=== PATIENT | female | born 1950 | race Caucasian/White ===

== ENCOUNTER 2019-09-05 05:08 | Inpatient (IN) ==
[2019-09-05] MEDS ORDERED: 0.9 % SODIUM CHLORIDE 1,000 ML IV ONE ×3 (05:36→16:15)
[2019-09-05] MEDS ORDERED: ONDANSETRON 4 MG/2 ML VIAL IV ONE (05:45)
[2019-09-05 06:19] LABS: Hemoglobin 12.1 g/dL (12.0-15.0); Mean Cell Volume 83.8 fL (80.0-100.0); Mean Corpuscular HGB Conc 32.7 g/dL (31.0-36.0); Mean Platelet Volume 7.7 fL (7.4-10.4); Platelet Count 176 K/mcL (140-440); RBC 4.41 M/mcL (4.00-5.20)
[2019-09-05 06:23] LABS: Appearance,Urine CLEAR; Bacteria,Urine 0 /hpf (0); Bilirubin,Urine NEG (NEG); Color,Urine YELLOW; Culture Indicated,Urine NO; Glucose,Urine (UA) NEGATIVE (NEG); Ketones,Urine NEG (NEG); Leukocyte Esterase,Urine NEG /uL (NEG); Mucus,Urine FEW /hpf (0); Nitrate,Urine NEG (NEG); Protein,Urine NEG (NEG); Specific Gravity,Urine 1.012 (1.000-1.035); Urine Blood 0.03 mg/dL (<0.03); Urine Hyaline Cast 28 /lpf (0-2); Urine RBC 1 /hpf (0-1); Urine Squamous Epithelial Cell 1 /hpf (0-4); Urine WBC 1 /hpf (0-4)
[2019-09-05 06:33] LABS: ALT/SGPT 10 U/l (0-40); AST/SGOT 18 U/l (0-37); Albumin 2.7 gm/dL (3.2-5.2); Albumin/Globulin Ratio 0.5 (1.0-2.3); Alkaline Phosphatase 71 U/L (39-117); Bilirubin,Total 1.3 mg/dL (0.0-1.0); Blood Urea Nitrogen 34 mg/dl (8-23); Calcium 9.3 mg/dl (8.6-10.4); Carbon Dioxide 19 mmol/L (22-30); Glomerular Filtration Rate 30; Glucose 262 mg/dL (70-105)
[2019-09-05 06:34] LABS: Chloride 92 mmol/L (96-108)
--- NOTE | 2019-09-05 06:39 | XRay Report ---
CLINICAL INFORMATION:Hypoxia. Cough. TECHNIQUE: AP portable semiupright chest x-ray COMPARISON: Previous chest x-rays dated 05/23/2017, 11/17/2015, 01/13/2015 FINDINGS:Bilateral, by basilar pulmonary parenchymal infiltrates. Appearance is consistent with pneumonia. Heart size and vascularity are within normal limits. No evidence for congestive heart failure. Follow-up radiographs are recommended. IMPRESSION: Bilateral pulmonary parenchymal infiltrates consistent with pneumonia. Interpreted and Authenticated by: Grey Ochoa 09/05/19
[2019-09-05 06:40] LABS: Band Neutrophils % 7 % (0-10); Lymphocytes % 3 % (15-49); Monocytes % (Manual) 2 % (1-12); Platelet Estimate NORMAL (NORMAL); RBC Morphology NORMAL (NORMAL); Segmented Neutrophils % 88 % (38-78)
[2019-09-05] MEDS ORDERED: CIPROFLOXACIN 400 MG/200 ML BAG IV ONE (06:45)
--- NOTE | 2019-09-05 07:05 | XRay Report ---
CLINICAL INFORMATION: Abdominal pain and distention. History of hepatitis. Possible peritonitis. TECHNIQUE: Supine and upright abdomen COMPARISON: None. FINDINGS: Examination is suboptimal as this patient was unable to cooperate. No pneumoperitoneum. Abdomen is relatively gasless. No focal abnormality. IMPRESSION: 1. Suboptimal evaluation 2. No pneumoperitoneum Interpreted and Authenticated by: Grey Ochoa 09/05/19
[2019-09-05] MEDS ORDERED: ALBUMIN HUMAN 25 GM/100 ML BAG IV ONE ×4 (07:14→07:20)
--- NOTE | 2019-09-05 07:16 | Emergency Department Note ---
Altered Mental Status HPI - General Chief Complaint: Altered Mental Status Stated Complaint: altered level consciousness Time Seen by Provider: 09/05/19 06:41 Source: patient Mode of arrival: ambulatory Limitations: no limitations - History of Present Illness HPI Narrative: 69-year-old female has a history of liver cirrhosis due to chronic hepatitis C and some chronic renal dysfunction and became somewhat confused and not making sense yesterday morning. When daughter arrived home after work around 1:30 AM today she was again not making much sense and was in and out of consciousness, could not walk, was falling asleep, and weak. This was quite unusual for her and that she usually is alert, interactive, appropriate, independent, drives, etc. For this reason she is brought to the emergency room this morning. She is also had vomiting including 5-10 times at home. Some or most morning she has some mild gagging and dry heaves but today was significantly different and worse. She is currently scheduled on Saturday, in 2 days, for paracentesis due to rather large and severe ascites built up from most likely her portal hypertension/cirrhosis. She has had paracentesis a total of 4 previous times the last being about a year and a half ago. Patient has had chills in the last 1-1/2-week. No sweats or fevers reported at home. She does not use oxygen at home. REVIEW OF SYSTEMS: No sore throat reported. Has some chronic runny nose. No chest pain Has had some chronic cough but has been more short of breath in the last couple of days. Has some chronic wheezing. Has an increase in amount of phlegm. Has complained of abdominal pain. She is chronically on hydromorphone 4 mg tablets and she takes them 2 or 3 times a day. Patient is stating that she takes 2 of them 3 times a day but daughter gives them to her and states that it is less than that. No diarrhea or constipation or hematochezia reported are known. No dysuria No joint pain No headaches but has been lightheaded/dizzy. - Related Data Home Medications Medication Instructions Recorded Confirmed albuterol sulfate 90 mcg/actuation 1 puff INHALATION Q4H PRN g 10/28/18 03/17/19 aerosol inhaler ascorbic acid (vitamin C) 1 each PO QDAY 10/28/18 03/17/19 baclofen 10 mg tablet 10 mg PO TID 10/28/18 03/17/19 blood sugar diagnostic See Dose Instructions .ROUTE 10/28/18 03/17/19 .MEDSUPPLY #10 each blood-glucose meter See Dose Instructions .ROUTE 10/28/18 03/17/19 .MEDSUPPLY #1 each fentanyl 75 mcg/hr transdermal 1 patch TRANSDERMA Q72H 10/28/18 03/17/19 patch fluticasone propionate 220 2 puff INHALATION BID g 10/28/18 03/17/19 mcg/actuation HFA aerosol inhaler furosemide 40 mg tablet 80 mg PO QDAY 10/28/18 03/17/19 glipizide 10 mg tablet, extended 10 mg PO QDAY 10/28/18 03/17/19 release 24 hr hydromorphone 4 mg tablet See Rx Instructions PO Q6H PRN 10/28/18 03/17/19 ipratropium-albuterol 0.5 mg-3 3 ml INHALATION .COMPLEX PRN 10/28/18 03/17/19 mg(2.5 mg base)/3 mL nebulization soln lancets See Dose Instructions .ROUTE 10/28/18 03/17/19 .MEDSUPPLY #50 each multivitamin 1 tab PO QAM 10/28/18 03/17/19 mupirocin 2 % topical ointment 1 applic TOPICAL TID 10/28/18 03/17/19 ondansetron 4 mg disintegrating 4 mg PO Q4H PRN tab 10/28/18 03/17/19 tablet salmeterol 50 mcg/dose blister 1 inh INHALATION BID 10/28/18 03/17/19 powder for inhalation spironolactone 100 mg tablet 100 mg PO BID tab 10/28/18 03/17/19 lactulose 10 gram/15 mL oral 30 g PO BID 11/26/18 03/17/19 solution levothyroxine 100 mcg tablet 100 mcg PO QDAY 11/26/18 03/17/19 cholecalciferol (vitamin D3) 400 each PO QDAY 12/17/18 03/17/19 ribavirin 600 mg (28)-400 mg (28) See Rx Instructions .ROUTE 12/17/18 03/17/19 tablets in a dose pack .COMPLEX tab gabapentin 300 mg capsule 300 mg PO BID cap 03/17/19 03/17/19 Previous Rx's Medication Instructions Recorded Triamcinolone Cream 0.1% 15G 1 dose TOPICAL BID #1 tube 01/28/19 [Kenalog Crm 0.1%] hydrOXYzine PAMOATE [Vistaril] 25 mg PO 3-4XD #60 cap 01/28/19 Allergies Allergy/AdvReac Type Severity Reaction Status Date / Time lorazepam [From Ativan] Allergy Unknown comma Verified 03/17/19 14:25 penicillin G Allergy Unknown Anaphylaxis Verified 03/17/19 14:25 Penicillins Allergy Unknown anaphylaxis/ Verified 03/17/19 14:25 swelling of throat/ rash tape Allergy Unknown Unknown Uncoded 03/17/19 14:25 Past Medical History - Past Medical History [facility] Narrative: Medical History (Last Updated 09/05/19 @ 07:22 by Wale Kamara DO) Cirrhosis of liver (Chronic) DMII (diabetes mellitus, type 2) (Chronic) 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) Diabetic peripheral neuropathy (Chronic) Chronic kidney disease, stage III (moderate) (Chronic) COLD (chronic obstructive lung disease) (Chronic) History of pneumonia (Resolved) Visual impairment (Chronic) History of tobacco use (Chronic) End stage liver disease (Chronic) Urinary incontinence (Chronic) Chronic constipation (Chronic) Hypothyroidism (Chronic) Hepatitis C (Resolved) Asthma (Chronic) Arthritis (Chronic) Myoclonic disorder (Chronic) Hernia of anterior abdominal wall (Chronic) Acute exacerbation of chronic bronchitis (Resolved) Cellulitis of lower limb (Resolved) [place] (Resolved) Eczema (Resolved) Localized edema due to fluid overload (Resolved) Overweight (Resolved) UTI (urinary tract infection) (Resolved) Chronic folliculitis (Inactive) Impingement syndrome of right shoulder region (Inactive) Past Surgical History (Last Updated 10/28/18 @ 15:04 by Aimee Elena) H/O hernia repair (Chronic) History of biopsy (Chronic) History of cholecystectomy (Chronic) Family History (Last Updated 10/28/18 @ 13:44 by Aimee Elena) Mother Intracranial aneurysm Father Myocardial infarction acute Brother Diabetes Medical history: Reports: arthritis, DM, osteoporosis, other Surgical history ED: Reports: herniorrhaphy, orthopedic, other (Bilateral knees), other (Intestinal) - Social History smoking status: Current every day smoker (Was a 1 pack/day smoker but has decreased down to 1 to 2 cigarettes/day.) Alcohol use: Reports: None Drug use: Reports: none Physical Exam Limitations: no limitations General appearance: lethargic, malaise, sleepy, other (Mild sallow-mcqueen color) Head: atraumatic, normocephalic Eye: Present: EOMI Neck: Present: trachea midline. Absent: lymphadenopathy, thyromegaly Chest: Present: symmetric chest wall rise Respiratory: Present: rales/crackles (Present in the left base, mild). Absent: respiratory distress, wheezes, stridor, accessory muscle use, prolonged expiratory phase Cardiovascular: Present: regular rate, tachycardia. Absent: systolic murmur, diastolic murmur Abdominal: Present: tenderness, other (Rather tense). Absent: distention, guarding, rebound, rigidity, organomegaly, mass Abdominal tenderness: Present: diffuse, moderate Extremities: Present: pretibial edema (1/4 bilateral), other (Atrophic muscles of lower extremities.). Absent: calf tenderness Neurological: Present: other (Sleepy. Intermittently says things that do make sense and adds to history but other times is inaccurate. Moves all extremities. Facial muscles symmetric. Eyes are symmetric.) Psychiatric: Present: other (Unable to assess due to underlying other medical problems and decreased mental status.) Skin: Present: cool, dry Course Vital Signs Temperature 99.4 F H 09/05/19 05:19 Pulse Rate 126 H 09/05/19 05:19 Respiratory Rate 17 09/05/19 05:19 Blood Pressure 119/93 09/05/19 05:19 Pulse Oximetry (%) 92 09/05/19 05:19 Temperature 100.3 F H 09/05/19 07:01 Pulse Rate 122 H 09/05/19 07:01 Respiratory Rate 19 09/05/19 07:01 Blood Pressure 120/86 09/05/19 07:01 Pulse Oximetry (%) 93 09/05/19 07:01 Altered Mental Status - [facility] Narrative Medical decision making narrative: 5:45 AM -interviewed and examined. Patient ill with hypoxia, tachycardia, fever. Sepsis work-up in progress. With abdominal pain and ascites, spontaneous bacterial peritonitis work-up in progress. Blood cultures obtained early on. EKG shows sinus tachycardia with small configurations throughout most of the leads. Lateral T wave nonspecific flattening or inversion. No ST-T wave segment depression or elevations. 249 Accu-Chek. Influenza test also ordered. 6:12 AM - I discussed with radiologist, Dr. Ochoa, who will facilitate getti ng ultrasound-guided paracentesis EMELINA. 6:50 AM approximately - Albumin ordered after reviewing UpToDate's recommendations. Patient on a background history of portal hypertension/cirrhosis and renal failure needs the albumin to try to preserve renal function. Patient has had a liter of fluid and a second liter is up on sepsis protocol. 6:55 AM approximately - ciprofloxacin ordered. Instructions for this to be given immediately following initial fluid for peritoneal analysis. 7:12 AM - chest x-ray demonstrates bilateral basilar pulmonary infiltrates consistent with pneumonia. 8:15 AM - spoke with hospitalist, Dr. Blum, who kindly accepts this patient for hospital service. We discussed her pneumonia on a background of must rule out spontaneous bacterial peritonitis, etc. He recommends going ahead with a cephalosporin considering that it only has a 3-4% cross-reactivity for allergic reactions with the penicillin class. - Lab Data Lab results reviewed: Yes I reviewed the patient's lab results. Result diagrams: 09/05/19 05:41 09/05/19 05:41 Lab Results 09/05/19 09/05/19 09/05/19 Range/Units 05:31 05:41 05:41 WBC 5.0 (4.5-11.0) K/mcL RBC 4.41 (4.00-5.20) M/mcL Hgb 12.1 (12.0-15.0) g/dL Hct 37.0 (36.0-48.0) % MCV 83.8 (80.0-100.0) fL MCH 27.4 (26.0-34.0) pg MCHC 32.7 (31.0-36.0) g/dL RDW 17.0 H (11.5-14.5) % Plt Count 176 (140-440) K/mcL MPV 7.7 (7.4-10.4) fL Total Counted 100 Seg Neutrophils % 88 H (38-78) % Band Neutrophils % 7 (0-10) % Lymphocytes % 3 L (15-49) % Monocytes % (Manual) 2 (1-12) % Platelet Estimate Normal (NORMAL) RBC Morphology Normal (NORMAL) VBG Lactic Acid (0.5-2.0) mmol/L Sodium 128 L (133-145) mmol/L Potassium 3.8 (3.3-5.1) mmol/L Chloride 92 L (96-108) mmol/L Carbon Dioxide 19 L (22-30) mmol/L Anion Gap 17.0 H (8-16) BUN 34 H (8-23) mg/dl Creatinine 1.7 H (0.6-1.1) mg/dl GFR Calculation 30 Glucose 262 H (70-105) mg/dL Calcium 9.3 (8.6-10.4) mg/dl Total Bilirubin 1.3 H (0.0-1.0) mg/dL AST 18 (0-37) U/l ALT 10 (0-40) U/l Alkaline Phosphatase 71 (39-117) U/L C-Reactive Protein (0.0-0.8) mg/dl Total Protein 8.7 H (5.9-8.4) gm/dL Albumin 2.7 L (3.2-5.2) gm/dL Globulin 6.0 H (2.2-3.7) gm/dL Albumin/Globulin Ratio 0.5 L (1.0-2.3) Procalcitonin (<0.10) ng/mL Urine Color Yellow Urine Appearance Clear Urine pH 6.0 (5.0-9.0) Ur Specific [place] 1.012 (1.000-1.035) Urine Protein Neg (NEG) mg/dL Urine Glucose (UA) Negative (NEG) mg/dL Urine Ketones Neg (NEG) mg/dL Urine Occult Blood 0.03 A (<0.03) mg/dL Urine Nitrate Neg (NEG) Urine Bilirubin Neg (NEG) mg/dL Urine Urobilinogen 2.0 A (NEG) mg/dL Ur Leukocyte Esterase Neg (NEG) /uL Urine RBC 1 (0-1) /hpf Urine WBC 1 (0-4) /hpf Ur Squamous Epith Cells 1 (0-4) /hpf Urine Bacteria 0 (0) /hpf Hyaline Casts 28 H (0-2) /lpf Urine Mucus Few (0) /hpf Ur Culture Indicated? No Periton Neutrophils Periton Lymphocytes Peritoneal Monocytes Peritoneal Eosinophils Peritoneal Basophils Periton Mesothelial Periton Macrophages Peritoneal Plasma Cell Peritoneal Other Cells Peritoneal Diff Commnt 09/05/19 09/05/19 09/05/19 Range/Units 05:41 05:41 05:41 WBC (4.5-11.0) K/mcL RBC (4.00-5.20) M/mcL Hgb (12.0-15.0) g/dL Hct (36.0-48.0) % MCV (80.0-100.0) fL MCH (26.0-34.0) pg MCHC (31.0-36.0) g/dL RDW (11.5-14.5) % Plt Count (140-440) K/mcL MPV (7.4-10.4) fL Total Counted Seg Neutrophils % (38-78) % Band Neutrophils % (0-10) % Lymphocytes % (15-49) % Monocytes % (Manual) (1-12) % Platelet Estimate (NORMAL) RBC Morphology (NORMAL) VBG Lactic Acid 3.3 H (0.5-2.0) mmol/L Sodium (133-145) mmol/L Potassium (3.3-5.1) mmol/L Chloride (96-108) mmol/L Carbon Dioxide (22-30) mmol/L Anion Gap (8-16) BUN (8-23) mg/dl Creatinine (0.6-1.1) mg/dl GFR Calculation Glucose (70-105) mg/dL Calcium (8.6-10.4) mg/dl Total Bilirubin (0.0-1.0) mg/dL AST (0-37) U/l ALT (0-40) U/l Alkaline Phosphatase (39-117) U/L C-Reactive Protein 14.9 H (0.0-0.8) mg/dl Total Protein (5.9-8.4) gm/dL Albumin (3.2-5.2) gm/dL Globulin (2.2-3.7) gm/dL Albumin/Globulin Ratio (1.0-2.3) Procalcitonin 4.44 (<0.10) ng/mL Urine Color Urine Appearance Urine pH (5.0-9.0) Ur Specific [place] (1.000-1.035) Urine Protein (NEG) mg/dL Urine Glucose (UA) (NEG) mg/dL Urine Ketones (NEG) mg/dL Urine Occult Blood (<0.03) mg/dL Urine Nitrate (NEG) Urine Bilirubin (NEG) mg/dL Urine Urobilinogen (NEG) mg/dL Ur Leukocyte Esterase (NEG) /uL Urine RBC (0-1) /hpf Urine WBC (0-4) /hpf Ur Squamous Epith Cells (0-4) /hpf Urine Bacteria (0) /hpf Hyaline Casts (0-2) /lpf Urine Mucus (0) /hpf Ur Culture Indicated? Periton Neutrophils Periton Lymphocytes Peritoneal Monocytes Peritoneal Eosinophils Peritoneal Basophils Periton Mesothelial Periton Macrophages Peritoneal Plasma Cell Peritoneal Other Cells Peritoneal Diff Commnt 09/05/19 Range/Units 07:52 WBC (4.5-11.0) K/mcL RBC (4.00-5.20) M/mcL Hgb (12.0-15.0) g/dL Hct (36.0-48.0) % MCV (80.0-100.0) fL MCH (26.0-34.0) pg MCHC (31.0-36.0) g/dL RDW (11.5-14.5) % Plt Count (140-440) K/mcL MPV (7.4-10.4) fL Total Counted Seg Neutrophils % (38-78) % Band Neutrophils % (0-10) % Lymphocytes % (15-49) % Monocytes % (Manual) (1-12) % Platelet Estimate (NORMAL) RBC Morphology (NORMAL) VBG Lactic Acid (0.5-2.0) mmol/L Sodium (133-145) mmol/L Potassium (3.3-5.1) mmol/L Chloride (96-108) mmol/L Carbon Dioxide (22-30) mmol/L Anion Gap (8-16) BUN (8-23) mg/dl Creatinine (0.6-1.1) mg/dl GFR Calculation Glucose (70-105) mg/dL Calcium (8.6-10.4) mg/dl Total Bilirubin (0.0-1.0) mg/dL AST (0-37) U/l ALT (0-40) U/l Alkaline Phosphatase (39-117) U/L C-Reactive Protein (0.0-0.8) mg/dl Total Protein (5.9-8.4) gm/dL Albumin (3.2-5.2) gm/dL Globulin (2.2-3.7) gm/dL Albumin/Globulin Ratio (1.0-2.3) Procalcitonin (<0.10) ng/mL Urine Color Urine Appearance Urine pH (5.0-9.0) Ur Specific [place] (1.000-1.035) Urine Protein (NEG) mg/dL Urine Glucose (UA) (NEG) mg/dL Urine Ketones (NEG) mg/dL Urine Occult Blood (<0.03) mg/dL Urine Nitrate (NEG) Urine Bilirubin (NEG) mg/dL Urine Urobilinogen (NEG) mg/dL Ur Leukocyte Esterase (NEG) /uL Urine RBC (0-1) /hpf Urine WBC (0-4) /hpf Ur Squamous Epith Cells (0-4) /hpf Urine Bacteria (0) /hpf Hyaline Casts (0-2) /lpf Urine Mucus (0) /hpf Ur Culture Indicated? Periton Neutrophils Not Reportable Periton Lymphocytes Not Reportable Peritoneal Monocytes Not Reportable Peritoneal Eosinophils Not Reportable Peritoneal Basophils Not Reportable Periton Mesothelial Not Reportable Periton Macrophages Not Reportable Peritoneal Plasma Cell Not Reportable Peritoneal Other Cells Not Reportable Peritoneal Diff Commnt Not Reportable - Radiology Data Radiology results reviewed: Yes I reviewed the patient's radiology results. - EKG Data EKG attestation: Yes There are no EKG findings of acute coronary syndrome, Yes This EKG will be read by bale piler EKG results narrative: See above. Disposition Pt seen by STREETS AND BUILDINGS DECORATOR/PA only: No Clinical Impression: Hypoxia Altered mental status Qualifiers: Altered mental status type: unspecified Qualified Code(s): R41.82 - Altered mental status, unspecified Pneumonia Qualifiers: Pneumonia type: due to unspecified organism Laterality: bilateral Lung location: lower lobe of lung Qualified Code(s): J18.9 - Pneumonia, unspecified organism Ascites Qualifiers: Ascites type: other type Qualified Code(s): R18.8 - Other ascites Abdominal pain Qualifiers: Abdominal location: generalized Qualified Code(s): R10.84 - Generalized abdominal pain Disposition: Xfer As Inpt ([facility]) Condition: Serious Referrals: Kaushik Anderson MD [Primary Care Provider] -
[2019-09-05] MEDS ORDERED: METOCLOPRAMIDE 10 MG/2 ML VIAL IV PRN (08:18)
[2019-09-05] MEDS ORDERED: INSULIN REGULAR, HUMAN 1 UNIT/0.01 ML UNIT SQ ONE (08:35)
[2019-09-05 08:48] LABS: Glucose,Peritoneal Fluid 186 mg/dL; Total Protein,Peritoneal Fluid 4.4 gm/dL
[2019-09-05] MEDS: cefTRIAXone 2 GM VIAL IM ONE ×2 (08:50→09:21)
[2019-09-05] MEDS ORDERED: LEVOFLOXACIN 750 MG/150 ML BAG IV SCH (09:00)
[2019-09-05] MEDS ORDERED: cefTRIAXone 2 GM in DEXTROSE 5% IN WATER 50 ML IV ONE (09:17)
[2019-09-05] MEDS ORDERED: POTASSIUM CHLORIDE 20 MEQ PACKET PO PRN (09:51)
[2019-09-05] MEDS ORDERED: MAGNESIUM SULFATE 2 GM/50 ML BAG IV PRN (09:51)
[2019-09-05] MEDS ORDERED: ACETAMINOPHEN 325 MG TABLET PO PRN (09:51)
[2019-09-05] MEDS ORDERED: POLYETHYLENE GLYCOL 3350 17 GM PACKET PO PRN (09:51)
[2019-09-05] MEDS ORDERED: BISACODYL 10 MG SUPP.RECT PR PRN (09:51)
[2019-09-05] MEDS ORDERED: ONDANSETRON 4 MG/2 ML VIAL IV PRN (09:51)
--- NOTE | 2019-09-05 09:52 | Internal Med History&Physical ---
Medical - H&P: HPI Patient information: Note initiated : 09/05/19 at 9:48 am Service Date, if different from initiated Date: [] Patient: Clare Sheehan a 69 y/o F admitted on 09/05/19 for altered level consciousness. Chief Complaint: [] Chief complaint: Acute change in mental status/abdominal pain History of present illness: Ms. 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 Symptoms have been progressing over the last couple of days and patient unable to think clearly. She c/o 7/10 abdominal pain and was noted to have a fever. Over the last couple of days she has not been able to function and essentially laying on the bed. Initial work-up in the ER was consistent with severe sepsis along with findings suggestive of SBP and basilar pneumonia on imaging. Blood cultures pending, elevated lactate at 3.3. Creatinine 1.7 up from baseline 1.3. Patient underwent 6 L paracentesis results of which are awaited. Subsequently hospitalist service consulted after patient received antibiotics At the time evaluation patient is very lethargic and fatigued. Unable to provide a detailed history. Endorses to symptoms as above including fever abdominal pain and weakness. No family members present. Most of the history was obtained from review of medical records and from ER physician. Review of systems A 10 point review system was performed and is negative except for ones discussed above Medical - H&P: PMH Medical history: Visual impairment (Chronic) History of tobacco use (Chronic) End stage liver disease (Chronic) Urinary incontinence (Chronic) Impingement syndrome of right shoulder region (Chronic) Chronic folliculitis (Chronic) [place] (Chronic) Left 1st interspace Cellulitis of lower limb (Chronic) Right Chronic constipation (Chronic) Hernia of anterior abdominal wall (Chronic) COLD (chronic obstructive lung disease) (Chronic) Acute exacerbation of chronic bronchitis (Chronic) Myoclonic disorder (Chronic) Overweight (Chronic) Diabetic renal disease (Chronic) Diabetic peripheral neuropathy (Chronic) Type II diabetes mellitus, uncontrolled (Chronic) 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) Elevated serum creatinine (Chronic) Hypothyroidism (Chronic) Hepatitis C (Chronic) DMII (diabetes mellitus, type 2) (Chronic) Cirrhosis of liver (Chronic) Asthma (Chronic) Arthritis (Chronic) Surgical History H/O hernia repair (Chronic) History of biopsy (Chronic) 05/02/18 Stomach-antrum: Gastric ulcer; gastritis; esophageal varices History of cholecystectomy (Chronic) Family History Mother , at age 37 from aneurysm Intracranial aneurysm Father , at age 68 Myocardial infarction acute Brother Diabetes Social History household members: alone education level: high school occupational status: retired sexually active: No physical activity: none smoking status: Current some day smoker alcohol intake frequency: does not drink substance use type: marijuana seatbelt use: always working smoke detector in home: Yes firearms in home: No Medical - H&P: Meds Home Medications Medication Instructions Recorded Confirmed Type albuterol sulfate 90 mcg/actuation 1 puff INHALATION Q4H PRN g 10/28/18 03/17/19 History aerosol inhaler ascorbic acid (vitamin C) 1 each PO QDAY 10/28/18 03/17/19 History baclofen 10 mg tablet 10 mg PO TID 10/28/18 09/05/19 History fluticasone propionate 220 2 puff INHALATION BID g 10/28/18 09/05/19 History mcg/actuation HFA aerosol inhaler furosemide 40 mg tablet 80 mg PO QDAY 10/28/18 09/05/19 History glipizide 10 mg tablet, extended 10 mg PO QDAY 10/28/18 09/05/19 History release 24 hr hydromorphone 4 mg tablet 4 - 8 mg PO Q6H PRN 10/28/18 09/05/19 History ipratropium-albuterol 0.5 mg-3 3 ml INHALATION .COMPLEX PRN 10/28/18 03/17/19 History mg(2.5 mg base)/3 mL nebulization soln multivitamin 1 tab PO QAM 10/28/18 03/17/19 History mupirocin 2 % topical ointment 1 applic TOPICAL TID 10/28/18 09/05/19 History ondansetron 4 mg disintegrating 4 mg PO Q4H PRN tab 10/28/18 09/05/19 History tablet salmeterol 50 mcg/dose blister 1 inh INHALATION BID 10/28/18 09/05/19 History powder for inhalation spironolactone 100 mg tablet 100 mg PO BID tab 10/28/18 09/05/19 History lactulose 10 gram/15 mL oral 30 g PO BID 11/26/18 09/05/19 History solution levothyroxine 100 mcg tablet 125 mcg PO QDAY 11/26/18 09/05/19 History cholecalciferol (vitamin D3) 400 each PO QDAY 12/17/18 03/17/19 History ribavirin 600 mg (28)-400 mg (28) See Rx Instructions .ROUTE 12/17/18 03/17/19 History tablets in a dose pack .COMPLEX tab Triamcinolone Cream 0.1% 15G 1 dose TOPICAL BID #1 tube 01/28/19 09/05/19 Rx [Kenalog Crm 0.1%] gabapentin 300 mg capsule 300 mg PO TID cap 03/17/19 09/05/19 History Omeprazole [Prilosec] 20 mg PO DAILY 09/05/19 09/05/19 History fentaNYL [Fentanyl] 50 mcg TRANSDERMAL Q3D 09/05/19 09/05/19 History hydrOXYzine PAMOATE [Vistaril] 100 mg PO BID PRN 09/05/19 09/05/19 History Allergies Allergy/AdvReac Type Severity Reaction Status Date / Time penicillin G Allergy Severe Anaphylaxis Verified 09/05/19 10:41 Penicillins Allergy Severe anaphylaxis/ Verified 09/05/19 10:41 swelling of throat/ rash lorazepam [From Ativan] AdvReac Severe Other Verified 09/05/19 10:41 tape Allergy Unknown Unknown Uncoded 03/17/19 14:25 Medical - H&P: Exam - Constitutional Vitals: Temp Pulse Resp BP Pulse Ox 99.7 F H 118 H 20 96/77 85 L 09/05/19 08:30 09/05/19 08:29 09/05/19 08:42 09/05/19 08:30 09/05/19 08:29 General appearance: moderate distress (Abdominal discomfort lethargic) Exam: Patient lethargic fatigued Head normocephalic Oral cavity dry mucous membranes Eye movement symmetrical: No icterus No ear nose discharge Neck no lymphadenopathy S1-S2 occasionally irregular but sinus on conveyor monitor, no murmur Diminished breath sounds bilateral bases Abdomen diffusely tender Lower extremity no sinus clubbing no joint swelling, pallor noted Skin no suspicious lesion except pallor Psych anxious fatigue lethargic but cooperative Neuro nonfocal, moving all 4 extremities Medical - H&P: Reslt - Labs CBC & Chem 7: 09/06/19 03:50 09/06/19 03:50 Labs: Short CBC 09/05/19 Range/Units 05:41 WBC 5.0 (4.5-11.0) K/mcL Hgb 12.1 (12.0-15.0) g/dL Hct 37.0 (36.0-48.0) % Plt Count 176 (140-440) K/mcL BMP 09/05/19 05:41 Sodium 128 L Potassium 3.8 Chloride 92 L Carbon Dioxide 19 L BUN 34 H Creatinine 1.7 H Glucose 262 H Calcium 9.3 Liver Function 09/05/19 Range/Units 05:41 Total Bilirubin 1.3 H (0.0-1.0) mg/dL AST 18 (0-37) U/l ALT 10 (0-40) U/l Alkaline Phosphatase 71 (39-117) U/L Albumin 2.7 L (3.2-5.2) gm/dL Urine 09/05/19 Range/Units 05:31 Urine Color Yellow Urine Appearance Clear Urine pH 6.0 (5.0-9.0) Ur Specific [place] 1.012 (1.000-1.035) Urine Protein Neg (NEG) mg/dL Urine Glucose (UA) Negative (NEG) mg/dL Medical - H&P: A/P (1) Acute alteration in mental status Current visit: Yes Status: Acute * Septic shock with multiple endorgan dysfunction including AMS/DAREN * Acute change mental status possibly secondary to sepsis. * Bilateral lower lobe pneumonia continue antibiotic coverage * Diffuse abdominal tenderness in the setting of ascites-await paracentesis results. Likely SBP. Start patient on Rocephin/quinolone. * Acute on chronic kidney disease -very high risk hepatorenal syndrome in the setting of SBP/septic shock. Continue close monitoring/albumin infusion and maintain map around 70. Avoid NSAIDs and nephrotoxic's. Nephrology consult if indicated * History of DM type II continue basal/prandial insulin * Hypothyroidism continue thyroxine * Liver cirrhosis continue spironolactone once systolics improved * Neuropathy continue gabapentin * Chronic pain on home medications including fentanyl patch * Full code * Prophylaxis heparin Plan * ICU admit, patient critically ill. [place] II score 21 * Broad antibiotic coverage * ID consult * Nephrology consult if indicated * Prior medical condition management home meds * Vasopressors to keep map at goal * Patient critically ill 70 minutes spent on history and physical and care coordination. An additional critical care time spent in excess of 35 minutes.
[2019-09-05] MEDS: 0.9 % SODIUM CHLORIDE 1,000 ML IV SCH (09:57)
[2019-09-05] MEDS ORDERED: ALBUMIN HUMAN 100 ML IV ONE (10:03)
--- NOTE | 2019-09-05 10:04 | Ultrasound Report ---
CLINICAL INFORMATION: Hepatitis. Ascites and possible peritonitis TECHNIQUE: Informed consent was obtained. Ascitic fluid was localized using ultrasound. Routine ChloraPrep skin cleansing. 1% lidocaine injected subcutaneously and deep. An 8 Yi safety centesis set was utilized. 9.2 L of max-colored fluid was removed. Albumin was administered per protocol IMPRESSION: 1. Ultrasound-guided paracentesis 2. 9.2 L fluid removed Interpreted and Authenticated by: Grey Ochoa 09/05/19
[2019-09-05 10:07] LABS: Nucleated Cel,Peritoneal Fluid 14214 /cumm; RBC,Peritoneal Fluid < 50000 /cumm
[2019-09-05 10:10] LABS: Macrophages,Peritoneal Fluid 5 %; Monocyte,Peritoneal Fluid 1 %; Neutrophils,Peritoneal Fluid 90 %
[2019-09-05] MEDS: BUDESONIDE 0.5 MG/2 ML AMPUL.NEB NEB SCH (10:28)
[2019-09-05] MEDS: HEPARIN 5,000 UNIT/ML VIAL SQ SCH ×2 (10:38→20:27)
[2019-09-05] MEDS: DOCUSATE SODIUM 100 MG CAPSULE PO SCH ×2 (10:40→20:24)
[2019-09-05] MEDS: FOLIC ACID 1 MG TABLET PO SCH (10:40)
[2019-09-05] MEDS: THIAMINE 100 MG TABLET PO SCH (10:40)
[2019-09-05] MEDS: MULTIVIT,THER IRON,CA,FA & MIN 1 TABLET PO SCH (10:40)
[2019-09-05] MEDS: CYANOCOBALAMIN (VITAMIN B-12) 500 MCG TABLET PO SCH ×2 (10:40→20:28)
[2019-09-05] MEDS: INSULIN LISPRO 1 UNIT/0.01 ML UNIT SQ SCH ×3 (10:57→21:14)
[2019-09-05] MEDS: ONDANSETRON 4 MG ODT TABLET SL PRN ×2 (12:15→23:10)
[2019-09-05] MEDS: HYDROmorphone 2 MG TABLET PO PRN ×2 (13:31→19:45)
[2019-09-05] MEDS: 0.9 % SODIUM CHLORIDE 10 ML SYRINGE IV SCH ×2 (13:32→21:15)
[2019-09-05] MEDS: INSULIN GLARGINE, HUMAN 1 UNIT/0.01 ML SQ SCH (13:32)
[2019-09-05] MEDS: 0.9 % SODIUM CHLORIDE 250 ML IV SCH (15:49)
[2019-09-05] MEDS: NOREPINEPHRINE BITARTRATE 16 MG in 0.9 % SODIUM CHLORIDE 234 ML IV SCH (16:01)
[2019-09-05] MEDS: SENNOSIDES/DOCUSATE SODIUM 1 TAB TABLET PO SCH (20:24)
[2019-09-05] MEDS: ACETAMINOPHEN 500 MG/50 ML BOTTLE IV PRN (20:27)
[2019-09-05] MEDS ORDERED: MELATONIN 3 MG TABLET PO PRN (21:00)
[2019-09-05] MEDS ORDERED: VANCOMYCIN 1,500 MG in 0.9 % SODIUM CHLORIDE 500 ML IV ONE (23:35)
[2019-09-05] MEDS ORDERED: CALCIUM CARBONATE 500 MG TAB.CHEW CHEWED PRN (23:59)
[2019-09-06] MEDS ORDERED: CALCIUM CARBONATE 500 MG TAB.CHEW ONE (00:07)
[2019-09-06] MEDS: BUDESONIDE 0.5 MG/2 ML AMPUL.NEB NEB SCH ×3 (02:23→20:16)
[2019-09-06] MEDS: 0.9 % SODIUM CHLORIDE 250 ML IV SCH ×2 (03:51→15:17)
[2019-09-06 04:59] LABS: Hematocrit 32.8 % (36.0-48.0); Hemoglobin 10.6 g/dL (12.0-15.0); Mean Cell Volume 85.2 fL (80.0-100.0); Mean Corpuscular HGB Conc 32.3 g/dL (31.0-36.0); Mean Platelet Volume 7.6 fL (7.4-10.4); Platelet Count 132 K/mcL (140-440); RBC 3.85 M/mcL (4.00-5.20); Red Cell Distribution Width 17.3 % (11.5-14.5); WBC 12.2 K/mcL (4.5-11.0)
[2019-09-06 05:28] LABS: Anisocytosis 1+ (NONE SEEN); Band Neutrophils % 5 % (0-10); Lymphocytes % 2 % (15-49); Monocytes % (Manual) 1 % (1-12); Platelet Estimate DECREASED (NORMAL); RBC Morphology ABNORMAL (NORMAL); Segmented Neutrophils % 92 % (38-78)
[2019-09-06 05:44] LABS: ALT/SGPT 7 U/l (0-40); AST/SGOT 20 U/l (0-37); Albumin 2.9 gm/dL (3.2-5.2); Albumin/Globulin Ratio 0.8 (1.0-2.3); Alkaline Phosphatase 70 U/L (39-117); Bilirubin,Direct 0.5 mg/dL (0.0-0.3); Bilirubin,Total 1.1 mg/dL (0.0-1.0); Blood Urea Nitrogen 30 mg/dl (8-23); Calcium 8.5 mg/dl (8.6-10.4); Carbon Dioxide 19 mmol/L (22-30); Chloride 102 mmol/L (96-108); Globulin 3.7 gm/dL (2.2-3.7); Glomerular Filtration Rate 42; Glucose 195 mg/dL (70-105); Lactate Dehydrogenase 169 U/L (94-250); Phosphorous 2.9 mg/dL (2.7-4.5); Triglycerides 67 mg/dl (<150); Uric Acid 6.1 mg/dL (2.5-8.0)
[2019-09-06] MEDS: HYDROmorphone 2 MG TABLET PO PRN (05:48)
[2019-09-06] MEDS: 0.9 % SODIUM CHLORIDE 10 ML SYRINGE IV SCH ×3 (05:49→21:33)
[2019-09-06] MEDS: 0.9 % SODIUM CHLORIDE 1,000 ML IV SCH (05:50)
[2019-09-06] MEDS: INSULIN LISPRO 1 UNIT/0.01 ML UNIT SQ SCH ×4 (07:51→21:52)
[2019-09-06] MEDS ORDERED: cefTRIAXone 2 GM in DEXTROSE 5% IN WATER 50 ML IV SCH (09:00)
[2019-09-06] MEDS: CYANOCOBALAMIN (VITAMIN B-12) 500 MCG TABLET PO SCH ×2 (09:38→21:31)
[2019-09-06] MEDS: MULTIVIT,THER IRON,CA,FA & MIN 1 TABLET PO SCH (09:38)
[2019-09-06] MEDS: HEPARIN 5,000 UNIT/ML VIAL SQ SCH ×2 (09:38→21:31)
[2019-09-06] MEDS: OMEPRAZOLE 20 MG CAPSULE PO SCH (09:38)
[2019-09-06] MEDS: FOLIC ACID 1 MG TABLET PO SCH (09:38)
[2019-09-06] MEDS: THIAMINE 100 MG TABLET PO SCH (09:38)
[2019-09-06] MEDS: INSULIN GLARGINE, HUMAN 1 UNIT/0.01 ML SQ SCH (09:39)
[2019-09-06] MEDS: DOCUSATE SODIUM 100 MG CAPSULE PO SCH ×2 (09:39→21:31)
[2019-09-06] MEDS: IPRATROPIUM/ALBUTEROL 3 ML AMPUL.NEB NEB PRN ×2 (09:44→20:16)
[2019-09-06] MEDS ORDERED: HYDROMORPHONE HCL PO PRN (09:56)
--- NOTE | 2019-09-06 09:57 | Internal Med Progress Note ---
Medical - PN: Subj Patient information: Note initiated : 09/06/19 at 9:54 am Service Date, if different from initiated Date: [] Patient: Clare Sheehan a 69 y/o F admitted on 09/05/19 for altered level consciousness. Chief Complaint: [] Interval history: Ms. 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 Symptoms have been progressing over the last couple of days and patient unable to think clearly. She c/o 7/10 abdominal pain and was noted to have a fever. Over the last couple of days she has not been able to function and essentially laying on the bed. Initial work-up in the ER was consistent with severe sepsis along with findings suggestive of SBP and basilar pneumonia on imaging. Blood cultures pending, elevated lactate at 3.3. Creatinine 1.7 up from baseline 1.3. Patient underwent 6 L paracentesis results of which are awaited. Subsequently hospitalist service consulted after patient received antibiotics At the time evaluation patient is very lethargic and fatigued. Unable to provide a detailed history. Endorses to symptoms as above including fever abdominal pain and weakness. No family members present. Most of the history was obtained from review of medical records and from ER physician. 09/06-GNR on blood cultures/GPC on 1 culture and ascitic fluid Gram stain. Discussed with ID. Antibiotics changed to vancomycin/cefepime. Clinically improving. Lactic acid downtrending from 3.9-1.9. White count 12.2, creatinine down from 1.7-1.3. On Levophed to keep map at goal. Confirmed SBP with over 14,000 white cells in the sciatic fluid with gram-positive cocci in culture. Remains critically ill. Sister at bedside. Discussed prognosis and treatment plan. Repeat surveillance cultures today. - Constitutional Vitals: Vital Signs Temp Pulse Resp BP Pulse Ox 99.0 F 85 21 114/81 96 09/06/19 08:00 09/06/19 08:00 09/06/19 08:00 09/06/19 08:00 09/06/19 08:00 Period Temp Pulse Resp BP Sys/Will Pulse Ox Last 24 Hr 97.5 F-100.0 F 76-105 15-30 73-139/49-89 94-99 Intake and Output 09/05/19 09/06/19 09/06/19 21:59 05:59 13:59 Intake Total 260 3041 Output Total 385 505 160 Balance -125 2536 -160 Weight 138 lb 8 oz Intake & Output: Intake & Output 09/05/19 09/06/19 09/06/19 21:59 05:59 13:59 Intake Total 260 3041 Output Total 385 505 160 Balance -125 2536 -160 Weight 138 lb 8 oz Intake: IV 200 3041 Sodium Chloride 0.9% 1,000 ml @ 1994 50 mls/hr IV .Q20H KAT Rx#: [id number] Sodium Chloride 0.9% 250 ml @ 241 20 mls/hr IV .[id number] KAT Rx#: [id number] Levophed 16 mg In Sodium 106 Chloride 0.9% 234 ml @ 10 MCG/ MIN 9.375 mls/hr IV Q24H KAT Rx #:[id number] Vancomycin 1,500 mg In Sodium 500 Chloride 0.9% 500 ml @ 333.3 mls/hr IV ONCE ONE Rx#: [id number] Oral 60 Output: Urine Catheter Amount 385 505 160 Other: Urine Appearance Clear Clear Urine Color Light Sheron Light Sheron General appearance: no acute distress Exam: More alert and oriented Currently on vasopressors Persistent abdominal tenderness No anxiety Medical - PN: Obj Da - Labs CBC & Chem 7: 09/06/19 03:50 09/06/19 03:50 Labs: Abnormal Lab Results 09/06/19 09/06/19 09/05/19 03:50 03:50 14:35 WBC 12.2 H RBC 3.85 L Hgb 10.6 L Hct 32.8 L RDW 17.3 H Plt Count 132 L Seg Neutrophils % 92 H Lymphocytes % 2 L Anisocytosis 1+ A VBG Lactic Acid 3.9 H Sodium Chloride Carbon Dioxide 19 L Anion Gap BUN 30 H Creatinine 1.3 H Glucose 195 H Calcium 8.5 L Magnesium 1.4 L Total Bilirubin 1.1 H Direct Bilirubin 0.5 H C-Reactive Protein Total Protein Albumin 2.9 L Globulin Albumin/Globulin Ratio 0.8 L Urine Occult Blood Urine Urobilinogen Hyaline Casts 09/05/19 09/05/19 09/05/19 05:41 05:41 05:41 WBC RBC Hgb Hct RDW Plt Count Seg Neutrophils % Lymphocytes % Anisocytosis VBG Lactic Acid 3.3 H Sodium 128 L Chloride 92 L Carbon Dioxide 19 L Anion Gap 17.0 H BUN 34 H Creatinine 1.7 H Glucose 262 H Calcium Magnesium Total Bilirubin 1.3 H Direct Bilirubin C-Reactive Protein 14.9 H Total Protein 8.7 H Albumin 2.7 L Globulin 6.0 H Albumin/Globulin Ratio 0.5 L Urine Occult Blood Urine Urobilinogen Hyaline Casts 09/05/19 09/05/19 05:41 05:31 WBC RBC Hgb Hct RDW 17.0 H Plt Count Seg Neutrophils % 88 H Lymphocytes % 3 L Anisocytosis VBG Lactic Acid Sodium Chloride Carbon Dioxide Anion Gap BUN Creatinine Glucose Calcium Magnesium Total Bilirubin Direct Bilirubin C-Reactive Protein Total Protein Albumin Globulin Albumin/Globulin Ratio Urine Occult Blood 0.03 A Urine Urobilinogen 2.0 A Hyaline Casts 28 H Meds: Medications Acetaminophen (Tylenol) 650 mg PO Q4-6HP PRN; Protocol PRN Reason: Per Pain Protocol/Fever > 101 Albuterol/Ipratropium (Duoneb) 3 ml NEB Q4HP PRN PRN Reason: Shortness Of Breath Last Admin: 09/06/19 09:44 Dose: 3 ml Documented by: Bisacodyl (Dulcolax) 10 mg ND Q2-3DAYS PRN PRN Reason: Constipation Budesonide (Pulmicort) 0.5 mg NEB Q12 [facility] Last Admin: 09/06/19 09:44 Dose: 0.5 mg Documented by: Calcium Carbonate/Glycine (Tums) 500 mg CHEWED Q4HP PRN PRN Reason: Dyspepsia Cefepime HCl (Maxipime) 2 gm IV Q12H [facility]; Protocol Cyanocobalamin (Vitamin B-12) 1,000 mcg PO BID [facility] Stop: 09/09/19 21:01 Last Admin: 09/06/19 09:38 Dose: 1,000 mcg Documented by: Diagnostic Test (Pha) (Accu-Chek) 1 each FS ACHS [facility] Last Admin: 09/06/19 07:46 Dose: 1 each Documented by: Docusate Sodium (Colace) 100 mg PO BID [facility] Last Admin: 09/06/19 09:39 Dose: 100 mg Documented by: Folic Acid (Folic Acid) 1 mg PO DAILY [facility] Last Admin: 12/08/19 09:38 Dose: 1 mg Documented by: Heparin Sodium (Porcine) (Heparin) 5,000 unit SQ Q12 [facility] Last Admin: 09/06/19 09:38 Dose: 5,000 unit Documented by: Hydromorphone HCl (Dilaudid) 4 - 8 mg PO Q6HP PRN; Protocol PRN Reason: Per Pain Protocol Last Admin: 09/06/19 05:48 Dose: 8 mg Documented by: Sodium Chloride (Sodium Chloride 0.9%) 1,000 mls @ 50 mls/hr IV .Q20H [facility] Stop: 09/07/19 21:50 Last Admin: 09/06/19 05:50 Dose: 50 mls/hr Documented by: Magnesium Sulfate (Magnesium Sulfate) 2 gm in 50 mls @ 50 mls/hr IV UD PRN PRN Reason: MG = or < 1.7 Norepinephrine Bitartrate 16 (mg/ Sodium Chloride) 250 mls @ 9.375 mls/hr IV Q24H [facility]; Protocol Last Titration: 09/06/19 03:35 Dose: 5 mcg/min, 4.688 mls/hr Documented by: Sodium Chloride (Sodium Chloride 0.9%) 250 mls @ 20 mls/hr IV .[id number] [facility] Last Admin: 09/06/19 03:51 Dose: 20 mls/hr Documented by: Acetaminophen (Ofirmev) 500 mg in 50 mls @ 100 mls/hr IV Q6HP PRN; Protocol PRN Reason: PAIN/FEVER > 101 Last Infusion: 09/05/19 21:00 Dose: Infused Documented by: Vancomycin HCl 1,000 mg/ (Sodium Chloride) 250 mls @ 250 mls/hr IV DAILY [facility] Insulin Glargine (Lantus) 10 unit SQ DAILY [facility] Last Admin: 09/06/19 09:39 Dose: 10 units Documented by: Insulin Human Lispro (Humalog) 0 unit SQ ACHS [facility]; Protocol Last Admin: 09/06/19 07:51 Dose: 6 units Documented by: Iron Carb/Multivit/[place]/Folic Acid (Multivitamin W/Minerals) 1 tab PO DAILY [facility] Last Admin: 09/06/19 09:38 Dose: 1 tab Documented by: Melatonin (Melatonin 3mg Tablet) 3 mg PO HSP PRN PRN Reason: Insomnia Metoclopramide HCl (Reglan) 5 mg IV Q3HP PRN PRN Reason: nausea/vomiting Omeprazole (Prilosec) 20 mg PO ACB [facility] Last Admin: 09/06/19 09:38 Dose: 20 mg Documented by: Ondansetron HCl (Zofran Odt) 4 mg SL Q4-6HP PRN; Protocol PRN Reason: Nausea And Vomiting Last Admin: 09/05/19 23:10 Dose: 4 mg Documented by: Ondansetron HCl (Zofran) 4 mg IV Q4-6HP PRN; Protocol PRN Reason: Nausea And Vomiting Polyethylene Glycol (Miralax) 17 gm PO DAILYP PRN PRN Reason: Constipation Potassium Chloride (Klor-Con) 40 meq PO DAILYP PRN PRN Reason: K+ < 3.5 Senna/Docusate Sodium (Senna Plus Tablet) 1 tab PO HS [facility] Last Admin: 09/05/19 20:24 Dose: Not Given Documented by: Sodium Chloride (Saline Flush) 10 ml IV Q8 [facility] Last Admin: 09/06/19 05:49 Dose: 10 ml Documented by: Thiamine HCl (Vitamin B1) 100 mg PO DAILY [facility] Last Admin: 09/06/19 09:38 Dose: 100 mg Documented by: Vancomycin HCl (Vancomycin Per Pharmacy) 0 order IV UD [facility]; Protocol Medical - PN: A/P - Time Spent With Patient Total time spent is greater than 50% in coordination of care (as documented) at patient's floor/unit and/or counseling patient: Greater than 35 minutes (Critical care time) (1) Acute alteration in mental status Status: Acute Assessment and plan: * Septic shock with multiple endorgan dysfunction including AMS/DAREN. Clinically improving with aggressive management including crystalloid/vasopressors/venous lactate trending. White count 12.2. Gram- negative and gram-positive organisms on blood culture. Surveillance cultures pending. Antibiotics escalated to cefepime/vancomycin * GNR/GPC bacteremia - Surveillance cultures pending. Likely source spontaneous bacterial peritonitis. Broad antibiotic coverage * Spontaneous bacterial rhinitis with over 14,000 WBCs peritoneal fluid. Initial Gram stain gram-positive cocci acetic fluid * Acute change mental status possibly secondary to sepsis. Clinically improving * Bilateral lower lobe pneumonia continue antibiotic coverage * Acute on chronic kidney disease -creatinine improved from 1.7-1.3 * History of DM type II continue basal/prandial insulin * Hypothyroidism on thyroxine * Liver cirrhosis continue spironolactone once systolics improved * Neuropathy continue gabapentin * Chronic pain on home medications including fentanyl patch * Full code * Prophylaxis heparin Plan * Patient remains critically ill * Continue surveillance cultures * Cefepime vancomycin * ID consult * Prior medical condition management home meds * Vasopressors to keep map at goal Current Visit: Yes
[2019-09-06] MEDS: CEFEPIME 2 GM VIAL IV SCH ×2 (12:09→21:31)
[2019-09-06] MEDS: fentaNYL 50 MCG PATCH TOPICAL SCH (13:28)
[2019-09-06] MEDS: VANCOMYCIN 1,000 MG in 0.9 % SODIUM CHLORIDE 250 ML IV SCH (15:17)
[2019-09-06] MEDS: BACLOFEN 10 MG TABLET PO SCH ×2 (15:17→21:31)
[2019-09-06] MEDS: NOREPINEPHRINE BITARTRATE 16 MG in 0.9 % SODIUM CHLORIDE 234 ML IV SCH (17:09)
[2019-09-06] MEDS: GABAPENTIN 300 MG CAPSULE PO SCH (21:31)
[2019-09-06] MEDS: LACTULOSE 20 GM/30 ML ORAL.SOL PO SCH (21:32)
[2019-09-06] MEDS: SENNOSIDES/DOCUSATE SODIUM 1 TAB TABLET PO SCH (21:32)
[2019-09-06] MEDS: FLUTICASONE HFA 220MCG INHALER INH SCH (22:04)
[2019-09-06] MEDS: SALMETEROL XINAFOATE 1 PUFF INHALER INH SCH (22:04)
[2019-09-06] MEDS ORDERED: VANCOMYCIN PER PHARMACY IV SCH (23:45)
[2019-09-07] MEDS: 0.9 % SODIUM CHLORIDE 1,000 ML IV SCH (03:05)
[2019-09-07] MEDS: 0.9 % SODIUM CHLORIDE 250 ML IV SCH ×2 (04:49→19:29)
[2019-09-07 04:59] LABS: Hematocrit 30.3 % (36.0-48.0); Mean Cell Volume 83.8 fL (80.0-100.0); Mean Corpuscular HGB Conc 33.1 g/dL (31.0-36.0); Mean Platelet Volume 7.5 fL (7.4-10.4); Platelet Count 113 K/mcL (140-440); RBC 3.61 M/mcL (4.00-5.20); WBC 8.1 K/mcL (4.5-11.0)
[2019-09-07] MEDS: 0.9 % SODIUM CHLORIDE 10 ML SYRINGE IV SCH ×3 (05:20→21:28)
[2019-09-07 05:24] LABS: ALT/SGPT 12 U/l (0-40); AST/SGOT 27 U/l (0-37); Albumin 2.3 gm/dL (3.2-5.2); Albumin/Globulin Ratio 0.6 (1.0-2.3); Alkaline Phosphatase 44 U/L (39-117); Bilirubin,Total 0.7 mg/dL (0.0-1.0); Calcium 8.9 mg/dl (8.6-10.4); Carbon Dioxide 19 mmol/L (22-30); Chloride 103 mmol/L (96-108); Glucose 191 mg/dL (70-105); Lactate Dehydrogenase 176 U/L (94-250); Triglycerides 57 mg/dl (<150)
[2019-09-07 05:26] LABS: Bilirubin,Direct 0.3 mg/dL (0.0-0.3); Blood Urea Nitrogen 23 mg/dl (8-23); Glomerular Filtration Rate 57; Phosphorous 2.2 mg/dL (2.7-4.5)
[2019-09-07 05:49] LABS: Anisocytosis 1+ (NONE SEEN); Band Neutrophils % 18 % (0-10); Monocytes % (Manual) 3 % (1-12); Platelet Estimate DECREASED (NORMAL); RBC Morphology ABNORM (NORMAL); Segmented Neutrophils % 79 % (38-78); Toxic Granulation 2+ (NONE SEEN)
[2019-09-07] MEDS: INSULIN LISPRO 1 UNIT/0.01 ML UNIT SQ SCH ×4 (07:58→21:28)
[2019-09-07] MEDS: OMEPRAZOLE 20 MG CAPSULE PO SCH (07:58)
[2019-09-07] MEDS: LEVOTHYROXINE 125 MCG TABLET PO SCH (07:58)
[2019-09-07] MEDS ORDERED: OMEPRAZOLE 20 MG CAPSULE PO SCH (09:00)
[2019-09-07] MEDS: IPRATROPIUM/ALBUTEROL 3 ML AMPUL.NEB NEB PRN ×2 (09:06→21:04)
[2019-09-07] MEDS: BUDESONIDE 0.5 MG/2 ML AMPUL.NEB NEB SCH ×2 (09:06→21:04)
[2019-09-07] MEDS ORDERED: FUROSEMIDE 40 MG/4 ML VIAL IV ONE (09:55)
[2019-09-07] MEDS ORDERED: ALBUTEROL SULFATE 1 PUFF INHALER INH PRN (09:55)
[2019-09-07] MEDS ORDERED: ONDANSETRON 4 MG ODT TABLET PO PRN (09:55)
[2019-09-07] MEDS ORDERED: IPRATROPIUM/ALBUTEROL 3 ML AMPUL.NEB NEB PRN (09:55)
[2019-09-07] MEDS ORDERED: hydrOXYzine 25 MG TABLET PO PRN (09:55)
[2019-09-07] MEDS: LACTULOSE 20 GM/30 ML ORAL.SOL PO SCH ×4 (10:06→20:40)
[2019-09-07] MEDS: cefTRIAXone 2 GM in DEXTROSE 5% IN WATER 50 ML IV SCH (10:10)
[2019-09-07] MEDS: INSULIN GLARGINE, HUMAN 1 UNIT/0.01 ML SQ SCH (10:14)
[2019-09-07] MEDS: HEPARIN 5,000 UNIT/ML VIAL SQ SCH ×2 (10:15→21:27)
[2019-09-07] MEDS: SPIRONOLACTONE 25 MG TABLET PO SCH ×2 (10:16→21:27)
--- NOTE | 2019-09-07 10:38 | Internal Med Progress Note ---
Medical - PN: Subj Patient information: Note initiated : 09/07/19 at 10:34 am Service Date, if different from initiated Date: [] Patient: Clare Sheehan a 69 y/o F admitted on 09/05/19 for altered level consciousness. Chief Complaint: [] Interval history: Ms. 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 Symptoms have been progressing over the last couple of days and patient unable to think clearly. She c/o 7/10 abdominal pain and was noted to have a fever. Over the last couple of days she has not been able to function and essentially laying on the bed. Initial work-up in the ER was consistent with severe sepsis along with findings suggestive of SBP and basilar pneumonia on imaging. Blood cultures pending, elevated lactate at 3.3. Creatinine 1.7 up from baseline 1.3. Patient underwent 6 L paracentesis results of which are awaited. Subsequently hospitalist service consulted after patient received antibiotics At the time evaluation patient is very lethargic and fatigued. Unable to provide a detailed history. Endorses to symptoms as above including fever abdominal pain and weakness. No family members present. Most of the history was obtained from review of medical records and from ER physician. 09/06-GNR on blood cultures/GPC on 1 culture and ascitic fluid Gram stain. Discussed with ID. Antibiotics changed to vancomycin/cefepime. Clinically improving. Lactic acid downtrending from 3.9-1.9. White count 12.2, creatinine down from 1.7-1.3. On Levophed to keep map at goal. Confirmed SBP with over 14,000 white cells in the sciatic fluid with gram-positive cocci in culture. Remains critically ill. Sister at bedside. Discussed prognosis and treatment plan. Repeat surveillance cultures today. 09/07-peritoneal fluid heavy growth alpha streptococci. On antibiotic coverage. ID consulted. Patient off pressors since yesterday. Remains critically ill. Feels lethargic fatigued. Tense, tender and distended abdomen with reaccumulation of ascites. No family at bedside. Remains a poor prognosis and high risk mortality in the setting of liver cirrhosis/sepsis bacteremia and spontaneous bacterial enteritis - Constitutional Vitals: Vital Signs Temp Pulse Resp BP Pulse Ox 99.1 F H 94 H 22 106/71 93 09/07/19 08:01 09/07/19 09:15 09/07/19 09:15 09/07/19 08:01 09/07/19 09:21 Period Temp Pulse Resp BP Sys/Will Pulse Ox Last 24 Hr 98.5 F-99.3 F 87-99 15-29 87-120/57-82 87-99 Intake and Output 09/06/19 09/07/19 09/07/19 21:59 05:59 13:59 Intake Total 683 1000 343 Output Total 435 540 140 Balance 248 460 203 Weight 143 lb 11.2 oz Intake & Output: Intake & Output 09/06/19 09/07/19 09/07/19 21:59 05:59 13:59 Intake Total 683 1000 343 Output Total 435 540 140 Balance 248 460 203 Weight 143 lb 11.2 oz Intake: IV 563 1000 343 Sodium Chloride 0.9% 1,000 ml @ 1000 343 50 mls/hr IV .Q20H [facility] Rx#: [id number] Sodium Chloride 0.9% 250 ml @ 306 20 mls/hr IV .[id number] [facility] Rx#: [id number] Levophed 16 mg In Sodium 7 Chloride 0.9% 234 ml @ 10 MCG/ MIN 9.375 mls/hr IV Q24H [facility]AT Rx #:[id number] Vancomycin 1,000 mg In Sodium 250 Chloride 0.9% 250 ml @ 250 mls/ hr IV DAILY KAT Rx#:[id number] Oral 120 Output: Urine Catheter Amount 435 540 140 Other: Meal Dinner Percent of Meal Consumed 100% Urine Appearance Clear Clear Uretheral (Bundy) Clear Urine Color Bright Yellow Bright Yellow Uretheral (Bundy) Dark Yellow General appearance: no acute distress Exam: Lethargic and fatigued Nonlabored breathing Anxious Distended abdomen/tender Minimal lymphedema Medical - PN: Obj Da - Labs CBC & Chem 7: 09/07/19 04:13 09/07/19 04:13 Labs: Abnormal Lab Results 09/07/19 09/07/19 09/06/19 04:13 04:13 03:50 WBC RBC 3.61 L Hgb 10.0 L Hct 30.3 L RDW 17.0 H Plt Count 113 L Seg Neutrophils % 79 H Band Neutrophils % 18 H Lymphocytes % WBC Morphology Abnorm A Toxic Granulation 2+ A RBC Morphology Abnorm A Anisocytosis 1+ A VBG Lactic Acid Sodium 132 L Chloride Carbon Dioxide 19 L 19 L Anion Gap BUN 30 H Creatinine 1.3 H Glucose 191 H 195 H Calcium 8.5 L Phosphorus 2.2 L Magnesium 1.4 L Total Bilirubin 1.1 H Direct Bilirubin 0.5 H C-Reactive Protein Total Protein Albumin 2.3 L 2.9 L Globulin 4.0 H Albumin/Globulin Ratio 0.6 L 0.8 L Urine Occult Blood Urine Urobilinogen Hyaline Casts 09/06/19 09/05/19 09/05/19 03:50 14:35 05:41 WBC 12.2 H RBC 3.85 L Hgb 10.6 L Hct 32.8 L RDW 17.3 H Plt Count 132 L Seg Neutrophils % 92 H Band Neutrophils % Lymphocytes % 2 L WBC Morphology Toxic Granulation RBC Morphology Anisocytosis 1+ A VBG Lactic Acid 3.9 H Sodium Chloride Carbon Dioxide Anion Gap BUN Creatinine Glucose Calcium Phosphorus Magnesium Total Bilirubin Direct Bilirubin C-Reactive Protein 14.9 H Total Protein Albumin Globulin Albumin/Globulin Ratio Urine Occult Blood Urine Urobilinogen Hyaline Casts 09/05/19 09/05/19 09/05/19 05:41 05:41 05:41 WBC RBC Hgb Hct RDW 17.0 H Plt Count Seg Neutrophils % 88 H Band Neutrophils % Lymphocytes % 3 L WBC Morphology Toxic Granulation RBC Morphology Anisocytosis VBG Lactic Acid 3.3 H Sodium 128 L Chloride 92 L Carbon Dioxide 19 L Anion Gap 17.0 H BUN 34 H Creatinine 1.7 H Glucose 262 H Calcium Phosphorus Magnesium Total Bilirubin 1.3 H Direct Bilirubin C-Reactive Protein Total Protein 8.7 H Albumin 2.7 L Globulin 6.0 H Albumin/Globulin Ratio 0.5 L Urine Occult Blood Urine Urobilinogen Hyaline Casts 09/05/19 05:31 WBC RBC Hgb Hct RDW Plt Count Seg Neutrophils % Band Neutrophils % Lymphocytes % WBC Morphology Toxic Granulation RBC Morphology Anisocytosis VBG Lactic Acid Sodium Chloride Carbon Dioxide Anion Gap BUN Creatinine Glucose Calcium Phosphorus Magnesium Total Bilirubin Direct Bilirubin C-Reactive Protein Total Protein Albumin Globulin Albumin/Globulin Ratio Urine Occult Blood 0.03 A Urine Urobilinogen 2.0 A Hyaline Casts 28 H Meds: Medications Acetaminophen (Tylenol) 650 mg PO Q4-6HP PRN; Protocol PRN Reason: Per Pain Protocol/Fever > 101 Albuterol Sulfate (Ventolin) 1 puff INH Q4HP PRN PRN Reason: Shortness Of Breath Albuterol/Ipratropium (Duoneb) 3 ml NEB Q4HP PRN PRN Reason: Shortness Of Breath Last Admin: 09/07/19 09:06 Dose: 3 ml Documented by: Ascorbic Acid (Vitamin C) 500 mg PO DAILY [facility] Baclofen (Lioresal) 10 mg PO TID [facility] Last Admin: 09/06/19 21:31 Dose: 10 mg Documented by: Bisacodyl (Dulcolax) 10 mg HI Q2-3DAYS PRN PRN Reason: Constipation Budesonide (Pulmicort) 0.5 mg NEB Q12 [facility] Last Admin: 09/07/19 09:06 Dose: 0.5 mg Documented by: Calcium Carbonate/Glycine (Tums) 500 mg CHEWED Q4HP PRN PRN Reason: Dyspepsia Cyanocobalamin (Vitamin B-12) 1,000 mcg PO BID [facility] Stop: 09/09/19 21:01 Last Admin: 09/06/19 21:31 Dose: 1,000 mcg Documented by: Diagnostic Test (Pha) (Accu-Chek) 1 each FS ACHS [facility] Last Admin: 09/07/19 07:56 Dose: 1 each Documented by: Docusate Sodium (Colace) 100 mg PO BID [facility] Last Admin: 09/06/19 21:31 Dose: 100 mg Documented by: Fentanyl (Duragesic) 50 mcg TOPICAL Q72H [facility] Last Admin: 09/06/19 13:28 Dose: 50 mcg Documented by: Fluticasone Propionate (Flovent Hfa 220mcg) 2 puff INH BID [facility] Last Admin: 09/06/19 22:04 Dose: Not Given Documented by: Folic Acid (Folic Acid) 1 mg PO DAILY [facility] Last Admin: 09/06/19 09:38 Dose: 1 mg Documented by: Furosemide (Lasix) 80 mg PO QDAY [facility] Gabapentin (Neurontin) 300 mg PO BID [facility] Last Admin: 09/06/19 21:31 Dose: 300 mg Documented by: Heparin Sodium (Porcine) (Heparin) 5,000 unit SQ Q12 [facility] Last Admin: 09/07/19 10:15 Dose: 5,000 unit Documented by: Hydromorphone HCl (Dilaudid) 4 - 8 mg PO Q6HP PRN; Protocol PRN Reason: Per Pain Protocol Last Admin: 09/06/19 05:48 Dose: 8 mg Documented by: Hydroxyzine HCl (Atarax) 100 mg PO BIDP PRN PRN Reason: Itching Magnesium Sulfate (Magnesium Sulfate) 2 gm in 50 mls @ 50 mls/hr IV UD PRN PRN Reason: MG = or < 1.7 Last Infusion: 09/06/19 11:25 Dose: Infused Documented by: Norepinephrine Bitartrate 16 (mg/ Sodium Chloride) 250 mls @ 9.375 mls/hr IV Q24H [facility]; Protocol Last Admin: 09/06/19 17:09 Dose: Not Given Documented by: Sodium Chloride (Sodium Chloride 0.9%) 250 mls @ 20 mls/hr IV .[id number] [facility] Last Admin: 09/07/19 04:49 Dose: Not Given Documented by: Acetaminophen (Ofirmev) 500 mg in 50 mls @ 100 mls/hr IV Q6HP PRN; Protocol PRN Reason: PAIN/FEVER > 101 Last Infusion: 09/05/19 21:00 Dose: Infused Documented by: Ceftriaxone Sodium 2 gm/ (Dextrose) 50 mls @ 100 mls/hr IV DAILY [facility]; Protocol Last Admin: 09/07/19 10:10 Dose: 100 mls/hr Documented by: Insulin Glargine (Lantus) 10 unit SQ DAILY [facility] Last Admin: 09/07/19 10:14 Dose: 10 units Documented by: Insulin Human Lispro (Humalog) 0 unit SQ ACHS [facility]; Protocol Last Admin: 09/07/19 07:58 Dose: 4 units Documented by: Iron Carb/Multivit/Clark/Folic Acid (Multivitamin W/Minerals) 1 tab PO DAILY [facility] Last Admin: 09/06/19 09:38 Dose: 1 tab Documented by: Lactulose (Cephulac) 30 gm PO QID [facility] Levothyroxine Sodium (Synthroid) 125 mcg PO ACB [facility] Last Admin: 09/07/19 07:58 Dose: 125 mcg Documented by: Melatonin (Melatonin 3mg Tablet) 3 mg PO HSP PRN PRN Reason: Insomnia Metoclopramide HCl (Reglan) 5 mg IV Q3HP PRN PRN Reason: nausea/vomiting Mupirocin (Bactroban Oint 2%) 1 dose TOPICAL TID [facility] Omeprazole (Prilosec) 20 mg PO ACB [facility] Last Admin: 09/07/19 07:58 Dose: 20 mg Documented by: Ondansetron HCl (Zofran Odt) 4 mg SL Q4-6HP PRN; Protocol PRN Reason: Nausea And Vomiting Last Admin: 09/05/19 23:10 Dose: 4 mg Documented by: Ondansetron HCl (Zofran) 4 mg IV Q4-6HP PRN; Protocol PRN Reason: Nausea And Vomiting Polyethylene Glycol (Miralax) 17 gm PO DAILYP PRN PRN Reason: Constipation Potassium Chloride (Klor-Con) 40 meq PO DAILYP PRN PRN Reason: K+ < 3.5 Salmeterol Xinafoate (Serevent) 1 puff INH BID [facility] Last Admin: 09/06/19 22:04 Dose: Not Given Documented by: Senna/Docusate Sodium (Senna Plus Tablet) 1 tab PO HS [facility] Last Admin: 09/06/19 21:32 Dose: 1 tab Documented by: Sodium Chloride (Saline Flush) 10 ml IV Q8 [facility] Last Admin: 09/07/19 05:20 Dose: 10 ml Documented by: Spironolactone (Aldactone) 100 mg PO BID [facility] Last Admin: 09/07/19 10:16 Dose: 100 mg Documented by: Thiamine HCl (Vitamin B1) 100 mg PO DAILY [facility] Last Admin: 09/06/19 09:38 Dose: 100 mg Documented by: Vitamin D (Vitamin D3) 400 unit PO DAILY [facility] Medical - PN: A/P - Time Spent With Patient Total time spent is greater than 50% in coordination of care (as documented) at patient's floor/unit and/or counseling patient: Greater than 35 minutes (Critical care time) (1) Acute alteration in mental status Status: Acute Assessment and plan: * Septic shock with multiple endorgan dysfunction including AMS/DAREN. Off pressors however clinically worse. Continuing cefepime/vancomycin * GNR/GPC bacteremia - Surveillance cultures pending. Likely source spontaneous bacterial peritonitis. Broad antibiotic coverage * Spontaneous bacterial alpha streptococci peritonitis- with over 14,000 WBCs peritoneal fluid. On antibiotic coverage. ID consulted * Acute change mental status possibly secondary to sepsis. Clinically worse. Increase lactulose dose * Worsening ascites start diuresis * Bilateral lower lobe pneumonia continue antibiotic coverage * Acute on chronic kidney disease -creatinine improved from 1.7-1.3->1 * History of DM type II continue basal/prandial insulin * Hypothyroidism on thyroxine * Liver cirrhosis -restart Lasix per lactone * Neuropathy continue gabapentin * Chronic pain on home medications including fentanyl patch * Full code * Prophylaxis heparin Plan * Patient remains critically ill * ID consult * Cefepime vancomycin * Increase lactulose dosing/DC pressors and crystalloids * Prior medical condition management home meds Current Visit: Yes
[2019-09-07] MEDS: VANCOMYCIN 1,000 MG in 0.9 % SODIUM CHLORIDE 250 ML IV SCH (10:48)
[2019-09-07] MEDS: CEFEPIME 2 GM VIAL IV SCH (10:48)
[2019-09-07] MEDS: FLUTICASONE HFA 220MCG INHALER INH SCH ×2 (11:36→20:40)
[2019-09-07] MEDS: DOCUSATE SODIUM 100 MG CAPSULE PO SCH ×2 (11:36→21:27)
[2019-09-07] MEDS: FOLIC ACID 1 MG TABLET PO SCH (11:36)
[2019-09-07] MEDS: MULTIVIT,THER IRON,CA,FA & MIN 1 TABLET PO SCH (11:37)
[2019-09-07] MEDS: CYANOCOBALAMIN (VITAMIN B-12) 500 MCG TABLET PO SCH ×2 (11:37→21:27)
[2019-09-07] MEDS: BACLOFEN 10 MG TABLET PO SCH ×3 (11:37→21:32)
[2019-09-07] MEDS: GABAPENTIN 300 MG CAPSULE PO SCH ×2 (11:37→21:27)
[2019-09-07] MEDS: SALMETEROL XINAFOATE 1 PUFF INHALER INH SCH ×2 (11:37→20:41)
[2019-09-07] MEDS: THIAMINE 100 MG TABLET PO SCH (12:35)
[2019-09-07] MEDS ORDERED: MUPIROCIN OINT 2% 22GM TOPICAL SCH (15:00)
[2019-09-07] MEDS ORDERED: NOREPINEPHRINE BITARTRATE 16 MG in 0.9 % SODIUM CHLORIDE 234 ML IV PRN (15:15)
[2019-09-07] MEDS: HYDROmorphone 2 MG TABLET PO PRN ×2 (18:11→23:24)
--- NOTE | 2019-09-07 20:51 | Infectious Disease Consult ---
History of Present Illness Patient information: Note initiated : 09/07/19 at 8:49 pm Service Date, if different from initiated Date: [] Patient: Clare Sheehan 69 y/o F admitted on 09/05/19 for altered level consciousness. Chief Complaint: [] Consult date: 09/07/19 Requesting Physician: Leobardo Conway Reason for Consult: Bacteremia Chief complaint: I was confused, have belly pain History of present illness: 69 year old patient with PMHx of HepC (cured last year), decompensated cirrhosis with portal HTN is admitted after her daughter noticed that she has been confused at home for 3-4 days. Pt was not taking Lactulose as prescribed, and was due for paracentesis as well. In addition, she had been c/o belly pain with difficulty in moving from one side to other. At admission, she was hypotensive, tachycardic and needed vasopressors. Blood Cx sent, peritoneal fluid was aspirated, sent for cell count and Cx. She was on empiric Vanc and Cefepime. Blood Cx and peritoneal fluid Cx grew Strept pneumoniae. Pt was switched to IV Ceftriaxone. Review of Systems ROS unobtainable: due to mental status All systems PM: reviewed and no additional remarkable complaints except as stated Past History Past family history: no sick contacts Past social history: lives with daughter doesnot consume alc, and didnot do so in past Medications and Allergies Home Medications Medication Instructions Recorded Confirmed Type albuterol sulfate 90 mcg/actuation 1 puff INHALATION Q4H PRN g 10/28/18 09/06/19 History aerosol inhaler ascorbic acid (vitamin C) 1 each PO QDAY 10/28/18 09/06/19 History baclofen 10 mg tablet 10 mg PO TID 10/28/18 09/05/19 History fluticasone propionate 220 2 puff INHALATION BID g 10/28/18 09/05/19 History mcg/actuation HFA aerosol inhaler furosemide 40 mg tablet 80 mg PO QDAY 10/28/18 09/05/19 History glipizide 10 mg tablet, extended 10 mg PO QDAY 10/28/18 09/05/19 History release 24 hr hydromorphone 4 mg tablet 4 - 8 mg PO Q6H PRN 10/28/18 09/05/19 History ipratropium-albuterol 0.5 mg-3 3 ml INHALATION .COMPLEX PRN 10/28/18 09/06/19 History mg(2.5 mg base)/3 mL nebulization soln multivitamin 1 tab PO QAM 10/28/18 09/06/19 History mupirocin 2 % topical ointment 1 applic TOPICAL TID 10/28/18 09/05/19 History ondansetron 4 mg disintegrating 4 mg PO Q4H PRN tab 10/28/18 09/05/19 History tablet salmeterol 50 mcg/dose blister 1 inh INHALATION BID 10/28/18 09/05/19 History powder for inhalation spironolactone 100 mg tablet 100 mg PO BID tab 10/28/18 09/05/19 History lactulose 10 gram/15 mL oral 30 g PO BID 11/26/18 09/05/19 History solution levothyroxine 100 mcg tablet 125 mcg PO QDAY 11/26/18 09/05/19 History cholecalciferol (vitamin D3) 400 each PO QDAY 12/17/18 09/06/19 History Triamcinolone Cream 0.1% 15G 1 dose TOPICAL BID #1 tube 01/28/19 09/05/19 Rx [Kenalog Crm 0.1%] gabapentin 300 mg capsule 300 mg PO TID cap 03/17/19 09/05/19 History Omeprazole [Prilosec] 20 mg PO DAILY 09/05/19 09/05/19 History fentaNYL [Fentanyl] 50 mcg TRANSDERMAL Q3D 09/05/19 09/05/19 History hydrOXYzine PAMOATE [Vistaril] 100 mg PO BID PRN 09/05/19 09/05/19 History Allergies Allergy/AdvReac Type Severity Reaction Status Date / Time Penicillins Allergy Severe anaphylaxis/ Verified 09/05/19 10:41 swelling of throat/ rash lorazepam [From Ativan] AdvReac Severe Other Verified 09/05/19 10:41 tape Allergy Unknown Unknown Uncoded 03/17/19 14:25 Physical Examination Vital signs: Temp Pulse Resp BP Pulse Ox 37.5 C H 106 H 21 111/79 91 09/07/19 20:01 09/07/19 20:01 09/07/19 20:01 09/07/19 20:01 09/07/19 20:01 General appearance: appears uncomfortable Eyes pulmonary: nonicteric ENT: oropharynx dry, other (no thrush) Auscultation: bilateral: other (noisy VBS b/l, absent BS at bases) Cardiovascular: other (s1 s2 normal) Gastrointestinal: hypoactive bowel sounds, tender, rebound tenderness, guarding, other (fluid thrill +, distended abd) Extremities: no edema unable to assess due to mental status anxious Results - Laboratory Findings CBC and BMP: 09/08/19 03:50 09/08/19 03:50 Abnormal lab findings: Abnormal Labs 09/05/19 09/05/19 09/05/19 05:31 05:41 05:41 WBC RBC Hgb Hct RDW 17.0 H Plt Count Seg Neutrophils % 88 H Band Neutrophils % Lymphocytes % 3 L WBC Morphology Toxic Granulation RBC Morphology Anisocytosis VBG Lactic Acid Sodium 128 L Chloride 92 L Carbon Dioxide 19 L Anion Gap 17.0 H BUN 34 H Creatinine 1.7 H Glucose 262 H Calcium Phosphorus Magnesium Total Bilirubin 1.3 H Direct Bilirubin C-Reactive Protein Total Protein 8.7 H Albumin 2.7 L Globulin 6.0 H Albumin/Globulin Ratio 0.5 L Urine Occult Blood 0.03 A Urine Urobilinogen 2.0 A Hyaline Casts 28 H 09/05/19 09/05/19 09/05/19 05:41 05:41 14:35 WBC RBC Hgb Hct RDW Plt Count Seg Neutrophils % Band Neutrophils % Lymphocytes % WBC Morphology Toxic Granulation RBC Morphology Anisocytosis VBG Lactic Acid 3.3 H 3.9 H Sodium Chloride Carbon Dioxide Anion Gap BUN Creatinine Glucose Calcium Phosphorus Magnesium Total Bilirubin Direct Bilirubin C-Reactive Protein 14.9 H Total Protein Albumin Globulin Albumin/Globulin Ratio Urine Occult Blood Urine Urobilinogen Hyaline Casts 09/06/19 09/06/19 09/07/19 03:50 03:50 04:13 WBC 12.2 H RBC 3.85 L 3.61 L Hgb 10.6 L 10.0 L Hct 32.8 L 30.3 L RDW 17.3 H 17.0 H Plt Count 132 L 113 L Seg Neutrophils % 92 H 79 H Band Neutrophils % 18 H Lymphocytes % 2 L WBC Morphology Abnorm A Toxic Granulation 2+ A RBC Morphology Abnorm A Anisocytosis 1+ A 1+ A VBG Lactic Acid Sodium Chloride Carbon Dioxide 19 L Anion Gap BUN 30 H Creatinine 1.3 H Glucose 195 H Calcium 8.5 L Phosphorus Magnesium 1.4 L Total Bilirubin 1.1 H Direct Bilirubin 0.5 H C-Reactive Protein Total Protein Albumin 2.9 L Globulin Albumin/Globulin Ratio 0.8 L Urine Occult Blood Urine Urobilinogen Hyaline Casts 09/07/19 04:13 WBC RBC Hgb Hct RDW Plt Count Seg Neutrophils % Band Neutrophils % Lymphocytes % WBC Morphology Toxic Granulation RBC Morphology Anisocytosis VBG Lactic Acid Sodium 132 L Chloride Carbon Dioxide 19 L Anion Gap BUN Creatinine Glucose 191 H Calcium Phosphorus 2.2 L Magnesium Total Bilirubin Direct Bilirubin C-Reactive Protein Total Protein Albumin 2.3 L Globulin 4.0 H Albumin/Globulin Ratio 0.6 L Urine Occult Blood Urine Urobilinogen Hyaline Casts Microbiology: Microbiology 09/05/19 07:52 Peritoneal Fluid Gram Stain - Final 09/05/19 07:52 Peritoneal Fluid Body Fluid Culture - Final Streptococcus pneumoniae 09/06/19 09:58 Blood Blood Culture - Preliminary 09/06/19 10:03 Blood Blood Culture - Preliminary 09/06/19 18:35 Sputum - Expectorated Gram Stain - Final 09/06/19 18:35 Sputum - Expectorated Sputum Culture - Final 09/05/19 06:12 Blood Blood Culture - Preliminary Gram negative bacillus Gram positive cocci 09/05/19 05:37 Blood Blood Culture - Preliminary Gram negative bacillus 09/05/19 09:20 Nose - First MRSA (PCR) - Final Assessment and Plan - Narrative A/P Narrative: A: 1. Streptococcus pneumoniae bacteremia: sens to Ceftriaxone - sec to seeding from spontaneous bacterial peritonitis - rule out any infection inv lungs 2. SBP: based on increased PMNs (> 250), clinical s/s, peritoneal fluid Cx growing Strept pneumoniae - sec to (3) - pt was not on antibiotic prophylaxis at admission. She meets criteria for being on chronic antibiotic prophylaxis for prevention of SBP 3. Cirrhosis sec to Hep C: Hep C cured last year - r/o malignancy 4. Thrombocytopenia: sec to (3) 5. Failure to thrive: sec to severe ascites, cirrhosis Recommendations: - Stop all antibiotics. - Start IV Ceftriaxone 2 gm q24 hrs - repeat blood Cx until negative - repeat paracentesis with cell count in next 1-2 days. will aim for cell count is < 250. will switch to low dose Ciprofloxacin 500 mg as antibiotic prophylaxis for SBP prevention after completion of IV therapy for bacteremia - send PT/INR. will determine MELD and Child-Palma score based on that. will help with prognostication and discussion on goals of care - consider CT chest-abd to assess for any loculated pleural effusions, chest focus of infection, r/o any liver mass. will follow Poncho Serrano MD Infectious diseases
[2019-09-07] MEDS ORDERED: SPIRONOLACTONE 25 MG TABLET PO SCH (21:00)
[2019-09-07] MEDS: MUPIROCIN OINT 2% 22GM TOPICAL SCH (21:26)
[2019-09-07] MEDS: SENNOSIDES/DOCUSATE SODIUM 1 TAB TABLET PO SCH (21:27)
[2019-09-08] MEDS: IPRATROPIUM/ALBUTEROL 3 ML AMPUL.NEB NEB PRN ×2 (03:44→08:55)
[2019-09-08 05:37] LABS: Hematocrit 32.3 % (36.0-48.0); Hemoglobin 10.5 g/dL (12.0-15.0); Mean Cell Volume 84.4 fL (80.0-100.0); Mean Corpuscular HGB Conc 32.4 g/dL (31.0-36.0); Mean Platelet Volume 7.6 fL (7.4-10.4); Platelet Count 134 K/mcL (140-440); RBC 3.83 M/mcL (4.00-5.20); Red Cell Distribution Width 17.2 % (11.5-14.5)
[2019-09-08 05:43] LABS: ALT/SGPT 17 U/l (0-40); AST/SGOT 38 U/l (0-37); Albumin 2.5 gm/dL (3.2-5.2); Albumin/Globulin Ratio 0.6 (1.0-2.3); Alkaline Phosphatase 62 U/L (39-117); Bilirubin,Direct 0.3 mg/dL (0.0-0.3); Bilirubin,Total 0.7 mg/dL (0.0-1.0); Calcium 9.2 mg/dl (8.6-10.4); Carbon Dioxide 19 mmol/L (22-30); Chloride 102 mmol/L (96-108); Globulin 4.4 gm/dL (2.2-3.7); Glomerular Filtration Rate 46; Glucose 231 mg/dL (70-105); Lactate Dehydrogenase 135 U/L (94-250); Triglycerides 83 mg/dl (<150); Uric Acid 6.3 mg/dL (2.5-8.0)
[2019-09-08 05:48] LABS: Blood Urea Nitrogen 30 mg/dl (8-23); Phosphorous 3.5 mg/dL (2.7-4.5)
[2019-09-08] MEDS: 0.9 % SODIUM CHLORIDE 10 ML SYRINGE IV SCH ×3 (07:09→22:00)
[2019-09-08 08:06] LABS: Anisocytosis 1+ (NONE SEEN); Band Neutrophils % 6 % (0-10); Monocytes % (Manual) 3 % (1-12); Myelocytes % 4 % (0-0); Platelet Estimate DECREASED (NORMAL); RBC Morphology ABNORM (NORMAL); Segmented Neutrophils % 87 % (38-78); Toxic Granulation FEW (NONE SEEN)
[2019-09-08] MEDS: INSULIN LISPRO 1 UNIT/0.01 ML UNIT SQ SCH ×4 (08:35→22:07)
[2019-09-08] MEDS: HEPARIN 5,000 UNIT/ML VIAL SQ SCH ×2 (08:35→21:49)
[2019-09-08] MEDS: LEVOTHYROXINE 125 MCG TABLET PO SCH (08:35)
[2019-09-08] MEDS: OMEPRAZOLE 20 MG CAPSULE PO SCH (08:35)
[2019-09-08] MEDS: LACTULOSE 20 GM/30 ML ORAL.SOL PO SCH ×4 (08:35→22:00)
[2019-09-08] MEDS: SPIRONOLACTONE 25 MG TABLET PO SCH ×2 (08:35→21:41)
[2019-09-08] MEDS: INSULIN GLARGINE, HUMAN 1 UNIT/0.01 ML SQ SCH (08:36)
[2019-09-08] MEDS ORDERED: FUROSEMIDE 40 MG/4 ML VIAL IV ONE (08:52)
[2019-09-08] MEDS: BUDESONIDE 0.5 MG/2 ML AMPUL.NEB NEB SCH ×2 (08:55→21:06)
[2019-09-08] MEDS ORDERED: MULTIVITAMIN PO SCH (09:00)
[2019-09-08] MEDS ORDERED: FUROSEMIDE 40 MG TABLET PO SCH (09:00)
[2019-09-08] MEDS ORDERED: FUROSEMIDE 40 MG/4 ML VIAL IV SCH (09:00)
[2019-09-08] MEDS ORDERED: LACTULOSE 20 GM/30 ML ORAL.SOL PR ONE (09:12)
[2019-09-08] MEDS: FLUTICASONE HFA 220MCG INHALER INH SCH ×2 (09:19→22:01)
[2019-09-08] MEDS: FOLIC ACID 1 MG TABLET PO SCH (09:19)
[2019-09-08] MEDS: DOCUSATE SODIUM 100 MG CAPSULE PO SCH ×2 (09:19→21:40)
[2019-09-08] MEDS: CYANOCOBALAMIN (VITAMIN B-12) 500 MCG TABLET PO SCH ×2 (09:20→21:40)
[2019-09-08] MEDS: BACLOFEN 10 MG TABLET PO SCH ×3 (09:20→21:39)
[2019-09-08] MEDS: THIAMINE 100 MG TABLET PO SCH (09:20)
[2019-09-08] MEDS: ASCORBIC ACID 500 MG TABLET PO SCH (09:20)
[2019-09-08] MEDS: GABAPENTIN 300 MG CAPSULE PO SCH ×2 (09:20→21:39)
[2019-09-08] MEDS: VITAMIN D3 400 UNIT TABLET PO SCH (09:20)
[2019-09-08] MEDS: MULTIVIT,THER IRON,CA,FA & MIN 1 TABLET PO SCH (09:20)
[2019-09-08] MEDS: SALMETEROL XINAFOATE 1 PUFF INHALER INH SCH ×2 (09:20→22:01)
[2019-09-08] MEDS: MUPIROCIN OINT 2% 22GM TOPICAL SCH ×3 (10:00→22:03)
[2019-09-08] MEDS: cefTRIAXone 2 GM in DEXTROSE 5% IN WATER 50 ML IV SCH (10:00)
--- NOTE | 2019-09-08 10:31 | Internal Med Progress Note ---
Medical - PN: Subj Patient information: Note initiated : 09/08/19 at 10:28 am Service Date, if different from initiated Date: [] Patient: Clare Sheehna a 69 y/o F admitted on 09/05/19 for altered level consciousness. Chief Complaint: [] Interval history: Ms. 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 Symptoms have been progressing over the last couple of days and patient unable to think clearly. She c/o 7/10 abdominal pain and was noted to have a fever. Over the last couple of days she has not been able to function and essentially laying on the bed. Initial work-up in the ER was consistent with severe sepsis along with findings suggestive of SBP and basilar pneumonia on imaging. Blood cultures pending, elevated lactate at 3.3. Creatinine 1.7 up from baseline 1.3. Patient underwent 6 L paracentesis results of which are awaited. Subsequently hospitalist service consulted after patient received antibiotics At the time evaluation patient is very lethargic and fatigued. Unable to provide a detailed history. Endorses to symptoms as above including fever abdominal pain and weakness. No family members present. Most of the history was obtained from review of medical records and from ER physician. 09/06-GNR on blood cultures/GPC on 1 culture and ascitic fluid Gram stain. Discussed with ID. Antibiotics changed to vancomycin/cefepime. Clinically improving. Lactic acid downtrending from 3.9-1.9. White count 12.2, creatinine down from 1.7-1.3. On Levophed to keep map at goal. Confirmed SBP with over 14,000 white cells in the sciatic fluid with gram-positive cocci in culture. Remains critically ill. Sister at bedside. Discussed prognosis and treatment plan. Repeat surveillance cultures today. 09/07-peritoneal fluid heavy growth alpha streptococci. On antibiotic coverage. ID consulted. Patient off pressors since yesterday. Remains critically ill. Feels lethargic fatigued. Tense, tender and distended abdomen with reaccumulation of ascites. No family at bedside. Remains a poor prognosis and high risk mortality in the setting of liver cirrhosis/sepsis bacteremia and spontaneous bacterial enteritis 09/08-Streptococcus pneumonia on final cultures. Once Rocephin per ID. CT abdomen chest pelvis as per ID recommendations to rule out secondary focus for Streptococcus pneumonia bacteremia including pneumonia and also HCC. Very lethargic this morning. White count at 11,000. Creatinine 1.2. Start lactulose retention enemas. Consider rifaximin. Will repeat paracentesis in 24-48 hours - Constitutional Vitals: Vital Signs Temp Pulse Resp BP Pulse Ox 99.2 F H 94 H 16 110/77 92 09/08/19 09:01 09/08/19 09:01 09/08/19 09:01 09/08/19 09:01 09/08/19 09:01 Period Temp Pulse Resp BP Sys/Will Pulse Ox Last 24 Hr 98.9 F-99.7 F 92-106 16-29 81-119/62-85 91-95 Intake and Output 09/07/19 09/08/19 09/08/19 21:59 05:59 13:59 Intake Total 240 Output Total 280 242 80 Balance -280 -242 160 Weight 140 lb 6.4 oz Intake & Output: Intake & Output 09/07/19 09/08/19 09/08/19 21:59 05:59 13:59 Intake Total 240 Output Total 280 242 80 Balance -280 -242 160 Weight 140 lb 6.4 oz Intake: Oral 240 Output: Urine Catheter Amount 280 242 45 Void Amount 35 Other: Urine Appearance Clear Urine Color Light Sheron General appearance: moderate distress Exam: Lethargic and fatigued No telemetry events except for brief A. fib distended and tender abdomen confused SOB Medical - PN: Obj Da - Labs CBC & Chem 7: 09/08/19 03:50 09/08/19 03:50 Labs: Abnormal Lab Results 09/08/19 09/08/19 09/07/19 03:50 03:50 04:13 WBC RBC 3.83 L Hgb 10.5 L Hct 32.3 L RDW 17.2 H Plt Count 134 L Seg Neutrophils % 87 H Band Neutrophils % Lymphocytes % Myelocytes % 4 H WBC Morphology Abnorm A Toxic Granulation Few A RBC Morphology Abnorm A Anisocytosis 1+ A VBG Lactic Acid Sodium 131 L 132 L Carbon Dioxide 19 L 19 L BUN 30 H Creatinine 1.2 H Glucose 231 H 191 H Calcium Phosphorus 2.2 L Magnesium Total Bilirubin Direct Bilirubin AST 38 H Albumin 2.5 L 2.3 L Globulin 4.4 H 4.0 H Albumin/Globulin Ratio 0.6 L 0.6 L 09/07/19 09/06/19 09/06/19 04:13 03:50 03:50 WBC 12.2 H RBC 3.61 L 3.85 L Hgb 10.0 L 10.6 L Hct 30.3 L 32.8 L RDW 17.0 H 17.3 H Plt Count 113 L 132 L Seg Neutrophils % 79 H 92 H Band Neutrophils % 18 H Lymphocytes % 2 L Myelocytes % WBC Morphology Abnorm A Toxic Granulation 2+ A RBC Morphology Abnorm A Anisocytosis 1+ A 1+ A VBG Lactic Acid Sodium Carbon Dioxide 19 L BUN 30 H Creatinine 1.3 H Glucose 195 H Calcium 8.5 L Phosphorus Magnesium 1.4 L Total Bilirubin 1.1 H Direct Bilirubin 0.5 H AST Albumin 2.9 L Globulin Albumin/Globulin Ratio 0.8 L 09/05/19 14:35 WBC RBC Hgb Hct RDW Plt Count Seg Neutrophils % Band Neutrophils % Lymphocytes % Myelocytes % WBC Morphology Toxic Granulation RBC Morphology Anisocytosis VBG Lactic Acid 3.9 H Sodium Carbon Dioxide BUN Creatinine Glucose Calcium Phosphorus Magnesium Total Bilirubin Direct Bilirubin AST Albumin Globulin Albumin/Globulin Ratio Meds: Medications Acetaminophen (Tylenol) 650 mg PO Q4-6HP PRN; Protocol PRN Reason: Per Pain Protocol/Fever > 101 Albuterol Sulfate (Ventolin) 1 puff INH Q4HP PRN PRN Reason: Shortness Of Breath Albuterol/Ipratropium (Duoneb) 3 ml NEB Q4HP PRN PRN Reason: Shortness Of Breath Last Admin: 09/08/19 08:55 Dose: 3 ml Documented by: Ascorbic Acid (Vitamin C) 500 mg PO DAILY [facility] Last Admin: 09/08/19 09:20 Dose: Not Given Documented by: Baclofen (Lioresal) 10 mg PO TID [facility] Last Admin: 09/08/19 09:20 Dose: Not Given Documented by: Bisacodyl (Dulcolax) 10 mg OK Q2-3DAYS PRN PRN Reason: Constipation Budesonide (Pulmicort) 0.5 mg NEB Q12 [facility] Last Admin: 09/08/19 08:55 Dose: 0.5 mg Documented by: Calcium Carbonate/Glycine (Tums) 500 mg CHEWED Q4HP PRN PRN Reason: Dyspepsia Cyanocobalamin (Vitamin B-12) 1,000 mcg PO BID [facility] Stop: 09/09/19 21:01 Last Admin: 09/08/19 09:20 Dose: Not Given Documented by: Diagnostic Test (Pha) (Accu-Chek) 1 each FS ACHS [facility] Last Admin: 09/08/19 07:03 Dose: 1 each Documented by: Docusate Sodium (Colace) 100 mg PO BID [facility] Last Admin: 09/08/19 09:19 Dose: Not Given Documented by: Fentanyl (Duragesic) 50 mcg TOPICAL Q72H [facility] Last Admin: 09/06/19 13:28 Dose: 50 mcg Documented by: Fluticasone Propionate (Flovent Hfa 220mcg) 2 puff INH BID [facility] Last Admin: 09/08/19 09:19 Dose: Not Given Documented by: Folic Acid (Folic Acid) 1 mg PO DAILY [facility] Last Admin: 09/08/19 09:19 Dose: Not Given Documented by: Gabapentin (Neurontin) 300 mg PO BID [facility] Last Admin: 09/08/19 09:20 Dose: Not Given Documented by: Heparin Sodium (Porcine) (Heparin) 5,000 unit SQ Q12 [facility] Last Admin: 09/08/19 08:35 Dose: 5,000 unit Documented by: Hydromorphone HCl (Dilaudid) 4 - 8 mg PO Q6HP PRN; Protocol PRN Reason: Per Pain Protocol Last Admin: 09/07/19 23:24 Dose: 8 mg Documented by: Hydroxyzine HCl (Atarax) 100 mg PO BIDP PRN PRN Reason: Itching Magnesium Sulfate (Magnesium Sulfate) 2 gm in 50 mls @ 50 mls/hr IV UD PRN PRN Reason: MG = or < 1.7 Last Infusion: 09/06/19 11:25 Dose: Infused Documented by: Acetaminophen (Ofirmev) 500 mg in 50 mls @ 100 mls/hr IV Q6HP PRN; Protocol PRN Reason: PAIN/FEVER > 101 Last Infusion: 09/05/19 21:00 Dose: Infused Documented by: Ceftriaxone Sodium 2 gm/ (Dextrose) 50 mls @ 100 mls/hr IV DAILY [facility]; Protocol Last Admin: 09/08/19 10:00 Dose: 100 mls/hr Documented by: Norepinephrine Bitartrate 16 (mg/ Sodium Chloride) 250 mls @ 9.375 mls/hr IV Q24HP PRN; Protocol PRN Reason: TITRATE TO KEEP MAP > 65 Insulin Glargine (Lantus) 10 unit SQ DAILY [facility] Last Admin: 09/08/19 08:36 Dose: 10 units Documented by: Insulin Human Lispro (Humalog) 0 unit SQ ACHS [facility]; Protocol Last Admin: 09/08/19 08:35 Dose: 8 units Documented by: Iron Carb/Multivit/Antonito/Folic Acid (Multivitamin W/Minerals) 1 tab PO DAILY [facility] Last Admin: 09/08/19 09:20 Dose: Not Given Documented by: Lactulose (Cephulac) 30 gm PO QID [facility] Last Admin: 09/08/19 08:35 Dose: 30 gm Documented by: Levothyroxine Sodium (Synthroid) 125 mcg PO ACB [facility] Last Admin: 09/08/19 08:35 Dose: 125 mcg Documented by: Melatonin (Melatonin 3mg Tablet) 3 mg PO HSP PRN PRN Reason: Insomnia Last Admin: 09/07/19 21:32 Dose: 3 mg Documented by: Metoclopramide HCl (Reglan) 5 mg IV Q3HP PRN PRN Reason: nausea/vomiting Mupirocin (Bactroban Oint 2%) 1 dose TOPICAL TID [facility] Last Admin: 09/08/19 10:00 Dose: 1 dose Documented by: Omeprazole (Prilosec) 20 mg PO ACB [facility] Last Admin: 09/08/19 08:35 Dose: 20 mg Documented by: Ondansetron HCl (Zofran Odt) 4 mg SL Q4-6HP PRN; Protocol PRN Reason: Nausea And Vomiting Last Admin: 09/05/19 23:10 Dose: 4 mg Documented by: Ondansetron HCl (Zofran) 4 mg IV Q4-6HP PRN; Protocol PRN Reason: Nausea And Vomiting Last Admin: 09/07/19 17:03 Dose: 4 mg Documented by: Polyethylene Glycol (Miralax) 17 gm PO DAILYP PRN PRN Reason: Constipation Potassium Chloride (Klor-Con) 40 meq PO DAILYP PRN PRN Reason: K+ < 3.5 Salmeterol Xinafoate (Serevent) 1 puff INH BID [facility] Last Admin: 09/08/19 09:20 Dose: Not Given Documented by: Senna/Docusate Sodium (Senna Plus Tablet) 1 tab PO HS [facility] Last Admin: 09/07/19 21:27 Dose: 1 tab Documented by: Sodium Chloride (Saline Flush) 10 ml IV Q8 [facility] Last Admin: 09/08/19 07:09 Dose: 10 ml Documented by: Spironolactone (Aldactone) 100 mg PO BID [facility] Last Admin: 09/08/19 08:35 Dose: 100 mg Documented by: Thiamine HCl (Vitamin B1) 100 mg PO DAILY [facility] Last Admin: 09/08/19 09:20 Dose: Not Given Documented by: Vitamin D (Vitamin D3) 400 unit PO DAILY [facility] Last Admin: 09/08/19 09:20 Dose: Not Given Documented by: Medical - PN: A/P - Time Spent With Patient Total time spent is greater than 50% in coordination of care (as documented) at patient's floor/unit and/or counseling patient: 25 - 35 minutes (1) Acute alteration in mental status Status: Acute Assessment and plan: * Hepatic encephalopathy-ABGs unremarkable, unable to take p.o. lactulose, start lactulose retention enema * Septic shock with multiple endorgan dysfunction including AMS/DAREN. Off pressors but clinically deteriorating. On Rocephin per ID. Continuing cefepime/vancomycin * Streptococcus pneumonia bacteremia -on Rocephin per ID. CT abdomen pelvis chest as per ID recommendation for further source evaluation. * Spontaneous bacterial peritonitis- with over 14,000 WBCs peritoneal fluid. Will repeat paracentesis in 24 to 48 hours * Worsening ascites -continue diuresis * Bilateral lower lobe pneumonia continue antibiotic coverage * Acute on chronic kidney disease -creatinine 1.7-1.3->1.2. Monitor renal function * History of DM type II continue basal/prandial insulin * Hypothyroidism on thyroxine * Liver cirrhosis secondary to hepatitis C-CT abdomen rule out HCC * Neuropathy continue gabapentin * Chronic pain on home medications including fentanyl patch * Full code * Prophylaxis heparin Plan * Lactulose retention enema * Antibiotics per ID * CT abdomen pelvis chest * Prior medical condition management home meds * PT OT/nutrition support Current Visit: Yes
[2019-09-08] MEDS: RIFAXIMIN 550 MG TABLET PO SCH ×2 (11:13→21:39)
[2019-09-08 12:19] LABS: INR 1.5 (0.9-1.1); Prothrombin Time 18.1 sec (11.9-14.5)
--- NOTE | 2019-09-08 13:12 | Cat Scan Report ---
CLINICAL INFORMATION: Altered mental status. Hepatic failure. Ascites. COMPARISON: Chest x-ray and abdomen dated 09/05/2019 TECHNIQUE: Axial images were obtained through the chest,abdomen and pelvis. Sagittally and coronally reformatted images. FINDINGS: Chest CT: Lungs:There is centrilobular emphysema consistent with smoking. There are patchy groundglass infiltrates in both upper lobes. This is probably due to pneumonia. There is right lower lobe volume loss. There is a small right pleural effusion. No left pleural effusion. Mediastinum:No mediastinal adenopathy or mass. Thoracic aorta and main pulmonary artery are not opacified but are not significantly enlarged. Patient has a history of hepatic failure. No definite paraesophageal varices identified on this noncontrast enhanced examination. Heart:No pericardial effusion. Left atrium is enlarged Pleura:Small right pleural effusion Axilla, supraclavicular regions, chest wall:No axillary or supraclavicular adenopathy. Musculoskeletal:No thoracic compression fractures. Sternum and ribs are negative Abdomen/Pelvis: Liver:Liver is small with an irregular nodular contour. There is caudate lobe hypertrophy. Appearance is consistent with cirrhosis. No detectable hepatic mass. Contrast material was not administered in this examination is not sensitive to exclude hepatocellular carcinoma. There is no evidence for hepatic abscess. Gallbladder, bilary:There are surgical clips in the gallbladder fossa. No dilated bile ducts Spleen:Spleen is enlarged. Spleen measures 17.8 cm in AP dimension and 14.7 cm in craniocaudal dimension. Patency of the portal vein is not assessed on this noncontrast enhanced examination. Pancreas:Negative pancreas. No pancreatic mass. No peripancreatic abnormality Adrenal glands:Negative Kidneys, ureters, bladder:No hydronephrosis. No hydroureter. There are no renal or ureteral calculi. There is a Bundy catheter within the urinary bladder Gastrointestinal:No detectable colonic mass. No mechanical small bowel obstruction. Stomach is mildly distended and contains fluid and gas Vascular:No abdominal aortic aneurysm. There is moderate calcified atherosclerotic plaque within the abdominal aorta. Intravenous contrast material was not administered. No detectable recanalized umbilical vein. No definite varices. Lymphatic:No retroperitoneal adenopathy. No significant mesenteric adenopathy Mesentery, peritoneum:Large amount of ascitic fluid. No detectable peritoneal based mass. Reproductive:Uterus is present. No adnexal mass Musculoskeletal:Moderate degenerative disc disease at L5-S1. No lumbar compression fractures. Sacrum and pelvis are negative IMPRESSION: 1. Patchy groundglass infiltrates consistent with pneumonia. Right lower lobe volume loss 2. Small right pleural effusion 3. Large amount of ascitic fluid. No intra-abdominal abscess. No pneumoperitoneum 4. Abnormal liver contour consistent with cirrhosis. Enlarged spleen consistent with portal hypertension 5. No intra-abdominal abscess The exam was performed using radiation dose optimization techniques including, but not limited to, automated exposure control, adjustment of the mA and/or kV according to patient size and use of iterative reconstruction technique. Interpreted and Authenticated by: Grey Ochoa 09/08/19
--- NOTE | 2019-09-08 13:54 | Non-GYN Cytology Report ---
NON PANEL SEWER SPECIMEN NG DX CATEGORY Negative MICROSCOPIC DIAGNOSIS PERITONEAL FLUID, PARACENTESIS: -- NO ATYPICAL OR MALIGNANT CELLS IDENTIFIED. -- ACUTE AND CHRONIC INFLAMMATORY CELLS PRESENT. (RLF:contreras) MICROSCOPIC DESCRIPTION Thinprep, cytospin and cell block slides are examined and demonstrate macrophages, neutrophils and lymphocytes. No atypical or malignant cells are identified. (RLF:contreras) CLINICAL HISTORY Ascites. EXTERNAL COMMENT ~950 mL fresh cloudy red fluid: 1 thinprep, 1 outside slide, 1 pap, 1 Diff Quik, 1 cell block Electronically Signed by: Aida Duran M.D.
[2019-09-08] MEDS: HYDROmorphone 2 MG TABLET PO PRN (21:37)
[2019-09-08] MEDS: SENNOSIDES/DOCUSATE SODIUM 1 TAB TABLET PO SCH (21:40)
--- NOTE | 2019-09-08 21:51 | Infectious Disease Prog Note ---
Subjective Patient information: Note initiated : 09/08/19 at 9:15 pm Service Date, if different from initiated Date: [] Patient: Clare Sheehan 69 y/o F admitted on 09/05/19 for altered level consciousness. Chief Complaint: [] Interval history: Pt was intermittently confused, while being able to tell her name, date of . Belly pain is better. NO fever. Refusing lactulose. Spoke with daughter at bedside, explained about pt's condition and antibiotic treatment. Discussed high risk for mortality in next few months to year. 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 - Vital Signs Vital signs: Vital Signs Temp Pulse Resp BP Pulse Ox 09/08/19 20:01 37.6 C H 99 H 30 H 112/79 94 09/08/19 19:00 37.4 C H 102 H 21 109/78 92 09/08/19 18:01 37.3 C H 100 H 23 H 96/69 92 09/08/19 18:00 37.3 C H 101 H 20 92 09/08/19 17:01 37.3 C H 99 H 19 110/81 87 L 09/08/19 17:00 37.3 C H 99 H 21 90 09/08/19 16:01 37.2 C 86 21 92 09/08/19 16:00 37.2 C 88 23 H 100/77 91 09/08/19 15:01 37.1 C 89 17 104/73 94 09/08/19 15:00 37.1 C 88 16 95 09/08/19 14:02 37.0 C 91 H 23 H 95 09/08/19 14:01 37.0 C 92 H 20 104/71 94 09/08/19 13:16 37.0 C 93 H 26 H 100/78 95 09/08/19 13:04 37.0 C 98/72 09/08/19 12:01 37.0 C 91 H 19 103/74 93 09/08/19 11:01 36.7 C 102 H 20 93/74 90 09/08/19 10:01 37.2 C 99 H 18 101/75 91 09/08/19 09:01 37.3 C H 94 H 16 110/77 92 09/08/19 08:56 95 09/08/19 08:02 37.2 C 97 H 17 100/69 93 09/08/19 07:01 37.2 C 99 H 20 109/85 92 09/08/19 06:01 37.3 C H 97 H 16 108/76 93 09/08/19 06:00 37.3 C H 96 H 20 93 09/08/19 05:01 37.2 C 102 H 20 104/70 92 09/08/19 05:00 37.2 C 99 H 17 91 09/08/19 04:14 37.2 C 09/08/19 04:02 37.2 C 99 H 18 94 09/08/19 04:01 37.2 C 98 H 21 98/72 95 09/08/19 04:00 37.2 C 95 H 22 93 09/08/19 03:01 37.2 C 94 H 22 98/77 93 09/08/19 03:00 37.2 C 92 H 23 H 91 09/08/19 02:02 37.2 C 102 H 29 H 95 09/08/19 02:01 37.2 C 101 H 23 H 81/63 94 09/08/19 02:00 37.2 C 24 H 93 09/08/19 01:01 37.2 C 100 H 19 104/73 94 09/08/19 01:00 37.2 C 99 H 22 94 09/08/19 00:02 37.3 C H 102 H 22 94 09/08/19 00:01 37.3 C H 102 H 22 97/76 94 09/08/19 00:00 37.3 C H 102 H 24 H 93 09/07/19 23:01 37.4 C H 103 H 26 H 95/66 93 09/07/19 23:00 37.4 C H 103 H 26 H 93 09/07/19 22:00 37.5 C H 103 H 25 H 99/75 93 Intake and Output 09/08/19 09/08/19 09/08/19 05:59 13:59 21:59 Intake Total 240 300 Output Total 242 266 186 Balance -242 -26 114 Intake: Oral 240 300 Output: Urine Catheter Amount 242 231 186 Void Amount 35 Other: Meal Dinner Percent of Meal Consumed 50% Feeding Ability Total Assistance Urine Appearance Clear Clear Urine Color Light Sheron Dark Yellow Weight 63.412 kg Patient Weight 09/09/19 05:59 Weight 63.412 kg Intake & Output: Intake & Output 09/08/19 09/08/19 09/08/19 05:59 13:59 21:59 Intake Total 240 300 Output Total 242 266 186 Balance -242 -26 114 Weight 63.412 kg Intake: Oral 240 300 Output: Urine Catheter Amount 242 231 186 Void Amount 35 Other: Meal Dinner Percent of Meal Consumed 50% Feeding Ability Total Assistance Urine Appearance Clear Clear Urine Color Light Sheron Dark Yellow - Lab 09/08/19 03:50 09/08/19 03:50 Most recent lab results Calcium 9.2 mg/dl (8.6-10.4) 09/08/19 03:50 Phosphorus 3.5 mg/dL (2.7-4.5) 09/08/19 03:50 Magnesium 2.0 mg/dL (1.6-2.5) 09/08/19 03:50 Microbiology 09/06/19 09:58 Blood Blood Culture - Preliminary 09/06/19 10:03 Blood Blood Culture - Preliminary 09/05/19 07:52 Peritoneal Fluid Gram Stain - Final 09/05/19 07:52 Peritoneal Fluid Body Fluid Culture - Final Streptococcus pneumoniae 09/06/19 18:35 Sputum - Expectorated Gram Stain - Final 09/06/19 18:35 Sputum - Expectorated Sputum Culture - Final 09/05/19 06:12 Blood Blood Culture - Preliminary Gram negative bacillus Gram positive cocci 09/05/19 05:37 Blood Blood Culture - Preliminary Gram negative bacillus 09/05/19 09:20 Nose - First MRSA (PCR) - Final Medications Active Medications: Acetaminophen (Tylenol) 650 mg PO Q4-6HP PRN; Protocol PRN Reason: Per Pain Protocol/Fever > 101 Albuterol Sulfate (Ventolin) 1 puff INH Q4HP PRN PRN Reason: Shortness Of Breath Albuterol/Ipratropium (Duoneb) 3 ml NEB Q4HP PRN PRN Reason: Shortness Of Breath Last Admin: 09/08/19 08:55 Dose: 3 ml Documented by: [email or web address] Admin: 09/08/19 03:44 Dose: 3 ml Documented by: Admin: 09/07/19 21:04 Dose: 3 ml Documented by: Admin: 09/07/19 09:06 Dose: 3 ml Documented by: Admin: 09/06/19 20:16 Dose: 3 ml Documented by: Admin: 09/06/19 09:44 Dose: 3 ml Documented by: [email or web address] Ascorbic Acid (Vitamin C) 500 mg PO DAILY [facility] Last Admin: 09/08/19 09:20 Dose: Not Given Documented by: PAMELA Non-Admin Reason: Clinical Judgement Baclofen (Lioresal) 10 mg PO TID [facility] Last Admin: 09/08/19 15:08 Dose: Not Given Documented by: PAMELA Non-Admin Reason: Clinical Judgement Admin: 09/08/19 09:20 Dose: Not Given Documented by: PAMELA Non-Admin Reason: Clinical Judgement Admin: 09/07/19 21:32 Dose: 10 mg Documented by: Admin: 09/07/19 16:03 Dose: Not Given Documented by: PAMELA Non-Admin Reason: Clinical Judgement Admin: 09/07/19 11:37 Dose: Not Given Documented by: [id number] Non-Admin Reason: Too drowsy Admin: 09/06/19 21:31 Dose: 10 mg Documented by: Admin: 09/06/19 15:17 Dose: 10 mg Documented by: PAMELA Bisacodyl (Dulcolax) 10 mg AR Q2-3DAYS PRN PRN Reason: Constipation Budesonide (Pulmicort) 0.5 mg NEB Q12 [facility] Admin: 09/08/19 21:06 Dose: Not Given Documented by: MARLEE Non-Admin Reason: Pain Admin: 09/08/19 08:55 Dose: 0.5 mg Documented by: Admin: 09/07/19 21:04 Dose: 0.5 mg Documented by: Admin: 09/07/19 09:06 Dose: 0.5 mg Documented by: Admin: 09/06/19 20:16 Dose: 0.5 mg Documented by: Admin: 09/06/19 09:44 Dose: 0.5 mg Documented by: Admin: 09/06/19 02:23 Dose: Not Given Documented by: GREG Non-Chon Reason: unsure Admin: 09/05/19 10:28 Dose: 0.5 mg Documented by: THELMA Calcium Carbonate/Glycine (Tums) 500 mg CHEWED Q4HP PRN PRN Reason: Dyspepsia Cyanocobalamin (Vitamin B-12) 1,000 mcg PO BID [facility] Stop: 09/09/19 21:01 Last Admin: 09/08/19 09:20 Dose: Not Given Documented by: PAMELA Non-Admin Reason: Unable to complete procedure/test Admin: 09/07/19 21:27 Dose: 1,000 mcg Documented by: Admin: 09/07/19 11:37 Dose: Not Given Documented by: PAMELA Non-Admin Reason: Too drowsy Admin: 09/06/19 21:31 Dose: 1,000 mcg Documented by: Admin: 09/06/19 09:38 Dose: 1,000 mcg Documented by: Admin: 09/05/19 20:28 Dose: 1,000 mcg Documented by: Admin: 09/05/19 10:40 Dose: 1,000 mcg Documented by: THELMA Diagnostic Test (Pha) (Accu-Chek) 1 each FS ACHS [facility] Last Admin: 09/08/19 17:06 Dose: 1 each Documented by: Admin: 09/08/19 11:36 Dose: 1 each Documented by: Admin: 09/08/19 07:03 Dose: 1 each Documented by: Admin: 09/07/19 21:27 Dose: 1 each Documented by: Admin: 09/07/19 17:03 Dose: 1 each Documented by: Admin: 09/07/19 12:35 Dose: 1 each Documented by: Admin: 09/07/19 07:56 Dose: 1 each Documented by: Admin: 09/06/19 21:32 Dose: 1 each Documented by: Admin: 09/06/19 17:00 Dose: 1 each Documented by: Admin: 09/06/19 12:05 Dose: 1 each Documented by: Admin: 09/06/19 07:46 Dose: 1 each Documented by: Admin: 09/05/19 21:05 Dose: 1 each Documented by: Admin: 09/05/19 18:30 Dose: Not Given Documented by: THELMA Non-Admin Reason: NPO Admin: 09/05/19 12:05 Dose: 1 each Documented by: Admin: 09/05/19 10:49 Dose: 1 each Documented by: THELMA Docusate Sodium (Colace) 100 mg PO BID [facility] Last Admin: 09/08/19 09:19 Dose: Not Given Documented by: PAMELA Non-Admin Reason: LOC Admin: 09/07/19 21:27 Dose: 100 mg Documented by: Admin: 09/07/19 11:36 Dose: Not Given Documented by: PAMELA Non-Admin Reason: Pt too drowsy Admin: 09/06/19 21:31 Dose: 100 mg Documented by: Admin: 09/06/19 09:39 Dose: 100 mg Documented by: Admin: 09/05/19 20:24 Dose: Not Given Documented by: GREG Non-Chon Reason: Patient Refused Admin: 09/05/19 10:40 Dose: 100 mg Documented by: THELMA Fentanyl (Duragesic) 50 mcg TOPICAL Q72H [facility] Last Admin: 09/06/19 13:28 Dose: 50 mcg Documented by: PAMELA Fluticasone Propionate (Flovent Hfa 220mcg) 2 puff INH BID [facility] Last Admin: 09/08/19 09:19 Dose: Not Given Documented by: PAMELA Non-Admin Reason: Clinical Judgement Admin: 09/07/19 20:40 Dose: Not Given Documented by: STANISLAV Non-Chon Reason: Unavailable Admin: 09/07/19 11:36 Dose: Not Given Documented by: PAMELA Non-Admin Reason: Unavailable Admin: 09/06/19 22:04 Dose: Not Given Documented by: GREG Non-Chon Reason: Unavailable Folic Acid (Folic Acid) 1 mg PO DAILY [facility] Last Admin: 09/08/19 09:19 Dose: Not Given Documented by: PAMELA Non-Admin Reason: Clinical Judgement Admin: 09/07/19 11:36 Dose: Not Given Documented by: PAMELA Non-Admin Reason: Too drowsy Admin: 09/06/19 09:38 Dose: 1 mg Documented by: Admin: 09/05/19 10:40 Dose: 1 mg Documented by: THELMA Gabapentin (Neurontin) 300 mg PO BID [facility] Last Admin: 09/08/19 09:20 Dose: Not Given Documented by: PAMELA Non-Admin Reason: Clinical Judgement Admin: 09/07/19 21:27 Dose: 300 mg Documented by: Admin: 09/07/19 11:37 Dose: Not Given Documented by: PAMELA Non-Admin Reason: Too drowsy Admin: 09/06/19 21:31 Dose: 300 mg Documented by: GREG Heparin Sodium (Porcine) (Heparin) 5,000 unit SQ Q12 [facility] Last Admin: 09/08/19 08:35 Dose: 5,000 unit Documented by: Admin: 09/07/19 21:27 Dose: 5,000 unit Documented by: Admin: 09/07/19 10:15 Dose: 5,000 unit Documented by: Admin: 09/06/19 21:31 Dose: 5,000 unit Documented by: Admin: 09/06/19 09:38 Dose: 5,000 unit Documented by: Admin: 09/05/19 20:27 Dose: 5,000 unit Documented by: Admin: 09/05/19 10:38 Dose: 5,000 unit Documented by: THELMA Hydromorphone HCl (Dilaudid) 4 - 8 mg PO Q6HP PRN; Protocol PRN Reason: Per Pain Protocol Last Admin: 09/07/19 23:24 Dose: 8 mg Documented by: Admin: 09/07/19 18:11 Dose: 4 mg Documented by: Admin: 09/06/19 05:48 Dose: 8 mg Documented by: Admin: 09/05/19 19:45 Dose: 8 mg Documented by: Admin: 09/05/19 13:31 Dose: 8 mg Documented by: THELMA Hydroxyzine HCl (Atarax) 100 mg PO BIDP PRN PRN Reason: Itching Magnesium Sulfate (Magnesium Sulfate) 2 gm in 50 mls @ 50 mls/hr IV UD PRN PRN Reason: MG = or < 1.7 Last Infusion: 09/06/19 11:25 Dose: 0 mls/hr Documented by: Admin: 09/06/19 10:25 Dose: 50 mls/hr Documented by: PAMELA Acetaminophen (Ofirmev) 500 mg in 50 mls @ 100 mls/hr IV Q6HP PRN; Protocol PRN Reason: PAIN/FEVER > 101 Last Infusion: 09/05/19 21:00 Dose: 0 mls/hr Documented by: Admin: 09/05/19 20:27 Dose: 100 mls/hr Documented by: GREG Ceftriaxone Sodium 2 gm/ (Dextrose) 50 mls @ 100 mls/hr IV DAILY [facility]; Protocol Last Admin: 09/08/19 10:00 Dose: 100 mls/hr Documented by: Infusion: 09/07/19 10:40 Dose: 0 mls/hr Documented by: Admin: 09/07/19 10:10 Dose: 100 mls/hr Documented by: MICHAEL Norepinephrine Bitartrate 16 (mg/ Sodium Chloride) 250 mls @ 9.375 mls/hr IV Q24HP PRN; Protocol PRN Reason: TITRATE TO KEEP MAP > 65 Insulin Glargine (Lantus) 10 unit SQ DAILY [facility] Last Admin: 09/08/19 08:36 Dose: 10 units Documented by: Admin: 09/07/19 10:14 Dose: 10 units Documented by: Admin: 09/06/19 09:39 Dose: 10 units Documented by: Admin: 09/05/19 13:32 Dose: 10 units Documented by: THELMA Insulin Human Lispro (Humalog) 0 unit SQ ACHS KAT; Protocol Last Admin: 09/08/19 17:11 Dose: 6 units Documented by: Admin: 09/08/19 12:19 Dose: 8 units Documented by: Admin: 09/08/19 08:35 Dose: 8 units Documented by: Admin: 09/07/19 21:28 Dose: Not Given Documented by: [email or web address] Non-Admin Reason: PT not eating Admin: 09/07/19 18:11 Dose: 6 units Documented by: Admin: 09/07/19 12:35 Dose: 6 units Documented by: Admin: 09/07/19 07:58 Dose: 4 units Documented by: Admin: 09/06/19 21:52 Dose: 6 units Documented by: Admin: 09/06/19 17:08 Dose: 10 units Documented by: Admin: 09/06/19 12:07 Dose: 2 units Documented by: Admin: 09/06/19 07:51 Dose: 6 units Documented by: Admin: 09/05/19 21:14 Dose: 8 units Documented by: Admin: 09/05/19 18:30 Dose: Not Given Documented by: THELMA Non-Admin Reason: NPO Admin: 09/05/19 10:57 Dose: 12 units Documented by: THELMA Iron Carb/Multivit/[place]/Folic Acid (Multivitamin W/Minerals) 1 tab PO DAILY [facility] Last Admin: 09/08/19 09:20 Dose: Not Given Documented by: PAMELA Non-Admin Reason: Clinical Judgement Admin: 09/07/19 11:37 Dose: Not Given Documented by: PAMELA Non-Admin Reason: Too drowsy Admin: 09/06/19 09:38 Dose: 1 tab Documented by: Admin: 09/05/19 10:40 Dose: 1 tab Documented by: THELMA Lactulose (Cephulac) 30 gm PO QID [facility] Last Admin: 09/08/19 15:13 Dose: 30 gm Documented by: Admin: 09/08/19 15:13 Dose: Not Given Documented by: PAMELA Non-Admin Reason: Clinical Judgement Admin: 09/08/19 08:35 Dose: 30 gm Documented by: Admin: 09/07/19 20:40 Dose: Not Given Documented by: [email or web address] Non-Admin Reason: Patient Refused Admin: 09/07/19 17:30 Dose: Not Given Documented by: PAMELA Non-Admin Reason: Nausea Admin: 09/07/19 13:13 Dose: 30 gm Documented by: PAMELA Levothyroxine Sodium (Synthroid) 125 mcg PO ACB [facility] Last Admin: 09/08/19 08:35 Dose: 125 mcg Documented by: Admin: 09/07/19 07:58 Dose: 125 mcg Documented by: PAMELA Melatonin (Melatonin 3mg Tablet) 3 mg PO HSP PRN PRN Reason: Insomnia Last Admin: 09/07/19 21:32 Dose: 3 mg Documented by: STANISLAV Metoclopramide HCl (Reglan) 5 mg IV Q3HP PRN PRN Reason: nausea/vomiting Mupirocin (Bactroban Oint 2%) 1 dose TOPICAL TID [facility] Last Admin: 09/08/19 15:48 Dose: 1 dose Documented by: Admin: 09/08/19 10:00 Dose: 1 dose Documented by: Admin: 09/07/19 21:26 Dose: 1 dose Documented by: STANISLAV Omeprazole (Prilosec) 20 mg PO ACB [facility] Last Admin: 09/08/19 08:35 Dose: 20 mg Documented by: Admin: 09/07/19 07:58 Dose: 20 mg Documented by: Admin: 09/06/19 09:38 Dose: 20 mg Documented by: PAMELA Ondansetron HCl (Zofran Odt) 4 mg SL Q4-6HP PRN; Protocol PRN Reason: Nausea And Vomiting Last Admin: 09/05/19 23:10 Dose: 4 mg Documented by: Admin: 09/05/19 12:15 Dose: 4 mg Documented by: THELMA Ondansetron HCl (Zofran) 4 mg IV Q4-6HP PRN; Protocol PRN Reason: Nausea And Vomiting Last Admin: 09/07/19 17:03 Dose: 4 mg Documented by: PAMELA Polyethylene Glycol (Miralax) 17 gm PO DAILYP PRN PRN Reason: Constipation Potassium Chloride (Klor-Con) 40 meq PO DAILYP PRN PRN Reason: K+ < 3.5 Salmeterol Xinafoate (Serevent) 1 puff INH BID [facility] Last Admin: 09/08/19 09:20 Dose: Not Given Documented by: PAMELA Non-Admin Reason: Unavailable Admin: 09/07/19 20:41 Dose: Not Given Documented by: STANISLAV Non-Admin Reason: Unavailable Admin: 09/07/19 11:37 Dose: Not Given Documented by: PAMELA Non-Admin Reason: Unavailable Admin: 09/06/19 22:04 Dose: Not Given Documented by: GREG Non-Admin Reason: Unavailable Senna/Docusate Sodium (Senna Plus Tablet) 1 tab PO HS [facility] Last Admin: 09/07/19 21:27 Dose: 1 tab Documented by: Admin: 09/06/19 21:32 Dose: 1 tab Documented by: Admin: 09/05/19 20:24 Dose: Not Given Documented by: GREG Non-Admin Reason: Patient Refused Sodium Chloride (Saline Flush) 10 ml IV Q8 [facility] Last Admin: 09/08/19 15:13 Dose: 10 ml Documented by: Admin: 09/08/19 07:09 Dose: 10 ml Documented by: Admin: 09/07/19 21:28 Dose: 10 ml Documented by: Admin: 09/07/19 13:14 Dose: 10 ml Documented by: Admin: 09/07/19 05:20 Dose: 10 ml Documented by: Admin: 09/06/19 21:33 Dose: 10 ml Documented by: Admin: 09/06/19 13:29 Dose: Not Given Documented by: PAMELA Non-Admin Reason: Continuous IV Admin: 09/06/19 05:49 Dose: 10 ml Documented by: Admin: 09/05/19 21:15 Dose: 10 ml Documented by: Admin: 09/05/19 13:32 Dose: 10 ml Documented by: [email or web address] Spironolactone (Aldactone) 100 mg PO BID [facility] Last Admin: 09/08/19 08:35 Dose: 100 mg Documented by: Admin: 09/07/19 21:27 Dose: 100 mg Documented by: Admin: 09/07/19 10:16 Dose: 100 mg Documented by: [email or web address] Thiamine HCl (Vitamin B1) 100 mg PO DAILY [facility] Last Admin: 09/08/19 09:20 Dose: Not Given Documented by: PAMELA Non-Admin Reason: Clinical Judgement Admin: 09/07/19 12:35 Dose: Not Given Documented by: [email or web address] Non-Admin Reason: Unavailable Admin: 09/06/19 09:38 Dose: 100 mg Documented by: Admin: 09/05/19 10:40 Dose: 100 mg Documented by: [email or web address] Vitamin D (Vitamin D3) 400 unit PO DAILY [facility] Last Admin: 09/08/19 09:20 Dose: Not Given Documented by: [email or web address] Non-Admin Reason: Clinical Judgement Assessment and Plan - Narrative A/P Narrative: A: 1. Streptococcus pneumoniae bacteremia: sens to Ceftriaxone - sec to seeding from spontaneous bacterial peritonitis 2. SBP: based on increased PMNs (> 250), clinical s/s, peritoneal fluid Cx growing Strept pneumoniae - sec to (3) - pt was not on antibiotic prophylaxis at admission. She meets criteria for being on chronic antibiotic prophylaxis for prevention of SBP - CT s/o large amount of ascitic fluid 3. 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 Thrombocytopenia: sec to (3) 5. Failure to thrive: sec to severe ascites, cirrhosis 6. Rt Pleural effusion: reactive to ascites Recommendations: - Continue IV Ceftriaxone 2 gm q24 hrs, day 2/10 - repeat paracentesis with cell count tomorrow. will aim for peritoneal fluid neutrophil count is < 250. - will switch to low dose Ciprofloxacin 500 mg as antibiotic prophylaxis for SBP prevention after completion of IV therapy for bacteremia - goals of care discussion per primary team will follow Poncho Serrano MD Infectious diseases
[2019-09-09] MEDS: 0.9 % SODIUM CHLORIDE 10 ML SYRINGE IV SCH ×3 (04:17→20:52)
[2019-09-09 05:40] LABS: Hematocrit 32.4 % (36.0-48.0); Hemoglobin 10.7 g/dL (12.0-15.0); Mean Cell Volume 83.5 fL (80.0-100.0); Mean Corpuscular HGB Conc 33.1 g/dL (31.0-36.0); Mean Platelet Volume 7.7 fL (7.4-10.4); Platelet Count 143 K/mcL (140-440); RBC 3.88 M/mcL (4.00-5.20); Red Cell Distribution Width 17.5 % (11.5-14.5); WBC 11.8 K/mcL (4.5-11.0)
[2019-09-09] MEDS: HYDROmorphone 2 MG TABLET PO PRN ×2 (05:46→14:31)
[2019-09-09 06:03] LABS: ALT/SGPT 18 U/l (0-40); AST/SGOT 34 U/l (0-37); Albumin 2.3 gm/dL (3.2-5.2); Albumin/Globulin Ratio 0.5 (1.0-2.3); Alkaline Phosphatase 57 U/L (39-117); Bilirubin,Direct 0.3 mg/dL (0.0-0.3); Bilirubin,Total 0.7 mg/dL (0.0-1.0); Blood Urea Nitrogen 36 mg/dl (8-23); Calcium 9.2 mg/dl (8.6-10.4); Carbon Dioxide 17 mmol/L (22-30); Chloride 100 mmol/L (96-108); Globulin 4.7 gm/dL (2.2-3.7); Glomerular Filtration Rate 42; Glucose 176 mg/dL (70-105); Lactate Dehydrogenase 172 U/L (94-250); Phosphorous 3.3 mg/dL (2.7-4.5); Triglycerides 80 mg/dl (<150)
[2019-09-09] MEDS: BUDESONIDE 0.5 MG/2 ML AMPUL.NEB NEB SCH ×2 (07:14→19:22)
[2019-09-09] MEDS: LEVOTHYROXINE 125 MCG TABLET PO SCH (07:49)
[2019-09-09] MEDS: OMEPRAZOLE 20 MG CAPSULE PO SCH (07:49)
[2019-09-09 08:30] LABS: Anisocytosis 1+ (NONE SEEN); Band Neutrophils % 4 % (0-10); Eosinophils % (Manual) 2 % (0-7); Lymphocytes % 2 % (15-49); Monocytes % (Manual) 1 % (1-12); Myelocytes % 2 % (0-0); Platelet Estimate NORMAL (NORMAL); RBC Morphology ABNORM (NORMAL); Segmented Neutrophils % 89 % (38-78)
[2019-09-09] MEDS: SALMETEROL XINAFOATE 1 PUFF INHALER INH SCH ×2 (09:41→20:28)
[2019-09-09] MEDS: FLUTICASONE HFA 220MCG INHALER INH SCH ×2 (09:41→20:28)
[2019-09-09] MEDS: fentaNYL 50 MCG PATCH TOPICAL SCH (09:48)
[2019-09-09] MEDS: INSULIN LISPRO 1 UNIT/0.01 ML UNIT SQ SCH ×5 (09:49→20:50)
[2019-09-09] MEDS: INSULIN GLARGINE, HUMAN 1 UNIT/0.01 ML SQ SCH ×2 (09:49→10:29)
[2019-09-09] MEDS: HEPARIN 5,000 UNIT/ML VIAL SQ SCH ×3 (09:50→20:52)
[2019-09-09] MEDS: cefTRIAXone 2 GM in DEXTROSE 5% IN WATER 50 ML IV SCH ×2 (09:50→11:00)
[2019-09-09] MEDS: DOCUSATE SODIUM 100 MG CAPSULE PO SCH ×2 (09:50→20:52)
[2019-09-09] MEDS: LACTULOSE 20 GM/30 ML ORAL.SOL PO SCH ×5 (09:50→20:52)
[2019-09-09] MEDS: BACLOFEN 10 MG TABLET PO SCH ×5 (09:51→20:53)
[2019-09-09] MEDS: SPIRONOLACTONE 25 MG TABLET PO SCH ×3 (09:51→20:52)
[2019-09-09] MEDS: GABAPENTIN 300 MG CAPSULE PO SCH ×4 (09:51→20:53)
[2019-09-09] MEDS: RIFAXIMIN 550 MG TABLET PO SCH ×3 (09:51→20:52)
[2019-09-09] MEDS: FOLIC ACID 1 MG TABLET PO SCH (10:29)
[2019-09-09] MEDS: MUPIROCIN OINT 2% 22GM TOPICAL SCH ×3 (10:29→20:52)
[2019-09-09] MEDS: MULTIVIT,THER IRON,CA,FA & MIN 1 TABLET PO SCH (10:30)
[2019-09-09] MEDS: THIAMINE 100 MG TABLET PO SCH (11:07)
[2019-09-09] MEDS: CYANOCOBALAMIN (VITAMIN B-12) 500 MCG TABLET PO SCH ×2 (11:07→20:52)
[2019-09-09] MEDS: ASCORBIC ACID 500 MG TABLET PO SCH (11:08)
[2019-09-09] MEDS: VITAMIN D3 400 UNIT TABLET PO SCH (11:08)
--- NOTE | 2019-09-09 13:41 | Internal Med Progress Note ---
Medical - PN: Subj Patient information: Note initiated : 09/09/19 at 1:34 pm Service Date, if different from initiated Date: [] Patient: Clare Sheehan a 69 y/o F admitted on 09/05/19 for altered level consciousness. Chief Complaint: [] Interval history: Ms. 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 Symptoms have been progressing over the last couple of days and patient unable to think clearly. She c/o 7/10 abdominal pain and was noted to have a fever. Over the last couple of days she has not been able to function and essentially laying on the bed. Initial work-up in the ER was consistent with severe sepsis along with findings suggestive of SBP and basilar pneumonia on imaging. Blood cultures pending, elevated lactate at 3.3. Creatinine 1.7 up from baseline 1.3. Patient underwent 6 L paracentesis results of which are awaited. Subsequently hospitalist service consulted after patient received antibiotics At the time evaluation patient is very lethargic and fatigued. Unable to provide a detailed history. Endorses to symptoms as above including fever abdominal pain and weakness. No family members present. Most of the history was obtained from review of medical records and from ER physician. 09/06-GNR on blood cultures/GPC on 1 culture and ascitic fluid Gram stain. Discussed with ID. Antibiotics changed to vancomycin/cefepime. Clinically improving. Lactic acid downtrending from 3.9-1.9. White count 12.2, creatinine down from 1.7-1.3. On Levophed to keep map at goal. Confirmed SBP with over 14,000 white cells in the sciatic fluid with gram-positive cocci in culture. Remains critically ill. Sister at bedside. Discussed prognosis and treatment plan. Repeat surveillance cultures today. 09/07-peritoneal fluid heavy growth alpha streptococci. On antibiotic coverage. ID consulted. Patient off pressors since yesterday. Remains critically ill. Feels lethargic fatigued. Tense, tender and distended abdomen with reaccumulation of ascites. No family at bedside. Remains a poor prognosis and high risk mortality in the setting of liver cirrhosis/sepsis bacteremia and spontaneous bacterial enteritis 09/08-Streptococcus pneumonia on final cultures. Once Rocephin per ID. CT abdomen chest pelvis as per ID recommendations to rule out secondary focus for Streptococcus pneumonia bacteremia including pneumonia and also HCC. Very lethargic this morning. White count at 11,000. Creatinine 1.2. Start lactulose retention enemas. Consider rifaximin. Will repeat paracentesis in 24-48 hours 09/09-patient antibiotic coverage as per ID. Clinically deteriorating. Worsening ascites. Paracentesis today. Discussed with patient poor prognosis based on meld score/progressive deterioration despite aggressive intervention. Patient desired her wish to be a DNR. Daughter present during patient's decision and endorsed to her mother's wishes. Await repeat paracentesis results. ID on board. - Constitutional Vitals: Vital Signs Temp Pulse Resp BP Pulse Ox 98.6 F 94 H 23 H 126/81 93 09/09/19 12:02 09/09/19 12:02 09/09/19 12:02 09/09/19 12:02 09/09/19 13:00 Period Temp Pulse Resp BP Sys/Will Pulse Ox Last 24 Hr 97.0 F-99.7 F 86-102 16-30 96-130/69-88 87-99 Intake and Output 09/08/19 09/09/19 09/09/19 21:59 05:59 13:59 Intake Total 300 200 Output Total 200 240 285 Balance 100 -240 -85 Weight 139 lb 12.8 oz Intake & Output: Intake & Output 09/08/19 09/09/19 09/09/19 21:59 05:59 13:59 Intake Total 300 200 Output Total 200 240 285 Balance 100 -240 -85 Weight 139 lb 12.8 oz Intake: Oral 300 200 Output: Urine Catheter Amount 200 240 285 Other: Meal Dinner Percent of Meal Consumed 50% Feeding Ability Total Assistance Nourishment/Supplement name mash potatoes; pudding Urine Appearance Clear Clear Clear Uretheral (Bundy) Clear Urine Color Bright Yellow Bright Yellow Light Sheron Uretheral (Bundy) Light Sheron Stool Size Smear Stool Color Brown Yellow Stool Consistency Loose # of times incontinent of 1 Bowels General appearance: morbidly obese Exam: Fatigue lethargic Distended abdomen Generalized pain No lymphedema No telemetry event Medical - PN: Obj Da - Labs CBC & Chem 7: 09/09/19 03:40 09/09/19 03:40 Labs: Abnormal Lab Results 09/09/19 09/09/19 09/08/19 03:40 03:40 11:31 WBC 11.8 H RBC 3.88 L Hgb 10.7 L Hct 32.4 L RDW 17.5 H Plt Count Seg Neutrophils % 89 H Band Neutrophils % Lymphocytes % 2 L Myelocytes % 2 H WBC Morphology Toxic Granulation RBC Morphology Abnorm A Anisocytosis 1+ A PT 18.1 H INR 1.5 H Sodium 130 L Carbon Dioxide 17 L BUN 36 H Creatinine 1.3 H Glucose 176 H Phosphorus AST Albumin 2.3 L Globulin 4.7 H Albumin/Globulin Ratio 0.5 L 09/08/19 09/08/19 09/07/19 03:50 03:50 04:13 WBC RBC 3.83 L Hgb 10.5 L Hct 32.3 L RDW 17.2 H Plt Count 134 L Seg Neutrophils % 87 H Band Neutrophils % Lymphocytes % Myelocytes % 4 H WBC Morphology Abnorm A Toxic Granulation Few A RBC Morphology Abnorm A Anisocytosis 1+ A PT INR Sodium 131 L 132 L Carbon Dioxide 19 L 19 L BUN 30 H Creatinine 1.2 H Glucose 231 H 191 H Phosphorus 2.2 L AST 38 H Albumin 2.5 L 2.3 L Globulin 4.4 H 4.0 H Albumin/Globulin Ratio 0.6 L 0.6 L 09/07/19 04:13 WBC RBC 3.61 L Hgb 10.0 L Hct 30.3 L RDW 17.0 H Plt Count 113 L Seg Neutrophils % 79 H Band Neutrophils % 18 H Lymphocytes % Myelocytes % WBC Morphology Abnorm A Toxic Granulation 2+ A RBC Morphology Abnorm A Anisocytosis 1+ A PT INR Sodium Carbon Dioxide BUN Creatinine Glucose Phosphorus AST Albumin Globulin Albumin/Globulin Ratio Meds: Medications Acetaminophen (Tylenol) 650 mg PO Q4-6HP PRN; Protocol PRN Reason: Per Pain Protocol/Fever > 101 Albuterol Sulfate (Ventolin) 1 puff INH Q4HP PRN PRN Reason: Shortness Of Breath Albuterol/Ipratropium (Duoneb) 3 ml NEB Q4HP PRN PRN Reason: Shortness Of Breath Last Admin: 09/08/19 08:55 Dose: 3 ml Documented by: Ascorbic Acid (Vitamin C) 500 mg PO DAILY [facility] Last Admin: 09/09/19 11:08 Dose: Not Given Documented by: Baclofen (Lioresal) 10 mg PO TID [facility] Last Admin: 09/09/19 10:29 Dose: Not Given Documented by: Bisacodyl (Dulcolax) [address] Q2-3DAYS PRN PRN Reason: Constipation Budesonide (Pulmicort) 0.5 mg NEB Q12 [facility] Last Admin: 09/09/19 07:14 Dose: Not Given Documented by: Calcium Carbonate/Glycine (Tums) 500 mg CHEWED Q4HP PRN PRN Reason: Dyspepsia Cyanocobalamin (Vitamin B-12) 1,000 mcg PO BID [facility] Stop: 09/09/19 21:01 Last Admin: 09/09/19 11:07 Dose: Not Given Documented by: Diagnostic Test (Pha) (Accu-Chek) 1 each FS ACHS [facility] Last Admin: 09/09/19 12:38 Dose: 1 each Documented by: Docusate Sodium (Colace) 100 mg PO BID [facility] Last Admin: 09/09/19 09:50 Dose: Not Given Documented by: Fentanyl (Duragesic) 50 mcg TOPICAL Q72H [facility] Last Admin: 09/09/19 09:48 Dose: 50 mcg Documented by: Fluticasone Propionate (Flovent Hfa 220mcg) 2 puff INH BID [facility] Last Admin: 09/09/19 09:41 Dose: Not Given Documented by: Folic Acid (Folic Acid) 1 mg PO DAILY [facility] Last Admin: 09/09/19 10:29 Dose: Not Given Documented by: Gabapentin (Neurontin) 300 mg PO BID [facility] Last Admin: 09/09/19 10:30 Dose: Not Given Documented by: Heparin Sodium (Porcine) (Heparin) 5,000 unit SQ Q12 [facility] Last Admin: 09/09/19 10:29 Dose: Not Given Documented by: Hydromorphone HCl (Dilaudid) 4 - 8 mg PO Q6HP PRN; Protocol PRN Reason: Per Pain Protocol Last Admin: 09/09/19 05:46 Dose: 4 mg Documented by: Hydroxyzine HCl (Atarax) 100 mg PO BIDP PRN PRN Reason: Itching Magnesium Sulfate (Magnesium Sulfate) 2 gm in 50 mls @ 50 mls/hr IV UD PRN PRN Reason: MG = or < 1.7 Last Infusion: 09/06/19 11:25 Dose: Infused Documented by: Acetaminophen (Ofirmev) 500 mg in 50 mls @ 100 mls/hr IV Q6HP PRN; Protocol PRN Reason: PAIN/FEVER > 101 Last Infusion: 09/05/19 21:00 Dose: Infused Documented by: Ceftriaxone Sodium 2 gm/ (Dextrose) 50 mls @ 100 mls/hr IV DAILY [facility]; Protocol Last Admin: 09/09/19 11:00 Dose: 100 mls/hr Documented by: Norepinephrine Bitartrate 16 (mg/ Sodium Chloride) 250 mls @ 9.375 mls/hr IV Q24HP PRN; Protocol PRN Reason: TITRATE TO KEEP MAP > 65 Insulin Glargine (Lantus) 10 unit SQ DAILY [facility] Last Admin: 09/09/19 10:29 Dose: Not Given Documented by: Insulin Human Lispro (Humalog) 0 unit SQ ACHS [facility]; Protocol Last Admin: 09/09/19 12:41 Dose: 6 units Documented by: Iron Carb/Multivit/Progress/Folic Acid (Multivitamin W/Minerals) 1 tab PO DAILY [facility] Last Admin: 09/09/19 10:30 Dose: Not Given Documented by: Lactulose (Cephulac) 30 gm PO QID [facility] Last Admin: 09/09/19 10:29 Dose: Not Given Documented by: Levothyroxine Sodium (Synthroid) 125 mcg PO ACB [facility] Last Admin: 09/09/19 07:49 Dose: 125 mcg Documented by: Melatonin (Melatonin 3mg Tablet) 3 mg PO HSP PRN PRN Reason: Insomnia Last Admin: 09/07/19 21:32 Dose: 3 mg Documented by: Metoclopramide HCl (Reglan) 5 mg IV Q3HP PRN PRN Reason: nausea/vomiting Mupirocin (Bactroban Oint 2%) 1 dose TOPICAL TID [facility] Last Admin: 09/09/19 10:29 Dose: Not Given Documented by: Omeprazole (Prilosec) 20 mg PO ACB [facility] Last Admin: 09/09/19 07:49 Dose: 20 mg Documented by: Ondansetron HCl (Zofran Odt) 4 mg SL Q4-6HP PRN; Protocol PRN Reason: Nausea And Vomiting Last Admin: 09/05/19 23:10 Dose: 4 mg Documented by: Ondansetron HCl (Zofran) 4 mg IV Q4-6HP PRN; Protocol PRN Reason: Nausea And Vomiting Last Admin: 09/07/19 17:03 Dose: 4 mg Documented by: Polyethylene Glycol (Miralax) 17 gm PO DAILYP PRN PRN Reason: Constipation Potassium Chloride (Klor-Con) 40 meq PO DAILYP PRN PRN Reason: K+ < 3.5 Salmeterol Xinafoate (Serevent) 1 puff INH BID [facility] Last Admin: 09/09/19 09:41 Dose: Not Given Documented by: Senna/Docusate Sodium (Senna Plus Tablet) 1 tab PO HS [facility] Last Admin: 09/08/19 21:40 Dose: 1 tab Documented by: Sodium Chloride (Saline Flush) 10 ml IV Q8 [facility] Last Admin: 09/09/19 04:17 Dose: 10 ml Documented by: Spironolactone (Aldactone) 100 mg PO BID [facility] Last Admin: 09/09/19 10:29 Dose: Not Given Documented by: Thiamine HCl (Vitamin B1) 100 mg PO DAILY [facility] Last Admin: 09/09/19 11:07 Dose: Not Given Documented by: Vitamin D (Vitamin D3) 400 unit PO DAILY [facility] Last Admin: 09/09/19 11:08 Dose: Not Given Documented by: Medical - PN: A/P - Time Spent With Patient Total time spent is greater than 50% in coordination of care (as documented) at patient's floor/unit and/or counseling patient: 25 - 35 minutes (1) Acute alteration in mental status Status: Acute Assessment and plan: * Hepatic encephalopathy-on rifaximin/lactulose. No significant improvement in 24 hours * Septic shock with multiple endorgan dysfunction including AMS/DAREN. Off pressors. Continuing antibiotic coverage * Streptococcus pneumonia bacteremia -on Rocephin per ID. CT abdomen pelvis chest as per ID recommendation for further source evaluation. * Spontaneous bacterial peritonitis- with over 14,000 WBCs peritoneal fluid along with Streptococcus pneumonia on culture. Paracentesis today * Bilateral lower lobe pneumonia continue antibiotic coverage * Acute on chronic kidney disease -creatinine 1.7-1.3->1.2-> 1.3. Monitor renal function * History of DM type II continue basal/prandial insulin * Hypothyroidism on thyroxine * Liver cirrhosis secondary to hepatitis C-no CT evidence of hepatocellular carcinoma * Neuropathy continue gabapentin * Chronic pain on home medications including fentanyl patch * Patient DNR * Prophylaxis heparin Plan * Repeat paracentesis * Continue lactulose/rifaximin * Antibiotics per ID * Daily goals of care conference patient now DNR * PT OT/nutrition support Current Visit: Yes
[2019-09-09] MEDS ORDERED: LIDOCAINE 1% 20 ML VIAL SQ ONE (16:12)
--- NOTE | 2019-09-09 16:23 | Ultrasound Report ---
CLINICAL INFORMATION: Ascites TECHNIQUE: Informed consent was obtained. Ascitic fluid in the right lower quadrant was localized with ultrasound. Routine ChloraPrep skin cleansing. 1% lidocaine injected subcutaneously and deep. An 8 [place] safety centesis set was utilized. 9.5 L of blood-tinged ascitic fluid was removed. Albumin was given per protocol. IMPRESSION: 1. Ultrasound-guided thoracentesis 2. 9.5 L of blood-tinged fluid removed Interpreted and Authenticated by: Grey Ochoa 09/09/19
[2019-09-09] MEDS ORDERED: ALBUMIN HUMAN 37.5 GM/150 ML BAG IV ONE (16:30)
[2019-09-09 18:03] LABS: Nucleated Cel,Peritoneal Fluid 935 /cumm; RBC,Peritoneal Fluid < 50000 /cumm
[2019-09-09 18:10] LABS: Macrophages,Peritoneal Fluid 5 %; Neutrophils,Peritoneal Fluid 79 %
[2019-09-09] MEDS ORDERED: ALBUMIN HUMAN 25 GM/100 ML BAG IV ONE ×2 (18:30→19:32)
[2019-09-09] MEDS: SENNOSIDES/DOCUSATE SODIUM 1 TAB TABLET PO SCH (20:52)
--- NOTE | 2019-09-09 21:35 | Infectious Disease Prog Note ---
Subjective Patient information: Note initiated : 09/09/19 at 9:28 pm Service Date, if different from initiated Date: [] Patient: Clare Sheehan 69 y/o F admitted on 09/05/19 for altered level consciousness. Chief Complaint: [] Interval history: Pt was sleeping at time of visit. Per nursing, she had been agitated, refusing all PO meds inc Lactulose and Rifaximin. No fever noted in vital signs. Objective Objective Narrative: sleeping chest has VBS in b/l upper lung vaca, with absent BS at bases b/l bowel distended, hypoactive bowel sounds - Vital Signs Vital signs: Vital Signs Temp Pulse Resp BP Pulse Ox 09/09/19 20:01 37.2 C 83 17 92/68 94 09/09/19 19:23 83 16 09/09/19 18:00 37.1 C 94 H 17 99/71 100 09/09/19 16:01 37.3 C H 96 H 26 H 99/67 100 09/09/19 15:00 37.3 C H 18 09/09/19 14:37 37.2 C 99 H 19 108/79 97 09/09/19 13:00 93 09/09/19 12:02 37.0 C 94 H 23 H 126/81 96 09/09/19 10:00 37.0 C 99 H 20 128/84 94 09/09/19 09:01 37.0 C 99 H 24 H 116/83 99 09/09/19 08:01 36.9 C 95 H 23 H 130/83 97 09/09/19 08:00 96 09/09/19 07:01 36.9 C 95 H 20 123/82 98 09/09/19 06:01 36.1 C 100 H 24 H 95 09/09/19 06:00 36.2 C 100 H 24 H 128/81 96 09/09/19 05:02 37.3 C H 96 H 21 119/85 94 09/09/19 04:01 37.3 C H 98 H 22 106/78 92 09/09/19 03:15 93 09/09/19 03:01 37.3 C H 20 112/81 96 09/09/19 02:01 37.3 C H 93 H 25 H 113/77 96 09/09/19 01:01 37.3 C H 93 H 25 H 121/81 95 09/09/19 00:01 37.3 C H 92 H 26 H 110/84 95 09/08/19 23:01 37.3 C H 98 H 24 H 119/88 93 09/08/19 22:01 37.3 C H 94 H 25 H 116/78 95 Intake and Output 09/09/19 09/09/19 09/09/19 05:59 13:59 21:59 Intake Total 250 150 Output Total 240 285 18625 Balance -[facility] -27 -9940 Intake: IV 50 150 Rocephin 2 gm In Dextrose 5% in 50 Water 50 ml @ 100 mls/hr IV DAILY [facility] Rx#:[id number] Oral 200 Output: Urine Catheter Amount 240 285 590 Para\Thoracentesis 9500 Other: Urine Appearance Clear Clear Uretheral (Bundy) Clear Urine Color Bright Yellow Light Sheron Uretheral (Bundy) Light Sheron Stool Size Smear Stool Color Brown Yellow Stool Consistency Loose # of times incontinent of 1 Bowels Weight 53.977 kg Patient Weight 09/10/19 05:59 Weight 53.977 kg Intake & Output: Intake & Output 09/09/19 09/09/19 09/09/19 05:59 13:59 21:59 Intake Total 250 150 Output Total 240 285 78238 Balance -911 -35 -9940 Weight 53.977 kg Intake: IV 50 150 Rocephin 2 gm In Dextrose 5% in 50 Water 50 ml @ 100 mls/hr IV DAILY [facility] Rx#:[id number] Oral 200 Output: Urine Catheter Amount 240 285 590 Para\Thoracentesis 9500 Other: Urine Appearance Clear Clear Uretheral (Bundy) Clear Urine Color Bright Yellow Light Sheron Uretheral (Bundy) Light Sheron Stool Size Smear Stool Color Brown Yellow Stool Consistency Loose # of times incontinent of 1 Bowels - Lab 09/09/19 03:40 09/09/19 03:40 Most recent lab results Calcium 9.2 mg/dl (8.6-10.4) 09/09/19 03:40 Phosphorus 3.3 mg/dL (2.7-4.5) 09/09/19 03:40 Magnesium 2.2 mg/dL (1.6-2.5) 09/09/19 03:40 Microbiology 09/09/19 15:30 Peritoneal Fluid Gram Stain - Final 09/09/19 15:18 Pleural Fluid Gram Stain - Final 09/09/19 15:18 Pleural Fluid Body Fluid Culture - Final 09/06/19 09:58 Blood Blood Culture - Preliminary 09/06/19 10:03 Blood Blood Culture - Preliminary 09/05/19 07:52 Peritoneal Fluid Gram Stain - Final 09/05/19 07:52 Peritoneal Fluid Body Fluid Culture - Final Streptococcus pneumoniae 09/06/19 18:35 Sputum - Expectorated Gram Stain - Final 09/06/19 18:35 Sputum - Expectorated Sputum Culture - Final 09/05/19 06:12 Blood Blood Culture - Preliminary Gram negative bacillus Gram positive cocci 09/05/19 05:37 Blood Blood Culture - Preliminary Gram negative bacillus 09/05/19 09:20 Nose - First MRSA (PCR) - Final Medications Active Medications: Acetaminophen (Tylenol) 650 mg PO Q4-6HP PRN; Protocol PRN Reason: Per Pain Protocol/Fever > 101 Albuterol Sulfate (Ventolin) 1 puff INH Q4HP PRN PRN Reason: Shortness Of Breath Albuterol/Ipratropium (Duoneb) 3 ml NEB Q4HP PRN PRN Reason: Shortness Of Breath Last Admin: 09/08/19 08:55 Dose: 3 ml Documented by: [email or web address] Admin: 09/08/19 03:44 Dose: 3 ml Documented by: Admin: 09/07/19 21:04 Dose: 3 ml Documented by: Admin: 09/07/19 09:06 Dose: 3 ml Documented by: [email or web address] Admin: 09/06/19 20:16 Dose: 3 ml Documented by: Admin: 09/06/19 09:44 Dose: 3 ml Documented by: [email or web address] Ascorbic Acid (Vitamin C) 500 mg PO DAILY [facility] Last Admin: 09/09/19 11:08 Dose: Not Given Documented by: AREN Non-Admin Reason: Patient Refused Admin: 09/08/19 09:20 Dose: Not Given Documented by: [id number] Non-Admin Reason: Clinical Judgement Baclofen (Lioresal) 10 mg PO TID [facility] Last Admin: 09/09/19 20:53 Dose: Not Given Documented by: GREG Non-Admin Reason: Patient Refused Admin: 09/09/19 16:06 Dose: Not Given Documented by: AREN Non-Admin Reason: Patient Asleep Admin: 09/09/19 10:29 Dose: Not Given Documented by: AREN Non-Admin Reason: Patient Refused Admin: 09/08/19 21:39 Dose: 10 mg Documented by: Admin: 09/08/19 15:08 Dose: Not Given Documented by: [id number] Non-Admin Reason: Clinical Judgement Admin: 09/08/19 09:20 Dose: Not Given Documented by: [id number] Non-Admin Reason: Clinical Judgement Admin: 09/07/19 21:32 Dose: 10 mg Documented by: Admin: 09/07/19 16:03 Dose: Not Given Documented by: [email or web address] Non-Admin Reason: Clinical Judgement Admin: 09/07/19 11:37 Dose: Not Given Documented by: [id number] Non-Admin Reason: Too drowsy Admin: 09/06/19 21:31 Dose: 10 mg Documented by: Admin: 09/06/19 15:17 Dose: 10 mg Documented by: [id number] Bisacodyl (Dulcolax) 10 mg OR Q2-3DAYS PRN PRN Reason: Constipation Budesonide (Pulmicort) 0.5 mg NEB Q12 [facility] Last Admin: 09/09/19 19:22 Dose: 0.5 mg Documented by: Admin: 09/09/19 07:14 Dose: Not Given Documented by: [email or web address] Non-Admin Reason: Patient Asleep Admin: 09/08/19 21:06 Dose: Not Given Documented by: MARLEE Non-Admin Reason: Pain Admin: 09/08/19 08:55 Dose: 0.5 mg Documented by: [email or web address] Admin: 09/07/19 21:04 Dose: 0.5 mg Documented by: Admin: 09/07/19 09:06 Dose: 0.5 mg Documented by: [email or web address] Admin: 09/06/19 20:16 Dose: 0.5 mg Documented by: Admin: 09/06/19 09:44 Dose: 0.5 mg Documented by: [email or web address] Admin: 09/06/19 02:23 Dose: Not Given Documented by: GREG Non-Chon Reason: unsure Admin: 09/05/19 10:28 Dose: 0.5 mg Documented by: THELMA Calcium Carbonate/Glycine (Tums) 500 mg CHEWED Q4HP PRN PRN Reason: Dyspepsia Diagnostic Test (Pha) (Accu-Chek) 1 each FS ACHS [facility] Last Admin: 09/09/19 20:50 Dose: 1 each Documented by: Admin: 09/09/19 17:26 Dose: 1 each Documented by: Admin: 09/09/19 12:38 Dose: 1 each Documented by: Admin: 09/09/19 07:49 Dose: 1 each Documented by: Admin: 09/08/19 22:00 Dose: 1 each Documented by: Admin: 09/08/19 17:06 Dose: 1 each Documented by: Admin: 09/08/19 11:36 Dose: 1 each Documented by: Admin: 09/08/19 07:03 Dose: 1 each Documented by: Admin: 09/07/19 21:27 Dose: 1 each Documented by: Admin: 09/07/19 17:03 Dose: 1 each Documented by: Admin: 09/07/19 12:35 Dose: 1 each Documented by: Admin: 09/07/19 07:56 Dose: 1 each Documented by: Admin: 09/06/19 21:32 Dose: 1 each Documented by: Admin: 09/06/19 17:00 Dose: 1 each Documented by: Admin: 09/06/19 12:05 Dose: 1 each Documented by: Admin: 09/06/19 07:46 Dose: 1 each Documented by: Admin: 09/05/19 21:05 Dose: 1 each Documented by: Admin: 09/05/19 18:30 Dose: Not Given Documented by: THELMA Non-Admin Reason: NPO Admin: 09/05/19 12:05 Dose: 1 each Documented by: Admin: 09/05/19 10:49 Dose: 1 each Documented by: THELMA Docusate Sodium (Colace) 100 mg PO BID [facility] Last Admin: 09/09/19 20:52 Dose: Not Given Documented by: GREG Non-Chon Reason: Patient Refused Admin: 09/09/19 09:50 Dose: Not Given Documented by: AREN Non-Admin Reason: Loose Stool Admin: 09/08/19 21:40 Dose: 100 mg Documented by: Admin: 09/08/19 09:19 Dose: Not Given Documented by: PAMELA Non-Admin Reason: LOC Admin: 09/07/19 21:27 Dose: 100 mg Documented by: Admin: 09/07/19 11:36 Dose: Not Given Documented by: PAMELA Non-Admin Reason: Pt too drowsy Admin: 09/06/19 21:31 Dose: 100 mg Documented by: Admin: 09/06/19 09:39 Dose: 100 mg Documented by: Admin: 09/05/19 20:24 Dose: Not Given Documented by: GREG Non-Chon Reason: Patient Refused Admin: 09/05/19 10:40 Dose: 100 mg Documented by: THELMA Fentanyl (Duragesic) 50 mcg TOPICAL Q72H [facility] Last Admin: 09/09/19 09:48 Dose: 50 mcg Documented by: Admin: 09/06/19 13:28 Dose: 50 mcg Documented by: PAMELA Fluticasone Propionate (Flovent Hfa 220mcg) 2 puff INH BID [facility] Last Admin: 09/09/19 20:28 Dose: Not Given Documented by: GREG Non-Chon Reason: Unavailable Admin: 09/09/19 09:41 Dose: Not Given Documented by: AREN Non-Admin Reason: Unavailable Admin: 09/08/19 22:01 Dose: Not Given Documented by: SHALINI Non-Admin Reason: Unavailable Admin: 09/08/19 09:19 Dose: Not Given Documented by: PAMELA Non-Admin Reason: Clinical Judgement Admin: 09/07/19 20:40 Dose: Not Given Documented by: [email or web address] Non-Admin Reason: Unavailable Admin: 09/07/19 11:36 Dose: Not Given Documented by: PAMELA Non-Admin Reason: Unavailable Admin: 09/06/19 22:04 Dose: Not Given Documented by: GREG Rice-Chon Reason: Unavailable Folic Acid (Folic Acid) 1 mg PO DAILY [facility] Last Admin: 09/09/19 10:29 Dose: Not Given Documented by: AREN Non-Admin Reason: Patient Refused Admin: 09/08/19 09:19 Dose: Not Given Documented by: PAMEAL Non-Admin Reason: Clinical Judgement Admin: 09/07/19 11:36 Dose: Not Given Documented by: PAMELA Non-Admin Reason: Too drowsy Admin: 09/06/19 09:38 Dose: 1 mg Documented by: Admin: 09/05/19 10:40 Dose: 1 mg Documented by: THELMA Gabapentin (Neurontin) 300 mg PO BID [facility] Last Admin: 09/09/19 20:53 Dose: Not Given Documented by: GREG Non-Admin Reason: Patient Refused Admin: 09/09/19 10:30 Dose: Not Given Documented by: AREN Non-Admin Reason: Patient Refused Admin: 09/08/19 21:39 Dose: 300 mg Documented by: Admin: 09/08/19 09:20 Dose: Not Given Documented by: PAMELA Non-Admin Reason: Clinical Judgement Admin: 09/07/19 21:27 Dose: 300 mg Documented by: Admin: 09/07/19 11:37 Dose: Not Given Documented by: PAMELA Non-Admin Reason: Too drowsy Admin: 09/06/19 21:31 Dose: 300 mg Documented by: GREG Heparin Sodium (Porcine) (Heparin) 5,000 unit SQ Q12 [facility] Last Admin: 09/09/19 20:52 Dose: Not Given Documented by: GREG Non-Admin Reason: Patient Refused Admin: 09/09/19 10:29 Dose: Not Given Documented by: AREN Non-Admin Reason: Patient Refused Admin: 09/08/19 21:49 Dose: 5,000 unit Documented by: Admin: 09/08/19 08:35 Dose: 5,000 unit Documented by: Admin: 09/07/19 21:27 Dose: 5,000 unit Documented by: Admin: 09/07/19 10:15 Dose: 5,000 unit Documented by: [email or web address] Admin: 09/06/19 21:31 Dose: 5,000 unit Documented by: Admin: 09/06/19 09:38 Dose: 5,000 unit Documented by: Admin: 09/05/19 20:27 Dose: 5,000 unit Documented by: Admin: 09/05/19 10:38 Dose: 5,000 unit Documented by: THELMA Hydromorphone HCl (Dilaudid) 4 - 8 mg PO Q6HP PRN; Protocol PRN Reason: Per Pain Protocol Last Admin: 09/09/19 14:31 Dose: 4 mg Documented by: Admin: 09/09/19 05:46 Dose: 4 mg Documented by: Admin: 09/08/19 21:37 Dose: 4 mg Documented by: Admin: 09/07/19 23:24 Dose: 8 mg Documented by: Admin: 09/07/19 18:11 Dose: 4 mg Documented by: Admin: 09/06/19 05:48 Dose: 8 mg Documented by: Admin: 09/05/19 19:45 Dose: 8 mg Documented by: Admin: 09/05/19 13:31 Dose: 8 mg Documented by: THELMA Hydroxyzine HCl (Atarax) 100 mg PO BIDP PRN PRN Reason: Itching Magnesium Sulfate (Magnesium Sulfate) 2 gm in 50 mls @ 50 mls/hr IV UD PRN PRN Reason: MG = or < 1.7 Last Infusion: 09/06/19 11:25 Dose: 0 mls/hr Documented by: Admin: 09/06/19 10:25 Dose: 50 mls/hr Documented by: PAMELA Acetaminophen (Ofirmev) 500 mg in 50 mls @ 100 mls/hr IV Q6HP PRN; Protocol PRN Reason: PAIN/FEVER > 101 Last Infusion: 09/05/19 21:00 Dose: 0 mls/hr Documented by: Admin: 09/05/19 20:27 Dose: 100 mls/hr Documented by: GREG Ceftriaxone Sodium 2 gm/ (Dextrose) 50 mls @ 100 mls/hr IV DAILY [facility]; Protocol Last Infusion: 09/09/19 11:30 Dose: 0 mls/hr Documented by: Admin: 09/09/19 11:00 Dose: 100 mls/hr Documented by: Infusion: 09/08/19 10:30 Dose: 0 mls/hr Documented by: Admin: 09/08/19 10:00 Dose: 100 mls/hr Documented by: Infusion: 09/07/19 10:40 Dose: 0 mls/hr Documented by: [email or web address] Admin: 09/07/19 10:10 Dose: 100 mls/hr Documented by: [email or web address] Norepinephrine Bitartrate 16 (mg/ Sodium Chloride) 250 mls @ 9.375 mls/hr IV Q24HP PRN; Protocol PRN Reason: TITRATE TO KEEP MAP > 65 Insulin Glargine (Lantus) 10 unit SQ DAILY [facility] Last Admin: 09/09/19 10:29 Dose: Not Given Documented by: AREN Non-Admin Reason: Patient Refused Admin: 09/08/19 08:36 Dose: 10 units Documented by: Admin: 09/07/19 10:14 Dose: 10 units Documented by: [email or web address] Admin: 09/06/19 09:39 Dose: 10 units Documented by: Admin: 09/05/19 13:32 Dose: 10 units Documented by: [email or web address] Insulin Human Lispro (Humalog) 0 unit SQ ACHS [facility]; Protocol Last Admin: 09/09/19 20:50 Dose: 6 units Documented by: Admin: 09/09/19 17:28 Dose: 6 units Documented by: Admin: 09/09/19 12:41 Dose: 6 units Documented by: Admin: 09/09/19 10:19 Dose: Not Given Documented by: AREN Non-Admin Reason: Patient Refused Admin: 09/08/19 22:07 Dose: 6 units Documented by: Admin: 09/08/19 17:11 Dose: 6 units Documented by: [email or web address] Admin: 09/08/19 12:19 Dose: 8 units Documented by: Admin: 09/08/19 08:35 Dose: 8 units Documented by: Admin: 09/07/19 21:28 Dose: Not Given Documented by: [email or web address] Non-Admin Reason: PT not eating Admin: 09/07/19 18:11 Dose: 6 units Documented by: Admin: 09/07/19 12:35 Dose: 6 units Documented by: Admin: 09/07/19 07:58 Dose: 4 units Documented by: Admin: 09/06/19 21:52 Dose: 6 units Documented by: Admin: 09/06/19 17:08 Dose: 10 units Documented by: Admin: 09/06/19 12:07 Dose: 2 units Documented by: Admin: 09/06/19 07:51 Dose: 6 units Documented by: Admin: 09/05/19 21:14 Dose: 8 units Documented by: Admin: 09/05/19 18:30 Dose: Not Given Documented by: THELMA Non-Admin Reason: NPO Admin: 09/05/19 10:57 Dose: 12 units Documented by: THELMA Iron Carb/Multivit/[place]/Folic Acid (Multivitamin W/Minerals) 1 tab PO DAILY [facility] Last Admin: 09/09/19 10:30 Dose: Not Given Documented by: AREN Non-Admin Reason: Patient Refused Admin: 09/08/19 09:20 Dose: Not Given Documented by: PAMELA Non-Admin Reason: Clinical Judgement Admin: 09/07/19 11:37 Dose: Not Given Documented by: PAMELA Non-Admin Reason: Too drowsy Admin: 09/06/19 09:38 Dose: 1 tab Documented by: Admin: 09/05/19 10:40 Dose: 1 tab Documented by: THELMA Lactulose (Cephulac) 30 gm PO QID [facility] Last Admin: 09/09/19 20:52 Dose: Not Given Documented by: GREG Non-Chon Reason: Patient Refused Admin: 09/09/19 19:18 Dose: Not Given Documented by: GREG Non-Chon Reason: Patient Refused Admin: 09/09/19 14:09 Dose: Not Given Documented by: AREN Non-Admin Reason: Patient Refused Admin: 09/09/19 10:29 Dose: Not Given Documented by: AREN Non-Admin Reason: Patient Refused Admin: 09/08/19 22:00 Dose: Not Given Documented by: SHALINI Non-Admin Reason: Patient Refused Admin: 09/08/19 15:13 Dose: 30 gm Documented by: Admin: 09/08/19 15:13 Dose: Not Given Documented by: PAMELA Non-Admin Reason: Clinical Judgement Admin: 09/08/19 08:35 Dose: 30 gm Documented by: Admin: 09/07/19 20:40 Dose: Not Given Documented by: STANISLAV Non-Admin Reason: Patient Refused Admin: 09/07/19 17:30 Dose: Not Given Documented by: PAMELA Non-Admin Reason: Nausea Admin: 09/07/19 13:13 Dose: 30 gm Documented by: PAMELA Levothyroxine Sodium (Synthroid) 125 mcg PO ACB [facility] Last Admin: 09/09/19 07:49 Dose: 125 mcg Documented by: Admin: 09/08/19 08:35 Dose: 125 mcg Documented by: Admin: 09/07/19 07:58 Dose: 125 mcg Documented by: PAMELA Melatonin (Melatonin 3mg Tablet) 3 mg PO HSP PRN PRN Reason: Insomnia Last Admin: 09/07/19 21:32 Dose: 3 mg Documented by: STANISLAV Metoclopramide HCl (Reglan) 5 mg IV Q3HP PRN PRN Reason: nausea/vomiting Mupirocin (Bactroban Oint 2%) 1 dose TOPICAL TID [facility] Last Admin: 09/09/19 20:52 Dose: Not Given Documented by: GREG Non-Admin Reason: Patient Refused Admin: 09/09/19 16:06 Dose: 1 dose Documented by: AREN Comments: unable to scan, barcode damaged Admin: 09/09/19 10:29 Dose: Not Given Documented by: AREN Non-Admin Reason: Patient Refused Admin: 09/08/19 22:03 Dose: 1 dose Documented by: Admin: 09/08/19 15:48 Dose: 1 dose Documented by: Admin: 09/08/19 10:00 Dose: 1 dose Documented by: Admin: 09/07/19 21:26 Dose: 1 dose Documented by: STANISLAV Omeprazole (Prilosec) 20 mg PO ACB [facility] Last Admin: 09/09/19 07:49 Dose: 20 mg Documented by: Admin: 09/08/19 08:35 Dose: 20 mg Documented by: Admin: 09/07/19 07:58 Dose: 20 mg Documented by: Admin: 09/06/19 09:38 Dose: 20 mg Documented by: PAMELA Ondansetron HCl (Zofran Odt) 4 mg SL Q4-6HP PRN; Protocol PRN Reason: Nausea And Vomiting Last Admin: 09/05/19 23:10 Dose: 4 mg Documented by: Admin: 09/05/19 12:15 Dose: 4 mg Documented by: [email or web address] Ondansetron HCl (Zofran) 4 mg IV Q4-6HP PRN; Protocol PRN Reason: Nausea And Vomiting Last Admin: 09/07/19 17:03 Dose: 4 mg Documented by: [id number] Polyethylene Glycol (Miralax) 17 gm PO DAILYP PRN PRN Reason: Constipation Potassium Chloride (Klor-Con) 40 meq PO DAILYP PRN PRN Reason: K+ < 3.5 Salmeterol Xinafoate (Serevent) 1 puff INH BID [facility] Last Admin: 09/09/19 20:28 Dose: Not Given Documented by: GREG Non-Admin Reason: Unavailable Admin: 09/09/19 09:41 Dose: Not Given Documented by: AREN Non-Admin Reason: Unavailable Admin: 09/08/19 22:01 Dose: Not Given Documented by: SHALINI Non-Admin Reason: Unavailable Admin: 09/08/19 09:20 Dose: Not Given Documented by: PAMELA Non-Admin Reason: Unavailable Admin: 09/07/19 20:41 Dose: Not Given Documented by: STANISLAV Non-Admin Reason: Unavailable Admin: 09/07/19 11:37 Dose: Not Given Documented by: PAMELA Non-Admin Reason: Unavailable Admin: 09/06/19 22:04 Dose: Not Given Documented by: GREG Non-Admin Reason: Unavailable Senna/Docusate Sodium (Senna Plus Tablet) 1 tab PO HS [facility] Last Admin: 09/09/19 20:52 Dose: Not Given Documented by: GREG Non-Admin Reason: Patient Refused Admin: 09/08/19 21:40 Dose: 1 tab Documented by: Admin: 09/07/19 21:27 Dose: 1 tab Documented by: Admin: 09/06/19 21:32 Dose: 1 tab Documented by: Admin: 09/05/19 20:24 Dose: Not Given Documented by: GREG Non-Admin Reason: Patient Refused Sodium Chloride (Saline Flush) 10 ml IV Q8 [facility] Last Admin: 09/09/19 20:52 Dose: 10 ml Documented by: Admin: 09/09/19 14:32 Dose: 10 ml Documented by: Admin: 09/09/19 04:17 Dose: 10 ml Documented by: Admin: 09/08/19 22:00 Dose: 10 ml Documented by: Admin: 09/08/19 15:13 Dose: 10 ml Documented by: Admin: 09/08/19 07:09 Dose: 10 ml Documented by: Admin: 09/07/19 21:28 Dose: 10 ml Documented by: Admin: 09/07/19 13:14 Dose: 10 ml Documented by: Admin: 09/07/19 05:20 Dose: 10 ml Documented by: Admin: 09/06/19 21:33 Dose: 10 ml Documented by: Admin: 09/06/19 13:29 Dose: Not Given Documented by: PAMELA Non-Admin Reason: Continuous IV Admin: 09/06/19 05:49 Dose: 10 ml Documented by: Admin: 09/05/19 21:15 Dose: 10 ml Documented by: Admin: 09/05/19 13:32 Dose: 10 ml Documented by: THELMA Spironolactone (Aldactone) 100 mg PO BID [facility] Last Admin: 09/09/19 20:52 Dose: Not Given Documented by: GREG Non-Admin Reason: Patient Refused Admin: 09/09/19 10:29 Dose: Not Given Documented by: AREN Non-Admin Reason: Patient Refused Admin: 09/08/19 21:41 Dose: 100 mg Documented by: Admin: 09/08/19 08:35 Dose: 100 mg Documented by: Admin: 09/07/19 21:27 Dose: 100 mg Documented by: Admin: 09/07/19 10:16 Dose: 100 mg Documented by: [email or web address] Thiamine HCl (Vitamin B1) 100 mg PO DAILY [facility] Last Admin: 09/09/19 11:07 Dose: Not Given Documented by: AREN Non-Admin Reason: Patient Refused Admin: 09/08/19 09:20 Dose: Not Given Documented by: PAMELA Non-Admin Reason: Clinical Judgement Admin: 09/07/19 12:35 Dose: Not Given Documented by: PAMELA Non-Admin Reason: Unavailable Admin: 09/06/19 09:38 Dose: 100 mg Documented by: Admin: 09/05/19 10:40 Dose: 100 mg Documented by: [email or web address] Vitamin D (Vitamin D3) 400 unit PO DAILY [facility] Last Admin: 09/09/19 11:08 Dose: Not Given Documented by: AREN Non-Admin Reason: Patient Refused Admin: 09/08/19 09:20 Dose: Not Given Documented by: [id number] Non-Admin Reason: Clinical Judgement Assessment and Plan - Narrative A/P Narrative: A: 1. Streptococcus pneumoniae bacteremia: sens to Ceftriaxone - sec to seeding from spontaneous bacterial peritonitis 2. SBP: based on increased PMNs (> 250), clinical s/s, peritoneal fluid Cx growing Strept pneumoniae - sec to (3) - pt was not on antibiotic prophylaxis at admission. She meets criteria for being on chronic antibiotic prophylaxis for prevention of SBP - CT s/o large amount of ascitic fluid - repeat paracentesis today showed marked improvement in peritoneal fluid cell count with about ~ 900 WBC and 79% PMNs (= 711 PMNs). 3. 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 Thrombocytopenia: sec to (3) 5. Failure to thrive: sec to severe ascites, cirrhosis 6. Rt Pleural effusion and basilar infiltrate: reactive to ascites, possible aspiration Recommendations: - Continue IV Ceftriaxone 2 gm q24 hrs, day 3/10 - If WBC continue to rise, or if pt spikes a fever or if she becomes hemodynamically unstable; will recommend switching to IV Zosyn 3.375 gm q8 hrs. Also repeat blood Cx in that situation - repeat paracentesis with cell count after 2-3 days. will aim for peritoneal fluid neutrophil count is < 250. - will switch to low dose Ciprofloxacin 500 mg as antibiotic prophylaxis for SBP prevention after completion of IV therapy for bacteremia - continue PO Rifaximin 550 mg bid for hepatic encephalopathy - HOB elevated at all times, given high aspiration risk will follow Poncho Serrano MD Infectious diseases
[2019-09-10] MEDS ORDERED: HYDROmorphone 2 MG/ML VIAL ONE (05:13)
[2019-09-10] MEDS: HYDROmorphone 2 MG/ML VIAL IV PRN (05:16)
[2019-09-10 06:37] LABS: Hematocrit 33.1 % (36.0-48.0); Hemoglobin 10.8 g/dL (12.0-15.0); Mean Cell Volume 83.3 fL (80.0-100.0); Mean Corpuscular HGB Conc 32.6 g/dL (31.0-36.0); Mean Platelet Volume 7.5 fL (7.4-10.4); Platelet Count 166 K/mcL (140-440); RBC 3.97 M/mcL (4.00-5.20); Red Cell Distribution Width 16.7 % (11.5-14.5); WBC 12.1 K/mcL (4.5-11.0)
[2019-09-10 07:04] LABS: ALT/SGPT 12 U/l (0-40); AST/SGOT 23 U/l (0-37); Albumin 3.2 gm/dL (3.2-5.2); Albumin/Globulin Ratio 0.8 (1.0-2.3); Alkaline Phosphatase 53 U/L (39-117); Bilirubin,Total 1.1 mg/dL (0.0-1.0); Blood Urea Nitrogen 42 mg/dl (8-23); Calcium 9.3 mg/dl (8.6-10.4); Carbon Dioxide 19 mmol/L (22-30); Chloride 98 mmol/L (96-108); Glomerular Filtration Rate 46; Glucose 133 mg/dL (70-105); Lactate Dehydrogenase 192 U/L (94-250); Triglycerides 79 mg/dl (<150); Uric Acid 8.7 mg/dL (2.5-8.0)
[2019-09-10 07:08] LABS: Bilirubin,Direct 0.5 mg/dL (0.0-0.3)
[2019-09-10] MEDS: 0.9 % SODIUM CHLORIDE 10 ML SYRINGE IV SCH ×4 (07:19→21:39)
[2019-09-10] MEDS: INSULIN LISPRO 1 UNIT/0.01 ML UNIT SQ SCH ×4 (07:20→21:28)
[2019-09-10] MEDS: MUPIROCIN OINT 2% 22GM TOPICAL SCH ×3 (08:17→21:03)
[2019-09-10] MEDS: FLUTICASONE HFA 220MCG INHALER INH SCH ×2 (08:30→21:11)
[2019-09-10] MEDS: BUDESONIDE 0.5 MG/2 ML AMPUL.NEB NEB SCH (08:30)
[2019-09-10] MEDS: SALMETEROL XINAFOATE 1 PUFF INHALER INH SCH ×2 (08:30→21:11)
[2019-09-10] MEDS: RIFAXIMIN 550 MG TABLET PO SCH ×3 (08:44→21:14)
[2019-09-10] MEDS: HYDROmorphone 2 MG TABLET PO PRN (08:44)
[2019-09-10] MEDS: BACLOFEN 10 MG TABLET PO SCH ×4 (08:44→21:16)
[2019-09-10 09:38] LABS: Anisocytosis 1+ (NONE SEEN); Band Neutrophils % 3 % (0-10); Eosinophils % (Manual) 2 % (0-7); Microcytosis FEW (NONE SEEN); Monocytes % (Manual) 3 % (1-12); Myelocytes % 1 % (0-0); Platelet Estimate NORMAL (NORMAL); RBC Morphology ABNORM (NORMAL); Segmented Neutrophils % 91 % (38-78)
[2019-09-10] MEDS: OMEPRAZOLE 20 MG CAPSULE PO SCH (10:10)
[2019-09-10] MEDS: GABAPENTIN 300 MG CAPSULE PO SCH ×3 (10:10→21:13)
[2019-09-10] MEDS: LEVOTHYROXINE 125 MCG TABLET PO SCH (10:10)
[2019-09-10] MEDS: cefTRIAXone 2 GM in DEXTROSE 5% IN WATER 50 ML IV SCH (10:11)
[2019-09-10] MEDS: INSULIN GLARGINE, HUMAN 1 UNIT/0.01 ML SQ SCH (10:11)
[2019-09-10] MEDS: SPIRONOLACTONE 25 MG TABLET PO SCH ×3 (10:11→21:18)
[2019-09-10] MEDS: LACTULOSE 20 GM/30 ML ORAL.SOL PO SCH ×5 (10:11→21:11)
[2019-09-10] MEDS: ONDANSETRON 4 MG ODT TABLET SL PRN (10:24)
[2019-09-10] MEDS: HEPARIN 5,000 UNIT/ML VIAL SQ SCH ×2 (10:24→21:10)
[2019-09-10] MEDS: THIAMINE 100 MG TABLET PO SCH (13:11)
[2019-09-10] MEDS: ASCORBIC ACID 500 MG TABLET PO SCH (13:12)
[2019-09-10] MEDS: MULTIVIT,THER IRON,CA,FA & MIN 1 TABLET PO SCH (13:12)
[2019-09-10] MEDS: FOLIC ACID 1 MG TABLET PO SCH (13:12)
[2019-09-10] MEDS: VITAMIN D3 400 UNIT TABLET PO SCH (13:12)
[2019-09-10] MEDS: DOCUSATE SODIUM 100 MG CAPSULE PO SCH ×3 (13:13→21:09)
--- NOTE | 2019-09-10 13:33 | Internal Med Progress Note ---
Medical - PN: Subj Patient information: Note initiated : 09/10/19 at 1:30 pm Service Date, if different from initiated Date: [] Patient: Clare Sheehan a 69 y/o F admitted on 09/05/19 for altered level consciousness. Chief Complaint: [] Interval history: Ms. 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 Symptoms have been progressing over the last couple of days and patient unable to think clearly. She c/o 7/10 abdominal pain and was noted to have a fever. Over the last couple of days she has not been able to function and essentially laying on the bed. Initial work-up in the ER was consistent with severe sepsis along with findings suggestive of SBP and basilar pneumonia on imaging. Blood cultures pending, elevated lactate at 3.3. Creatinine 1.7 up from baseline 1.3. Patient underwent 6 L paracentesis results of which are awaited. Subsequently hospitalist service consulted after patient received antibiotics At the time evaluation patient is very lethargic and fatigued. Unable to provide a detailed history. Endorses to symptoms as above including fever abdominal pain and weakness. No family members present. Most of the history was obtained from review of medical records and from ER physician. 09/06-GNR on blood cultures/GPC on 1 culture and ascitic fluid Gram stain. Discussed with ID. Antibiotics changed to vancomycin/cefepime. Clinically improving. Lactic acid downtrending from 3.9-1.9. White count 12.2, creatinine down from 1.7-1.3. On Levophed to keep map at goal. Confirmed SBP with over 14,000 white cells in the sciatic fluid with gram-positive cocci in culture. Remains critically ill. Sister at bedside. Discussed prognosis and treatment plan. Repeat surveillance cultures today. 09/07-peritoneal fluid heavy growth alpha streptococci. On antibiotic coverage. ID consulted. Patient off pressors since yesterday. Remains critically ill. Feels lethargic fatigued. Tense, tender and distended abdomen with reaccumulation of ascites. No family at bedside. Remains a poor prognosis and high risk mortality in the setting of liver cirrhosis/sepsis bacteremia and spontaneous bacterial enteritis 09/08-Streptococcus pneumonia on final cultures. Once Rocephin per ID. CT abdomen chest pelvis as per ID recommendations to rule out secondary focus for Streptococcus pneumonia bacteremia including pneumonia and also HCC. Very lethargic this morning. White count at 11,000. Creatinine 1.2. Start lactulose retention enemas. Consider rifaximin. Will repeat paracentesis in 24-48 hours 09/09-patient antibiotic coverage as per ID. Clinically deteriorating. Worsening ascites. Paracentesis today. Discussed with patient poor prognosis based on meld score/progressive deterioration despite aggressive intervention. Patient desired her wish to be a DNR. Daughter present during patient's decision and endorsed to her mother's wishes. Await repeat paracentesis results. ID on board. 09/10-worsening white count. 9 L paracentesis. WBC down to 900 from 14,000. On antibiotic coverage per ID. Patient's mentation has been fluctuating. Intermittently able to take oral lactulose/rifaximin however poor nutritional status. Overall deterioration noted in the last 48 hours. Family aware of poor prognosis. Patient now a DNR. High probability during this hospitalization unless patient shows substantial recovery over the next few days. - Constitutional Vitals: Vital Signs Temp Pulse Resp BP Pulse Ox 99.2 F H 85 18 104/70 92 09/10/19 13:05 09/10/19 12:01 09/10/19 13:05 09/10/19 13:05 09/10/19 13:05 Period Temp Pulse Resp BP Sys/Will Pulse Ox Last 24 Hr 98.6 F-99.4 F 80-99 14-26 87-116/61-79 84-100 Intake and Output 09/09/19 09/10/19 09/10/19 21:59 05:59 13:59 Intake Total 063 326 9286 Output Total 09643 510 415 Balance -9840 -10 715 Weight 119 lb Intake & Output: Intake & Output 09/09/19 09/10/19 09/10/19 21:59 05:59 13:59 Intake Total 425 323 6145 Output Total 73819 510 415 Balance -9840 -10 715 Weight 119 lb Intake: IV 250 50 Rocephin 2 gm In Dextrose 5% in 50 Water 50 ml @ 100 mls/hr IV DAILY [facility] Rx#:[id number] Oral 500 1080 Output: Urine Catheter Amount 590 510 415 Para\Thoracentesis 9500 Other: Meal Lunch Percent of Meal Consumed 25% Feeding Ability Total Assistance Urine Appearance Clear Urine Color Bright Yellow Uretheral (Bundy) Light Sheron General appearance: no acute distress Exam: Encephalopathic Nonlabored breathing Fatigue lethargic Improved ascites post paracentesis No lymphedema No telemetry events Medical - PN: Obj Da - Labs CBC & Chem 7: 09/10/19 03:50 09/10/19 03:50 Labs: Abnormal Lab Results 09/10/19 09/10/19 09/09/19 03:50 03:50 03:40 WBC 12.1 H RBC 3.97 L Hgb 10.8 L Hct 33.1 L RDW 16.7 H Plt Count Seg Neutrophils % 91 H Lymphocytes % Myelocytes % 1 H WBC Morphology Toxic Granulation RBC Morphology Abnorm A Anisocytosis 1+ A Microcytosis Few A PT INR Sodium 130 L 130 L Carbon Dioxide 19 L 17 L BUN 42 H 36 H Creatinine 1.2 H 1.3 H Glucose 133 H 176 H Uric Acid 8.7 H Total Bilirubin 1.1 H Direct Bilirubin 0.5 H AST Albumin 2.3 L Globulin 4.0 H 4.7 H Albumin/Globulin Ratio 0.8 L 0.5 L 09/09/19 09/08/19 09/08/19 03:40 11:31 03:50 WBC 11.8 H RBC 3.88 L Hgb 10.7 L Hct 32.4 L RDW 17.5 H Plt Count Seg Neutrophils % 89 H Lymphocytes % 2 L Myelocytes % 2 H WBC Morphology Toxic Granulation RBC Morphology Abnorm A Anisocytosis 1+ A Microcytosis PT 18.1 H INR 1.5 H Sodium 131 L Carbon Dioxide 19 L BUN 30 H Creatinine 1.2 H Glucose 231 H Uric Acid Total Bilirubin Direct Bilirubin AST 38 H Albumin 2.5 L Globulin 4.4 H Albumin/Globulin Ratio 0.6 L 09/08/19 03:50 WBC RBC 3.83 L Hgb 10.5 L Hct 32.3 L RDW 17.2 H Plt Count 134 L Seg Neutrophils % 87 H Lymphocytes % Myelocytes % 4 H WBC Morphology Abnorm A Toxic Granulation Few A RBC Morphology Abnorm A Anisocytosis 1+ A Microcytosis PT INR Sodium Carbon Dioxide BUN Creatinine Glucose Uric Acid Total Bilirubin Direct Bilirubin AST Albumin Globulin Albumin/Globulin Ratio Meds: Medications Acetaminophen (Tylenol) 650 mg PO Q4-6HP PRN; Protocol PRN Reason: Per Pain Protocol/Fever > 101 Albuterol Sulfate (Ventolin) 1 puff INH Q4HP PRN PRN Reason: Shortness Of Breath Albuterol/Ipratropium (Duoneb) 3 ml NEB Q4HP PRN PRN Reason: Shortness Of Breath Last Admin: 09/08/19 08:55 Dose: 3 ml Documented by: Ascorbic Acid (Vitamin C) 500 mg PO DAILY [facility] Last Admin: 09/10/19 13:12 Dose: 500 mg Documented by: Baclofen (Lioresal) 10 mg PO TID [facility] Last Admin: 09/10/19 08:44 Dose: 10 mg Documented by: Bisacodyl (Dulcolax) 10 mg VA Q2-3DAYS PRN PRN Reason: Constipation Calcium Carbonate/Glycine (Tums) 500 mg CHEWED Q4HP PRN PRN Reason: Dyspepsia Diagnostic Test (Pha) (Accu-Chek) 1 each FS ACHS [facility] Last Admin: 09/10/19 12:46 Dose: 1 each Documented by: Docusate Sodium (Colace) 100 mg PO BID [facility] Last Admin: 09/10/19 13:13 Dose: 100 mg Documented by: Fentanyl (Duragesic) 50 mcg TOPICAL Q72H [facility] Last Admin: 09/09/19 09:48 Dose: 50 mcg Documented by: Fluticasone Propionate (Flovent Hfa 220mcg) 2 puff INH BID [facility] Last Admin: 09/10/19 08:30 Dose: Not Given Documented by: Folic Acid (Folic Acid) 1 mg PO DAILY [facility] Last Admin: 09/10/19 13:12 Dose: 1 mg Documented by: Gabapentin (Neurontin) 300 mg PO BID [facility] Last Admin: 09/10/19 10:10 Dose: 300 mg Documented by: Heparin Sodium (Porcine) (Heparin) 5,000 unit SQ Q12 [facility] Last Admin: 09/10/19 10:24 Dose: Not Given Documented by: Hydromorphone HCl (Dilaudid) 4 - 8 mg PO Q6HP PRN; Protocol PRN Reason: Per Pain Protocol Last Admin: 09/10/19 08:44 Dose: 4 mg Documented by: Hydromorphone HCl (Dilaudid) 0.5 mg IV Q4HP PRN; Protocol PRN Reason: Per Pain Protocol Last Admin: 12/12/19 05:16 Dose: 0.5 mg Documented by: Hydroxyzine HCl (Atarax) 100 mg PO BIDP PRN PRN Reason: Itching Magnesium Sulfate (Magnesium Sulfate) 2 gm in 50 mls @ 50 mls/hr IV UD PRN PRN Reason: MG = or < 1.7 Last Infusion: 09/06/19 11:25 Dose: Infused Documented by: Acetaminophen (Ofirmev) 500 mg in 50 mls @ 100 mls/hr IV Q6HP PRN; Protocol PRN Reason: PAIN/FEVER > 101 Last Infusion: 09/05/19 21:00 Dose: Infused Documented by: Ceftriaxone Sodium 2 gm/ (Dextrose) 50 mls @ 100 mls/hr IV DAILY [facility]; Protocol Last Infusion: 09/10/19 10:41 Dose: Infused Documented by: Norepinephrine Bitartrate 16 (mg/ Sodium Chloride) 250 mls @ 9.375 mls/hr IV Q24HP PRN; Protocol PRN Reason: TITRATE TO KEEP MAP > 65 Insulin Glargine (Lantus) 10 unit SQ DAILY [facility] Last Admin: 09/10/19 10:11 Dose: 10 units Documented by: Insulin Human Lispro (Humalog) 0 unit SQ ACHS [facility]; Protocol Last Admin: 09/10/19 12:46 Dose: Not Given Documented by: Iron Carb/Multivit/Seam Rubbing Machine Operator/Folic Acid (Multivitamin W/Minerals) 1 tab PO DAILY [facility] Last Admin: 09/10/19 13:12 Dose: 1 tab Documented by: Lactulose (Cephulac) 30 gm PO QID [facility] Last Admin: 09/10/19 10:11 Dose: 30 gm Documented by: Levothyroxine Sodium (Synthroid) 125 mcg PO ACB [facility] Last Admin: 09/10/19 10:10 Dose: 125 mcg Documented by: Melatonin (Melatonin 3mg Tablet) 3 mg PO HSP PRN PRN Reason: Insomnia Last Admin: 09/07/19 21:32 Dose: 3 mg Documented by: Metoclopramide HCl (Reglan) 5 mg IV Q3HP PRN PRN Reason: nausea/vomiting Mupirocin (Bactroban Oint 2%) 1 dose TOPICAL TID [facility] Last Admin: 09/10/19 08:17 Dose: 1 dose Documented by: Omeprazole (Prilosec) 20 mg PO ACB [facility] Last Admin: 09/10/19 10:10 Dose: 20 mg Documented by: Ondansetron HCl (Zofran Odt) 4 mg SL Q4-6HP PRN; Protocol PRN Reason: Nausea And Vomiting Last Admin: 09/10/19 10:24 Dose: 4 mg Documented by: Ondansetron HCl (Zofran) 4 mg IV Q4-6HP PRN; Protocol PRN Reason: Nausea And Vomiting Last Admin: 09/07/19 17:03 Dose: 4 mg Documented by: Polyethylene Glycol (Miralax) 17 gm PO DAILYP PRN PRN Reason: Constipation Potassium Chloride (Klor-Con) 40 meq PO DAILYP PRN PRN Reason: K+ < 3.5 Salmeterol Xinafoate (Serevent) 1 puff INH BID [facility] Last Admin: 09/10/19 08:30 Dose: Not Given Documented by: Senna/Docusate Sodium (Senna Plus Tablet) 1 tab PO HS [facility] Last Admin: 09/09/19 20:52 Dose: Not Given Documented by: Sodium Chloride (Saline Flush) 10 ml IV Q8 [facility] Last Admin: 09/10/19 10:11 Dose: 10 ml Documented by: Spironolactone (Aldactone) 100 mg PO BID [facility] Last Admin: 09/10/19 10:11 Dose: 100 mg Documented by: Thiamine HCl (Vitamin B1) 100 mg PO DAILY [facility] Last Admin: 09/10/19 13:11 Dose: 100 mg Documented by: Vitamin D (Vitamin D3) 400 unit PO DAILY [facility] Last Admin: 09/10/19 13:12 Dose: 400 unit Documented by: Medical - PN: A/P - Time Spent With Patient Total time spent is greater than 50% in coordination of care (as documented) at patient's floor/unit and/or counseling patient: 25 - 35 minutes (1) Acute alteration in mental status Status: Acute Assessment and plan: * Hepatic encephalopathy-on rifaximin/lactulose. No significant improvement despite aggressive treatment. Remains high risk modality during this hospitalization * Streptococcus pneumonia bacteremia -on Rocephin per ID. CT abdomen pelvis chest as per ID recommendation for further source evaluation. * Spontaneous bacterial peritonitis- with over 14,000 WBCs peritoneal fluid now down to 900 on repeat paracentesis. Strep pneumonia on culture. Continue Rocephin per ID. * Bilateral lower lobe pneumonia continue antibiotic coverage * Septic shock with multiple endorgan dysfunction including AMS/DAREN. Off pressors. Continuing antibiotic coverage * Acute on chronic kidney disease -creatinine 1.7-1.3->1.2-> 1.3. Monitor renal function * History of DM type II continue basal/prandial insulin * Hypothyroidism on thyroxine * Liver cirrhosis secondary to hepatitis C-no CT evidence of hepatocellular carcinoma. Meld score 20. * Neuropathy continue gabapentin * Chronic pain on home medications including fentanyl patch * Patient DNR * Prophylaxis heparin Plan * Rx per ID * Continue lactulose/rifaximin * PT OT/nutrition support * Daily goals of care conference patient now DNR * High risk mortality during this hospitalization based on meld score Current Visit: Yes
[2019-09-10] MEDS: SENNOSIDES/DOCUSATE SODIUM 1 TAB TABLET PO SCH ×2 (21:02→21:14)
--- NOTE | 2019-09-10 21:44 | Infectious Disease Prog Note ---
Subjective Patient information: Note initiated : 09/10/19 at 9:36 pm Service Date, if different from initiated Date: [] Patient: Clare Sheehan 69 y/o F admitted on 09/05/19 for altered level consciousness. Chief Complaint: [] Interval history: Pt can not only nod. Daughter at bedside, tearful about mother's illness. mentions that she will do whatever to get her mother to take oral medicines. Per nursing notes, pt had been more alert, and able to take few of her oral meds and had improved oral intake. Objective Objective Narrative: drowsy but arousable appears uncomfortable and tired chest has VBS, with decreased BS at bases s1 [id number] bs hypoactive, tender to touch in periumbilical area, rebound +, has paraumbilical hernia no edema +ve asterexis - Vital Signs Vital signs: Vital Signs Temp Pulse Resp BP Pulse Ox 09/10/19 18:01 37.2 C 17 90/60 09/10/19 16:01 37.3 C H 85 19 91/64 95 09/10/19 14:01 37.3 C H 83 19 102/72 93 09/10/19 13:05 37.3 C H 18 104/70 92 09/10/19 12:01 37.3 C H 85 19 87/61 95 09/10/19 10:01 37.1 C 88 21 110/68 94 09/10/19 09:40 37.0 C 88 19 93 09/10/19 09:35 37.0 C 85 20 96 09/10/19 08:54 37.1 C 90 21 116/78 95 09/10/19 08:40 37.2 C 91 H 21 91 09/10/19 08:35 37.2 C 92 H 16 90 09/10/19 08:30 37.2 C 92 H 17 90 09/10/19 07:50 37.2 C 86 18 97 09/10/19 07:30 37.2 C 88 18 100 09/10/19 07:00 37.2 C 89 20 97 09/10/19 06:45 37.2 C 89 19 95 09/10/19 06:43 37.2 C 91 H 21 102/71 96 09/10/19 05:59 37.2 C 87 22 97/68 97 09/10/19 04:01 37.2 C 84 19 97/68 98 09/10/19 02:00 37.4 C H 89 21 96/64 97 09/10/19 00:01 37.3 C H 80 14 88/62 95 09/09/19 22:00 37.1 C 87 19 90/68 95 Intake and Output 09/10/19 09/10/19 09/10/19 05:59 13:59 21:59 Intake Total 500 1130 Output Total 510 415 180 Balance -10 715 -180 Intake: IV 50 Rocephin 2 gm In Dextrose 5% in 50 Water 50 ml @ 100 mls/hr IV DAILY KAT Rx#:[id number] Oral 500 1080 Output: Urine Catheter Amount 510 415 180 Other: Meal Lunch Percent of Meal Consumed 25% Feeding Ability Total Assistance Urine Appearance Clear Urine Color Bright Yellow Uretheral (Bundy) Light Sheron Weight 53.977 kg Patient Weight 09/11/19 05:59 Weight 53.977 kg Intake & Output: Intake & Output 09/10/19 09/10/19 09/10/19 05:59 13:59 21:59 Intake Total 500 1130 Output Total 510 415 180 Balance -10 715 -180 Weight 53.977 kg Intake: IV 50 Rocephin 2 gm In Dextrose 5% in 50 Water 50 ml @ 100 mls/hr IV DAILY KAT Rx#:[id number] Oral 500 1080 Output: Urine Catheter Amount 510 415 180 Other: Meal Lunch Percent of Meal Consumed 25% Feeding Ability Total Assistance Urine Appearance Clear Urine Color Bright Yellow Uretheral (Bundy) Light Sheron - Lab 09/10/19 03:50 09/10/19 03:50 Most recent lab results Calcium 9.3 mg/dl (8.6-10.4) 09/10/19 03:50 Phosphorus 3.0 mg/dL (2.7-4.5) 09/10/19 03:50 Magnesium 2.2 mg/dL (1.6-2.5) 09/10/19 03:50 Microbiology 09/09/19 15:30 Peritoneal Fluid Gram Stain - Final 09/09/19 15:30 Peritoneal Fluid Body Fluid Culture - Preliminary 09/06/19 09:58 Blood Blood Culture - Preliminary 09/06/19 10:03 Blood Blood Culture - Preliminary 09/05/19 06:12 Blood Blood Culture - Final Streptococcus pneumoniae 09/05/19 05:37 Blood Blood Culture - Final Streptococcus pneumoniae 09/09/19 15:18 Pleural Fluid Gram Stain - Final 09/09/19 15:18 Pleural Fluid Body Fluid Culture - Final 09/05/19 07:52 Peritoneal Fluid Gram Stain - Final 09/05/19 07:52 Peritoneal Fluid Body Fluid Culture - Final Streptococcus pneumoniae 09/06/19 18:35 Sputum - Expectorated Gram Stain - Final 09/06/19 18:35 Sputum - Expectorated Sputum Culture - Final 09/05/19 09:20 Nose - First MRSA (PCR) - Final Medications Active Medications: Acetaminophen (Tylenol) 650 mg PO Q4-6HP PRN; Protocol PRN Reason: Per Pain Protocol/Fever > 101 Albuterol Sulfate (Ventolin) 1 puff INH Q4HP PRN PRN Reason: Shortness Of Breath Albuterol/Ipratropium (Duoneb) 3 ml NEB Q4HP PRN PRN Reason: Shortness Of Breath Last Admin: 09/08/19 08:55 Dose: 3 ml Documented by: [email or web address] Admin: 09/08/19 03:44 Dose: 3 ml Documented by: Admin: 09/07/19 21:04 Dose: 3 ml Documented by: Admin: 09/07/19 09:06 Dose: 3 ml Documented by: [email or web address] Admin: 09/06/19 20:16 Dose: 3 ml Documented by: Admin: 09/06/19 09:44 Dose: 3 ml Documented by: [email or web address] Ascorbic Acid (Vitamin C) 500 mg PO DAILY [facility] Last Admin: 09/10/19 13:12 Dose: 500 mg Documented by: AREN Comments: Late as pt refused this AM stating "Im too tired, maybe later" Admin: 09/09/19 11:08 Dose: Not Given Documented by: AREN Non-Admin Reason: Patient Refused Admin: 09/08/19 09:20 Dose: Not Given Documented by: [email or web address] Non-Admin Reason: Clinical Judgement Baclofen (Lioresal) 10 mg PO TID [facility] Last Admin: 09/10/19 21:16 Dose: Not Given Documented by: [email or web address] Non-Admin Reason: Patient Refused Admin: 09/10/19 16:09 Dose: Not Given Documented by: AREN Non-Admin Reason: Patient Asleep Admin: 09/10/19 08:44 Dose: 10 mg Documented by: Admin: 09/09/19 20:53 Dose: Not Given Documented by: GREG Non-Chon Reason: Patient Refused Admin: 09/09/19 16:06 Dose: Not Given Documented by: AREN Non-Admin Reason: Patient Asleep Admin: 09/09/19 10:29 Dose: Not Given Documented by: AREN Non-Admin Reason: Patient Refused Admin: 09/08/19 21:39 Dose: 10 mg Documented by: Admin: 09/08/19 15:08 Dose: Not Given Documented by: [email or web address] Non-Admin Reason: Clinical Judgement Admin: 09/08/19 09:20 Dose: Not Given Documented by: [id number] Non-Admin Reason: Clinical Judgement Admin: 09/07/19 21:32 Dose: 10 mg Documented by: Admin: 09/07/19 16:03 Dose: Not Given Documented by: [id number] Non-Admin Reason: Clinical Judgement Admin: 09/07/19 11:37 Dose: Not Given Documented by: [email or web address] Non-Admin Reason: Too drowsy Admin: 09/06/19 21:31 Dose: 10 mg Documented by: Admin: 09/06/19 15:17 Dose: 10 mg Documented by: PAMELA Bisacodyl (Dulcolax) 10 mg W[place] Q2-3DAYS PRN PRN Reason: Constipation Calcium Carbonate/Glycine (Tums) 500 mg CHEWED Q4HP PRN PRN Reason: Dyspepsia Diagnostic Test (Pha) (Accu-Chek) 1 each FS ACHS KAT Last Admin: 09/10/19 21:28 Dose: 1 each Documented by: [email or web address] Admin: 09/10/19 17:12 Dose: 1 each Documented by: AREN Comments: FSBG 306, pt has been taking intermittent bites of food and sips of soda, supplements throughout the day, not fasting Admin: 09/10/19 12:46 Dose: 1 each Documented by: Admin: 09/10/19 07:20 Dose: 1 each Documented by: Admin: 09/09/19 20:50 Dose: 1 each Documented by: Admin: 09/09/19 17:26 Dose: 1 each Documented by: Admin: 09/09/19 12:38 Dose: 1 each Documented by: Admin: 09/09/19 07:49 Dose: 1 each Documented by: Admin: 09/08/19 22:00 Dose: 1 each Documented by: Admin: 09/08/19 17:06 Dose: 1 each Documented by: Admin: 09/08/19 11:36 Dose: 1 each Documented by: Admin: 09/08/19 07:03 Dose: 1 each Documented by: Admin: 09/07/19 21:27 Dose: 1 each Documented by: Admin: 09/07/19 17:03 Dose: 1 each Documented by: Admin: 09/07/19 12:35 Dose: 1 each Documented by: Admin: 09/07/19 07:56 Dose: 1 each Documented by: Admin: 09/06/19 21:32 Dose: 1 each Documented by: Admin: 09/06/19 17:00 Dose: 1 each Documented by: Admin: 09/06/19 12:05 Dose: 1 each Documented by: Admin: 09/06/19 07:46 Dose: 1 each Documented by: Admin: 09/05/19 21:05 Dose: 1 each Documented by: Admin: 09/05/19 18:30 Dose: Not Given Documented by: THELMA Non-Admin Reason: NPO Admin: 09/05/19 12:05 Dose: 1 each Documented by: Admin: 09/05/19 10:49 Dose: 1 each Documented by: THELMA Docusate Sodium (Colace) 100 mg PO BID KAT Last Admin: 09/10/19 21:09 Dose: Not Given Documented by: JOSE R Non-Admin Reason: Patient Refused Admin: 09/10/19 13:13 Dose: 100 mg Documented by: AREN Comments: Late as pt refused this AM stating "Im too tired, maybe later". Unable to scan due to damaged barcode Admin: 09/09/19 20:52 Dose: Not Given Documented by: GREG Non-Admin Reason: Patient Refused Admin: 09/09/19 09:50 Dose: Not Given Documented by: AREN Non-Admin Reason: Loose Stool Admin: 09/08/19 21:40 Dose: 100 mg Documented by: Admin: 09/08/19 09:19 Dose: Not Given Documented by: PAMELA Non-Admin Reason: LOC Admin: 09/07/19 21:27 Dose: 100 mg Documented by: Admin: 09/07/19 11:36 Dose: Not Given Documented by: PAMELA Non-Admin Reason: Pt too drowsy Admin: 09/06/19 21:31 Dose: 100 mg Documented by: Admin: 09/06/19 09:39 Dose: 100 mg Documented by: Admin: 09/05/19 20:24 Dose: Not Given Documented by: GREG Non-Chon Reason: Patient Refused Admin: 09/05/19 10:40 Dose: 100 mg Documented by: THELMA Fentanyl (Duragesic) 50 mcg TOPICAL Q72H [facility] Last Admin: 09/09/19 09:48 Dose: 50 mcg Documented by: Admin: 09/06/19 13:28 Dose: 50 mcg Documented by: PAMELA Fluticasone Propionate (Flovent Hfa 220mcg) 2 puff INH BID [facility] Last Admin: 09/10/19 21:11 Dose: Not Given Documented by: JOSE R Non-Chon Reason: Unavailable Admin: 09/10/19 08:30 Dose: Not Given Documented by: AREN Non-Admin Reason: Unavailable Admin: 09/09/19 20:28 Dose: Not Given Documented by: GREG Non-Chon Reason: Unavailable Admin: 09/09/19 09:41 Dose: Not Given Documented by: AREN Non-Admin Reason: Unavailable Admin: 09/08/19 22:01 Dose: Not Given Documented by: SHALINI Non-Admin Reason: Unavailable Admin: 09/08/19 09:19 Dose: Not Given Documented by: PAMELA Non-Chon Reason: Clinical Judgement Admin: 09/07/19 20:40 Dose: Not Given Documented by: STANISLAV Non-Admin Reason: Unavailable Admin: 09/07/19 11:36 Dose: Not Given Documented by: PAMELA Non-Admin Reason: Unavailable Admin: 09/06/19 22:04 Dose: Not Given Documented by: SCARLEY Non-Admin Reason: Unavailable Folic Acid (Folic Acid) 1 mg PO DAILY [facility] Last Admin: 09/10/19 13:12 Dose: 1 mg Documented by: AREN Comments: Late as pt refused this AM stating "Im too tired, maybe later" Admin: 09/09/19 10:29 Dose: Not Given Documented by: AREN Non-Admin Reason: Patient Refused Admin: 09/08/19 09:19 Dose: Not Given Documented by: PAMELA Non-Admin Reason: Clinical Judgement Admin: 09/07/19 11:36 Dose: Not Given Documented by: PAMELA Non-Admin Reason: Too drowsy Admin: 09/06/19 09:38 Dose: 1 mg Documented by: Admin: 09/05/19 10:40 Dose: 1 mg Documented by: THELMA Gabapentin (Neurontin) 300 mg PO BID [facility] Last Admin: 09/10/19 21:13 Dose: Not Given Documented by: JOSE R Non-Admin Reason: Patient Refused Admin: 09/10/19 10:10 Dose: 300 mg Documented by: Admin: 09/09/19 20:53 Dose: Not Given Documented by: GREG Non-Admin Reason: Patient Refused Admin: 09/09/19 10:30 Dose: Not Given Documented by: AREN Non-Admin Reason: Patient Refused Admin: 09/08/19 21:39 Dose: 300 mg Documented by: Admin: 09/08/19 09:20 Dose: Not Given Documented by: PMAELA Non-Admin Reason: Clinical Judgement Admin: 09/07/19 21:27 Dose: 300 mg Documented by: Admin: 09/07/19 11:37 Dose: Not Given Documented by: PAMELA Non-Admin Reason: Too drowsy Admin: 09/06/19 21:31 Dose: 300 mg Documented by: GREG Heparin Sodium (Porcine) (Heparin) 5,000 unit SQ Q12 [facility] Last Admin: 09/10/19 21:10 Dose: Not Given Documented by: JOSE R Non-Admin Reason: Patient Refused Admin: 09/10/19 10:24 Dose: Not Given Documented by: AREN Non-Admin Reason: Patient Refused Admin: 09/09/19 20:52 Dose: Not Given Documented by: GREG Non-Admin Reason: Patient Refused Admin: 09/09/19 10:29 Dose: Not Given Documented by: AREN Non-Admin Reason: Patient Refused Admin: 09/08/19 21:49 Dose: 5,000 unit Documented by: Admin: 09/08/19 08:35 Dose: 5,000 unit Documented by: Admin: 09/07/19 21:27 Dose: 5,000 unit Documented by: Admin: 09/07/19 10:15 Dose: 5,000 unit Documented by: Admin: 09/06/19 21:31 Dose: 5,000 unit Documented by: Admin: 09/06/19 09:38 Dose: 5,000 unit Documented by: Admin: 09/05/19 20:27 Dose: 5,000 unit Documented by: Admin: 09/05/19 10:38 Dose: 5,000 unit Documented by: THELMA Hydromorphone HCl (Dilaudid) 4 - 8 mg PO Q6HP PRN; Protocol PRN Reason: Per Pain Protocol Last Admin: 09/10/19 08:44 Dose: 4 mg Documented by: Admin: 09/09/19 14:31 Dose: 4 mg Documented by: Admin: 09/09/19 05:46 Dose: 4 mg Documented by: Admin: 09/08/19 21:37 Dose: 4 mg Documented by: Admin: 09/07/19 23:24 Dose: 8 mg Documented by: Admin: 09/07/19 18:11 Dose: 4 mg Documented by: Admin: 09/06/19 05:48 Dose: 8 mg Documented by: Admin: 09/05/19 19:45 Dose: 8 mg Documented by: Admin: 09/05/19 13:31 Dose: 8 mg Documented by: THELMA Hydromorphone HCl (Dilaudid) 0.5 mg IV Q4HP PRN; Protocol PRN Reason: Per Pain Protocol Last Admin: 09/10/19 05:16 Dose: 0.5 mg Documented by: GREG Hydroxyzine HCl (Atarax) 100 mg PO BIDP PRN PRN Reason: Itching Magnesium Sulfate (Magnesium Sulfate) 2 gm in 50 mls @ 50 mls/hr IV UD PRN PRN Reason: MG = or < 1.7 Last Infusion: 09/06/19 11:25 Dose: 0 mls/hr Documented by: Admin: 09/06/19 10:25 Dose: 50 mls/hr Documented by: PAMELA Acetaminophen (Ofirmev) 500 mg in 50 mls @ 100 mls/hr IV Q6HP PRN; Protocol PRN Reason: PAIN/FEVER > 101 Last Infusion: 09/05/19 21:00 Dose: 0 mls/hr Documented by: Admin: 09/05/19 20:27 Dose: 100 mls/hr Documented by: GREG Ceftriaxone Sodium 2 gm/ (Dextrose) 50 mls @ 100 mls/hr IV DAILY KAT; Protocol Last Infusion: 09/10/19 10:41 Dose: 0 mls/hr Documented by: Admin: 09/10/19 10:11 Dose: 100 mls/hr Documented by: Infusion: 09/09/19 11:30 Dose: 0 mls/hr Documented by: Admin: 09/09/19 11:00 Dose: 100 mls/hr Documented by: Infusion: 09/08/19 10:30 Dose: 0 mls/hr Documented by: Admin: 09/08/19 10:00 Dose: 100 mls/hr Documented by: Infusion: 09/07/19 10:40 Dose: 0 mls/hr Documented by: Admin: 09/07/19 10:10 Dose: 100 mls/hr Documented by: MICHAEL Norepinephrine Bitartrate 16 (mg/ Sodium Chloride) 250 mls @ 9.375 mls/hr IV Q24HP PRN; Protocol PRN Reason: TITRATE TO KEEP MAP > 65 Insulin Glargine (Lantus) 10 unit SQ DAILY KAT Last Admin: 09/10/19 10:11 Dose: 10 units Documented by: Admin: 09/09/19 10:29 Dose: Not Given Documented by: AREN Non-Admin Reason: Patient Refused Admin: 09/08/19 08:36 Dose: 10 units Documented by: Admin: 09/07/19 10:14 Dose: 10 units Documented by: Admin: 09/06/19 09:39 Dose: 10 units Documented by: [id number] Admin: 09/05/19 13:32 Dose: 10 units Documented by: [email or web address] Insulin Human Lispro (Humalog) 0 unit SQ ACHS KAT; Protocol Last Admin: 09/10/19 21:28 Dose: 6 units Documented by: [email or web address] Admin: 09/10/19 17:14 Dose: 10 units Documented by: Admin: 09/10/19 12:46 Dose: Not Given Documented by: AREN Non-Admin Reason: No Coverage Needed Admin: 09/10/19 07:20 Dose: Not Given Documented by: AREN Non-Admin Reason: No Coverage Needed Admin: 09/09/19 20:50 Dose: 6 units Documented by: Admin: 09/09/19 17:28 Dose: 6 units Documented by: Admin: 09/09/19 12:41 Dose: 6 units Documented by: Admin: 09/09/19 10:19 Dose: Not Given Documented by: AREN Non-Admin Reason: Patient Refused Admin: 09/08/19 22:07 Dose: 6 units Documented by: Admin: 09/08/19 17:11 Dose: 6 units Documented by: Admin: 09/08/19 12:19 Dose: 8 units Documented by: Admin: 09/08/19 08:35 Dose: 8 units Documented by: Admin: 09/07/19 21:28 Dose: Not Given Documented by: STANISLAV Non-Admin Reason: PT not eating Admin: 09/07/19 18:11 Dose: 6 units Documented by: Admin: 09/07/19 12:35 Dose: 6 units Documented by: Admin: 09/07/19 07:58 Dose: 4 units Documented by: Admin: 09/06/19 21:52 Dose: 6 units Documented by: Admin: 09/06/19 17:08 Dose: 10 units Documented by: Admin: 09/06/19 12:07 Dose: 2 units Documented by: Admin: 09/06/19 07:51 Dose: 6 units Documented by: Admin: 09/05/19 21:14 Dose: 8 units Documented by: Admin: 09/05/19 18:30 Dose: Not Given Documented by: THELMA Non-Admin Reason: NPO Admin: 09/05/19 10:57 Dose: 12 units Documented by: THELMA Iron Carb/Multivit/Arrey/Folic Acid (Multivitamin W/Minerals) 1 tab PO DAILY [facility] Last Admin: 09/10/19 13:12 Dose: 1 tab Documented by: AREN Comments: Late as pt refused this AM stating "Im too tired, maybe later" Admin: 09/09/19 10:30 Dose: Not Given Documented by: AREN Non-Admin Reason: Patient Refused Admin: 09/08/19 09:20 Dose: Not Given Documented by: PAMELA Non-Admin Reason: Clinical Judgement Admin: 09/07/19 11:37 Dose: Not Given Documented by: PAMELA Non-Admin Reason: Too drowsy Admin: 09/06/19 09:38 Dose: 1 tab Documented by: Admin: 09/05/19 10:40 Dose: 1 tab Documented by: THELMA Lactulose (Cephulac) 30 gm PO QID [facility] Last Admin: 09/10/19 21:11 Dose: Not Given Documented by: JOSE R Non-Admin Reason: Patient Refused Admin: 09/10/19 17:14 Dose: Not Given Documented by: AREN Non-Admin Reason: Pt still working on drinking afternoon dose Admin: 09/10/19 14:32 Dose: 30 gm Documented by: Admin: 09/10/19 10:11 Dose: 30 gm Documented by: Admin: 09/09/19 20:52 Dose: Not Given Documented by: GREG Non-Chon Reason: Patient Refused Admin: 09/09/19 19:18 Dose: Not Given Documented by: GREG Non-Chon Reason: Patient Refused Admin: 09/09/19 14:09 Dose: Not Given Documented by: AREN Non-Admin Reason: Patient Refused Admin: 09/09/19 10:29 Dose: Not Given Documented by: AREN Non-Admin Reason: Patient Refused Admin: 09/08/19 22:00 Dose: Not Given Documented by: SHALINI Non-Admin Reason: Patient Refused Admin: 09/08/19 15:13 Dose: 30 gm Documented by: Admin: 09/08/19 15:13 Dose: Not Given Documented by: PAMELA Non-Admin Reason: Clinical Judgement Admin: 09/08/19 08:35 Dose: 30 gm Documented by: Admin: 09/07/19 20:40 Dose: Not Given Documented by: STANISLAV Non-Admin Reason: Patient Refused Admin: 09/07/19 17:30 Dose: Not Given Documented by: PAMELA Non-Admin Reason: Nausea Admin: 09/07/19 13:13 Dose: 30 gm Documented by: PAMELA Levothyroxine Sodium (Synthroid) 125 mcg PO ACB [facility] Last Admin: 09/10/19 10:10 Dose: 125 mcg Documented by: Admin: 09/09/19 07:49 Dose: 125 mcg Documented by: Admin: 09/08/19 08:35 Dose: 125 mcg Documented by: Admin: 09/07/19 07:58 Dose: 125 mcg Documented by: PAMELA Melatonin (Melatonin 3mg Tablet) 3 mg PO HSP PRN PRN Reason: Insomnia Last Admin: 09/07/19 21:32 Dose: 3 mg Documented by: STANISLAV Metoclopramide HCl (Reglan) 5 mg IV Q3HP PRN PRN Reason: nausea/vomiting Mupirocin (Bactroban Oint 2%) 1 dose TOPICAL TID [facility] Last Admin: 09/10/19 21:03 Dose: 1 dose Documented by: [email or web address] Admin: 09/10/19 15:17 Dose: 1 dose Documented by: Admin: 09/10/19 08:17 Dose: 1 dose Documented by: Admin: 09/09/19 20:52 Dose: Not Given Documented by: GREG Non-Chon Reason: Patient Refused Admin: 09/09/19 16:06 Dose: 1 dose Documented by: AREN Comments: unable to scan, barcode damaged Admin: 09/09/19 10:29 Dose: Not Given Documented by: AREN Non-Admin Reason: Patient Refused Admin: 09/08/19 22:03 Dose: 1 dose Documented by: Admin: 09/08/19 15:48 Dose: 1 dose Documented by: Admin: 09/08/19 10:00 Dose: 1 dose Documented by: Admin: 09/07/19 21:26 Dose: 1 dose Documented by: STANISLAV Omeprazole (Prilosec) 20 mg PO ACB [facility] Last Admin: 09/10/19 10:10 Dose: 20 mg Documented by: Admin: 09/09/19 07:49 Dose: 20 mg Documented by: Admin: 09/08/19 08:35 Dose: 20 mg Documented by: Admin: 09/07/19 07:58 Dose: 20 mg Documented by: Admin: 09/06/19 09:38 Dose: 20 mg Documented by: PAMELA Ondansetron HCl (Zofran Odt) 4 mg SL Q4-6HP PRN; Protocol PRN Reason: Nausea And Vomiting Last Admin: 09/10/19 10:24 Dose: 4 mg Documented by: Admin: 09/05/19 23:10 Dose: 4 mg Documented by: Admin: 09/05/19 12:15 Dose: 4 mg Documented by: THELMA Ondansetron HCl (Zofran) 4 mg IV Q4-6HP PRN; Protocol PRN Reason: Nausea And Vomiting Last Admin: 09/07/19 17:03 Dose: 4 mg Documented by: PAMELA Polyethylene Glycol (Miralax) 17 gm PO DAILYP PRN PRN Reason: Constipation Potassium Chloride (Klor-Con) 40 meq PO DAILYP PRN PRN Reason: K+ < 3.5 Salmeterol Xinafoate (Serevent) 1 puff INH BID [facility] Last Admin: 09/10/19 21:11 Dose: Not Given Documented by: JOSE R Non-Admin Reason: Unavailable Admin: 09/10/19 08:30 Dose: Not Given Documented by: AREN Non-Admin Reason: Unavailable Admin: 09/09/19 20:28 Dose: Not Given Documented by: GREG Non-Chon Reason: Unavailable Admin: 09/09/19 09:41 Dose: Not Given Documented by: AREN Non-Admin Reason: Unavailable Admin: 09/08/19 22:01 Dose: Not Given Documented by: SHALINI Non-Admin Reason: Unavailable Admin: 09/08/19 09:20 Dose: Not Given Documented by: PAMELA Non-Admin Reason: Unavailable Admin: 09/07/19 20:41 Dose: Not Given Documented by: STANISLAV Non-Admin Reason: Unavailable Admin: 09/07/19 11:37 Dose: Not Given Documented by: PAMELA Non-Admin Reason: Unavailable Admin: 09/06/19 22:04 Dose: Not Given Documented by: GREG Non-Admin Reason: Unavailable Senna/Docusate Sodium (Senna Plus Tablet) 1 tab PO HS [facility] Last Admin: 09/10/19 21:14 Dose: Not Given Documented by: JOSE R Non-Admin Reason: Patient Refused Admin: 09/09/19 20:52 Dose: Not Given Documented by: GREG Non-Admin Reason: Patient Refused Admin: 09/08/19 21:40 Dose: 1 tab Documented by: Admin: 09/07/19 21:27 Dose: 1 tab Documented by: Admin: 09/06/19 21:32 Dose: 1 tab Documented by: Admin: 09/05/19 20:24 Dose: Not Given Documented by: GREG Non-Admin Reason: Patient Refused Sodium Chloride (Saline Flush) 10 ml IV Q8 [facility] Admin: 09/10/19 14:32 Dose: 10 ml Documented by: Admin: 09/10/19 10:11 Dose: 10 ml Documented by: Admin: 09/10/19 07:19 Dose: 10 ml Documented by: Admin: 09/09/19 20:52 Dose: 10 ml Documented by: Admin: 09/09/19 14:32 Dose: 10 ml Documented by: Admin: 09/09/19 04:17 Dose: 10 ml Documented by: Admin: 09/08/19 22:00 Dose: 10 ml Documented by: Admin: 09/08/19 15:13 Dose: 10 ml Documented by: Admin: 09/08/19 07:09 Dose: 10 ml Documented by: Admin: 09/07/19 21:28 Dose: 10 ml Documented by: Admin: 09/07/19 13:14 Dose: 10 ml Documented by: Admin: 09/07/19 05:20 Dose: 10 ml Documented by: Admin: 09/06/19 21:33 Dose: 10 ml Documented by: Admin: 09/06/19 13:29 Dose: Not Given Documented by: PAMELA Non-Admin Reason: Continuous IV Admin: 09/06/19 05:49 Dose: 10 ml Documented by: Admin: 09/05/19 21:15 Dose: 10 ml Documented by: Admin: 09/05/19 13:32 Dose: 10 ml Documented by: THELMA Spironolactone (Aldactone) 100 mg PO BID [facility] Last Admin: 09/10/19 21:18 Dose: Not Given Documented by: JOSE R Non-Admin Reason: pt spit out 2 tablets, returned 2 tablets Admin: 09/10/19 10:11 Dose: 100 mg Documented by: Admin: 09/09/19 20:52 Dose: Not Given Documented by: GREG Non-Admin Reason: Patient Refused Admin: 09/09/19 10:29 Dose: Not Given Documented by: AREN Non-Admin Reason: Patient Refused Admin: 09/08/19 21:41 Dose: 100 mg Documented by: Admin: 09/08/19 08:35 Dose: 100 mg Documented by: Admin: 09/07/19 21:27 Dose: 100 mg Documented by: Admin: 09/07/19 10:16 Dose: 100 mg Documented by: [email or web address] Thiamine HCl (Vitamin B1) 100 mg PO DAILY [facility] Last Admin: 09/10/19 13:11 Dose: 100 mg Documented by: AREN Comments: Late as pt refused this AM stating "Im too tired, maybe later" Admin: 09/09/19 11:07 Dose: Not Given Documented by: AREN Non-Admin Reason: Patient Refused Admin: 09/08/19 09:20 Dose: Not Given Documented by: PAMELA Non-Admin Reason: Clinical Judgement Admin: 09/07/19 12:35 Dose: Not Given Documented by: PAMELA Non-Admin Reason: Unavailable Admin: 09/06/19 09:38 Dose: 100 mg Documented by: Admin: 09/05/19 10:40 Dose: 100 mg Documented by: [email or web address] Vitamin D (Vitamin D3) 400 unit PO DAILY [facility] Last Admin: 09/10/19 13:12 Dose: 400 unit Documented by: AREN Comments: Late as pt refused this AM stating "Im too tired, maybe later" Admin: 09/09/19 11:08 Dose: Not Given Documented by: AREN Non-Admin Reason: Patient Refused Admin: 09/08/19 09:20 Dose: Not Given Documented by: [email or web address] Non-Admin Reason: Clinical Judgement Assessment and Plan - Narrative A/P Narrative: A: 1. Streptococcus pneumoniae bacteremia: sens to Ceftriaxone - sec to seeding from spontaneous bacterial peritonitis - repeat blood Cx neg since 09/06 2. SBP: based on increased PMNs (> 250), clinical s/s, peritoneal fluid Cx growing Strept pneumoniae - sec to (3) - pt was not on antibiotic prophylaxis at admission. She meets criteria for being on chronic antibiotic prophylaxis for prevention of SBP - CT s/o large amount of ascitic fluid - repeat paracentesis 09/09 showed marked improvement in peritoneal fluid cell count with about ~ 900 WBC and 79% PMNs (= 711 PMNs). Cx NGTD 3. 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 Thrombocytopenia: sec to (3) 5. Failure to thrive: sec to severe ascites, cirrhosis 6. Rt Pleural effusion and basilar infiltrate: reactive to ascites, possible aspiration Recommendations: - Continue IV Ceftriaxone 2 gm q24 hrs, day 01/07 - If pt spikes a fever or if she becomes hemodynamically unstable; will recommend switching to IV Zosyn 3.375 gm q8 hrs. Also repeat blood Cx in that situation - repeat diagnostic paracentesis with cell count after 2 days. will aim for peritoneal fluid neutrophil count is < 250. - will switch to low dose Ciprofloxacin 500 mg as antibiotic prophylaxis for SBP prevention after completion of IV therapy for bacteremia - continue PO Rifaximin 550 mg bid for hepatic encephalopathy - HOB elevated at all times, given high aspiration risk - overall poor prognosis will follow Poncho Serrano MD Infectious diseases
[2019-09-11] MEDS: HYDROmorphone 2 MG TABLET PO PRN ×2 (01:17→07:37)
[2019-09-11 05:30] LABS: Basophils # (Auto) 0 K/mcL (0.0-0.3); Basophils % (Auto) 0 % (0.0-2.0); Eosinophils # (Auto) 0.1 K/mcL (0.0-0.7); Eosinophils % (Auto) 0.5 % (0.0-7.0); Granulocytes % (Auto) 94.6 % (38.0-78.0); Lymphocytes # (Auto) 0.2 K/mcL (1.5-4.8); Mean Cell Volume 83.2 fL (80.0-100.0); Mean Corpuscular HGB Conc 32.5 g/dL (31.0-36.0); Mean Platelet Volume 7.3 fL (7.4-10.4); Monocytes # (Auto) 0.7 K/mcL (0.1-0.9); Monocytes % (Auto) 3.9 % (1.0-12.0); Platelet Count 225 K/mcL (140-440); RBC 4.45 M/mcL (4.00-5.20); Red Cell Distribution Width 16.9 % (11.5-14.5); WBC 18.4 K/mcL (4.5-11.0)
[2019-09-11] MEDS: 0.9 % SODIUM CHLORIDE 10 ML SYRINGE IV SCH ×3 (05:46→20:58)
[2019-09-11 06:08] LABS: ALT/SGPT 14 U/l (0-40); AST/SGOT 25 U/l (0-37); Albumin/Globulin Ratio 0.7 (1.0-2.3); Alkaline Phosphatase 69 U/L (39-117); Bilirubin,Direct 0.4 mg/dL (0.0-0.3); Blood Urea Nitrogen 47 mg/dl (8-23); Calcium 9.1 mg/dl (8.6-10.4); Carbon Dioxide 16 mmol/L (22-30); Chloride 95 mmol/L (96-108); Globulin 4.4 gm/dL (2.2-3.7); Glomerular Filtration Rate 46; Glucose 220 mg/dL (70-105); Lactate Dehydrogenase 212 U/L (94-250); Phosphorous 3.6 mg/dL (2.7-4.5); Triglycerides 81 mg/dl (<150); Uric Acid 9.8 mg/dL (2.5-8.0)
[2019-09-11] MEDS: OMEPRAZOLE 20 MG CAPSULE PO SCH (07:24)
[2019-09-11] MEDS: LEVOTHYROXINE 125 MCG TABLET PO SCH (07:24)
[2019-09-11] MEDS: INSULIN GLARGINE, HUMAN 1 UNIT/0.01 ML SQ SCH (07:36)
[2019-09-11] MEDS: LACTULOSE 20 GM/30 ML ORAL.SOL PO SCH ×4 (07:36→20:56)
[2019-09-11] MEDS: ASCORBIC ACID 500 MG TABLET PO SCH (07:37)
[2019-09-11] MEDS: MULTIVIT,THER IRON,CA,FA & MIN 1 TABLET PO SCH (07:37)
[2019-09-11] MEDS: THIAMINE 100 MG TABLET PO SCH (07:37)
[2019-09-11] MEDS: FOLIC ACID 1 MG TABLET PO SCH (07:37)
[2019-09-11] MEDS: SPIRONOLACTONE 25 MG TABLET PO SCH ×2 (07:37→20:54)
[2019-09-11] MEDS: DOCUSATE SODIUM 100 MG CAPSULE PO SCH ×2 (07:37→20:56)
[2019-09-11] MEDS: HEPARIN 5,000 UNIT/ML VIAL SQ SCH ×2 (07:37→20:56)
[2019-09-11] MEDS: INSULIN LISPRO 1 UNIT/0.01 ML UNIT SQ SCH ×4 (07:37→20:56)
[2019-09-11] MEDS: GABAPENTIN 300 MG CAPSULE PO SCH ×2 (07:37→20:54)
[2019-09-11] MEDS: SALMETEROL XINAFOATE 1 PUFF INHALER INH SCH ×2 (07:39→20:57)
[2019-09-11] MEDS: FLUTICASONE HFA 220MCG INHALER INH SCH ×2 (07:39→20:56)
[2019-09-11] MEDS: MUPIROCIN OINT 2% 22GM TOPICAL SCH ×3 (07:40→22:33)
[2019-09-11] MEDS: BACLOFEN 10 MG TABLET PO SCH ×3 (07:48→20:54)
[2019-09-11] MEDS: RIFAXIMIN 550 MG TABLET PO SCH ×2 (07:48→20:54)
[2019-09-11] MEDS: VITAMIN D3 400 UNIT TABLET PO SCH (07:48)
[2019-09-11] MEDS: ONDANSETRON 4 MG ODT TABLET SL PRN (07:49)
[2019-09-11] MEDS: cefTRIAXone 2 GM in DEXTROSE 5% IN WATER 50 ML IV SCH (08:43)
--- NOTE | 2019-09-11 10:15 | Internal Med Progress Note ---
Medical - PN: Subj Patient information: Note initiated : 09/11/19 at 10:13 am Service Date, if different from initiated Date: [] Patient: Clare Sheehan a 69 y/o F admitted on 09/05/19 for altered level consciousness. Chief Complaint: [] Interval history: Ms. 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 Symptoms have been progressing over the last couple of days and patient unable to think clearly. She c/o 7/10 abdominal pain and was noted to have a fever. Over the last couple of days she has not been able to function and essentially laying on the bed. Initial work-up in the ER was consistent with severe sepsis along with findings suggestive of SBP and basilar pneumonia on imaging. Blood cultures pending, elevated lactate at 3.3. Creatinine 1.7 up from baseline 1.3. Patient underwent 6 L paracentesis results of which are awaited. Subsequently hospitalist service consulted after patient received antibiotics At the time evaluation patient is very lethargic and fatigued. Unable to provide a detailed history. Endorses to symptoms as above including fever abdominal pain and weakness. No family members present. Most of the history was obtained from review of medical records and from ER physician. 09/06-GNR on blood cultures/GPC on 1 culture and ascitic fluid Gram stain. Discussed with ID. Antibiotics changed to vancomycin/cefepime. Clinically improving. Lactic acid downtrending from 3.9-1.9. White count 12.2, creatinine down from 1.7-1.3. On Levophed to keep map at goal. Confirmed SBP with over 14,000 white cells in the sciatic fluid with gram-positive cocci in culture. Remains critically ill. Sister at bedside. Discussed prognosis and treatment plan. Repeat surveillance cultures today. 09/07-peritoneal fluid heavy growth alpha streptococci. On antibiotic coverage. ID consulted. Patient off pressors since yesterday. Remains critically ill. Feels lethargic fatigued. Tense, tender and distended abdomen with reaccumulation of ascites. No family at bedside. Remains a poor prognosis and high risk mortality in the setting of liver cirrhosis/sepsis bacteremia and spontaneous bacterial enteritis 09/08-Streptococcus pneumonia on final cultures. Once Rocephin per ID. CT abdomen chest pelvis as per ID recommendations to rule out secondary focus for Streptococcus pneumonia bacteremia including pneumonia and also HCC. Very lethargic this morning. White count at 11,000. Creatinine 1.2. Start lactulose retention enemas. Consider rifaximin. Will repeat paracentesis in 24-48 hours 09/09-patient antibiotic coverage as per ID. Clinically deteriorating. Worsening ascites. Paracentesis today. Discussed with patient poor prognosis based on meld score/progressive deterioration despite aggressive intervention. Patient desired her wish to be a DNR. Daughter present during patient's decision and endorsed to her mother's wishes. Await repeat paracentesis results. ID on board. 09/10-worsening white count. 9 L paracentesis. WBC down to 900 from 14,000. On antibiotic coverage per ID. Patient's mentation has been fluctuating. Intermittently able to take oral lactulose/rifaximin however poor nutritional status. Overall deterioration noted in the last 48 hours. Family aware of poor prognosis. Patient now a DNR. High probability during this hospitalization unless patient shows substantial recovery over the next few days. 09/11-white count 18.4 with neutrophil predominance. Sodium 125, creatinine 1.2. No overnight fever chills, daughter at bedside. Discussed clinical status and high risk mortality based on deteriorating status with patient and daughter in the presence of nursing staff and ID doctor. Patient intermittently refusing treatment along with medications. Otherwise no other concerns per staff. Patient responds to command but intermittently confused. Remains a DNR. It appears that patient realizes her grim situation and has been i ntermittently refusing treatments. We will continue further family discussions to explore patient's and family's wishes including palliation and comfort care. - Constitutional Vitals: Vital Signs Temp Pulse Resp BP Pulse Ox 98.8 F 90 14 98/71 89 L 09/11/19 08:01 09/11/19 09:46 09/11/19 09:46 09/11/19 08:01 09/11/19 09:46 Period Temp Pulse Resp BP Sys/Will Pulse Ox Last 24 Hr 98.2 F-99.3 F 79-96 14-24 83-109/56-75 89-95 Intake and Output 09/10/19 09/11/19 09/11/19 21:59 05:59 13:59 Intake Total 240 80 Output Total 285 250 280 Balance -285 -10 -200 Weight 121 lb Intake & Output: Intake & Output 09/10/19 09/11/19 09/11/19 21:59 05:59 13:59 Intake Total 240 80 Output Total 285 250 280 Balance -285 -10 -200 Weight 121 lb Intake: IV 50 Rocephin 2 gm In Dextrose 5% in 50 Water 50 ml @ 100 mls/hr IV DAILY [facility] Rx#:[id number] Oral 240 30 Output: Urine Catheter Amount 285 250 280 Other: Meal Dinner orange sherbet Percent of Meal Consumed 50% 50% Feeding Ability Total Assistance Independent Urine Appearance Clear Clear Clear Urine Color Dark Yellow Dark Yellow Bright Yellow Uretheral (Bundy) Dark Yellow Dark Yellow Urine Odor Normal Normal Normal General appearance: thin Exam: Nondistressed Nonlabored breathing No anxiety Lethargic and weak Bundy is draining clear urine Nontender nondistended abdomen Medical - PN: Obj Da - Labs CBC & Chem 7: 09/11/19 04:00 09/11/19 04:00 Labs: Abnormal Lab Results 09/11/19 09/11/19 09/10/19 04:00 04:00 03:50 WBC 18.4 H RBC Hgb Hct RDW 16.9 H MPV 7.3 L Gran % 94.6 H Lymph % (Auto) 1.0 L Gran # 17.4 H Lymph # (Auto) 0.2 L Seg Neutrophils % Lymphocytes % Myelocytes % RBC Morphology Anisocytosis Microcytosis PT INR Sodium 125 L 130 L Chloride 95 L Carbon Dioxide 16 L 19 L BUN 47 H 42 H Creatinine 1.2 H 1.2 H Glucose 220 H 133 H Uric Acid 9.8 H 8.7 H Total Bilirubin 1.1 H Direct Bilirubin 0.4 H 0.5 H Albumin 3.0 L Globulin 4.4 H 4.0 H Albumin/Globulin Ratio 0.7 L 0.8 L 09/10/19 09/09/19 09/09/19 03:50 03:40 03:40 WBC 12.1 H 11.8 H RBC 3.97 L 3.88 L Hgb 10.8 L 10.7 L Hct 33.1 L 32.4 L RDW 16.7 H 17.5 H MPV Gran % Lymph % (Auto) Gran # Lymph # (Auto) Seg Neutrophils % 91 H 89 H Lymphocytes % 2 L Myelocytes % 1 H 2 H RBC Morphology Abnorm A Abnorm A Anisocytosis 1+ A 1+ A Microcytosis Few A PT INR Sodium 130 L Chloride Carbon Dioxide 17 L BUN 36 H Creatinine 1.3 H Glucose 176 H Uric Acid Total Bilirubin Direct Bilirubin Albumin 2.3 L Globulin 4.7 H Albumin/Globulin Ratio 0.5 L 09/08/19 11:31 WBC RBC Hgb Hct RDW MPV Gran % Lymph % (Auto) Gran # Lymph # (Auto) Seg Neutrophils % Lymphocytes % Myelocytes % RBC Morphology Anisocytosis Microcytosis PT 18.1 H INR 1.5 H Sodium Chloride Carbon Dioxide BUN Creatinine Glucose Uric Acid Total Bilirubin Direct Bilirubin Albumin Globulin Albumin/Globulin Ratio Meds: Medications Acetaminophen (Tylenol) 650 mg PO Q4-6HP PRN; Protocol PRN Reason: Per Pain Protocol/Fever > 101 Albuterol Sulfate (Ventolin) 1 puff INH Q4HP PRN PRN Reason: Shortness Of Breath Albuterol/Ipratropium (Duoneb) 3 ml NEB Q4HP PRN PRN Reason: Shortness Of Breath Last Admin: 09/08/19 08:55 Dose: 3 ml Documented by: Ascorbic Acid (Vitamin C) 500 mg PO DAILY [facility] Last Admin: 09/11/19 07:37 Dose: 500 mg Documented by: Baclofen (Lioresal) 10 mg PO TID [facility] Last Admin: 09/11/19 07:48 Dose: 10 mg Documented by: Bisacodyl (Dulcolax) 10 mg WI Q2-3DAYS PRN PRN Reason: Constipation Calcium Carbonate/Glycine (Tums) 500 mg CHEWED Q4HP PRN PRN Reason: Dyspepsia Diagnostic Test (Pha) (Accu-Chek) 1 each FS ACHS [facility] Last Admin: 09/11/19 07:24 Dose: 1 each Documented by: Docusate Sodium (Colace) 100 mg PO BID [facility] Last Admin: 09/11/19 07:37 Dose: 100 mg Documented by: Fentanyl (Duragesic) 50 mcg TOPICAL Q72H [facility] Last Admin: 09/09/19 09:48 Dose: 50 mcg Documented by: Fluticasone Propionate (Flovent Hfa 220mcg) 2 puff INH BID [facility] Last Admin: 09/11/19 07:39 Dose: Not Given Documented by: Folic Acid (Folic Acid) 1 mg PO DAILY [facility] Last Admin: 09/11/19 07:37 Dose: 1 mg Documented by: Gabapentin (Neurontin) 300 mg PO BID [facility] Last Admin: 09/11/19 07:37 Dose: 300 mg Documented by: Heparin Sodium (Porcine) (Heparin) 5,000 unit SQ Q12 [facility] Last Admin: 09/11/19 07:37 Dose: 5,000 unit Documented by: Hydromorphone HCl (Dilaudid) 4 - 8 mg PO Q6HP PRN; Protocol PRN Reason: Per Pain Protocol Last Admin: 09/11/19 07:37 Dose: 4 mg Documented by: Hydromorphone HCl (Dilaudid) 0.5 mg IV Q4HP PRN; Protocol PRN Reason: Per Pain Protocol Last Admin: 09/10/19 05:16 Dose: 0.5 mg Documented by: Hydroxyzine HCl (Atarax) 100 mg PO BIDP PRN PRN Reason: Itching Magnesium Sulfate (Magnesium Sulfate) 2 gm in 50 mls @ 50 mls/hr IV UD PRN PRN Reason: MG = or < 1.7 Last Infusion: 09/06/19 11:25 Dose: Infused Documented by: Acetaminophen (Ofirmev) 500 mg in 50 mls @ 100 mls/hr IV Q6HP PRN; Protocol PRN Reason: PAIN/FEVER > 101 Last Infusion: 09/05/19 21:00 Dose: Infused Documented by: Ceftriaxone Sodium 2 gm/ (Dextrose) 50 mls @ 100 mls/hr IV DAILY [facility]; Protocol Last Infusion: 09/11/19 09:15 Dose: Infused Documented by: Norepinephrine Bitartrate 16 (mg/ Sodium Chloride) 250 mls @ 9.375 mls/hr IV Q24HP PRN; Protocol PRN Reason: TITRATE TO KEEP MAP > 65 Insulin Glargine (Lantus) 10 unit SQ DAILY [facility] Last Admin: 09/11/19 07:36 Dose: 10 units Documented by: Insulin Human Lispro (Humalog) 0 unit SQ ACHS [facility]; Protocol Last Admin: 09/11/19 07:37 Dose: 6 units Documented by: Iron Carb/Multivit/[place]/Folic Acid (Multivitamin W/Minerals) 1 tab PO DAILY [facility] Last Admin: 09/11/19 07:37 Dose: 1 tab Documented by: Lactulose (Cephulac) 30 gm PO QID [facility] Last Admin: 09/11/19 07:36 Dose: 30 gm Documented by: Levothyroxine Sodium (Synthroid) 125 mcg PO ACB [facility] Last Admin: 09/11/19 07:24 Dose: 125 mcg Documented by: Melatonin (Melatonin 3mg Tablet) 3 mg PO HSP PRN PRN Reason: Insomnia Last Admin: 09/07/19 21:32 Dose: 3 mg Documented by: Metoclopramide HCl (Reglan) 5 mg IV Q3HP PRN PRN Reason: nausea/vomiting Mupirocin (Bactroban Oint 2%) 1 dose TOPICAL TID [facility] Last Admin: 09/11/19 07:40 Dose: 1 dose Documented by: Omeprazole (Prilosec) 20 mg PO ACB [facility] Last Admin: 09/11/19 07:24 Dose: 20 mg Documented by: Ondansetron HCl (Zofran Odt) 4 mg SL Q4-6HP PRN; Protocol PRN Reason: Nausea And Vomiting Last Admin: 09/11/19 07:49 Dose: 4 mg Documented by: Ondansetron HCl (Zofran) 4 mg IV Q4-6HP PRN; Protocol PRN Reason: Nausea And Vomiting Last Admin: 09/07/19 17:03 Dose: 4 mg Documented by: Polyethylene Glycol (Miralax) 17 gm PO DAILYP PRN PRN Reason: Constipation Potassium Chloride (Klor-Con) 40 meq PO DAILYP PRN PRN Reason: K+ < 3.5 Salmeterol Xinafoate (Serevent) 1 puff INH BID [facility] Last Admin: 09/11/19 07:39 Dose: Not Given Documented by: Senna/Docusate Sodium (Senna Plus Tablet) 1 tab PO HS [facility] Last Admin: 09/10/19 21:14 Dose: Not Given Documented by: Sodium Chloride (Saline Flush) 10 ml IV Q8 [facility] Last Admin: 09/11/19 05:46 Dose: 10 ml Documented by: Spironolactone (Aldactone) 100 mg PO BID [facility] Last Admin: 09/11/19 07:37 Dose: 100 mg Documented by: Thiamine HCl (Vitamin B1) 100 mg PO DAILY [facility] Last Admin: 09/11/19 07:37 Dose: 100 mg Documented by: Vitamin D (Vitamin D3) 400 unit PO DAILY [facility] Last Admin: 09/11/19 07:48 Dose: 400 unit Documented by: Medical - PN: A/P - Time Spent With Patient Total time spent is greater than 50% in coordination of care (as documented) at patient's floor/unit and/or counseling patient: 25 - 35 minutes (1) Acute alteration in mental status Status: Acute Assessment and plan: * Hepatic encephalopathy-continue rifaximin/lactulose. Patient however intermittently refusing treatments no significant improvement despite aggressive treatment. Remains high risk mortality , both patient and daughter aware. * Streptococcus pneumonia bacteremia -on Rocephin per ID. CT abdomen pelvis negative except for pneumonia * Spontaneous bacterial peritonitis-strep pneumo culture. W[place] from 97835-> 900. 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 Meld score 20. * Septic shock with multiple endorgan dysfunction including AMS/DAREN. Off pressors. Continuing antibiotic coverage * Acute on chronic kidney disease -creatinine 1.7-1.3->1.2-> 1.3. Monitor renal function * History of DM type II continue basal/prandial insulin * Hypothyroidism on thyroxine * Neuropathy continue gabapentin * Chronic pain on home medications including fentanyl patch * Patient DNR * Prophylaxis heparin Plan * Antibiotics per ID * Continue lactulose/rifaximin * PT OT/nutrition support * Further care conference for goals of care * High risk mortality during this hospitalization based on Meld score Current Visit: Yes
--- NOTE | 2019-09-11 17:32 | Infectious Disease Prog Note ---
Subjective Patient information: Note initiated : 09/11/19 at 5:31 pm Service Date, if different from initiated Date: [] Patient: Clare Sheehan 69 y/o F admitted on 09/05/19 for altered level consciousness. Chief Complaint: [] Interval history: Pt drowsy but arousable. Didnot have any BM. Daughter at bedside. She had been counseling her mom to take PO meds, eat her meals. No fever. Belly pain is better. Objective Objective Narrative: drowsy but arousable vbs b/l with decreased BS at bases bs hypoactive, mildy tender, no rebound asterexis ++ - Vital Signs Vital signs: Vital Signs Temp Pulse Resp BP Pulse Ox 09/11/19 17:01 37.1 C 21 104/63 98 09/11/19 16:01 37.2 C 19 90/72 09/11/19 16:00 37.2 C 20 09/11/19 15:01 37.3 C H 21 98/71 09/11/19 14:01 37.2 C 19 101/78 98 09/11/19 14:00 37.2 C 23 H 95 09/11/19 13:02 20 92 09/11/19 13:01 37.2 C 19 99/74 92 09/11/19 12:08 19 108/74 86 L 09/11/19 12:00 36.9 C 21 108/74 90 09/11/19 10:00 20 09/11/19 09:46 90 14 89 L 09/11/19 08:02 37.1 C 16 90 09/11/19 08:01 37.1 C 16 98/71 90 09/11/19 07:35 37.0 C 18 100/73 89 L 09/11/19 06:01 37.2 C 94 H 16 87/75 93 09/11/19 06:00 37.1 C 92 H 18 93 09/11/19 04:01 37.0 C 96 H 19 100/74 92 09/11/19 04:00 37.1 C 95 H 19 92 09/11/19 02:01 37.0 C 86 20 91 09/11/19 02:00 36.8 C 87 21 109/74 92 09/11/19 01:33 90 09/11/19 00:02 37.3 C H 93 H 20 93 09/11/19 00:01 37.3 C H 93 H 21 99/72 93 09/11/19 00:00 37.3 C H 93 H 22 93 09/10/19 23:15 89 L 09/10/19 22:01 37.4 C H 80 24 H 90 09/10/19 22:00 37.4 C H 79 22 105/73 92 09/10/19 20:50 94 09/10/19 20:16 37.3 C H 20 98/60 09/10/19 20:02 37.3 C H 17 84/59 09/10/19 20:01 37.3 C H 18 83/56 09/10/19 20:00 37.3 C H 17 09/10/19 18:02 37.3 C H 20 09/10/19 18:01 37.2 C 17 90/60 Intake and Output 09/11/19 09/11/19 09/11/19 05:59 13:59 21:59 Intake Total 240 80 Output Total 250 454 19 Intake: IV 50 Rocephin 2 gm In Dextrose 5% in 50 Water 50 ml @ 100 mls/hr IV DAILY KAT Rx#:[id number] Oral 240 30 Output: Urine Catheter Amount 250 454 19 Other: Meal orange sherbet Percent of Meal Consumed 50% Feeding Ability Independent Urine Appearance Clear Clear Urine Color Dark Yellow Bright Yellow Bright Yellow Uretheral (Bundy) Dark Yellow Urine Odor Normal Normal Normal Intake & Output: Intake & Output 09/11/19 09/11/19 09/11/19 05:59 13:59 21:59 Intake Total 240 80 Output Total 250 454 19 Intake: IV 50 Rocephin 2 gm In Dextrose 5% in 50 Water 50 ml @ 100 mls/hr IV DAILY KAT Rx#:[id number] Oral 240 30 Output: Urine Catheter Amount 250 454 19 Other: Meal orange sherbet Percent of Meal Consumed 50% Feeding Ability Independent Urine Appearance Clear Clear Urine Color Dark Yellow Bright Yellow Bright Yellow Uretheral (Bundy) Dark Yellow Urine Odor Normal Normal Normal - Lab 09/12/19 04:15 09/12/19 04:15 Most recent lab results Calcium 9.1 mg/dl (8.6-10.4) 09/11/19 04:00 Phosphorus 3.6 mg/dL (2.7-4.5) 09/11/19 04:00 Magnesium 2.3 mg/dL (1.6-2.5) 09/11/19 04:00 Microbiology 09/09/19 15:30 Peritoneal Fluid Gram Stain - Final 09/09/19 15:30 Peritoneal Fluid Body Fluid Culture - Final 09/06/19 09:58 Blood Blood Culture - Final 09/06/19 10:03 Blood Blood Culture - Final 09/05/19 06:12 Blood Blood Culture - Final Streptococcus pneumoniae 09/05/19 05:37 Blood Blood Culture - Final Streptococcus pneumoniae 09/09/19 15:18 Pleural Fluid Gram Stain - Final 09/09/19 15:18 Pleural Fluid Body Fluid Culture - Final 09/05/19 07:52 Peritoneal Fluid Gram Stain - Final 09/05/19 07:52 Peritoneal Fluid Body Fluid Culture - Final Streptococcus pneumoniae 09/06/19 18:35 Sputum - Expectorated Gram Stain - Final 09/06/19 18:35 Sputum - Expectorated Sputum Culture - Final 09/05/19 09:20 Nose - First MRSA (PCR) - Final Medications Active Medications: Acetaminophen (Tylenol) 650 mg PO Q4-6HP PRN; Protocol PRN Reason: Per Pain Protocol/Fever > 101 Last Admin: 09/11/19 11:53 Dose: 650 mg Documented by: [id number] Albuterol Sulfate (Ventolin) 1 puff INH Q4HP PRN PRN Reason: Shortness Of Breath Albuterol/Ipratropium (Duoneb) 3 ml NEB Q4HP PRN PRN Reason: Shortness Of Breath Last Admin: 09/08/19 08:55 Dose: 3 ml Documented by: [email or web address] Admin: 09/08/19 03:44 Dose: 3 ml Documented by: Admin: 09/07/19 21:04 Dose: 3 ml Documented by: Admin: 09/07/19 09:06 Dose: 3 ml Documented by: [email or web address] Admin: 09/06/19 20:16 Dose: 3 ml Documented by: Admin: 09/06/19 09:44 Dose: 3 ml Documented by: [id number] Ascorbic Acid (Vitamin C) 500 mg PO DAILY KAT Last Admin: 09/11/19 07:37 Dose: 500 mg Documented by: [id number] Admin: 09/10/19 13:12 Dose: 500 mg Documented by: AREN Comments: Late as pt refused this AM stating "Im too tired, maybe later" Admin: 09/09/19 11:08 Dose: Not Given Documented by: [email or web address] Non-Admin Reason: Patient Refused Admin: 09/08/19 09:20 Dose: Not Given Documented by: [id number] Non-Admin Reason: Clinical Judgement Baclofen (Lioresal) 10 mg PO TID KAT [facility] Admin: 09/11/19 14:24 Dose: 10 mg Documented by: [id number] Admin: 09/11/19 07:48 Dose: 10 mg Documented by: [id number] Admin: 09/10/19 21:16 Dose: Not Given Documented by: JOSE R Non-Admin Reason: Patient Refused Admin: 09/10/19 16:09 Dose: Not Given Documented by: AREN Non-Admin Reason: Patient Asleep Admin: 09/10/19 08:44 Dose: 10 mg Documented by: Admin: 09/09/19 20:53 Dose: Not Given Documented by: GREG Non-Admin Reason: Patient Refused Admin: 09/09/19 16:06 Dose: Not Given Documented by: AREN Non-Admin Reason: Patient Asleep Admin: 09/09/19 10:29 Dose: Not Given Documented by: [email or web address] Non-Admin Reason: Patient Refused Admin: 09/08/19 21:39 Dose: 10 mg Documented by: Admin: 09/08/19 15:08 Dose: Not Given Documented by: [id number] Non-Admin Reason: Clinical Judgement Admin: 09/08/19 09:20 Dose: Not Given Documented by: [id number] Non-Admin Reason: Clinical Judgement Admin: 09/07/19 21:32 Dose: 10 mg Documented by: Admin: 09/07/19 16:03 Dose: Not Given Documented by: [id number] Non-Admin Reason: Clinical Judgement Admin: 09/07/19 11:37 Dose: Not Given Documented by: [id number] Non-Admin Reason: Too drowsy Admin: 09/06/19 21:31 Dose: 10 mg Documented by: Admin: 09/06/19 15:17 Dose: 10 mg Documented by: [id number] Bisacodyl (Dulcolax) 10 mg NV Q2-3DAYS PRN PRN Reason: Constipation Calcium Carbonate/Glycine (Tums) 500 mg CHEWED Q4HP PRN PRN Reason: Dyspepsia Diagnostic Test (Pha) (Accu-Chek) 1 each FS ACHS KAT Last Admin: 09/11/19 17:02 Dose: 1 each Documented by: [id number] Admin: 09/11/19 11:54 Dose: 1 each Documented by: Admin: 09/11/19 07:24 Dose: 1 each Documented by: [id number] Admin: 09/10/19 21:28 Dose: 1 each Documented by: [id number] Admin: 09/10/19 17:12 Dose: 1 each Documented by: AREN Comments: FSBG 306, pt has been taking intermittent bites of food and sips of soda, supplements throughout the day, not fasting Admin: 09/10/19 12:46 Dose: 1 each Documented by: Admin: 09/10/19 07:20 Dose: 1 each Documented by: Admin: 09/09/19 20:50 Dose: 1 each Documented by: Admin: 09/09/19 17:26 Dose: 1 each Documented by: Admin: 09/09/19 12:38 Dose: 1 each Documented by: Admin: 09/09/19 07:49 Dose: 1 each Documented by: Admin: 09/08/19 22:00 Dose: 1 each Documented by: Admin: 09/08/19 17:06 Dose: 1 each Documented by: Admin: 09/08/19 11:36 Dose: 1 each Documented by: Admin: 09/08/19 07:03 Dose: 1 each Documented by: Admin: 09/07/19 21:27 Dose: 1 each Documented by: Admin: 09/07/19 17:03 Dose: 1 each Documented by: Admin: 09/07/19 12:35 Dose: 1 each Documented by: Admin: 09/07/19 07:56 Dose: 1 each Documented by: Admin: 09/06/19 21:32 Dose: 1 each Documented by: Admin: 09/06/19 17:00 Dose: 1 each Documented by: Admin: 09/06/19 12:05 Dose: 1 each Documented by: Admin: 09/06/19 07:46 Dose: 1 each Documented by: Admin: 09/05/19 21:05 Dose: 1 each Documented by: Admin: 09/05/19 18:30 Dose: Not Given Documented by: THELMA Non-Admin Reason: NPO Admin: 09/05/19 12:05 Dose: 1 each Documented by: Admin: 09/05/19 10:49 Dose: 1 each Documented by: THELMA Docusate Sodium (Colace) 100 mg PO BID [facility] Last Admin: 09/11/19 07:37 Dose: 100 mg Documented by: [id number] Admin: 09/10/19 21:09 Dose: Not Given Documented by: JOSE R Non-Admin Reason: Patient Refused Admin: 09/10/19 13:13 Dose: 100 mg Documented by: AREN Comments: Late as pt refused this AM stating "Im too tired, maybe later". Unable to scan due to damaged barcode Admin: 09/09/19 20:52 Dose: Not Given Documented by: GREG Non-Admin Reason: Patient Refused Admin: 09/09/19 09:50 Dose: Not Given Documented by: AREN Non-Admin Reason: Loose Stool Admin: 09/08/19 21:40 Dose: 100 mg Documented by: Admin: 09/08/19 09:19 Dose: Not Given Documented by: PAMELA Non-Admin Reason: LOC Admin: 09/07/19 21:27 Dose: 100 mg Documented by: Admin: 09/07/19 11:36 Dose: Not Given Documented by: PAMELA Non-Admin Reason: Pt too drowsy Admin: 09/06/19 21:31 Dose: 100 mg Documented by: Admin: 09/06/19 09:39 Dose: 100 mg Documented by: Admin: 09/05/19 20:24 Dose: Not Given Documented by: GREG Non-Admin Reason: Patient Refused Admin: 09/05/19 10:40 Dose: 100 mg Documented by: THELMA Fentanyl (Duragesic) 50 mcg TOPICAL Q72H [facility] Last Admin: 09/09/19 09:48 Dose: 50 mcg Documented by: Admin: 09/06/19 13:28 Dose: 50 mcg Documented by: [id number] Fluticasone Propionate (Flovent Hfa 220mcg) 2 puff INH BID [facility] Last Admin: 09/11/19 07:39 Dose: Not Given Documented by: SAMIA Non-Admin Reason: Unavailable Admin: 09/10/19 21:11 Dose: Not Given Documented by: JOSE R Non-Admin Reason: Unavailable Admin: 09/10/19 08:30 Dose: Not Given Documented by: AREN Non-Admin Reason: Unavailable Admin: 09/09/19 20:28 Dose: Not Given Documented by: GREG Non-Chon Reason: Unavailable Admin: 09/09/19 09:41 Dose: Not Given Documented by: AREN Non-Admin Reason: Unavailable Admin: 09/08/19 22:01 Dose: Not Given Documented by: SHALINI Non-Admin Reason: Unavailable Admin: 09/08/19 09:19 Dose: Not Given Documented by: PAMELA Non-Admin Reason: Clinical Judgement Admin: 09/07/19 20:40 Dose: Not Given Documented by: [email or web address] Non-Admin Reason: Unavailable Admin: 09/07/19 11:36 Dose: Not Given Documented by: PAMELA Non-Admin Reason: Unavailable Admin: 09/06/19 22:04 Dose: Not Given Documented by: GREG Non-Chon Reason: Unavailable Folic Acid (Folic Acid) 1 mg PO DAILY [facility] Last Admin: 09/11/19 07:37 Dose: 1 mg Documented by: [id number] Admin: 09/10/19 13:12 Dose: 1 mg Documented by: AREN Comments: Late as pt refused this AM stating "Im too tired, maybe later" Admin: 09/09/19 10:29 Dose: Not Given Documented by: AREN Non-Admin Reason: Patient Refused Admin: 09/08/19 09:19 Dose: Not Given Documented by: PAMELA Non-Admin Reason: Clinical Judgement Admin: 09/07/19 11:36 Dose: Not Given Documented by: [id number] Non-Admin Reason: Too drowsy Admin: 09/06/19 09:38 Dose: 1 mg Documented by: [id number] Admin: 09/05/19 10:40 Dose: 1 mg Documented by: [email or web address] Gabapentin (Neurontin) 300 mg PO BID [facility] Last Admin: 09/11/19 07:37 Dose: 300 mg Documented by: [id number] Admin: 09/10/19 21:13 Dose: Not Given Documented by: JOSE R Non-Admin Reason: Patient Refused Admin: 09/10/19 10:10 Dose: 300 mg Documented by: Admin: 09/09/19 20:53 Dose: Not Given Documented by: GREG Non-Admin Reason: Patient Refused Admin: 09/09/19 10:30 Dose: Not Given Documented by: AREN Non-Admin Reason: Patient Refused Admin: 09/08/19 21:39 Dose: 300 mg Documented by: Admin: 09/08/19 09:20 Dose: Not Given Documented by: PAMELA Non-Admin Reason: Clinical Judgement Admin: 09/07/19 21:27 Dose: 300 mg Documented by: Admin: 09/07/19 11:37 Dose: Not Given Documented by: PAMELA Non-Admin Reason: Too drowsy Admin: 09/06/19 21:31 Dose: 300 mg Documented by: GREG Heparin Sodium (Porcine) (Heparin) 5,000 unit SQ Q12 [facility] Last Admin: 09/11/19 07:37 Dose: 5,000 unit Documented by: [id number] Admin: 09/10/19 21:10 Dose: Not Given Documented by: JOSE R Non-Admin Reason: Patient Refused Admin: 09/10/19 10:24 Dose: Not Given Documented by: AREN Non-Admin Reason: Patient Refused Admin: 09/09/19 20:52 Dose: Not Given Documented by: GREG Non-Chon Reason: Patient Refused Admin: 09/09/19 10:29 Dose: Not Given Documented by: AREN Non-Admin Reason: Patient Refused Admin: 09/08/19 21:49 Dose: 5,000 unit Documented by: Admin: 09/08/19 08:35 Dose: 5,000 unit Documented by: [id number] Admin: 09/07/19 21:27 Dose: 5,000 unit Documented by: Admin: 09/07/19 10:15 Dose: 5,000 unit Documented by: [id number] Admin: 09/06/19 21:31 Dose: 5,000 unit Documented by: Admin: 09/06/19 09:38 Dose: 5,000 unit Documented by: Admin: 09/05/19 20:27 Dose: 5,000 unit Documented by: Admin: 09/05/19 10:38 Dose: 5,000 unit Documented by: THELMA Hydromorphone HCl (Dilaudid) 4 - 8 mg PO Q6HP PRN; Protocol PRN Reason: Per Pain Protocol Last Admin: 09/11/19 07:37 Dose: 4 mg Documented by: Admin: 09/11/19 01:17 Dose: 4 mg Documented by: JOSE R Admin: 09/10/19 08:44 Dose: 4 mg Documented by: Admin: 09/09/19 14:31 Dose: 4 mg Documented by: Admin: 09/09/19 05:46 Dose: 4 mg Documented by: Admin: 09/08/19 21:37 Dose: 4 mg Documented by: Admin: 09/07/19 23:24 Dose: 8 mg Documented by: Admin: 09/07/19 18:11 Dose: 4 mg Documented by: Admin: 09/06/19 05:48 Dose: 8 mg Documented by: Admin: 09/05/19 19:45 Dose: 8 mg Documented by: Admin: 09/05/19 13:31 Dose: 8 mg Documented by: THELMA Hydromorphone HCl (Dilaudid) 0.5 mg IV Q4HP PRN; Protocol PRN Reason: Per Pain Protocol Last Admin: 09/10/19 05:16 Dose: 0.5 mg Documented by: GREG Hydroxyzine HCl (Atarax) 100 mg PO BIDP PRN PRN Reason: Itching Magnesium Sulfate (Magnesium Sulfate) 2 gm in 50 mls @ 50 mls/hr IV UD PRN PRN Reason: MG = or < 1.7 Last Infusion: 09/06/19 11:25 Dose: 0 mls/hr Documented by: [id number] Admin: 09/06/19 10:25 Dose: 50 mls/hr Documented by: [id number] Acetaminophen (Ofirmev) 500 mg in 50 mls @ 100 mls/hr IV Q6HP PRN; Protocol PRN Reason: PAIN/FEVER > 101 Last Infusion: 09/05/19 21:00 Dose: 0 mls/hr Documented by: Admin: 09/05/19 20:27 Dose: 100 mls/hr Documented by: GREG Ceftriaxone Sodium 2 gm/ (Dextrose) 50 mls @ 100 mls/hr IV DAILY KAT; Protocol Last Infusion: 09/11/19 09:15 Dose: 0 mls/hr Documented by: [id number] Admin: 09/11/19 08:43 Dose: 100 mls/hr Documented by: [id number] Infusion: 09/10/19 10:41 Dose: 0 mls/hr Documented by: Admin: 09/10/19 10:11 Dose: 100 mls/hr Documented by: Infusion: 09/09/19 11:30 Dose: 0 mls/hr Documented by: Admin: 09/09/19 11:00 Dose: 100 mls/hr Documented by: Infusion: 09/08/19 10:30 Dose: 0 mls/hr Documented by: Admin: 09/08/19 10:00 Dose: 100 mls/hr Documented by: Infusion: 09/07/19 10:40 Dose: 0 mls/hr Documented by: Admin: 09/07/19 10:10 Dose: 100 mls/hr Documented by: MICHAEL Norepinephrine Bitartrate 16 (mg/ Sodium Chloride) 250 mls @ 9.375 mls/hr IV Q24HP PRN; Protocol PRN Reason: TITRATE TO KEEP MAP > 65 Insulin Glargine (Lantus) 10 unit SQ DAILY KAT Last Admin: 09/11/19 07:36 Dose: 10 units Documented by: [id number] Admin: 09/10/19 10:11 Dose: 10 units Documented by: Admin: 09/09/19 10:29 Dose: Not Given Documented by: AREN Non-Admin Reason: Patient Refused Admin: 09/08/19 08:36 Dose: 10 units Documented by: [id number] Admin: 09/07/19 10:14 Dose: 10 units Documented by: [email or web address] Admin: 09/06/19 09:39 Dose: 10 units Documented by: [email or web address] Admin: 09/05/19 13:32 Dose: 10 units Documented by: [email or web address] Insulin Human Lispro (Humalog) 0 unit SQ ACHS KAT; Protocol Last Admin: 09/11/19 17:06 Dose: 10 units Documented by: [id number] Admin: 09/11/19 12:01 Dose: 8 units Documented by: [id number] Admin: 09/11/19 07:37 Dose: 6 units Documented by: [id number] Admin: 09/10/19 21:28 Dose: 6 units Documented by: [email or web address] Admin: 09/10/19 17:14 Dose: 10 units Documented by: Admin: 09/10/19 12:46 Dose: Not Given Documented by: AREN Non-Admin Reason: No Coverage Needed Admin: 09/10/19 07:20 Dose: Not Given Documented by: AREN Non-Admin Reason: No Coverage Needed Admin: 09/09/19 20:50 Dose: 6 units Documented by: Admin: 09/09/19 17:28 Dose: 6 units Documented by: Admin: 09/09/19 12:41 Dose: 6 units Documented by: Admin: 09/09/19 10:19 Dose: Not Given Documented by: AREN Non-Admin Reason: Patient Refused Admin: 09/08/19 22:07 Dose: 6 units Documented by: Admin: 09/08/19 17:11 Dose: 6 units Documented by: [id number] Admin: 09/08/19 12:19 Dose: 8 units Documented by: [id number] Admin: 09/08/19 08:35 Dose: 8 units Documented by: [id number] Admin: 09/07/19 21:28 Dose: Not Given Documented by: [email or web address] Non-Admin Reason: PT not eating Admin: 09/07/19 18:11 Dose: 6 units Documented by: [id number] Admin: 09/07/19 12:35 Dose: 6 units Documented by: Admin: 09/07/19 07:58 Dose: 4 units Documented by: Admin: 09/06/19 21:52 Dose: 6 units Documented by: Admin: 09/06/19 17:08 Dose: 10 units Documented by: [id number] Admin: 09/06/19 12:07 Dose: 2 units Documented by: Admin: 09/06/19 07:51 Dose: 6 units Documented by: [id number] Admin: 09/05/19 21:14 Dose: 8 units Documented by: Admin: 09/05/19 18:30 Dose: Not Given Documented by: THELMA Non-Admin Reason: NPO Admin: 09/05/19 10:57 Dose: 12 units Documented by: [email or web address] Iron Carb/Multivit/Attorney Lawyer/Folic Acid (Multivitamin W/Minerals) 1 tab PO DAILY [facility] Last Admin: 09/11/19 07:37 Dose: 1 tab Documented by: Admin: 09/10/19 13:12 Dose: 1 tab Documented by: AREN Comments: Late as pt refused this AM stating "Im too tired, maybe later" Admin: 09/09/19 10:30 Dose: Not Given Documented by: AREN Non-Admin Reason: Patient Refused Admin: 09/08/19 09:20 Dose: Not Given Documented by: PAMELA Non-Admin Reason: Clinical Judgement Admin: 09/07/19 11:37 Dose: Not Given Documented by: PAMELA Non-Admin Reason: Too drowsy Admin: 09/06/19 09:38 Dose: 1 tab Documented by: [id number] Admin: 09/05/19 10:40 Dose: 1 tab Documented by: [email or web address] Lactulose (Cephulac) 30 gm PO QID [facility] Last Admin: 09/11/19 16:55 Dose: 30 gm Documented by: [id number] Admin: 09/11/19 11:53 Dose: 30 gm Documented by: [id number] Admin: 09/11/19 07:36 Dose: 30 gm Documented by: [id number] Admin: 09/10/19 21:11 Dose: Not Given Documented by: JOSE R Non-Admin Reason: Patient Refused Admin: 09/10/19 17:14 Dose: Not Given Documented by: AREN Non-Admin Reason: Pt still working on drinking afternoon dose Admin: 09/10/19 14:32 Dose: 30 gm Documented by: Admin: 09/10/19 10:11 Dose: 30 gm Documented by: Admin: 09/09/19 20:52 Dose: Not Given Documented by: GREG Non-Chon Reason: Patient Refused Admin: 09/09/19 19:18 Dose: Not Given Documented by: GREG Non-Admin Reason: Patient Refused Admin: 09/09/19 14:09 Dose: Not Given Documented by: AREN Non-Admin Reason: Patient Refused Admin: 09/09/19 10:29 Dose: Not Given Documented by: AREN Non-Admin Reason: Patient Refused Admin: 09/08/19 22:00 Dose: Not Given Documented by: SHALINI Non-Admin Reason: Patient Refused Admin: 09/08/19 15:13 Dose: 30 gm Documented by: [id number] Admin: 09/08/19 15:13 Dose: Not Given Documented by: PAMELA Non-Admin Reason: Clinical Judgement Admin: 09/08/19 08:35 Dose: 30 gm Documented by: Admin: 09/07/19 20:40 Dose: Not Given Documented by: STANISLAV Non-Admin Reason: Patient Refused Admin: 09/07/19 17:30 Dose: Not Given Documented by: PAMELA Non-Admin Reason: Nausea Admin: 09/07/19 13:13 Dose: 30 gm Documented by: PAMELA Levothyroxine Sodium (Synthroid) 125 mcg PO ACB [facility] Last Admin: 09/11/19 07:24 Dose: 125 mcg Documented by: [id number] Admin: 09/10/19 10:10 Dose: 125 mcg Documented by: Admin: 09/09/19 07:49 Dose: 125 mcg Documented by: Admin: 09/08/19 08:35 Dose: 125 mcg Documented by: Admin: 09/07/19 07:58 Dose: 125 mcg Documented by: PAMELA Melatonin (Melatonin 3mg Tablet) 3 mg PO HSP PRN PRN Reason: Insomnia Last Admin: 09/07/19 21:32 Dose: 3 mg Documented by: STANISLAV Metoclopramide HCl (Reglan) 5 mg IV Q3HP PRN PRN Reason: nausea/vomiting Mupirocin (Bactroban Oint 2%) 1 dose TOPICAL TID [facility] Last Admin: 09/11/19 13:43 Dose: 1 dose Documented by: [id number] Admin: 09/11/19 07:40 Dose: 1 dose Documented by: [id number] Admin: 09/10/19 21:03 Dose: 1 dose Documented by: [id number] Admin: 09/10/19 15:17 Dose: 1 dose Documented by: Admin: 09/10/19 08:17 Dose: 1 dose Documented by: Admin: 09/09/19 20:52 Dose: Not Given Documented by: GREG Non-Admin Reason: Patient Refused Admin: 09/09/19 16:06 Dose: 1 dose Documented by: AREN Comments: unable to scan, barcode damaged Admin: 09/09/19 10:29 Dose: Not Given Documented by: AREN Non-Admin Reason: Patient Refused Admin: 09/08/19 22:03 Dose: 1 dose Documented by: Admin: 09/08/19 15:48 Dose: 1 dose Documented by: Admin: 09/08/19 10:00 Dose: 1 dose Documented by: Admin: 09/07/19 21:26 Dose: 1 dose Documented by: STANISLAV Omeprazole (Prilosec) 20 mg PO ACB KAT Last Admin: 09/11/19 07:24 Dose: 20 mg Documented by: [email or web address] Admin: 09/10/19 10:10 Dose: 20 mg Documented by: Admin: 09/09/19 07:49 Dose: 20 mg Documented by: Admin: 09/08/19 08:35 Dose: 20 mg Documented by: Admin: 09/07/19 07:58 Dose: 20 mg Documented by: Admin: 09/06/19 09:38 Dose: 20 mg Documented by: [id number] Ondansetron HCl (Zofran Odt) 4 mg SL Q4-6HP PRN; Protocol PRN Reason: Nausea And Vomiting Last Admin: 09/11/19 07:49 Dose: 4 mg Documented by: Admin: 09/10/19 10:24 Dose: 4 mg Documented by: Admin: 09/05/19 23:10 Dose: 4 mg Documented by: Admin: 09/05/19 12:15 Dose: 4 mg Documented by: [email or web address] Ondansetron HCl (Zofran) 4 mg IV Q4-6HP PRN; Protocol PRN Reason: Nausea And Vomiting Last Admin: 09/07/19 17:03 Dose: 4 mg Documented by: [id number] Polyethylene Glycol (Miralax) 17 gm PO DAILYP PRN PRN Reason: Constipation Potassium Chloride (Klor-Con) 40 meq PO DAILYP PRN PRN Reason: K+ < 3.5 Salmeterol Xinafoate (Serevent) 1 puff INH BID [facility] Last Admin: 09/11/19 07:39 Dose: Not Given Documented by: SAMIA Non-Admin Reason: Unavailable Admin: 09/10/19 21:11 Dose: Not Given Documented by: JOSE R Non-Admin Reason: Unavailable Admin: 09/10/19 08:30 Dose: Not Given Documented by: AREN Non-Admin Reason: Unavailable Admin: 09/09/19 20:28 Dose: Not Given Documented by: GREG Non-Admin Reason: Unavailable Admin: 09/09/19 09:41 Dose: Not Given Documented by: AREN Non-Admin Reason: Unavailable Admin: 09/08/19 22:01 Dose: Not Given Documented by: SHALINI Non-Admin Reason: Unavailable Admin: 09/08/19 09:20 Dose: Not Given Documented by: PAMELA Non-Admin Reason: Unavailable Admin: 09/07/19 20:41 Dose: Not Given Documented by: STANISLAV Non-Admin Reason: Unavailable Admin: 09/07/19 11:37 Dose: Not Given Documented by: PAMELA Non-Admin Reason: Unavailable Admin: 09/06/19 22:04 Dose: Not Given Documented by: GREG Non-Admin Reason: Unavailable Senna/Docusate Sodium (Senna Plus Tablet) 1 tab PO HS [facility] Last Admin: 09/10/19 21:14 Dose: Not Given Documented by: JOSE R Non-Admin Reason: Patient Refused Admin: 09/09/19 20:52 Dose: Not Given Documented by: GREG Non-Admin Reason: Patient Refused Admin: 09/08/19 21:40 Dose: 1 tab Documented by: Admin: 09/07/19 21:27 Dose: 1 tab Documented by: Admin: 09/06/19 21:32 Dose: 1 tab Documented by: Admin: 09/05/19 20:24 Dose: Not Given Documented by: GREG Non-Admin Reason: Patient Refused Sodium Chloride (Saline Flush) 10 ml IV Q8 [facility] Last Admin: 09/11/19 12:02 Dose: 10 ml Documented by: Admin: 09/11/19 05:46 Dose: 10 ml Documented by: JOSE R Admin: 09/10/19 21:39 Dose: 10 ml Documented by: JOSE R Admin: 09/10/19 14:32 Dose: 10 ml Documented by: Admin: 09/10/19 10:11 Dose: 10 ml Documented by: Admin: 09/10/19 07:19 Dose: 10 ml Documented by: Admin: 09/09/19 20:52 Dose: 10 ml Documented by: Admin: 09/09/19 14:32 Dose: 10 ml Documented by: Admin: 09/09/19 04:17 Dose: 10 ml Documented by: Admin: 09/08/19 22:00 Dose: 10 ml Documented by: Admin: 09/08/19 15:13 Dose: 10 ml Documented by: [email or web address] Admin: 09/08/19 07:09 Dose: 10 ml Documented by: Admin: 09/07/19 21:28 Dose: 10 ml Documented by: Admin: 09/07/19 13:14 Dose: 10 ml Documented by: Admin: 09/07/19 05:20 Dose: 10 ml Documented by: Admin: 09/06/19 21:33 Dose: 10 ml Documented by: Admin: 09/06/19 13:29 Dose: Not Given Documented by: [email or web address] Non-Admin Reason: Continuous IV Admin: 09/06/19 05:49 Dose: 10 ml Documented by: Admin: 09/05/19 21:15 Dose: 10 ml Documented by: Admin: 09/05/19 13:32 Dose: 10 ml Documented by: [email or web address] Spironolactone (Aldactone) 100 mg PO BID KAT Last Admin: 09/11/19 07:37 Dose: 100 mg Documented by: [id number] Admin: 09/10/19 21:18 Dose: Not Given Documented by: JOSE R Non-Admin Reason: pt spit out 2 tablets, returned 2 tablets Admin: 09/10/19 10:11 Dose: 100 mg Documented by: Admin: 09/09/19 20:52 Dose: Not Given Documented by: GREG Non-Chon Reason: Patient Refused Admin: 09/09/19 10:29 Dose: Not Given Documented by: LSTRATTON Non-Admin Reason: Patient Refused Admin: 09/08/19 21:41 Dose: 100 mg Documented by: Admin: 09/08/19 08:35 Dose: 100 mg Documented by: [id number] Admin: 09/07/19 21:27 Dose: 100 mg Documented by: Admin: 09/07/19 10:16 Dose: 100 mg Documented by: [id number] Thiamine HCl (Vitamin B1) 100 mg PO DAILY [facility] Last Admin: 09/11/19 07:37 Dose: 100 mg Documented by: [id number] Admin: 09/10/19 13:11 Dose: 100 mg Documented by: LSTRATTON Comments: Late as pt refused this AM stating "Im too tired, maybe later" Admin: 09/09/19 11:07 Dose: Not Given Documented by: LSTRATTON Non-Admin Reason: Patient Refused Admin: 09/08/19 09:20 Dose: Not Given Documented by: [id number] Non-Admin Reason: Clinical Judgement Admin: 09/07/19 12:35 Dose: Not Given Documented by: [id number] Non-Admin Reason: Unavailable Admin: 09/06/19 09:38 Dose: 100 mg Documented by: [id number] Admin: 09/05/19 10:40 Dose: 100 mg Documented by: [email or web address] Vitamin D (Vitamin D3) 400 unit PO DAILY [facility] Last Admin: 09/11/19 07:48 Dose: 400 unit Documented by: [id number] Admin: 09/10/19 13:12 Dose: 400 unit Documented by: LSTRATTON Comments: Late as pt refused this AM stating "Im too tired, maybe later" Admin: 09/09/19 11:08 Dose: Not Given Documented by: LSTRATTON Non-Admin Reason: Patient Refused Admin: 09/08/19 09:20 Dose: Not Given Documented by: [email or web address] Non-Admin Reason: Clinical Judgement Assessment and Plan - Narrative A/P Narrative: A: 1. Streptococcus pneumoniae bacteremia: sens to Ceftriaxone - sec to seeding from spontaneous bacterial peritonitis - repeat blood Cx neg since 09/06 2. SBP: based on increased PMNs (> 250), clinical s/s, peritoneal fluid Cx growing Strept pneumoniae - sec to (3) - pt was not on antibiotic prophylaxis at admission. She meets criteria for being on chronic antibiotic prophylaxis for prevention of SBP - CT s/o large amount of ascitic fluid - repeat paracentesis 09/09 showed marked improvement in peritoneal fluid cell count with about ~ 900 WBC and 79% PMNs (= 711 PMNs). Cx NGTD 3. 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 Thrombocytopenia: sec to (3) 5. Failure to thrive: sec to severe ascites, cirrhosis 6. Rt Pleural effusion and basilar infiltrate: reactive to ascites, possible aspiration Recommendations: - Continue IV Ceftriaxone 2 gm q24 hrs, day 02/06 - If pt spikes a fever or if she becomes hemodynamically unstable; will recommend switching to IV Zosyn 3.375 gm q8 hrs. Also repeat blood Cx in that situation - repeat diagnostic paracentesis with cell count tomorrow. will aim for peritoneal fluid neutrophil count is < 250. - will switch to low dose Ciprofloxacin 500 mg as antibiotic prophylaxis for SBP prevention after completion of IV therapy for bacteremia - continue PO Rifaximin 550 mg bid for hepatic encephalopathy - HOB elevated at all times, given high aspiration risk - overall poor prognosis will follow Poncho Serrano MD Infectious diseases
[2019-09-11] MEDS: SENNOSIDES/DOCUSATE SODIUM 1 TAB TABLET PO SCH (20:54)
[2019-09-12] MEDS: 0.9 % SODIUM CHLORIDE 10 ML SYRINGE IV SCH ×4 (05:56→21:02)
[2019-09-12] MEDS: HYDROmorphone 2 MG TABLET PO PRN ×2 (06:14→20:59)
[2019-09-12 06:30] LABS: Basophils # (Auto) 0 K/mcL (0.0-0.3); Basophils % (Auto) 0 % (0.0-2.0); Eosinophils # (Auto) 0.1 K/mcL (0.0-0.7); Eosinophils % (Auto) 0.7 % (0.0-7.0); Granulocytes % (Auto) 93.5 % (38.0-78.0); Hematocrit 37.3 % (36.0-48.0); Hemoglobin 12.1 g/dL (12.0-15.0); Lymphocytes # (Auto) 0.2 K/mcL (1.5-4.8); Lymphocytes % (Auto) 1.2 % (15.5-49.0); Mean Cell Volume 83.4 fL (80.0-100.0); Mean Corpuscular HGB Conc 32.4 g/dL (31.0-36.0); Mean Platelet Volume 7.6 fL (7.4-10.4); Monocytes # (Auto) 0.9 K/mcL (0.1-0.9); Monocytes % (Auto) 4.6 % (1.0-12.0); Platelet Count 261 K/mcL (140-440); RBC 4.47 M/mcL (4.00-5.20); Red Cell Distribution Width 17.3 % (11.5-14.5); WBC 19.3 K/mcL (4.5-11.0)
[2019-09-12 07:22] LABS: ALT/SGPT 13 U/l (0-40); AST/SGOT 25 U/l (0-37); Albumin 2.7 gm/dL (3.2-5.2); Albumin/Globulin Ratio 0.6 (1.0-2.3); Alkaline Phosphatase 65 U/L (39-117); Bilirubin,Total 0.6 mg/dL (0.0-1.0); Blood Urea Nitrogen 56 mg/dl (8-23); Calcium 9.3 mg/dl (8.6-10.4); Carbon Dioxide 16 mmol/L (22-30); Globulin 4.8 gm/dL (2.2-3.7); Glomerular Filtration Rate 38; Glucose 242 mg/dL (70-105); Lactate Dehydrogenase 239 U/L (94-250); Phosphorous 3.9 mg/dL (2.7-4.5); Triglycerides 73 mg/dl (<150); Uric Acid 11.2 mg/dL (2.5-8.0)
[2019-09-12 07:28] LABS: Bilirubin,Direct 0.2 mg/dL (0.0-0.3); Chloride 93 mmol/L (96-108)
[2019-09-12] MEDS: INSULIN LISPRO 1 UNIT/0.01 ML UNIT SQ SCH ×4 (08:05→21:01)
[2019-09-12] MEDS: LEVOTHYROXINE 125 MCG TABLET PO SCH (08:06)
[2019-09-12] MEDS: OMEPRAZOLE 20 MG CAPSULE PO SCH (08:06)
--- NOTE | 2019-09-12 08:16 | Internal Med Progress Note ---
Medical - PN: Subj Patient information: Note initiated : 09/12/19 at 8:11 am Service Date, if different from initiated Date: [] Patient: Clare Sheehan a 69 y/o F admitted on 09/05/19 for altered level consciousness. Chief Complaint: [] Interval history: Ms. 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 Symptoms have been progressing over the last couple of days and patient unable to think clearly. She c/o 7/10 abdominal pain and was noted to have a fever. Over the last couple of days she has not been able to function and essentially laying on the bed. Initial work-up in the ER was consistent with severe sepsis along with findings suggestive of SBP and basilar pneumonia on imaging. Blood cultures pending, elevated lactate at 3.3. Creatinine 1.7 up from baseline 1.3. Patient underwent 6 L paracentesis results of which are awaited. Subsequently hospitalist service consulted after patient received antibiotics At the time evaluation patient is very lethargic and fatigued. Unable to provide a detailed history. Endorses to symptoms as above including fever abdominal pain and weakness. No family members present. Most of the history was obtained from review of medical records and from ER physician. 09/06-GNR on blood cultures/GPC on 1 culture and ascitic fluid Gram stain. Discussed with ID. Antibiotics changed to vancomycin/cefepime. Clinically improving. Lactic acid downtrending from 3.9-1.9. White count 12.2, creatinine down from 1.7-1.3. On Levophed to keep map at goal. Confirmed SBP with over 14,000 white cells in the sciatic fluid with gram-positive cocci in culture. Remains critically ill. Sister at bedside. Discussed prognosis and treatment plan. Repeat surveillance cultures today. 09/07-peritoneal fluid heavy growth alpha streptococci. On antibiotic coverage. ID consulted. Patient off pressors since yesterday. Remains critically ill. Feels lethargic fatigued. Tense, tender and distended abdomen with reaccumulation of ascites. No family at bedside. Remains a poor prognosis and high risk mortality in the setting of liver cirrhosis/sepsis bacteremia and spontaneous bacterial enteritis 09/08-Streptococcus pneumonia on final cultures. Once Rocephin per ID. CT abdomen chest pelvis as per ID recommendations to rule out secondary focus for Streptococcus pneumonia bacteremia including pneumonia and also HCC. Very lethargic this morning. White count at 11,000. Creatinine 1.2. Start lactulose retention enemas. Consider rifaximin. Will repeat paracentesis in 24-48 hours 09/09-patient antibiotic coverage as per ID. Clinically deteriorating. Worsening ascites. Paracentesis today. Discussed with patient poor prognosis based on meld score/progressive deterioration despite aggressive intervention. Patient desired her wish to be a DNR. Daughter present during patient's decision and endorsed to her mother's wishes. Await repeat paracentesis results. ID on board. 09/10-worsening white count. 9 L paracentesis. WBC down to 900 from 14,000. On antibiotic coverage per ID. Patient's mentation has been fluctuating. Intermittently able to take oral lactulose/rifaximin however poor nutritional status. Overall deterioration noted in the last 48 hours. Family aware of poor prognosis. Patient now a DNR. High probability during this hospitalization unless patient shows substantial recovery over the next few days. 09/11-white count 18.4 with neutrophil predominance. Sodium 125, creatinine 1.2. No overnight fever chills, daughter at bedside. Discussed clinical status and high risk mortality based on deteriorating status with patient and daughter in the presence of nursing staff and ID doctor. Patient intermittently refusing treatment along with medications. Otherwise no other concerns per staff. Patient responds to command but intermittently confused. Remains a DNR. It appears that patient realizes her grim situation and has been in termittently refusing treatments. We will continue further family discussions to explore patient's and family's wishes including palliation and comfort care. 09/12-patient overall status unchanged. White count 19.3, sodium 134, creatinine 1.4. High risk by renal. Status post paracentesis x2 and protocol albumin infusion. Systolics at goal and off pressors. Continue adequate nutrition support/rifaximin/lactulose. Remains in overall high risk mortality based on meld score and overall status. Family and patient both aware. Currently DNR. Anticipate transfer to medical floor in the next 24 hours if renal function improves and systolics at goal. Continue adequate nutritional support/PT OT as tolerated - Constitutional Vitals: Vital Signs Temp Pulse Resp BP Pulse Ox 98.2 F 90 25 H 101/73 97 09/12/19 08:01 09/11/19 09:46 09/12/19 08:01 09/12/19 08:01 09/12/19 08:01 Period Temp Pulse Resp BP Sys/Will Pulse Ox Last 24 Hr 97.7 F-99.1 F 90-90 14-25 86-110/63-78 86-99 Intake and Output 09/11/19 09/12/19 09/12/19 21:59 05:59 13:59 Intake Total 25 Output Total 199 203 57 Balance -199 -178 -57 Weight 122 lb 9.6 oz Intake & Output: Intake & Output 09/11/19 09/12/19 09/12/19 21:59 05:59 13:59 Intake Total 25 Output Total 199 203 57 Balance -199 -178 -57 Weight 122 lb 9.6 oz Intake: Nourishment/Supplement quantity 25 (ml) Output: Urine Catheter Amount 199 203 57 Other: Meal Nourishment/Supplement Percent of Meal Consumed 25% Nourishment/Supplement name ICE CREAM WITH MEDS Urine Appearance Clear Clear Cloudy Urine Color Dark Yellow Dark Sheron Bright Yellow Uretheral (Bundy) Dark Sheron Dark Sheron Urine Odor Normal Stool Consistency Loose General appearance: no acute distress Exam: Lethargic but responds to commands Oral cavity dry No lymphedema Minimal ascites Diminished breath sounds bases Medical - PN: Obj Da - Labs CBC & Chem 7: 09/12/19 04:15 09/12/19 04:15 Labs: Abnormal Lab Results 09/12/19 09/12/19 09/11/19 04:15 04:15 04:00 WBC 19.3 H 18.4 H RBC Hgb Hct RDW 17.3 H 16.9 H MPV 7.3 L Gran % 93.5 H 94.6 H Lymph % (Auto) 1.2 L 1.0 L Gran # 18.0 H 17.4 H Lymph # (Auto) 0.2 L 0.2 L Seg Neutrophils % Lymphocytes % Myelocytes % RBC Morphology Anisocytosis Microcytosis Sodium 124 L Chloride 93 L Carbon Dioxide 16 L BUN 56 H Creatinine 1.4 H Glucose 242 H Uric Acid 11.2 H Magnesium 2.6 H Total Bilirubin Direct Bilirubin Albumin 2.7 L Globulin 4.8 H Albumin/Globulin Ratio 0.6 L 12/13/19 12/12/19 12/12/19 04:00 03:50 03:50 WBC 12.1 H RBC 3.97 L Hgb 10.8 L Hct 33.1 L RDW 16.7 H MPV Gran % Lymph % (Auto) Gran # Lymph # (Auto) Seg Neutrophils % 91 H Lymphocytes % Myelocytes % 1 H RBC Morphology Abnorm A Anisocytosis 1+ A Microcytosis Few A Sodium 125 L 130 L Chloride 95 L Carbon Dioxide 16 L 19 L BUN 47 H 42 H Creatinine 1.2 H 1.2 H Glucose 220 H 133 H Uric Acid 9.8 H 8.7 H Magnesium Total Bilirubin 1.1 H Direct Bilirubin 0.4 H 0.5 H Albumin 3.0 L Globulin 4.4 H 4.0 H Albumin/Globulin Ratio 0.7 L 0.8 L 09/09/19 03:40 WBC RBC Hgb Hct RDW MPV Gran % Lymph % (Auto) Gran # Lymph # (Auto) Seg Neutrophils % 89 H Lymphocytes % 2 L Myelocytes % 2 H RBC Morphology Abnorm A Anisocytosis 1+ A Microcytosis Sodium Chloride Carbon Dioxide BUN Creatinine Glucose Uric Acid Magnesium Total Bilirubin Direct Bilirubin Albumin Globulin Albumin/Globulin Ratio Meds: Medications Acetaminophen (Tylenol) 650 mg PO Q4-6HP PRN; Protocol PRN Reason: Per Pain Protocol/Fever > 101 Last Admin: 09/11/19 11:53 Dose: 650 mg Documented by: Albuterol Sulfate (Ventolin) 1 puff INH Q4HP PRN PRN Reason: Shortness Of Breath Albuterol/Ipratropium (Duoneb) 3 ml NEB Q4HP PRN PRN Reason: Shortness Of Breath Last Admin: 09/08/19 08:55 Dose: 3 ml Documented by: Ascorbic Acid (Vitamin C) 500 mg PO DAILY [facility] Last Admin: 09/11/19 07:37 Dose: 500 mg Documented by: Baclofen (Lioresal) 10 mg PO TID [facility] Last Admin: 09/11/19 20:54 Dose: 10 mg Documented by: Bisacodyl (Dulcolax) 10 mg ID Q2-3DAYS PRN PRN Reason: Constipation Calcium Carbonate/Glycine (Tums) 500 mg CHEWED Q4HP PRN PRN Reason: Dyspepsia Diagnostic Test (Pha) (Accu-Chek) 1 each FS ACHS [facility] Last Admin: 09/12/19 08:02 Dose: 1 each Documented by: Docusate Sodium (Colace) 100 mg PO BID [facility] Last Admin: 09/11/19 20:56 Dose: Not Given Documented by: Fentanyl (Duragesic) 50 mcg TOPICAL Q72H [facility] Last Admin: 09/09/19 09:48 Dose: 50 mcg Documented by: Fluticasone Propionate (Flovent Hfa 220mcg) 2 puff INH BID [facility] Last Admin: 09/11/19 20:56 Dose: Not Given Documented by: Folic Acid (Folic Acid) 1 mg PO DAILY [facility] Last Admin: 09/11/19 07:37 Dose: 1 mg Documented by: Gabapentin (Neurontin) 300 mg PO BID [facility] Last Admin: 09/11/19 20:54 Dose: 300 mg Documented by: Heparin Sodium (Porcine) (Heparin) 5,000 unit SQ Q12 [facility] Last Admin: 09/11/19 20:56 Dose: 5,000 unit Documented by: Hydromorphone HCl (Dilaudid) 4 - 8 mg PO Q6HP PRN; Protocol PRN Reason: Per Pain Protocol Last Admin: 09/12/19 06:14 Dose: 4 mg Documented by: Hydromorphone HCl (Dilaudid) 0.5 mg IV Q4HP PRN; Protocol PRN Reason: Per Pain Protocol Last Admin: 09/10/19 05:16 Dose: 0.5 mg Documented by: Hydroxyzine HCl (Atarax) 100 mg PO BIDP PRN PRN Reason: Itching Magnesium Sulfate (Magnesium Sulfate) 2 gm in 50 mls @ 50 mls/hr IV UD PRN PRN Reason: MG = or < 1.7 Last Infusion: 09/06/19 11:25 Dose: Infused Documented by: Acetaminophen (Ofirmev) 500 mg in 50 mls @ 100 mls/hr IV Q6HP PRN; Protocol PRN Reason: PAIN/FEVER > 101 Last Infusion: 09/05/19 21:00 Dose: Infused Documented by: Ceftriaxone Sodium 2 gm/ (Dextrose) 50 mls @ 100 mls/hr IV DAILY [facility]; Protocol Last Infusion: 09/11/19 09:15 Dose: Infused Documented by: Norepinephrine Bitartrate 16 (mg/ Sodium Chloride) 250 mls @ 9.375 mls/hr IV Q24HP PRN; Protocol PRN Reason: TITRATE TO KEEP MAP > 65 Insulin Glargine (Lantus) 10 unit SQ DAILY [facility] Last Admin: 09/11/19 07:36 Dose: 10 units Documented by: Insulin Human Lispro (Humalog) 0 unit SQ ACHS [facility]; Protocol Last Admin: 09/12/19 08:05 Dose: 8 units Documented by: Iron Carb/Multivit/Osborne/Folic Acid (Multivitamin W/Minerals) 1 tab PO DAILY [facility] Last Admin: 09/11/19 07:37 Dose: 1 tab Documented by: Lactulose (Cephulac) 30 gm PO QID [facility] Last Admin: 09/11/19 20:56 Dose: 30 gm Documented by: Levothyroxine Sodium (Synthroid) 125 mcg PO ACB [facility] Last Admin: 09/12/19 08:06 Dose: 125 mcg Documented by: Melatonin (Melatonin 3mg Tablet) 3 mg PO HSP PRN PRN Reason: Insomnia Last Admin: 09/07/19 21:32 Dose: 3 mg Documented by: Metoclopramide HCl (Reglan) 5 mg IV Q3HP PRN PRN Reason: nausea/vomiting Mupirocin (Bactroban Oint 2%) 1 dose TOPICAL TID [facility] Last Admin: 09/11/19 22:33 Dose: 1 dose Documented by: Omeprazole (Prilosec) 20 mg PO ACB [facility] Last Admin: 09/12/19 08:06 Dose: 20 mg Documented by: Ondansetron HCl (Zofran Odt) 4 mg SL Q4-6HP PRN; Protocol PRN Reason: Nausea And Vomiting Last Admin: 09/11/19 07:49 Dose: 4 mg Documented by: Ondansetron HCl (Zofran) 4 mg IV Q4-6HP PRN; Protocol PRN Reason: Nausea And Vomiting Last Admin: 09/07/19 17:03 Dose: 4 mg Documented by: Polyethylene Glycol (Miralax) 17 gm PO DAILYP PRN PRN Reason: Constipation Potassium Chloride (Klor-Con) 40 meq PO DAILYP PRN PRN Reason: K+ < 3.5 Salmeterol Xinafoate (Serevent) 1 puff INH BID [facility] Last Admin: 09/11/19 20:57 Dose: Not Given Documented by: Senna/Docusate Sodium (Senna Plus Tablet) 1 tab PO HS [facility] Last Admin: 09/11/19 20:54 Dose: 1 tab Documented by: Sodium Chloride (Saline Flush) 10 ml IV Q8 [facility] Last Admin: 09/12/19 05:56 Dose: 10 ml Documented by: Spironolactone (Aldactone) 100 mg PO BID [facility] Last Admin: 09/11/19 20:54 Dose: 100 mg Documented by: Thiamine HCl (Vitamin B1) 100 mg PO DAILY [facility] Last Admin: 09/11/19 07:37 Dose: 100 mg Documented by: Vitamin D (Vitamin D3) 400 unit PO DAILY [facility] Last Admin: 09/11/19 07:48 Dose: 400 unit Documented by: Medical - PN: A/P - Time Spent With Patient Total time spent is greater than 50% in coordination of care (as documented) at patient's floor/unit and/or counseling patient: 25 - 35 minutes (1) Acute alteration in mental status Status: Acute Assessment and plan: * 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 Meld score 20. * Hepatic encephalopathy-gradual improvement in mental status noted on rifaximin/lactulose. * Streptococcus pneumonia bacteremia -continuing Rocephin per ID. CT abdomen pelvis negative except for pneumonia * Spontaneous bacterial peritonitis-Streptococcus pneumo on a sciatic fluid culture. White count up trending at 18.9. On Rocephin per ID * Bilateral lower lobe pneumonia -clinical improvement noted * Septic shock with multiple endorgan dysfunction including AMS/DAREN. Resolved. Now off pressors. On antibiotic coverage * Protein calorie malnutrition continue dietary intervention/protein supplements per dietitian * Acute on chronic kidney disease -creatinine 1.7-1.3->1.2-> 1.3-> 1.4. Continue monitoring renal function * History of DM type II continue basal/prandial insulin * Hypothyroidism on thyroxine * Neuropathy continue gabapentin * Chronic pain on home medications including fentanyl patch * Patient DNR * Prophylaxis heparin Plan * Continue antibiotics per ID * lactulose/rifaximin/protein calorie supplements * PT OT/nutrition support * Remains high risk mortality during this hospitalization based on Meld score, family and patient aware. Current Visit: Yes
[2019-09-12] MEDS: ASCORBIC ACID 500 MG TABLET PO SCH (09:41)
[2019-09-12] MEDS: MUPIROCIN OINT 2% 22GM TOPICAL SCH ×3 (09:41→21:24)
[2019-09-12] MEDS: SPIRONOLACTONE 25 MG TABLET PO SCH ×2 (09:41→20:59)
[2019-09-12] MEDS: MULTIVIT,THER IRON,CA,FA & MIN 1 TABLET PO SCH ×2 (09:42→18:56)
[2019-09-12] MEDS: FOLIC ACID 1 MG TABLET PO SCH (09:42)
[2019-09-12] MEDS: LACTULOSE 20 GM/30 ML ORAL.SOL PO SCH ×5 (09:42→23:53)
[2019-09-12] MEDS: GABAPENTIN 300 MG CAPSULE PO SCH ×2 (09:42→21:00)
[2019-09-12] MEDS: INSULIN GLARGINE, HUMAN 1 UNIT/0.01 ML SQ SCH (09:42)
[2019-09-12] MEDS: THIAMINE 100 MG TABLET PO SCH (09:42)
[2019-09-12] MEDS: DOCUSATE SODIUM 100 MG CAPSULE PO SCH ×2 (09:43→21:01)
[2019-09-12] MEDS: HEPARIN 5,000 UNIT/ML VIAL SQ SCH ×2 (09:43→21:00)
[2019-09-12] MEDS: cefTRIAXone 2 GM in DEXTROSE 5% IN WATER 50 ML IV SCH (09:43)
[2019-09-12] MEDS: VITAMIN D3 400 UNIT TABLET PO SCH (09:50)
[2019-09-12] MEDS: RIFAXIMIN 550 MG TABLET PO SCH ×3 (09:50→21:00)
[2019-09-12] MEDS: BACLOFEN 10 MG TABLET PO SCH ×3 (09:50→21:00)
[2019-09-12] MEDS: FLUTICASONE HFA 220MCG INHALER INH SCH ×2 (09:50→21:01)
[2019-09-12] MEDS: SALMETEROL XINAFOATE 1 PUFF INHALER INH SCH ×2 (09:51→21:00)
[2019-09-12] MEDS: fentaNYL 50 MCG PATCH TOPICAL SCH (09:53)
[2019-09-12] MEDS: SENNOSIDES/DOCUSATE SODIUM 1 TAB TABLET PO SCH (21:00)
--- NOTE | 2019-09-12 22:05 | Infectious Disease Prog Note ---
Subjective Patient information: Note initiated : 09/12/19 at 10:03 pm Service Date, if different from initiated Date: [] Patient: Clare Sheehan 69 y/o F admitted on 09/05/19 for altered level consciousness. Chief Complaint: [] Interval history: Pt awake then not responding to verbal commands. Per nursing her mental status has been fluctuating. No fever, no BM. Pt refusing lactulose. Spoke with daughter aboit pt's poor prognosis and high risk of mortality in next few weeks to months due to malnutrition, fraility, decompensated cirrhosis. She thanked staff for the care, and acknowledged that her mother is very sick. Objective Objective Narrative: drowsy/obtunded--- difficult to arouse belly soft, distended, no rebound, hypoactive BS - Vital Signs Vital signs: Vital Signs Temp Pulse Resp BP Pulse Ox 09/12/19 21:21 94 H 18 97 09/12/19 21:01 36.7 C 23 H 116/62 09/12/19 20:01 36.9 C 21 104/70 93 09/12/19 20:00 36.8 C 24 H 94 09/12/19 19:50 92 09/12/19 19:02 36.4 C 17 91 09/12/19 19:01 36.9 C 20 108/61 90 09/12/19 18:02 36.2 C 19 94 09/12/19 18:01 36.2 C 19 108/60 95 09/12/19 17:01 36.5 C 23 H 112/62 95 09/12/19 16:01 36.7 C 16 109/64 95 09/12/19 15:01 36.6 C 20 102/69 95 09/12/19 14:01 36.9 C 23 H 96/72 99 09/12/19 14:00 93 09/12/19 12:00 36.8 C 15 96/66 94 09/12/19 11:02 36.4 C 19 95 09/12/19 11:01 36.6 C 16 89/66 95 09/12/19 10:33 92 H 19 97 09/12/19 10:32 92 H 19 09/12/19 10:02 36.6 C 19 94/72 09/12/19 10:01 36.8 C 22 88/65 09/12/19 10:00 36.7 C 18 09/12/19 09:22 36.9 C 23 H 108/77 89 L 09/12/19 09:01 36.8 C 18 83/57 90 09/12/19 08:02 36.7 C 18 96 09/12/19 08:01 36.8 C 25 H 101/73 97 09/12/19 07:01 36.8 C 22 106/66 99 09/12/19 06:45 99 09/12/19 06:01 36.5 C 21 110/77 91 09/12/19 05:01 36.9 C 22 100/72 92 09/12/19 04:01 36.9 C 21 89/64 92 09/12/19 03:02 36.8 C 20 104/74 93 09/12/19 02:01 37.1 C 21 103/73 94 09/12/19 02:00 20 95 09/12/19 01:01 37.0 C 24 H 103/73 92 09/12/19 00:01 36.9 C 20 98/75 93 09/11/19 23:01 37.1 C 18 98/70 96 Intake and Output 09/12/19 09/12/19 09/13/19 13:59 21:59 05:59 Intake Total 50 100 Output Total 155 167 Balance -105 Intake: IV 50 Rocephin 2 gm In Dextrose 5% in 50 Water 50 ml @ 100 mls/hr IV DAILY KAT Rx#:[id number] Oral 100 Output: Urine Catheter Amount 155 167 Other: Meal Dinner Percent of Meal Consumed 25% Feeding Ability Total Assistance Urine Appearance Cloudy Clear Uretheral (Bundy) Clear Clear Cloudy Urine Color Dark Yellow Dark Yellow Uretheral (Bundy) Dark Sheron Dark Yellow Urine Odor Normal Normal Weight 55.384 kg Patient Weight 09/13/19 05:59 Weight 55.384 kg Intake & Output: Intake & Output 09/12/19 09/12/19 09/13/19 13:59 21:59 05:59 Intake Total 50 100 Output Total 155 167 Balance -105 -67 Weight 55.384 kg Intake: IV 50 Rocephin 2 gm In Dextrose 5% in 50 Water 50 ml @ 100 mls/hr IV DAILY KAT Rx#:[id number] Oral 100 Output: Urine Catheter Amount 155 167 Other: Meal Dinner Percent of Meal Consumed 25% Feeding Ability Total Assistance Urine Appearance Cloudy Clear Uretheral (Bundy) Clear Clear Cloudy Urine Color Dark Yellow Dark Yellow Uretheral (Bundy) Dark Sheron Dark Yellow Urine Odor Normal Normal - Lab 09/12/19 04:15 09/12/19 04:15 Most recent lab results Calcium 9.3 mg/dl (8.6-10.4) 09/12/19 04:15 Phosphorus 3.9 mg/dL (2.7-4.5) 09/12/19 04:15 Magnesium 2.6 mg/dL (1.6-2.5) H 09/12/19 04:15 Microbiology 09/09/19 15:30 Peritoneal Fluid Gram Stain - Final 09/09/19 15:30 Peritoneal Fluid Body Fluid Culture - Final 09/06/19 09:58 Blood Blood Culture - Final 09/06/19 10:03 Blood Blood Culture - Final 09/05/19 06:12 Blood Blood Culture - Final Streptococcus pneumoniae 09/05/19 05:37 Blood Blood Culture - Final Streptococcus pneumoniae 09/09/19 15:18 Pleural Fluid Gram Stain - Final 09/09/19 15:18 Pleural Fluid Body Fluid Culture - Final 09/05/19 07:52 Peritoneal Fluid Gram Stain - Final 09/05/19 07:52 Peritoneal Fluid Body Fluid Culture - Final Streptococcus pneumoniae 09/06/19 18:35 Sputum - Expectorated Gram Stain - Final 09/06/19 18:35 Sputum - Expectorated Sputum Culture - Final 09/05/19 09:20 Nose - First MRSA (PCR) - Final Medications Active Medications: Acetaminophen (Tylenol) 650 mg PO Q4-6HP PRN; Protocol PRN Reason: Per Pain Protocol/Fever > 101 Last Admin: 09/11/19 11:53 Dose: 650 mg Documented by: [id number] Albuterol Sulfate (Ventolin) 1 puff INH Q4HP PRN PRN Reason: Shortness Of Breath Albuterol/Ipratropium (Duoneb) 3 ml NEB Q4HP PRN PRN Reason: Shortness Of Breath Last Admin: 09/08/19 08:55 Dose: 3 ml Documented by: [email or web address] Admin: 09/08/19 03:44 Dose: 3 ml Documented by: Admin: 09/07/19 21:04 Dose: 3 ml Documented by: Admin: 09/07/19 09:06 Dose: 3 ml Documented by: [email or web address] Admin: 09/06/19 20:16 Dose: 3 ml Documented by: Admin: 09/06/19 09:44 Dose: 3 ml Documented by: [email or web address] Ascorbic Acid (Vitamin C) 500 mg PO DAILY [facility] Last Admin: 09/12/19 09:41 Dose: 500 mg Documented by: Admin: 09/11/19 07:37 Dose: 500 mg Documented by: [id number] Admin: 09/10/19 13:12 Dose: 500 mg Documented by: AREN Comments: Late as pt refused this AM stating "Im too tired, maybe later" Admin: 09/09/19 11:08 Dose: Not Given Documented by: AREN Non-Admin Reason: Patient Refused Admin: 09/08/19 09:20 Dose: Not Given Documented by: [id number] Non-Admin Reason: Clinical Judgement Baclofen (Lioresal) 10 mg PO TID [facility] Last Admin: 09/12/19 21:00 Dose: 10 mg Documented by: [email or web address] Admin: 09/12/19 15:19 Dose: Not Given Documented by: [email or web address] Non-Admin Reason: Patient Refused Admin: 09/12/19 09:50 Dose: 10 mg Documented by: Admin: 09/11/19 20:54 Dose: 10 mg Documented by: [email or web address] Admin: 09/11/19 14:24 Dose: 10 mg Documented by: [id number] Admin: 09/11/19 07:48 Dose: 10 mg Documented by: [email or web address] Admin: 09/10/19 21:16 Dose: Not Given Documented by: [email or web address] Non-Admin Reason: Patient Refused Admin: 09/10/19 16:09 Dose: Not Given Documented by: [email or web address] Non-Admin Reason: Patient Asleep Admin: 09/10/19 08:44 Dose: 10 mg Documented by: Admin: 09/09/19 20:53 Dose: Not Given Documented by: GREG Non-Admin Reason: Patient Refused Admin: 09/09/19 16:06 Dose: Not Given Documented by: [email or web address] Non-Admin Reason: Patient Asleep Admin: 09/09/19 10:29 Dose: Not Given Documented by: AREN Non-Admin Reason: Patient Refused Admin: 09/08/19 21:39 Dose: 10 mg Documented by: Admin: 09/08/19 15:08 Dose: Not Given Documented by: [email or web address] Non-Admin Reason: Clinical Judgement Admin: 09/08/19 09:20 Dose: Not Given Documented by: [id number] Non-Admin Reason: Clinical Judgement Admin: 09/07/19 21:32 Dose: 10 mg Documented by: Admin: 09/07/19 16:03 Dose: Not Given Documented by: [id number] Non-Admin Reason: Clinical Judgement Admin: 09/07/19 11:37 Dose: Not Given Documented by: [email or web address] Non-Admin Reason: Too drowsy Admin: 09/06/19 21:31 Dose: 10 mg Documented by: Admin: 09/06/19 15:17 Dose: 10 mg Documented by: PAMELA Bisacodyl (Dulcolax) 10 mg PA Q2-3DAYS PRN PRN Reason: Constipation Calcium Carbonate/Glycine (Tums) 500 mg CHEWED Q4HP PRN PRN Reason: Dyspepsia Diagnostic Test (Pha) (Accu-Chek) 1 each FS ACHS KAT Last Admin: 09/12/19 21:01 Dose: 1 each Documented by: [email or web address] Admin: 09/12/19 17:00 Dose: 1 each Documented by: Admin: 09/12/19 11:35 Dose: 1 each Documented by: Admin: 09/12/19 08:02 Dose: 1 each Documented by: Admin: 09/11/19 23:00 Dose: 1 each Documented by: [email or web address] Comments: no coverage given d/t not taking in oral diet at this time Admin: 09/11/19 20:55 Dose: 1 each Documented by: [email or web address] Admin: 09/11/19 17:02 Dose: 1 each Documented by: [email or web address] Admin: 09/11/19 11:54 Dose: 1 each Documented by: [id number] Admin: 09/11/19 07:24 Dose: 1 each Documented by: [id number] Admin: 09/10/19 21:28 Dose: 1 each Documented by: [id number] Admin: 09/10/19 17:12 Dose: 1 each Documented by: AREN Comments: FSBG 306, pt has been taking intermittent bites of food and sips of soda, supplements throughout the day, not fasting Admin: 09/10/19 12:46 Dose: 1 each Documented by: Admin: 09/10/19 07:20 Dose: 1 each Documented by: Admin: 09/09/19 20:50 Dose: 1 each Documented by: Admin: 09/09/19 17:26 Dose: 1 each Documented by: Admin: 09/09/19 12:38 Dose: 1 each Documented by: Admin: 09/09/19 07:49 Dose: 1 each Documented by: Admin: 09/08/19 22:00 Dose: 1 each Documented by: Admin: 09/08/19 17:06 Dose: 1 each Documented by: Admin: 09/08/19 11:36 Dose: 1 each Documented by: Admin: 09/08/19 07:03 Dose: 1 each Documented by: Admin: 09/07/19 21:27 Dose: 1 each Documented by: Admin: 09/07/19 17:03 Dose: 1 each Documented by: Admin: 09/07/19 12:35 Dose: 1 each Documented by: Admin: 09/07/19 07:56 Dose: 1 each Documented by: Admin: 09/06/19 21:32 Dose: 1 each Documented by: Admin: 09/06/19 17:00 Dose: 1 each Documented by: Admin: 09/06/19 12:05 Dose: 1 each Documented by: Admin: 09/06/19 07:46 Dose: 1 each Documented by: Admin: 09/05/19 21:05 Dose: 1 each Documented by: Admin: 09/05/19 18:30 Dose: Not Given Documented by: [email or web address] Non-Admin Reason: NPO Admin: 09/05/19 12:05 Dose: 1 each Documented by: Admin: 09/05/19 10:49 Dose: 1 each Documented by: THELMA Docusate Sodium (Colace) 100 mg PO BID KAT Last Admin: 09/12/19 21:01 Dose: Not Given Documented by: ARIEL Non-Admin Reason: Clinical Judgement Admin: 09/12/19 09:43 Dose: 100 mg Documented by: Admin: 09/11/19 20:56 Dose: Not Given Documented by: ARIEL Non-Admin Reason: Patient Refused Admin: 09/11/19 07:37 Dose: 100 mg Documented by: [id number] Admin: 09/10/19 21:09 Dose: Not Given Documented by: [email or web address] Non-Admin Reason: Patient Refused Admin: 09/10/19 13:13 Dose: 100 mg Documented by: AREN Comments: Late as pt refused this AM stating "Im too tired, maybe later". Unable to scan due to damaged barcode Admin: 09/09/19 20:52 Dose: Not Given Documented by: GREG Non-Admin Reason: Patient Refused Admin: 09/09/19 09:50 Dose: Not Given Documented by: AREN Non-Admin Reason: Loose Stool Admin: 09/08/19 21:40 Dose: 100 mg Documented by: Admin: 09/08/19 09:19 Dose: Not Given Documented by: PAMELA Non-Admin Reason: LOC Admin: 09/07/19 21:27 Dose: 100 mg Documented by: Admin: 09/07/19 11:36 Dose: Not Given Documented by: PAMELA Non-Admin Reason: Pt too drowsy Admin: 09/06/19 21:31 Dose: 100 mg Documented by: Admin: 09/06/19 09:39 Dose: 100 mg Documented by: Admin: 09/05/19 20:24 Dose: Not Given Documented by: GREG Non-Chon Reason: Patient Refused Admin: 09/05/19 10:40 Dose: 100 mg Documented by: [email or web address] Fentanyl (Duragesic) 50 mcg TOPICAL Q72H KAT Last Admin: 09/12/19 09:53 Dose: 50 mcg Documented by: Admin: 09/09/19 09:48 Dose: 50 mcg Documented by: Admin: 09/06/19 13:28 Dose: 50 mcg Documented by: [id number] Fluticasone Propionate (Flovent Hfa 220mcg) 2 puff INH BID KAT Last Admin: 09/12/19 21:01 Dose: Not Given Documented by: ARIEL Non-Admin Reason: Unavailable Admin: 09/12/19 09:50 Dose: Not Given Documented by: [email or web address] Non-Admin Reason: Unavailable Admin: 09/11/19 20:56 Dose: Not Given Documented by: ARIEL Non-Admin Reason: Unavailable Admin: 09/11/19 07:39 Dose: Not Given Documented by: SAMIA Non-Admin Reason: Unavailable Admin: 09/10/19 21:11 Dose: Not Given Documented by: JOSE R Non-Admin Reason: Unavailable Admin: 09/10/19 08:30 Dose: Not Given Documented by: AREN Non-Admin Reason: Unavailable Admin: 09/09/19 20:28 Dose: Not Given Documented by: GREG Non-Admin Reason: Unavailable Admin: 09/09/19 09:41 Dose: Not Given Documented by: AREN Non-Admin Reason: Unavailable Admin: 09/08/19 22:01 Dose: Not Given Documented by: [email or web address] Non-Admin Reason: Unavailable Admin: 09/08/19 09:19 Dose: Not Given Documented by: [id number] Non-Admin Reason: Clinical Judgement Admin: 09/07/19 20:40 Dose: Not Given Documented by: [email or web address] Non-Admin Reason: Unavailable Admin: 09/07/19 11:36 Dose: Not Given Documented by: [email or web address] Non-Admin Reason: Unavailable Admin: 09/06/19 22:04 Dose: Not Given Documented by: GREG Non-Chon Reason: Unavailable Folic Acid (Folic Acid) 1 mg PO DAILY KAT Last Admin: 09/12/19 09:42 Dose: 1 mg Documented by: [email or web address] Admin: 09/11/19 07:37 Dose: 1 mg Documented by: Admin: 09/10/19 13:12 Dose: 1 mg Documented by: AREN Comments: Late as pt refused this AM stating "Im too tired, maybe later" Admin: 09/09/19 10:29 Dose: Not Given Documented by: AREN Non-Admin Reason: Patient Refused Admin: 09/08/19 09:19 Dose: Not Given Documented by: [id number] Non-Admin Reason: Clinical Judgement Admin: 09/07/19 11:36 Dose: Not Given Documented by: [id number] Non-Admin Reason: Too drowsy Admin: 09/06/19 09:38 Dose: 1 mg Documented by: [email or web address] Admin: 09/05/19 10:40 Dose: 1 mg Documented by: [email or web address] Gabapentin (Neurontin) 300 mg PO BID [facility] Last Admin: 09/12/19 21:00 Dose: 300 mg Documented by: [email or web address] Admin: 09/12/19 09:42 Dose: 300 mg Documented by: Admin: 09/11/19 20:54 Dose: 300 mg Documented by: [email or web address] Admin: 09/11/19 07:37 Dose: 300 mg Documented by: [id number] Admin: 09/10/19 21:13 Dose: Not Given Documented by: JOSE R Non-Admin Reason: Patient Refused Admin: 09/10/19 10:10 Dose: 300 mg Documented by: Admin: 09/09/19 20:53 Dose: Not Given Documented by: GREG Non-Admin Reason: Patient Refused Admin: 09/09/19 10:30 Dose: Not Given Documented by: AREN Non-Admin Reason: Patient Refused Admin: 09/08/19 21:39 Dose: 300 mg Documented by: Admin: 09/08/19 09:20 Dose: Not Given Documented by: [id number] Non-Admin Reason: Clinical Judgement Admin: 09/07/19 21:27 Dose: 300 mg Documented by: Admin: 09/07/19 11:37 Dose: Not Given Documented by: [id number] Non-Admin Reason: Too drowsy Admin: 09/06/19 21:31 Dose: 300 mg Documented by: GREG Heparin Sodium (Porcine) (Heparin) 5,000 unit SQ Q12 [facility] Last Admin: 09/12/19 21:00 Dose: 5,000 unit Documented by: [email or web address] Admin: 09/12/19 09:43 Dose: 5,000 unit Documented by: Admin: 09/11/19 20:56 Dose: 5,000 unit Documented by: [email or web address] Admin: 09/11/19 07:37 Dose: 5,000 unit Documented by: [id number] Admin: 09/10/19 21:10 Dose: Not Given Documented by: JOSE R Non-Admin Reason: Patient Refused Admin: 09/10/19 10:24 Dose: Not Given Documented by: AREN Non-Admin Reason: Patient Refused Admin: 09/09/19 20:52 Dose: Not Given Documented by: GREG Non-Admin Reason: Patient Refused Admin: 09/09/19 10:29 Dose: Not Given Documented by: AREN Non-Admin Reason: Patient Refused Admin: 09/08/19 21:49 Dose: 5,000 unit Documented by: Admin: 09/08/19 08:35 Dose: 5,000 unit Documented by: Admin: 09/07/19 21:27 Dose: 5,000 unit Documented by: Admin: 09/07/19 10:15 Dose: 5,000 unit Documented by: [email or web address] Admin: 09/06/19 21:31 Dose: 5,000 unit Documented by: Admin: 09/06/19 09:38 Dose: 5,000 unit Documented by: [id number] Admin: 09/05/19 20:27 Dose: 5,000 unit Documented by: Admin: 09/05/19 10:38 Dose: 5,000 unit Documented by: [email or web address] Hydromorphone HCl (Dilaudid) 4 - 8 mg PO Q6HP PRN; Protocol PRN Reason: Per Pain Protocol Last Admin: 09/12/19 20:59 Dose: 4 mg Documented by: [email or web address] Admin: 09/12/19 06:14 Dose: 4 mg Documented by: [email or web address] Admin: 09/11/19 07:37 Dose: 4 mg Documented by: [email or web address] Admin: 09/11/19 01:17 Dose: 4 mg Documented by: [email or web address] Admin: 09/10/19 08:44 Dose: 4 mg Documented by: Admin: 09/09/19 14:31 Dose: 4 mg Documented by: Admin: 09/09/19 05:46 Dose: 4 mg Documented by: Admin: 09/08/19 21:37 Dose: 4 mg Documented by: Admin: 09/07/19 23:24 Dose: 8 mg Documented by: Admin: 09/07/19 18:11 Dose: 4 mg Documented by: [id number] Admin: 09/06/19 05:48 Dose: 8 mg Documented by: Admin: 09/05/19 19:45 Dose: 8 mg Documented by: Admin: 09/05/19 13:31 Dose: 8 mg Documented by: [email or web address] Hydromorphone HCl (Dilaudid) 0.5 mg IV Q4HP PRN; Protocol PRN Reason: Per Pain Protocol Last Admin: 09/10/19 05:16 Dose: 0.5 mg Documented by: GREG Hydroxyzine HCl (Atarax) 100 mg PO BIDP PRN PRN Reason: Itching Magnesium Sulfate (Magnesium Sulfate) 2 gm in 50 mls @ 50 mls/hr IV UD PRN PRN Reason: MG = or < 1.7 Last Infusion: 09/06/19 11:25 Dose: 0 mls/hr Documented by: [id number] Admin: 09/06/19 10:25 Dose: 50 mls/hr Documented by: [id number] Acetaminophen (Ofirmev) 500 mg in 50 mls @ 100 mls/hr IV Q6HP PRN; Protocol PRN Reason: PAIN/FEVER > 101 Last Infusion: 09/05/19 21:00 Dose: 0 mls/hr Documented by: Admin: 09/05/19 20:27 Dose: 100 mls/hr Documented by: GREG Ceftriaxone Sodium 2 gm/ (Dextrose) 50 mls @ 100 mls/hr IV DAILY KAT; Protocol Last Infusion: 09/12/19 10:15 Dose: 0 mls/hr Documented by: Admin: 09/12/19 09:43 Dose: 100 mls/hr Documented by: Infusion: 09/11/19 09:15 Dose: 0 mls/hr Documented by: [id number] Admin: 09/11/19 08:43 Dose: 100 mls/hr Documented by: [email or web address] Infusion: 09/10/19 10:41 Dose: 0 mls/hr Documented by: Admin: 09/10/19 10:11 Dose: 100 mls/hr Documented by: Infusion: 09/09/19 11:30 Dose: 0 mls/hr Documented by: Admin: 09/09/19 11:00 Dose: 100 mls/hr Documented by: Infusion: 09/08/19 10:30 Dose: 0 mls/hr Documented by: Admin: 09/08/19 10:00 Dose: 100 mls/hr Documented by: [id number] Infusion: 09/07/19 10:40 Dose: 0 mls/hr Documented by: [id number] Admin: 09/07/19 10:10 Dose: 100 mls/hr Documented by: [id number] Norepinephrine Bitartrate 16 (mg/ Sodium Chloride) 250 mls @ 9.375 mls/hr IV Q24HP PRN; Protocol PRN Reason: TITRATE TO KEEP MAP > 65 Insulin Glargine (Lantus) 10 unit SQ DAILY [facility] Last Admin: 09/12/19 09:42 Dose: 10 units Documented by: Admin: 09/11/19 07:36 Dose: 10 units Documented by: [email or web address] Admin: 09/10/19 10:11 Dose: 10 units Documented by: Admin: 09/09/19 10:29 Dose: Not Given Documented by: AREN Non-Admin Reason: Patient Refused Admin: 09/08/19 08:36 Dose: 10 units Documented by: [id number] Admin: 09/07/19 10:14 Dose: 10 units Documented by: [id number] Admin: 09/06/19 09:39 Dose: 10 units Documented by: [id number] Admin: 09/05/19 13:32 Dose: 10 units Documented by: [email or web address] Insulin Human Lispro (Humalog) 0 unit SQ ACHS KAT; Protocol Last Admin: 09/12/19 21:01 Dose: 8 units Documented by: [email or web address] Admin: 09/12/19 16:43 Dose: 4 units Documented by: Admin: 09/12/19 11:38 Dose: 8 units Documented by: Admin: 09/12/19 08:05 Dose: 8 units Documented by: Admin: 09/11/19 20:56 Dose: 14 units Documented by: [email or web address] Admin: 09/11/19 17:06 Dose: 10 units Documented by: [id number] Admin: 09/11/19 12:01 Dose: 8 units Documented by: [id number] Admin: 09/11/19 07:37 Dose: 6 units Documented by: [id number] Admin: 09/10/19 21:28 Dose: 6 units Documented by: [email or web address] Admin: 09/10/19 17:14 Dose: 10 units Documented by: Admin: 09/10/19 12:46 Dose: Not Given Documented by: AREN Non-Admin Reason: No Coverage Needed Admin: 09/10/19 07:20 Dose: Not Given Documented by: AREN Non-Admin Reason: No Coverage Needed Admin: 09/09/19 20:50 Dose: 6 units Documented by: Admin: 09/09/19 17:28 Dose: 6 units Documented by: Admin: 09/09/19 12:41 Dose: 6 units Documented by: Admin: 09/09/19 10:19 Dose: Not Given Documented by: AREN Non-Admin Reason: Patient Refused Admin: 09/08/19 22:07 Dose: 6 units Documented by: Admin: 09/08/19 17:11 Dose: 6 units Documented by: Admin: 09/08/19 12:19 Dose: 8 units Documented by: Admin: 09/08/19 08:35 Dose: 8 units Documented by: Admin: 09/07/19 21:28 Dose: Not Given Documented by: [email or web address] Non-Admin Reason: PT not eating Admin: 09/07/19 18:11 Dose: 6 units Documented by: Admin: 09/07/19 12:35 Dose: 6 units Documented by: Admin: 09/07/19 07:58 Dose: 4 units Documented by: Admin: 09/06/19 21:52 Dose: 6 units Documented by: Admin: 09/06/19 17:08 Dose: 10 units Documented by: [email or web address] Admin: 09/06/19 12:07 Dose: 2 units Documented by: Admin: 09/06/19 07:51 Dose: 6 units Documented by: Admin: 09/05/19 21:14 Dose: 8 units Documented by: Admin: 09/05/19 18:30 Dose: Not Given Documented by: [email or web address] Non-Admin Reason: NPO Admin: 09/05/19 10:57 Dose: 12 units Documented by: THELMA Iron Carb/Multivit/[place]/Folic Acid (Multivitamin W/Minerals) 1 tab PO DAILY KAT Last Admin: 09/12/19 18:56 Dose: Not Given Documented by: [email or web address] Non-Admin Reason: Patient Refused Admin: 09/11/19 07:37 Dose: 1 tab Documented by: [email or web address] Admin: 09/10/19 13:12 Dose: 1 tab Documented by: AREN Comments: Late as pt refused this AM stating "Im too tired, maybe later" Admin: 09/09/19 10:30 Dose: Not Given Documented by: SIMONATTON Non-Admin Reason: Patient Refused Admin: 09/08/19 09:20 Dose: Not Given Documented by: [id number] Non-Admin Reason: Clinical Judgement Admin: 09/07/19 11:37 Dose: Not Given Documented by: [id number] Non-Admin Reason: Too drowsy Admin: 09/06/19 09:38 Dose: 1 tab Documented by: [id number] Admin: 09/05/19 10:40 Dose: 1 tab Documented by: [email or web address] Lactulose (Cephulac) 30 gm PO QID KAT Last Admin: 09/12/19 21:02 Dose: Not Given Documented by: [email or web address] Non-Admin Reason: Patient Refused Admin: 09/12/19 16:44 Dose: Not Given Documented by: [email or web address] Non-Admin Reason: Patient Refused Admin: 09/12/19 13:57 Dose: Not Given Documented by: [email or web address] Non-Admin Reason: Patient Refused Admin: 09/12/19 09:42 Dose: 30 gm Documented by: Admin: 09/11/19 20:56 Dose: 30 gm Documented by: [email or web address] Admin: 09/11/19 16:55 Dose: 30 gm Documented by: [email or web address] Admin: 09/11/19 11:53 Dose: 30 gm Documented by: [email or web address] Admin: 09/11/19 07:36 Dose: 30 gm Documented by: [email or web address] Admin: 09/10/19 21:11 Dose: Not Given Documented by: [email or web address] Non-Admin Reason: Patient Refused Admin: 09/10/19 17:14 Dose: Not Given Documented by: AREN Non-Admin Reason: Pt still working on drinking afternoon dose Admin: 09/10/19 14:32 Dose: 30 gm Documented by: Admin: 09/10/19 10:11 Dose: 30 gm Documented by: Admin: 09/09/19 20:52 Dose: Not Given Documented by: GREG Non-Admin Reason: Patient Refused Admin: 09/09/19 19:18 Dose: Not Given Documented by: GREG Non-Admin Reason: Patient Refused Admin: 09/09/19 14:09 Dose: Not Given Documented by: AREN Non-Admin Reason: Patient Refused Admin: 09/09/19 10:29 Dose: Not Given Documented by: AREN Non-Admin Reason: Patient Refused Admin: 09/08/19 22:00 Dose: Not Given Documented by: SHALINI Non-Admin Reason: Patient Refused Admin: 09/08/19 15:13 Dose: 30 gm Documented by: Admin: 09/08/19 15:13 Dose: Not Given Documented by: PAMELA Non-Admin Reason: Clinical Judgement Admin: 09/08/19 08:35 Dose: 30 gm Documented by: Admin: 09/07/19 20:40 Dose: Not Given Documented by: [email or web address] Non-Admin Reason: Patient Refused Admin: 09/07/19 17:30 Dose: Not Given Documented by: PAMELA Non-Admin Reason: Nausea Admin: 09/07/19 13:13 Dose: 30 gm Documented by: PAMELA Levothyroxine Sodium (Synthroid) 125 mcg PO ACB [facility] Last Admin: 09/12/19 08:06 Dose: 125 mcg Documented by: Admin: 09/11/19 07:24 Dose: 125 mcg Documented by: [id number] Admin: 09/10/19 10:10 Dose: 125 mcg Documented by: Admin: 09/09/19 07:49 Dose: 125 mcg Documented by: Admin: 09/08/19 08:35 Dose: 125 mcg Documented by: Admin: 09/07/19 07:58 Dose: 125 mcg Documented by: PAMELA Melatonin (Melatonin 3mg Tablet) 3 mg PO HSP PRN PRN Reason: Insomnia Last Admin: 09/07/19 21:32 Dose: 3 mg Documented by: [email or web address] Metoclopramide HCl (Reglan) 5 mg IV Q3HP PRN PRN Reason: nausea/vomiting Mupirocin (Bactroban Oint 2%) 1 dose TOPICAL TID [facility] Last Admin: 09/12/19 21:24 Dose: 1 dose Documented by: [email or web address] Admin: 09/12/19 14:30 Dose: 1 dose Documented by: Admin: 09/12/19 09:41 Dose: 1 dose Documented by: Admin: 09/11/19 22:33 Dose: 1 dose Documented by: [email or web address] Admin: 09/11/19 13:43 Dose: 1 dose Documented by: [email or web address] Admin: 09/11/19 07:40 Dose: 1 dose Documented by: [email or web address] Admin: 09/10/19 21:03 Dose: 1 dose Documented by: [email or web address] Admin: 09/10/19 15:17 Dose: 1 dose Documented by: Admin: 09/10/19 08:17 Dose: 1 dose Documented by: Admin: 09/09/19 20:52 Dose: Not Given Documented by: [email or web address] Non-Admin Reason: Patient Refused Admin: 09/09/19 16:06 Dose: 1 dose Documented by: [email or web address] Comments: unable to scan, barcode damaged Admin: 09/09/19 10:29 Dose: Not Given Documented by: AREN Non-Admin Reason: Patient Refused Admin: 09/08/19 22:03 Dose: 1 dose Documented by: Admin: 09/08/19 15:48 Dose: 1 dose Documented by: [email or web address] Admin: 09/08/19 10:00 Dose: 1 dose Documented by: [email or web address] Admin: 09/07/19 21:26 Dose: 1 dose Documented by: [email or web address] Omeprazole (Prilosec) 20 mg PO ACB KAT Last Admin: 09/12/19 08:06 Dose: 20 mg Documented by: [email or web address] Admin: 09/11/19 07:24 Dose: 20 mg Documented by: [email or web address] Admin: 09/10/19 10:10 Dose: 20 mg Documented by: Admin: 09/09/19 07:49 Dose: 20 mg Documented by: Admin: 09/08/19 08:35 Dose: 20 mg Documented by: [email or web address] Admin: 09/07/19 07:58 Dose: 20 mg Documented by: [email or web address] Admin: 09/06/19 09:38 Dose: 20 mg Documented by: [id number] Ondansetron HCl (Zofran Odt) 4 mg SL Q4-6HP PRN; Protocol PRN Reason: Nausea And Vomiting Last Admin: 09/11/19 07:49 Dose: 4 mg Documented by: Admin: 09/10/19 10:24 Dose: 4 mg Documented by: Admin: 09/05/19 23:10 Dose: 4 mg Documented by: Admin: 09/05/19 12:15 Dose: 4 mg Documented by: [email or web address] Ondansetron HCl (Zofran) 4 mg IV Q4-6HP PRN; Protocol PRN Reason: Nausea And Vomiting Last Admin: 09/07/19 17:03 Dose: 4 mg Documented by: [id number] Polyethylene Glycol (Miralax) 17 gm PO DAILYP PRN PRN Reason: Constipation Potassium Chloride (Klor-Con) 40 meq PO DAILYP PRN PRN Reason: K+ < 3.5 Salmeterol Xinafoate (Serevent) 1 puff INH BID KAT Last Admin: 09/12/19 21:00 Dose: Not Given Documented by: ARIEL Non-Admin Reason: Unavailable Admin: 09/12/19 09:51 Dose: Not Given Documented by: ALBERTO Non-Admin Reason: Unavailable Admin: 09/11/19 20:57 Dose: Not Given Documented by: ARIEL Non-Admin Reason: Unavailable Admin: 09/11/19 07:39 Dose: Not Given Documented by: SAMIA Non-Admin Reason: Unavailable Admin: 09/10/19 21:11 Dose: Not Given Documented by: JOSE R Non-Admin Reason: Unavailable Admin: 09/10/19 08:30 Dose: Not Given Documented by: AREN Non-Admin Reason: Unavailable Admin: 09/09/19 20:28 Dose: Not Given Documented by: GREG Non-Admin Reason: Unavailable Admin: 09/09/19 09:41 Dose: Not Given Documented by: AREN Non-Admin Reason: Unavailable Admin: 09/08/19 22:01 Dose: Not Given Documented by: SHALINI Non-Admin Reason: Unavailable Admin: 09/08/19 09:20 Dose: Not Given Documented by: PAMELA Non-Admin Reason: Unavailable Admin: 09/07/19 20:41 Dose: Not Given Documented by: STANISLAV Non-Admin Reason: Unavailable Admin: 09/07/19 11:37 Dose: Not Given Documented by: [id number] Non-Admin Reason: Unavailable Admin: 09/06/19 22:04 Dose: Not Given Documented by: SCARLEY Non-Admin Reason: Unavailable Senna/Docusate Sodium (Senna Plus Tablet) 1 tab PO HS [facility] Last Admin: 09/12/19 21:00 Dose: Not Given Documented by: ARIEL Non-Admin Reason: Clinical Judgement Admin: 09/11/19 20:54 Dose: 1 tab Documented by: Admin: 09/10/19 21:14 Dose: Not Given Documented by: JOSE R Non-Admin Reason: Patient Refused Admin: 09/09/19 20:52 Dose: Not Given Documented by: GREG Non-Admin Reason: Patient Refused Admin: 09/08/19 21:40 Dose: 1 tab Documented by: Admin: 09/07/19 21:27 Dose: 1 tab Documented by: Admin: 09/06/19 21:32 Dose: 1 tab Documented by: Admin: 09/05/19 20:24 Dose: Not Given Documented by: GREG Non-Admin Reason: Patient Refused Sodium Chloride (Saline Flush) 10 ml IV Q8 [facility] Last Admin: 09/12/19 21:02 Dose: 10 ml Documented by: [email or web address] Admin: 09/12/19 14:30 Dose: 10 ml Documented by: Admin: 09/12/19 09:43 Dose: 10 ml Documented by: Admin: 09/12/19 05:56 Dose: 10 ml Documented by: [email or web address] Admin: 09/11/19 20:58 Dose: 10 ml Documented by: [email or web address] Admin: 09/11/19 12:02 Dose: 10 ml Documented by: [email or web address] Admin: 09/11/19 05:46 Dose: 10 ml Documented by: JOSE R Admin: 09/10/19 21:39 Dose: 10 ml Documented by: JOSE R Admin: 09/10/19 14:32 Dose: 10 ml Documented by: Admin: 09/10/19 10:11 Dose: 10 ml Documented by: Admin: 09/10/19 07:19 Dose: 10 ml Documented by: Admin: 09/09/19 20:52 Dose: 10 ml Documented by: Admin: 09/09/19 14:32 Dose: 10 ml Documented by: Admin: 09/09/19 04:17 Dose: 10 ml Documented by: Admin: 09/08/19 22:00 Dose: 10 ml Documented by: Admin: 09/08/19 15:13 Dose: 10 ml Documented by: Admin: 09/08/19 07:09 Dose: 10 ml Documented by: Admin: 09/07/19 21:28 Dose: 10 ml Documented by: Admin: 09/07/19 13:14 Dose: 10 ml Documented by: Admin: 09/07/19 05:20 Dose: 10 ml Documented by: Admin: 09/06/19 21:33 Dose: 10 ml Documented by: Admin: 09/06/19 13:29 Dose: Not Given Documented by: PAMELA Non-Admin Reason: Continuous IV Admin: 09/06/19 05:49 Dose: 10 ml Documented by: Admin: 09/05/19 21:15 Dose: 10 ml Documented by: Admin: 09/05/19 13:32 Dose: 10 ml Documented by: [email or web address] Spironolactone (Aldactone) 100 mg PO BID KAT Last Admin: 09/12/19 20:59 Dose: 100 mg Documented by: [email or web address] Admin: 09/12/19 09:41 Dose: 100 mg Documented by: Admin: 09/11/19 20:54 Dose: 100 mg Documented by: [email or web address] Admin: 09/11/19 07:37 Dose: 100 mg Documented by: [id number] Admin: 09/10/19 21:18 Dose: Not Given Documented by: [email or web address] Non-Admin Reason: pt spit out 2 tablets, returned 2 tablets Admin: 09/10/19 10:11 Dose: 100 mg Documented by: Admin: 09/09/19 20:52 Dose: Not Given Documented by: GREG Non-Admin Reason: Patient Refused Admin: 09/09/19 10:29 Dose: Not Given Documented by: AREN Non-Admin Reason: Patient Refused Admin: 09/08/19 21:41 Dose: 100 mg Documented by: Admin: 09/08/19 08:35 Dose: 100 mg Documented by: Admin: 09/07/19 21:27 Dose: 100 mg Documented by: Admin: 09/07/19 10:16 Dose: 100 mg Documented by: [email or web address] Thiamine HCl (Vitamin B1) 100 mg PO DAILY [facility] Last Admin: 09/12/19 09:42 Dose: 100 mg Documented by: Admin: 09/11/19 07:37 Dose: 100 mg Documented by: [email or web address] Admin: 09/10/19 13:11 Dose: 100 mg Documented by: LSTRATTON Comments: Late as pt refused this AM stating "Im too tired, maybe later" Admin: 09/09/19 11:07 Dose: Not Given Documented by: LSTRATTON Non-Admin Reason: Patient Refused Admin: 09/08/19 09:20 Dose: Not Given Documented by: [email or web address] Non-Admin Reason: Clinical Judgement Admin: 09/07/19 12:35 Dose: Not Given Documented by: [id number] Non-Admin Reason: Unavailable Admin: 09/06/19 09:38 Dose: 100 mg Documented by: [email or web address] Admin: 09/05/19 10:40 Dose: 100 mg Documented by: [email or web address] Vitamin D (Vitamin D3) 400 unit PO DAILY [facility] Last Admin: 09/12/19 09:50 Dose: 400 unit Documented by: Admin: 09/11/19 07:48 Dose: 400 unit Documented by: [email or web address] Admin: 09/10/19 13:12 Dose: 400 unit Documented by: LSTRATTON Comments: Late as pt refused this AM stating "Im too tired, maybe later" Admin: 09/09/19 11:08 Dose: Not Given Documented by: LSTRATTON Non-Admin Reason: Patient Refused Admin: 09/08/19 09:20 Dose: Not Given Documented by: [id number] Non-Admin Reason: Clinical Judgement Assessment and Plan - Narrative A/P Narrative: A: 1. Streptococcus pneumoniae bacteremia: sens to Ceftriaxone - sec to seeding from spontaneous bacterial peritonitis - repeat blood Cx neg since 09/06 2. SBP: based on increased PMNs (> 250), clinical s/s, peritoneal fluid Cx growing Strept pneumoniae - sec to (3) - pt was not on antibiotic prophylaxis at admission. She meets criteria for being on chronic antibiotic prophylaxis for prevention of SBP - CT s/o large amount of ascitic fluid - repeat paracentesis 09/09 showed marked improvement in peritoneal fluid cell count with about ~ 900 WBC and 79% PMNs (= 711 PMNs). Cx NGTD 3. 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 Thrombocytopenia: sec to (3) 5. Failure to thrive: sec to severe ascites, cirrhosis 6. Rt Pleural effusion and basilar infiltrate: reactive to ascites, possible aspiration Recommendations: - Continue IV Ceftriaxone 2 gm q24 hrs, day 03/09 - I think leucocytosis along ith elev in Hb and Plt is sign of hemoconcentration in setting of third spacing due to low albumin. If pt spikes a fever or if she becomes hemodynamically unstable; will recommend switching to IV Zosyn 3.375 gm q8 hrs. Also repeat blood Cx in that situation - repeat diagnostic paracentesis with cell count tomorrow. will aim for peritoneal fluid neutrophil count is < 250. - will switch to low dose Ciprofloxacin 500 mg as antibiotic prophylaxis for SBP prevention after completion of IV therapy for bacteremia - continue PO Rifaximin 550 mg bid for hepatic encephalopathy - HOB elevated at all times, given high aspiration risk - overall poor prognosis, discussed with daughter at bedside today will follow Poncho Serrano MD Infectious diseases
[2019-09-13 06:20] LABS: Hematocrit 36.9 % (36.0-48.0); Hemoglobin 11.8 g/dL (12.0-15.0); Mean Platelet Volume 7.6 fL (7.4-10.4); Platelet Count 299 K/mcL (140-440); RBC 4.39 M/mcL (4.00-5.20); Red Cell Distribution Width 17.3 % (11.5-14.5); WBC 19.7 K/mcL (4.5-11.0)
[2019-09-13 06:42] LABS: ALT/SGPT 13 U/l (0-40); AST/SGOT 22 U/l (0-37); Albumin 2.7 gm/dL (3.2-5.2); Albumin/Globulin Ratio 0.5 (1.0-2.3); Alkaline Phosphatase 69 U/L (39-117); Bilirubin,Direct 0.3 mg/dL (0.0-0.3); Bilirubin,Total 0.6 mg/dL (0.0-1.0); Blood Urea Nitrogen 66 mg/dl (8-23); Calcium 9.2 mg/dl (8.6-10.4); Carbon Dioxide 18 mmol/L (22-30); Chloride 91 mmol/L (96-108); Globulin 5.1 gm/dL (2.2-3.7); Glomerular Filtration Rate 33; Glucose 246 mg/dL (70-105); Lactate Dehydrogenase 184 U/L (94-250); Phosphorous 4.8 mg/dL (2.7-4.5); Triglycerides 81 mg/dl (<150); Uric Acid 13.1 mg/dL (2.5-8.0)
[2019-09-13 07:29] LABS: Anisocytosis 1+ (NONE SEEN); Band Neutrophils % 11 % (0-10); Lymphocytes % 4 % (15-49); Metamyelocytes % 2 % (0-0); Monocytes % (Manual) 2 % (1-12); Platelet Estimate NORMAL (NORMAL); Polychromasia 1+ (NONE SEEN); RBC Morphology ABNORM (NORMAL); Reactive Lymphocytes 2 % (0-2); Segmented Neutrophils % 79 % (38-78)
[2019-09-13] MEDS: OMEPRAZOLE 20 MG CAPSULE PO SCH (08:50)
[2019-09-13] MEDS: LEVOTHYROXINE 125 MCG TABLET PO SCH (08:50)
[2019-09-13] MEDS: INSULIN LISPRO 1 UNIT/0.01 ML UNIT SQ SCH ×4 (08:50→21:28)
[2019-09-13] MEDS: 0.9 % SODIUM CHLORIDE 10 ML SYRINGE IV SCH ×3 (09:21→21:24)
[2019-09-13] MEDS: HYDROmorphone 2 MG/ML VIAL IV PRN (10:49)
[2019-09-13] MEDS: BACLOFEN 10 MG TABLET PO SCH (10:52)
[2019-09-13] MEDS: GABAPENTIN 300 MG CAPSULE PO SCH (10:52)
[2019-09-13] MEDS: RIFAXIMIN 550 MG TABLET PO SCH ×2 (10:52→21:24)
[2019-09-13] MEDS: SPIRONOLACTONE 25 MG TABLET PO SCH ×2 (10:53→21:23)
[2019-09-13] MEDS: HEPARIN 5,000 UNIT/ML VIAL SQ SCH ×2 (10:53→21:22)
[2019-09-13] MEDS: LACTULOSE 20 GM/30 ML ORAL.SOL PO SCH ×4 (10:54→21:23)
[2019-09-13] MEDS: cefTRIAXone 2 GM in DEXTROSE 5% IN WATER 50 ML IV SCH (10:56)
[2019-09-13] MEDS: MUPIROCIN OINT 2% 22GM TOPICAL SCH ×3 (10:56→21:23)
[2019-09-13] MEDS: DOCUSATE SODIUM 100 MG CAPSULE PO SCH ×2 (10:59→21:22)
[2019-09-13] MEDS: FLUTICASONE HFA 220MCG INHALER INH SCH ×2 (10:59→21:22)
[2019-09-13] MEDS: FOLIC ACID 1 MG TABLET PO SCH (11:01)
[2019-09-13] MEDS: INSULIN GLARGINE, HUMAN 1 UNIT/0.01 ML SQ SCH (11:01)
[2019-09-13] MEDS: MULTIVIT,THER IRON,CA,FA & MIN 1 TABLET PO SCH (11:02)
[2019-09-13] MEDS: VITAMIN D3 400 UNIT TABLET PO SCH (11:03)
[2019-09-13] MEDS: THIAMINE 100 MG TABLET PO SCH (11:03)
[2019-09-13] MEDS: SALMETEROL XINAFOATE 1 PUFF INHALER INH SCH ×2 (11:03→21:24)
[2019-09-13] MEDS: ASCORBIC ACID 500 MG TABLET PO SCH (11:03)
--- NOTE | 2019-09-13 12:31 | Internal Med Progress Note ---
Medical - PN: Subj Patient information: Note initiated : 09/13/19 at 12:29 pm Service Date, if different from initiated Date: [] Patient: Clare Sheehan a 69 y/o F admitted on 09/05/19 for altered level consciousness. Chief Complaint: [] Interval history: Ms. 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 Symptoms have been progressing over the last couple of days and patient unable to think clearly. She c/o 7/10 abdominal pain and was noted to have a fever. Over the last couple of days she has not been able to function and essentially laying on the bed. Initial work-up in the ER was consistent with severe sepsis along with findings suggestive of SBP and basilar pneumonia on imaging. Blood cultures pending, elevated lactate at 3.3. Creatinine 1.7 up from baseline 1.3. Patient underwent 6 L paracentesis results of which are awaited. Subsequently hospitalist service consulted after patient received antibiotics At the time evaluation patient is very lethargic and fatigued. Unable to provide a detailed history. Endorses to symptoms as above including fever abdominal pain and weakness. No family members present. Most of the history was obtained from review of medical records and from ER physician. 09/06-GNR on blood cultures/GPC on 1 culture and ascitic fluid Gram stain. Discussed with ID. Antibiotics changed to vancomycin/cefepime. Clinically improving. Lactic acid downtrending from 3.9-1.9. White count 12.2, creatinine down from 1.7-1.3. On Levophed to keep map at goal. Confirmed SBP with over 14,000 white cells in the sciatic fluid with gram-positive cocci in culture. Remains critically ill. Sister at bedside. Discussed prognosis and treatment plan. Repeat surveillance cultures today. 09/07-peritoneal fluid heavy growth alpha streptococci. On antibiotic coverage. ID consulted. Patient off pressors since yesterday. Remains critically ill. Feels lethargic fatigued. Tense, tender and distended abdomen with reaccumulation of ascites. No family at bedside. Remains a poor prognosis and high risk mortality in the setting of liver cirrhosis/sepsis bacteremia and spontaneous bacterial enteritis 09/08-Streptococcus pneumonia on final cultures. Once Rocephin per ID. CT abdomen chest pelvis as per ID recommendations to rule out secondary focus for Streptococcus pneumonia bacteremia including pneumonia and also HCC. Very lethargic this morning. White count at 11,000. Creatinine 1.2. Start lactulose retention enemas. Consider rifaximin. Will repeat paracentesis in 2 4-48 hours 09/09-patient antibiotic coverage as per ID. Clinically deteriorating. Worsening ascites. Paracentesis today. Discussed with patient poor prognosis based on meld score/progressive deterioration despite aggressive intervention. Patient desired her wish to be a DNR. Daughter present during patient's decision and endorsed to her mother's wishes. Await repeat paracentesis results. ID on board. 09/10-worsening white count. 9 L paracentesis. WBC down to 900 from 14,000. On antibiotic coverage per ID. Patient's mentation has been fluctuating. Intermittently able to take oral lactulose/rifaximin however poor nutritional status. Overall deterioration noted in the last 48 hours. Family aware of poor prognosis. Patient now a DNR. High probability during this hospit alization unless patient shows substantial recovery over the next few days. 09/11-white count 18.4 with neutrophil predominance. Sodium 125, creatinine 1.2. No overnight fever chills, daughter at bedside. Discussed clinical status and high risk mortality based on deteriorating status with patient and daughter in the presence of nursing staff and ID doctor. Patient intermittently refusing treatment along with medications. Otherwise no other concerns per staff. Patient responds to command but intermittently confused. Remains a DNR. It appears that patient realizes her grim situation and has been intermittently refusing treatments. We will continue further family discussions to explore patient's and family's wishes including palliation and comfort care. 09/12-patient overall status unchanged. White count 19.3, sodium 134, creatinine 1.4. High risk by renal. Status post paracentesis x2 and protocol albumin infusion. Systolics at goal and off pressors. Continue adequate nutr ition support/rifaximin/lactulose. Remains in overall high risk mortality based on meld score and overall status. Family and patient both aware. Currently DNR. Anticipate transfer to medical floor in the next 24 hours if renal function improves and systolics at goal. Continue adequate nutritional support/PT OT as tolerated 1215-patient overall status unchanged-she remains confused and drowsy occasionally wakes up she is not taking any lactulose she is constipated she is on multiple narcotics and muscle relaxant. Discussed with the family and if we how to reassess her mental status all the pain medication needs to be off of the system and she needs to have a bowel movement and we ordered a lactulose retention enema and continue p.o. lactulose and rifaximin. Continue ceftriaxone 2 g daily. Then we will reassess her in the next 1 to 2 days. According to the family she was alert oriented and was able to move and do her own things 2 weeks ago and this is totally different. Discussed with the daughter and patient's sister Pertinent ROS: Unable to obtain due to mental status - Constitutional Vitals: Vital Signs Temp Pulse Resp BP Pulse Ox 97.3 F 97 H 20 121/80 98 09/13/19 11:45 09/12/19 21:21 09/13/19 11:45 09/13/19 11:45 09/13/19 11:45 Period Temp Pulse Resp BP Sys/Will Pulse Ox Last 24 Hr 95.5 F-98.4 F 94-97 15- 96-121/58-80 90-99 Intake and Output 09/12/19 09/13/19 09/13/19 21:59 05:59 13:59 Intake Total 100 Output Total 167 163 10 Balance -67 -163 -10 Weight 122 lb 1.6 oz Intake & Output: Intake & Output 09/12/19 09/13/19 09/13/19 21:59 05:59 13:59 Intake Total 100 Output Total 167 163 10 Balance -67 -163 -10 Weight 122 lb 1.6 oz Intake: Oral 100 Output: Urine Catheter Amount 167 163 10 Other: Meal Dinner Percent of Meal Consumed 25% Feeding Ability Total Assistance Urine Appearance Clear Clear Clear Uretheral (Bundy) Clear Clear Urine Color Dark Yellow Dark Sheron Dark Sheron Uretheral (Bundy) Dark Yellow Dark Sheron Urine Odor Normal General appearance: mild distress, thin - Head Head exam: Present: atraumatic, normal inspection - Eye Eye exam: Present: scleral icterus. Absent: nystagmus - ENT ENT exam: Present: mucous membranes dry - Respiratory Respiratory exam: Present: decreased breath sounds, rales, wheezes - Cardiovascular Cardiovascular exam: Present: normal rate and rhythm. Absent: bradycardia, diastolic murmur - GI/Abdominal GI/Abdominal exam: Present: normal bowel sounds, soft, distended - Neurological Exam Neurological exam: Present: alert, reflexes normal. Absent: motor sensory deficit, oriented X3 Medical - PN: Obj Da - Labs CBC & Chem 7: 09/13/19 04:05 09/13/19 04:05 Labs: Abnormal Lab Results 09/13/19 09/13/19 09/12/19 04:05 04:05 04:15 WBC 19.7 H Hgb 11.8 L RDW 17.3 H MPV Gran % Lymph % (Auto) Gran # Lymph # (Auto) Seg Neutrophils % 79 H Band Neutrophils % 11 H Lymphocytes % 4 L Metamyelocytes % 2 H RBC Morphology Abnorm A Polychromasia 1+ A Anisocytosis 1+ A Sodium 123 L 124 L Potassium 5.3 H Chloride 91 L 93 L Carbon Dioxide 18 L 16 L BUN 66 H 56 H Creatinine 1.6 H 1.4 H Glucose 246 H 242 H Uric Acid 13.1 H 11.2 H Phosphorus 4.8 H Magnesium 2.8 H 2.6 H Direct Bilirubin Albumin 2.7 L 2.7 L Globulin 5.1 H 4.8 H Albumin/Globulin Ratio 0.5 L 0.6 L 09/12/19 09/11/19 09/11/19 04:15 04:00 04:00 WBC 19.3 H 18.4 H Hgb RDW 17.3 H 16.9 H MPV 7.3 L Gran % 93.5 H 94.6 H Lymph % (Auto) 1.2 L 1.0 L Gran # 18.0 H 17.4 H Lymph # (Auto) 0.2 L 0.2 L Seg Neutrophils % Band Neutrophils % Lymphocytes % Metamyelocytes % RBC Morphology Polychromasia Anisocytosis Sodium 125 L Potassium Chloride 95 L Carbon Dioxide 16 L BUN 47 H Creatinine 1.2 H Glucose 220 H Uric Acid 9.8 H Phosphorus Magnesium Direct Bilirubin 0.4 H Albumin 3.0 L Globulin 4.4 H Albumin/Globulin Ratio 0.7 L Meds: Medications Acetaminophen (Tylenol) 650 mg PO Q4-6HP PRN; Protocol PRN Reason: Per Pain Protocol/Fever > 101 Last Admin: 09/11/19 11:53 Dose: 650 mg Documented by: Albuterol Sulfate (Ventolin) 1 puff INH Q4HP PRN PRN Reason: Shortness Of Breath Albuterol/Ipratropium (Duoneb) 3 ml NEB Q4HP PRN PRN Reason: Shortness Of Breath Last Admin: 09/08/19 08:55 Dose: 3 ml Documented by: Ascorbic Acid (Vitamin C) 500 mg PO DAILY [facility] Last Admin: 09/13/19 11:03 Dose: Not Given Documented by: Bisacodyl (Dulcolax) 10 mg OH Q2-3DAYS PRN PRN Reason: Constipation Calcium Carbonate/Glycine (Tums) 500 mg CHEWED Q4HP PRN PRN Reason: Dyspepsia Diagnostic Test (Pha) (Accu-Chek) 1 each FS ACHS [facility] Last Admin: 09/13/19 11:32 Dose: 1 each Documented by: Docusate Sodium (Colace) 100 mg PO BID [facility] Last Admin: 09/13/19 10:59 Dose: Not Given Documented by: Fluticasone Propionate (Flovent Hfa 220mcg) 2 puff INH BID [facility] Last Admin: 09/13/19 10:59 Dose: Not Given Documented by: Folic Acid (Folic Acid) 1 mg PO DAILY [facility] Last Admin: 09/13/19 11:01 Dose: Not Given Documented by: Heparin Sodium (Porcine) (Heparin) 5,000 unit SQ Q12 [facility] Last Admin: 09/13/19 10:53 Dose: 5,000 unit Documented by: Magnesium Sulfate (Magnesium Sulfate) 2 gm in 50 mls @ 50 mls/hr IV UD PRN PRN Reason: MG = or < 1.7 Last Infusion: 09/06/19 11:25 Dose: Infused Documented by: Acetaminophen (Ofirmev) 500 mg in 50 mls @ 100 mls/hr IV Q6HP PRN; Protocol PRN Reason: PAIN/FEVER > 101 Last Infusion: 09/05/19 21:00 Dose: Infused Documented by: Ceftriaxone Sodium 2 gm/ (Dextrose) 50 mls @ 100 mls/hr IV DAILY [facility]; Protocol Last Admin: 09/13/19 10:56 Dose: 100 mls/hr Documented by: Norepinephrine Bitartrate 16 (mg/ Sodium Chloride) 250 mls @ 9.375 mls/hr IV Q24HP PRN; Protocol PRN Reason: TITRATE TO KEEP MAP > 65 Insulin Glargine (Lantus) 10 unit SQ DAILY [facility] Last Admin: 09/13/19 11:01 Dose: 10 units Documented by: Insulin Human Lispro (Humalog) 0 unit SQ [facility]; Protocol Last Admin: 09/13/19 11:32 Dose: 8 units Documented by: Iron Carb/Multivit/Technical Sales Director/Folic Acid (Multivitamin W/Minerals) 1 tab PO DAILY [facility] Last Admin: 09/13/19 11:02 Dose: Not Given Documented by: Lactulose (Cephulac) 30 gm PO QID [facility] Last Admin: 09/13/19 10:54 Dose: 30 gm Documented by: Levothyroxine Sodium (Synthroid) 125 mcg PO ACB [facility] Last Admin: 09/13/19 08:50 Dose: 125 mcg Documented by: Melatonin (Melatonin 3mg Tablet) 3 mg PO HSP PRN PRN Reason: Insomnia Last Admin: 09/07/19 21:32 Dose: 3 mg Documented by: Metoclopramide HCl (Reglan) 5 mg IV Q3HP PRN PRN Reason: nausea/vomiting Mupirocin (Bactroban Oint 2%) 1 dose TOPICAL TID [facility] Last Admin: 09/13/19 10:56 Dose: 1 dose Documented by: Omeprazole (Prilosec) 20 mg PO ACB [facility] Last Admin: 09/13/19 08:50 Dose: 20 mg Documented by: Ondansetron HCl (Zofran Odt) 4 mg SL Q4-6HP PRN; Protocol PRN Reason: Nausea And Vomiting Last Admin: 09/11/19 07:49 Dose: 4 mg Documented by: Ondansetron HCl (Zofran) 4 mg IV Q4-6HP PRN; Protocol PRN Reason: Nausea And Vomiting Last Admin: 09/07/19 17:03 Dose: 4 mg Documented by: Polyethylene Glycol (Miralax) 17 gm PO DAILYP PRN PRN Reason: Constipation Potassium Chloride (Klor-Con) 40 meq PO DAILYP PRN PRN Reason: K+ < 3.5 Salmeterol Xinafoate (Serevent) 1 puff INH BID [facility] Last Admin: 09/13/19 11:03 Dose: Not Given Documented by: Senna/Docusate Sodium (Senna Plus Tablet) 1 tab PO HS [facility] Last Admin: 09/12/19 21:00 Dose: Not Given Documented by: Sodium Chloride (Saline Flush) 10 ml IV Q8 [facility] Last Admin: 09/13/19 09:21 Dose: 10 ml Documented by: Spironolactone (Aldactone) 100 mg PO BID [facility] Last Admin: 09/13/19 10:53 Dose: 100 mg Documented by: Thiamine HCl (Vitamin B1) 100 mg PO DAILY [facility] Last Admin: 09/13/19 11:03 Dose: Not Given Documented by: Vitamin D (Vitamin D3) 400 unit PO DAILY [facility] Last Admin: 09/13/19 11:03 Dose: Not Given Documented by: Medical - PN: A/P - Time Spent With Patient Total time spent is greater than 50% in coordination of care (as documented) at patient's floor/unit and/or counseling patient: Greater than 35 minutes - Narrative A/P Narrative: Hepatic encephalopathy 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 We will reassess her mental status in next 1 to 2 days Review of systems-unable to obtain due to mental status Streptococcal pneumonia bacteremia Continue Rocephin 2 g daily according to ID physician CT abdomen pelvis negative for any source of infection Spontaneous bacterial peritonitis Streptococcus pneumonia on chest fluid culture Continue ceftriaxone 2 g I infectious disease following Bilateral lower lobe pneumonia Antibiotic as mentioned above Septic shock with multi organ failure Acute renal failure Acute encephalopathy She is off of vasopressors Antibiotic as above mentioned Acute on chronic kidney injury Creatinine 1.7 and today it is 1.2 Adequate urine output We will monitor We will consider albumin if needed DVT prophylaxis SCDs and subcu heparin CODE STATUS--DNR Expected length of stay-2 to 3 days
[2019-09-13] MEDS: LACTULOSE 20 GM/30 ML ORAL.SOL PR SCH ×2 (14:39→21:23)
[2019-09-13] MEDS: SENNOSIDES/DOCUSATE SODIUM 1 TAB TABLET PO SCH (21:24)
[2019-09-14] MEDS: 0.9 % SODIUM CHLORIDE 10 ML SYRINGE IV SCH ×3 (05:12→21:20)
[2019-09-14 05:34] LABS: Hematocrit 38.2 % (36.0-48.0); Hemoglobin 12.2 g/dL (12.0-15.0); Mean Platelet Volume 7.7 fL (7.4-10.4); Platelet Count 327 K/mcL (140-440); RBC 4.55 M/mcL (4.00-5.20); Red Cell Distribution Width 17.5 % (11.5-14.5); WBC 19.6 K/mcL (4.5-11.0)
[2019-09-14 05:44] LABS: ALT/SGPT 13 U/l (0-40); AST/SGOT 20 U/l (0-37); Albumin 2.5 gm/dL (3.2-5.2); Albumin/Globulin Ratio 0.4 (1.0-2.3); Alkaline Phosphatase 68 U/L (39-117); Bilirubin,Direct 0.3 mg/dL (0.0-0.3); Bilirubin,Total 0.7 mg/dL (0.0-1.0); Blood Urea Nitrogen 72 mg/dl (8-23); Calcium 9.3 mg/dl (8.6-10.4); Carbon Dioxide 16 mmol/L (22-30); Globulin 5.9 gm/dL (2.2-3.7); Glomerular Filtration Rate 30; Glucose 154 mg/dL (70-105); Lactate Dehydrogenase 214 U/L (94-250); Phosphorous 4.8 mg/dL (2.7-4.5); Triglycerides 82 mg/dl (<150); Uric Acid 15.1 mg/dL (2.5-8.0)
[2019-09-14 05:48] LABS: Chloride 95 mmol/L (96-108)
[2019-09-14 06:40] LABS: Anisocytosis 1+ (NONE SEEN); Band Neutrophils % 1 % (0-10); Lymphocytes % 5 % (15-49); Platelet Estimate NORMAL (NORMAL); Polychromasia 1+ (NONE SEEN); RBC Morphology ABNORM (NORMAL); Segmented Neutrophils % 94 % (38-78); Toxic Granulation 1+ (NONE SEEN)
[2019-09-14] MEDS: LEVOTHYROXINE 125 MCG TABLET PO SCH (06:44)
[2019-09-14] MEDS: OMEPRAZOLE 20 MG CAPSULE PO SCH (06:44)
[2019-09-14] MEDS: INSULIN LISPRO 1 UNIT/0.01 ML UNIT SQ SCH ×4 (08:04→22:51)
[2019-09-14] MEDS: SPIRONOLACTONE 25 MG TABLET PO SCH ×2 (09:47→22:51)
[2019-09-14] MEDS: DOCUSATE SODIUM 100 MG CAPSULE PO SCH ×2 (09:47→23:40)
[2019-09-14] MEDS: LACTULOSE 20 GM/30 ML ORAL.SOL PO SCH ×4 (09:47→23:40)
[2019-09-14] MEDS: VITAMIN D3 400 UNIT TABLET PO SCH (09:48)
[2019-09-14] MEDS: THIAMINE 100 MG TABLET PO SCH (09:48)
[2019-09-14] MEDS: FLUTICASONE HFA 220MCG INHALER INH SCH ×2 (09:48→23:40)
[2019-09-14] MEDS: SALMETEROL XINAFOATE 1 PUFF INHALER INH SCH ×2 (09:48→23:41)
[2019-09-14] MEDS: RIFAXIMIN 550 MG TABLET PO SCH ×2 (09:48→23:41)
[2019-09-14] MEDS: MULTIVIT,THER IRON,CA,FA & MIN 1 TABLET PO SCH (09:48)
[2019-09-14] MEDS: ASCORBIC ACID 500 MG TABLET PO SCH (09:48)
[2019-09-14] MEDS: FOLIC ACID 1 MG TABLET PO SCH (09:48)
[2019-09-14] MEDS: MUPIROCIN OINT 2% 22GM TOPICAL SCH ×3 (10:10→21:20)
[2019-09-14] MEDS: LACTULOSE 20 GM/30 ML ORAL.SOL PR SCH ×5 (10:10→21:44)
[2019-09-14] MEDS: HEPARIN 5,000 UNIT/ML VIAL SQ SCH ×2 (10:11→21:43)
[2019-09-14] MEDS: INSULIN GLARGINE, HUMAN 1 UNIT/0.01 ML SQ SCH (10:11)
[2019-09-14] MEDS: cefTRIAXone 2 GM in DEXTROSE 5% IN WATER 50 ML IV SCH (10:13)
[2019-09-14] MEDS: HYDROCORTISONE SOD SUCC 100 MG VIAL IV SCH ×3 (10:42→22:50)
[2019-09-14] MEDS: ALBUMIN HUMAN 25 GM/100 ML BAG IV SCH ×4 (10:43→14:39)
[2019-09-14] MEDS: 0.9 % SODIUM CHLORIDE 1,000 ML IV SCH (11:30)
[2019-09-14] MEDS: ACETAMINOPHEN 500 MG/50 ML BOTTLE IV PRN ×2 (11:30→16:59)
[2019-09-14 16:28] LABS: Blood Urea Nitrogen 76 mg/dl (8-23); Carbon Dioxide 17 mmol/L (22-30); Glomerular Filtration Rate 33; Glucose 215 mg/dL (70-105)
[2019-09-14 16:35] LABS: Chloride 94 mmol/L (96-108)
[2019-09-14] MEDS ORDERED: LACTOPEROXI/GLUC OXID/POT THIO 1 EACH GEL..EA. TOPICAL PRN (18:27)
--- NOTE | 2019-09-14 20:33 | Infectious Disease Prog Note ---
Subjective Patient information: Note initiated : 09/14/19 at 8:21 pm Service Date, if different from initiated Date: [] Patient: Clare Sheehan 69 y/o F admitted on 09/05/19 for altered level consciousness. Chief Complaint: [] Interval history: Pt not responsive to verbal commands. Withering in pain in her belly. Undergoing a lactulose enema at time of visit. NO family at bedside. No fever overnight. Objective Objective Narrative: confused, not oriented no icterus chest has absent BS at bases, rest vesicular breath sounds bowel sounds hypoactive, tender to touch, distended, with ascites - Vital Signs Vital signs: Vital Signs Temp Pulse Resp BP Pulse Ox 09/14/19 17:01 76 101/64 100 09/14/19 16:01 70 100 09/14/19 16:00 35.9 C L 70 95/62 100 09/14/19 15:01 73 96/61 100 09/14/19 14:58 95 09/14/19 14:00 83 115/75 100 09/14/19 13:40 83 108/71 100 09/14/19 12:01 79 88/64 100 09/14/19 11:39 79 100/58 100 09/14/19 11:02 93 H 109/68 97 09/14/19 10:59 90 69/44 98 09/14/19 10:01 91 H 87/75 100 09/14/19 08:14 97 H 128/108 98 09/14/19 08:01 35.9 C L 99 H 22 112/91 95 09/14/19 08:00 92 H 26 H 95 09/14/19 07:59 91 H 111/89 98 09/14/19 06:02 92 H 98 09/14/19 06:01 91 H 104/67 100 09/14/19 06:00 89 99 09/14/19 04:01 36.8 C 86 15 111/70 99 09/14/19 04:00 84 99 09/14/19 02:02 81 97 09/14/19 02:01 86 98/79 97 09/14/19 02:00 83 94 09/14/19 01:31 84 106/64 96 09/14/19 00:15 98 09/14/19 00:01 82 97 09/14/19 00:00 80 106/64 97 09/13/19 23:42 83 104/71 96 09/13/19 23:36 36.8 C 118 H 20 109/67 97 09/13/19 22:01 36.7 C 81 118/73 96 09/13/19 22:00 82 118/73 96 Intake and Output 09/14/19 09/14/19 09/14/19 05:59 13:59 21:59 Intake Total 150 250 150 Output Total 250 190 150 Balance -100 60 0 Intake: IV 250 150 Oral 150 Output: Urine Catheter Amount 250 190 150 Other: Meal Breakfast Percent of Meal Consumed 0% Urine Appearance Clear Clear Uretheral (Bundy) Clear Clear Clear Urine Color Dark Yellow Dark Yellow Uretheral (Bundy) Dark Yellow Dark Yellow Dark Yellow Straw Straw Stool Size Moderate Small Stool Color Brown Brown Stool Consistency Loose Liquid # of times incontinent of 1 1 Bowels Intake & Output: Intake & Output 09/14/19 09/14/19 09/14/19 05:59 13:59 21:59 Intake Total 150 250 150 Output Total 250 190 150 Balance -100 60 0 Intake: IV 250 150 Oral 150 Output: Urine Catheter Amount 250 190 150 Other: Meal Breakfast Percent of Meal Consumed 0% Urine Appearance Clear Clear Uretheral (Bundy) Clear Clear Clear Urine Color Dark Yellow Dark Yellow Uretheral (Bundy) Dark Yellow Dark Yellow Dark Yellow Straw Straw Stool Size Moderate Small Stool Color Brown Brown Stool Consistency Loose Liquid # of times incontinent of 1 1 Bowels - Lab 09/14/19 03:30 09/14/19 13:22 Most recent lab results Calcium 9.3 mg/dl (8.6-10.4) 09/14/19 03:30 Phosphorus 4.8 mg/dL (2.7-4.5) H 09/14/19 03:30 Magnesium 2.9 mg/dL (1.6-2.5) H 09/14/19 03:30 Microbiology 09/09/19 15:30 Peritoneal Fluid Gram Stain - Final 09/09/19 15:30 Peritoneal Fluid Body Fluid Culture - Final 09/06/19 09:58 Blood Blood Culture - Final 09/06/19 10:03 Blood Blood Culture - Final 09/05/19 06:12 Blood Blood Culture - Final Streptococcus pneumoniae 09/05/19 05:37 Blood Blood Culture - Final Streptococcus pneumoniae 09/09/19 15:18 Pleural Fluid Gram Stain - Final 09/09/19 15:18 Pleural Fluid Body Fluid Culture - Final 09/05/19 07:52 Peritoneal Fluid Gram Stain - Final 09/05/19 07:52 Peritoneal Fluid Body Fluid Culture - Final Streptococcus pneumoniae 09/06/19 18:35 Sputum - Expectorated Gram Stain - Final 09/06/19 18:35 Sputum - Expectorated Sputum Culture - Final 09/05/19 09:20 Nose - First MRSA (PCR) - Final Medications Active Medications: Acetaminophen (Tylenol) 650 mg PO Q4-6HP PRN; Protocol PRN Reason: Per Pain Protocol/Fever > 101 Last Admin: 09/11/19 11:53 Dose: 650 mg Documented by: [id number] Albuterol Sulfate (Ventolin) 1 puff INH Q4HP PRN PRN Reason: Shortness Of Breath Albuterol/Ipratropium (Duoneb) 3 ml NEB Q4HP PRN PRN Reason: Shortness Of Breath Last Admin: 09/08/19 08:55 Dose: 3 ml Documented by: [email or web address] Admin: 09/08/19 03:44 Dose: 3 ml Documented by: Admin: 09/07/19 21:04 Dose: 3 ml Documented by: Admin: 09/07/19 09:06 Dose: 3 ml Documented by: [email or web address] Admin: 09/06/19 20:16 Dose: 3 ml Documented by: Admin: 09/06/19 09:44 Dose: 3 ml Documented by: [email or web address] Ascorbic Acid (Vitamin C) 500 mg PO DAILY KAT Last Admin: 09/14/19 09:48 Dose: Not Given Documented by: [email or web address] Non-Admin Reason: NPO Admin: 09/13/19 11:03 Dose: Not Given Documented by: [email or web address] Non-Admin Reason: Patient Refused Admin: 09/12/19 09:41 Dose: 500 mg Documented by: Admin: 09/11/19 07:37 Dose: 500 mg Documented by: [email or web address] Admin: 09/10/19 13:12 Dose: 500 mg Documented by: AREN Comments: Late as pt refused this AM stating "Im too tired, maybe later" Admin: 09/09/19 11:08 Dose: Not Given Documented by: [email or web address] Non-Admin Reason: Patient Refused Admin: 09/08/19 09:20 Dose: Not Given Documented by: [id number] Non-Admin Reason: Clinical Judgement Bisacodyl (Dulcolax) 10 mg NV Q2-3DAYS PRN PRN Reason: Constipation Calcium Carbonate/Glycine (Tums) 500 mg CHEWED Q4HP PRN PRN Reason: Dyspepsia Diagnostic Test (Pha) (Accu-Chek) 1 each FS ACHS KAT Last Admin: 09/14/19 17:04 Dose: 1 each Documented by: [email or web address] Admin: 09/14/19 11:46 Dose: 1 each Documented by: [email or web address] Admin: 09/14/19 06:45 Dose: 1 each Documented by: [email or web address] Admin: 09/13/19 21:28 Dose: 1 each Documented by: [email or web address] Admin: 09/13/19 17:49 Dose: 1 each Documented by: [email or web address] Admin: 09/13/19 11:32 Dose: 1 each Documented by: [email or web address] Admin: 09/13/19 08:50 Dose: 1 each Documented by: [email or web address] Admin: 09/12/19 21:01 Dose: 1 each Documented by: [email or web address] Admin: 09/12/19 17:00 Dose: 1 each Documented by: Admin: 09/12/19 11:35 Dose: 1 each Documented by: Admin: 09/12/19 08:02 Dose: 1 each Documented by: Admin: 09/11/19 23:00 Dose: 1 each Documented by: [email or web address] Comments: no coverage given d/t not taking in oral diet at this time Admin: 09/11/19 20:55 Dose: 1 each Documented by: [email or web address] Admin: 09/11/19 17:02 Dose: 1 each Documented by: [id number] Admin: 09/11/19 11:54 Dose: 1 each Documented by: [id number] Admin: 09/11/19 07:24 Dose: 1 each Documented by: [email or web address] Admin: 09/10/19 21:28 Dose: 1 each Documented by: [email or web address] Admin: 09/10/19 17:12 Dose: 1 each Documented by: [email or web address] Comments: FSBG 306, pt has been taking intermittent bites of food and sips of soda, supplements throughout the day, not fasting Admin: 09/10/19 12:46 Dose: 1 each Documented by: Admin: 09/10/19 07:20 Dose: 1 each Documented by: Admin: 09/09/19 20:50 Dose: 1 each Documented by: Admin: 09/09/19 17:26 Dose: 1 each Documented by: Admin: 09/09/19 12:38 Dose: 1 each Documented by: Admin: 09/09/19 07:49 Dose: 1 each Documented by: Admin: 09/08/19 22:00 Dose: 1 each Documented by: Admin: 09/08/19 17:06 Dose: 1 each Documented by: Admin: 09/08/19 11:36 Dose: 1 each Documented by: Admin: 09/08/19 07:03 Dose: 1 each Documented by: Admin: 09/07/19 21:27 Dose: 1 each Documented by: Admin: 09/07/19 17:03 Dose: 1 each Documented by: Admin: 09/07/19 12:35 Dose: 1 each Documented by: Admin: 09/07/19 07:56 Dose: 1 each Documented by: Admin: 09/06/19 21:32 Dose: 1 each Documented by: Admin: 09/06/19 17:00 Dose: 1 each Documented by: Admin: 09/06/19 12:05 Dose: 1 each Documented by: Admin: 09/06/19 07:46 Dose: 1 each Documented by: Admin: 09/05/19 21:05 Dose: 1 each Documented by: Admin: 09/05/19 18:30 Dose: Not Given Documented by: [email or web address] Non-Admin Reason: NPO Admin: 09/05/19 12:05 Dose: 1 each Documented by: Admin: 09/05/19 10:49 Dose: 1 each Documented by: THELMA Docusate Sodium (Colace) 100 mg PO BID KAT Last Admin: 09/14/19 09:47 Dose: Not Given Documented by: [email or web address] Non-Admin Reason: NPO Admin: 09/13/19 21:22 Dose: Not Given Documented by: JOSE R Non-Admin Reason: Patient Refused Admin: 09/13/19 10:59 Dose: Not Given Documented by: [email or web address] Non-Admin Reason: Patient Refused Admin: 09/12/19 21:01 Dose: Not Given Documented by: [email or web address] Non-Admin Reason: Clinical Judgement Admin: 09/12/19 09:43 Dose: 100 mg Documented by: Admin: 09/11/19 20:56 Dose: Not Given Documented by: [email or web address] Non-Admin Reason: Patient Refused Admin: 09/11/19 07:37 Dose: 100 mg Documented by: [email or web address] Admin: 09/10/19 21:09 Dose: Not Given Documented by: JOSE R Non-Admin Reason: Patient Refused Admin: 09/10/19 13:13 Dose: 100 mg Documented by: AREN Comments: Late as pt refused this AM stating "Im too tired, maybe later". Unable to scan due to damaged barcode Admin: 09/09/19 20:52 Dose: Not Given Documented by: GREG Non-Admin Reason: Patient Refused Admin: 09/09/19 09:50 Dose: Not Given Documented by: AREN Non-Admin Reason: Loose Stool Admin: 09/08/19 21:40 Dose: 100 mg Documented by: Admin: 09/08/19 09:19 Dose: Not Given Documented by: [id number] Non-Admin Reason: LOC Admin: 09/07/19 21:27 Dose: 100 mg Documented by: Admin: 09/07/19 11:36 Dose: Not Given Documented by: [id number] Non-Admin Reason: Pt too drowsy Admin: 09/06/19 21:31 Dose: 100 mg Documented by: Admin: 09/06/19 09:39 Dose: 100 mg Documented by: [email or web address] Admin: 09/05/19 20:24 Dose: Not Given Documented by: GREG Non-Admin Reason: Patient Refused Admin: 09/05/19 10:40 Dose: 100 mg Documented by: THELMA Fluticasone Propionate (Flovent Hfa 220mcg) 2 puff INH BID KAT Last Admin: 09/14/19 09:48 Dose: Not Given Documented by: [email or web address] Non-Admin Reason: Decreased level of consciousness Admin: 09/13/19 21:22 Dose: Not Given Documented by: [email or web address] Non-Admin Reason: Unavailable Admin: 09/13/19 10:59 Dose: Not Given Documented by: [email or web address] Non-Admin Reason: Unavailable Admin: 09/12/19 21:01 Dose: Not Given Documented by: [email or web address] Non-Admin Reason: Unavailable Admin: 09/12/19 09:50 Dose: Not Given Documented by: [email or web address] Non-Admin Reason: Unavailable Admin: 09/11/19 20:56 Dose: Not Given Documented by: [email or web address] Non-Admin Reason: Unavailable Admin: 09/11/19 07:39 Dose: Not Given Documented by: [email or web address] Non-Admin Reason: Unavailable Admin: 09/10/19 21:11 Dose: Not Given Documented by: [email or web address] Non-Admin Reason: Unavailable Admin: 09/10/19 08:30 Dose: Not Given Documented by: AREN Non-Admin Reason: Unavailable Admin: 09/09/19 20:28 Dose: Not Given Documented by: GREG Non-Admin Reason: Unavailable Admin: 09/09/19 09:41 Dose: Not Given Documented by: AREN Non-Admin Reason: Unavailable Admin: 09/08/19 22:01 Dose: Not Given Documented by: [email or web address] Non-Admin Reason: Unavailable Admin: 09/08/19 09:19 Dose: Not Given Documented by: [email or web address] Non-Admin Reason: Clinical Judgement Admin: 09/07/19 20:40 Dose: Not Given Documented by: [email or web address] Non-Admin Reason: Unavailable Admin: 09/07/19 11:36 Dose: Not Given Documented by: [id number] Non-Admin Reason: Unavailable Admin: 09/06/19 22:04 Dose: Not Given Documented by: GREG Non-Admin Reason: Unavailable Folic Acid (Folic Acid) 1 mg PO DAILY KAT Last Admin: 09/14/19 09:48 Dose: Not Given Documented by: [email or web address] Non-Admin Reason: NPO Admin: 09/13/19 11:01 Dose: Not Given Documented by: [email or web address] Non-Admin Reason: Patient Refused Admin: 09/12/19 09:42 Dose: 1 mg Documented by: Admin: 09/11/19 07:37 Dose: 1 mg Documented by: [id number] Admin: 09/10/19 13:12 Dose: 1 mg Documented by: AREN Comments: Late as pt refused this AM stating "Im too tired, maybe later" Admin: 09/09/19 10:29 Dose: Not Given Documented by: AREN Non-Admin Reason: Patient Refused Admin: 09/08/19 09:19 Dose: Not Given Documented by: [email or web address] Non-Admin Reason: Clinical Judgement Admin: 09/07/19 11:36 Dose: Not Given Documented by: [email or web address] Non-Admin Reason: Too drowsy Admin: 09/06/19 09:38 Dose: 1 mg Documented by: [id number] Admin: 09/05/19 10:40 Dose: 1 mg Documented by: [email or web address] Glucose Oxid/Lactoperoxid/Muramidas (Biotene) 1 each TOPICAL PRN PRN PRN Reason: Dry Mouth Heparin Sodium (Porcine) (Heparin) 5,000 unit SQ Q12 KAT Last Admin: 09/14/19 10:11 Dose: 5,000 unit Documented by: [email or web address] Admin: 09/13/19 21:22 Dose: 5,000 unit Documented by: [email or web address] Admin: 09/13/19 10:53 Dose: 5,000 unit Documented by: [email or web address] Admin: 09/12/19 21:00 Dose: 5,000 unit Documented by: [email or web address] Admin: 09/12/19 09:43 Dose: 5,000 unit Documented by: Admin: 09/11/19 20:56 Dose: 5,000 unit Documented by: [email or web address] Admin: 09/11/19 07:37 Dose: 5,000 unit Documented by: [id number] Admin: 09/10/19 21:10 Dose: Not Given Documented by: JOSE R Non-Admin Reason: Patient Refused Admin: 09/10/19 10:24 Dose: Not Given Documented by: AREN Non-Admin Reason: Patient Refused Admin: 09/09/19 20:52 Dose: Not Given Documented by: GREG Non-Chon Reason: Patient Refused Admin: 09/09/19 10:29 Dose: Not Given Documented by: AREN Non-Admin Reason: Patient Refused Admin: 09/08/19 21:49 Dose: 5,000 unit Documented by: Admin: 09/08/19 08:35 Dose: 5,000 unit Documented by: [id number] Admin: 09/07/19 21:27 Dose: 5,000 unit Documented by: Admin: 09/07/19 10:15 Dose: 5,000 unit Documented by: [email or web address] Admin: 09/06/19 21:31 Dose: 5,000 unit Documented by: Admin: 09/06/19 09:38 Dose: 5,000 unit Documented by: [id number] Admin: 09/05/19 20:27 Dose: 5,000 unit Documented by: Admin: 09/05/19 10:38 Dose: 5,000 unit Documented by: THELMA Hydrocortisone Sodium Succinate (Solu-Cortef) 50 mg IV Q8 KAT Last Admin: 09/14/19 13:56 Dose: 50 mg Documented by: Admin: 09/14/19 10:42 Dose: 50 mg Documented by: THELMA Magnesium Sulfate (Magnesium Sulfate) 2 gm in 50 mls @ 50 mls/hr IV UD PRN PRN Reason: MG = or < 1.7 Last Infusion: 09/06/19 11:25 Dose: 0 mls/hr Documented by: [email or web address] Admin: 09/06/19 10:25 Dose: 50 mls/hr Documented by: [email or web address] Acetaminophen (Ofirmev) 500 mg in 50 mls @ 100 mls/hr IV Q6HP PRN; Protocol PRN Reason: PAIN/FEVER > 101 Last Infusion: 09/14/19 17:54 Dose: 0 mls/hr Documented by: Admin: 09/14/19 16:59 Dose: 100 mls/hr Documented by: Infusion: 09/14/19 12:39 Dose: 0 mls/hr Documented by: Admin: 09/14/19 11:30 Dose: 100 mls/hr Documented by: Infusion: 09/05/19 21:00 Dose: 0 mls/hr Documented by: Admin: 09/05/19 20:27 Dose: 100 mls/hr Documented by: GREG Ceftriaxone Sodium 2 gm/ (Dextrose) 50 mls @ 100 mls/hr IV DAILY KAT; Protocol Last Admin: 09/14/19 10:13 Dose: 100 mls/hr Documented by: Infusion: 09/13/19 11:30 Dose: 0 mls/hr Documented by: [email or web address] Admin: 09/13/19 10:56 Dose: 100 mls/hr Documented by: [email or web address] Infusion: 09/12/19 10:15 Dose: 0 mls/hr Documented by: Admin: 09/12/19 09:43 Dose: 100 mls/hr Documented by: Infusion: 09/11/19 09:15 Dose: 0 mls/hr Documented by: [id number] Admin: 09/11/19 08:43 Dose: 100 mls/hr Documented by: [id number] Infusion: 09/10/19 10:41 Dose: 0 mls/hr Documented by: Admin: 09/10/19 10:11 Dose: 100 mls/hr Documented by: Infusion: 09/09/19 11:30 Dose: 0 mls/hr Documented by: Admin: 09/09/19 11:00 Dose: 100 mls/hr Documented by: Infusion: 09/08/19 10:30 Dose: 0 mls/hr Documented by: Admin: 09/08/19 10:00 Dose: 100 mls/hr Documented by: [id number] Infusion: 09/07/19 10:40 Dose: 0 mls/hr Documented by: [id number] Admin: 09/07/19 10:10 Dose: 100 mls/hr Documented by: [email or web address] Norepinephrine Bitartrate 16 (mg/ Sodium Chloride) 250 mls @ 9.375 mls/hr IV Q24HP PRN; Protocol PRN Reason: TITRATE TO KEEP MAP > 65 Sodium Chloride (Sodium Chloride 0.9%) 1,000 mls @ 75 mls/hr IV .[id number] [facility] Last Admin: 09/14/19 11:30 Dose: 75 mls/hr Documented by: [email or web address] Insulin Glargine (Lantus) 10 unit SQ DAILY KAT Last Admin: 09/14/19 10:11 Dose: 10 units Documented by: [email or web address] Admin: 09/13/19 11:01 Dose: 10 units Documented by: [email or web address] Comments: family request Admin: 09/12/19 09:42 Dose: 10 units Documented by: Admin: 09/11/19 07:36 Dose: 10 units Documented by: [id number] Admin: 09/10/19 10:11 Dose: 10 units Documented by: Admin: 09/09/19 10:29 Dose: Not Given Documented by: [email or web address] Non-Admin Reason: Patient Refused Admin: 09/08/19 08:36 Dose: 10 units Documented by: [email or web address] Admin: 09/07/19 10:14 Dose: 10 units Documented by: [email or web address] Admin: 09/06/19 09:39 Dose: 10 units Documented by: [email or web address] Admin: 09/05/19 13:32 Dose: 10 units Documented by: [email or web address] Insulin Human Lispro (Humalog) 0 unit SQ ACHS [facility]; Protocol Last Admin: 09/14/19 17:06 Dose: 6 units Documented by: [email or web address] Admin: 09/14/19 12:31 Dose: Not Given Documented by: [email or web address] Non-Admin Reason: Clinical Judgement Admin: 09/14/19 08:04 Dose: 6 units Documented by: [email or web address] Admin: 09/13/19 21:28 Dose: 6 units Documented by: [email or web address] Admin: 09/13/19 17:50 Dose: 8 units Documented by: [email or web address] Admin: 09/13/19 11:32 Dose: 8 units Documented by: [email or web address] Admin: 09/13/19 08:50 Dose: Not Given Documented by: [email or web address] Non-Admin Reason: No Coverage Needed Admin: 09/12/19 21:01 Dose: 8 units Documented by: [email or web address] Admin: 09/12/19 16:43 Dose: 4 units Documented by: Admin: 09/12/19 11:38 Dose: 8 units Documented by: Admin: 09/12/19 08:05 Dose: 8 units Documented by: Admin: 09/11/19 20:56 Dose: 14 units Documented by: [email or web address] Admin: 09/11/19 17:06 Dose: 10 units Documented by: [email or web address] Admin: 09/11/19 12:01 Dose: 8 units Documented by: [id number] Admin: 09/11/19 07:37 Dose: 6 units Documented by: [id number] Admin: 09/10/19 21:28 Dose: 6 units Documented by: [email or web address] Admin: 09/10/19 17:14 Dose: 10 units Documented by: Admin: 09/10/19 12:46 Dose: Not Given Documented by: [email or web address] Non-Admin Reason: No Coverage Needed Admin: 09/10/19 07:20 Dose: Not Given Documented by: AREN Non-Admin Reason: No Coverage Needed Admin: 09/09/19 20:50 Dose: 6 units Documented by: Admin: 09/09/19 17:28 Dose: 6 units Documented by: Admin: 09/09/19 12:41 Dose: 6 units Documented by: Admin: 09/09/19 10:19 Dose: Not Given Documented by: AREN Non-Admin Reason: Patient Refused Admin: 09/08/19 22:07 Dose: 6 units Documented by: Admin: 09/08/19 17:11 Dose: 6 units Documented by: Admin: 09/08/19 12:19 Dose: 8 units Documented by: Admin: 09/08/19 08:35 Dose: 8 units Documented by: Admin: 09/07/19 21:28 Dose: Not Given Documented by: [email or web address] Non-Admin Reason: PT not eating Admin: 09/07/19 18:11 Dose: 6 units Documented by: Admin: 09/07/19 12:35 Dose: 6 units Documented by: Admin: 09/07/19 07:58 Dose: 4 units Documented by: Admin: 09/06/19 21:52 Dose: 6 units Documented by: Admin: 09/06/19 17:08 Dose: 10 units Documented by: [email or web address] Admin: 09/06/19 12:07 Dose: 2 units Documented by: [id number] Admin: 09/06/19 07:51 Dose: 6 units Documented by: Admin: 09/05/19 21:14 Dose: 8 units Documented by: Admin: 09/05/19 18:30 Dose: Not Given Documented by: [email or web address] Non-Admin Reason: NPO Admin: 09/05/19 10:57 Dose: 12 units Documented by: [email or web address] Iron Carb/Multivit/Noble/Folic Acid (Multivitamin W/Minerals) 1 tab PO DAILY KAT Last Admin: 09/14/19 09:48 Dose: Not Given Documented by: [email or web address] Non-Admin Reason: NPO Admin: 09/13/19 11:02 Dose: Not Given Documented by: [email or web address] Non-Admin Reason: Patient Refused Admin: 09/12/19 18:56 Dose: Not Given Documented by: [email or web address] Non-Admin Reason: Patient Refused Admin: 09/11/19 07:37 Dose: 1 tab Documented by: [id number] Admin: 09/10/19 13:12 Dose: 1 tab Documented by: AREN Comments: Late as pt refused this AM stating "Im too tired, maybe later" Admin: 09/09/19 10:30 Dose: Not Given Documented by: AREN Non-Admin Reason: Patient Refused Admin: 09/08/19 09:20 Dose: Not Given Documented by: [id number] Non-Admin Reason: Clinical Judgement Admin: 09/07/19 11:37 Dose: Not Given Documented by: [id number] Non-Admin Reason: Too drowsy Admin: 09/06/19 09:38 Dose: 1 tab Documented by: [id number] Admin: 09/05/19 10:40 Dose: 1 tab Documented by: [email or web address] Lactulose (Cephulac) 30 gm PO QID KAT Last Admin: 09/14/19 16:37 Dose: Not Given Documented by: [email or web address] Non-Admin Reason: Duplicate Admin: 09/14/19 13:58 Dose: Not Given Documented by: [email or web address] Non-Admin Reason: Duplicate Admin: 09/14/19 09:47 Dose: Not Given Documented by: [email or web address] Non-Admin Reason: NPO Admin: 09/13/19 21:23 Dose: Not Given Documented by: [email or web address] Non-Admin Reason: Patient Refused Admin: 09/13/19 17:51 Dose: 30 gm Documented by: [email or web address] Admin: 09/13/19 14:38 Dose: 30 gm Documented by: [email or web address] Admin: 09/13/19 10:54 Dose: 30 gm Documented by: [email or web address] Admin: 09/12/19 23:53 Dose: 30 gm Documented by: [email or web address] Comments: dtr here and requesting to give pt this medication that she refused earlier Admin: 09/12/19 21:02 Dose: Not Given Documented by: [email or web address] Non-Admin Reason: Patient Refused Admin: 09/12/19 16:44 Dose: Not Given Documented by: [email or web address] Non-Admin Reason: Patient Refused Admin: 09/12/19 13:57 Dose: Not Given Documented by: [email or web address] Non-Admin Reason: Patient Refused Admin: 09/12/19 09:42 Dose: 30 gm Documented by: Admin: 09/11/19 20:56 Dose: 30 gm Documented by: [email or web address] Admin: 09/11/19 16:55 Dose: 30 gm Documented by: [id number] Admin: 09/11/19 11:53 Dose: 30 gm Documented by: [email or web address] Admin: 09/11/19 07:36 Dose: 30 gm Documented by: [email or web address] Admin: 09/10/19 21:11 Dose: Not Given Documented by: [email or web address] Non-Admin Reason: Patient Refused Admin: 09/10/19 17:14 Dose: Not Given Documented by: AREN Non-Admin Reason: Pt still working on drinking afternoon dose Admin: 09/10/19 14:32 Dose: 30 gm Documented by: Admin: 09/10/19 10:11 Dose: 30 gm Documented by: Admin: 09/09/19 20:52 Dose: Not Given Documented by: GREG Non-Chon Reason: Patient Refused Admin: 09/09/19 19:18 Dose: Not Given Documented by: GREG Non-Admin Reason: Patient Refused Admin: 09/09/19 14:09 Dose: Not Given Documented by: AREN Non-Admin Reason: Patient Refused Admin: 09/09/19 10:29 Dose: Not Given Documented by: AREN Non-Admin Reason: Patient Refused Admin: 09/08/19 22:00 Dose: Not Given Documented by: [email or web address] Non-Admin Reason: Patient Refused Admin: 09/08/19 15:13 Dose: 30 gm Documented by: [id number] Admin: 09/08/19 15:13 Dose: Not Given Documented by: [email or web address] Non-Admin Reason: Clinical Judgement Admin: 09/08/19 08:35 Dose: 30 gm Documented by: [email or web address] Admin: 09/07/19 20:40 Dose: Not Given Documented by: [email or web address] Non-Admin Reason: Patient Refused Admin: 09/07/19 17:30 Dose: Not Given Documented by: [email or web address] Non-Admin Reason: Nausea Admin: 09/07/19 13:13 Dose: 30 gm Documented by: [id number] Lactulose (Cephulac) 200 gm NV QID KAT Last Admin: 09/14/19 16:24 Dose: Not Given Documented by: [email or web address] Non-Admin Reason: Clinical Judgement Admin: 09/14/19 13:56 Dose: 200 gm Documented by: [email or web address] Admin: 09/14/19 10:10 Dose: 200 gm Documented by: [email or web address] Levothyroxine Sodium (Synthroid) 125 mcg PO ACB [facility] Last Admin: 09/14/19 06:44 Dose: 125 mcg Documented by: [email or web address] Admin: 09/13/19 08:50 Dose: 125 mcg Documented by: [email or web address] Admin: 09/12/19 08:06 Dose: 125 mcg Documented by: [email or web address] Admin: 09/11/19 07:24 Dose: 125 mcg Documented by: [id number] Admin: 09/10/19 10:10 Dose: 125 mcg Documented by: Admin: 09/09/19 07:49 Dose: 125 mcg Documented by: Admin: 09/08/19 08:35 Dose: 125 mcg Documented by: [id number] Admin: 09/07/19 07:58 Dose: 125 mcg Documented by: [id number] Melatonin (Melatonin 3mg Tablet) 3 mg PO HSP PRN PRN Reason: Insomnia Last Admin: 09/07/19 21:32 Dose: 3 mg Documented by: [email or web address] Metoclopramide HCl (Reglan) 5 mg IV Q3HP PRN PRN Reason: nausea/vomiting Mupirocin (Bactroban Oint 2%) 1 dose TOPICAL TID [facility] Last Admin: 09/14/19 14:40 Dose: 1 dose Documented by: [email or web address] Admin: 09/14/19 10:10 Dose: 1 dose Documented by: [email or web address] Admin: 09/13/19 21:23 Dose: 1 dose Documented by: [email or web address] Admin: 09/13/19 15:26 Dose: 1 dose Documented by: [email or web address] Admin: 09/13/19 10:56 Dose: 1 dose Documented by: [email or web address] Admin: 09/12/19 21:24 Dose: 1 dose Documented by: [email or web address] Admin: 09/12/19 14:30 Dose: 1 dose Documented by: Admin: 09/12/19 09:41 Dose: 1 dose Documented by: Admin: 09/11/19 22:33 Dose: 1 dose Documented by: [email or web address] Admin: 09/11/19 13:43 Dose: 1 dose Documented by: [email or web address] Admin: 09/11/19 07:40 Dose: 1 dose Documented by: [email or web address] Admin: 09/10/19 21:03 Dose: 1 dose Documented by: [email or web address] Admin: 09/10/19 15:17 Dose: 1 dose Documented by: Admin: 09/10/19 08:17 Dose: 1 dose Documented by: Admin: 09/09/19 20:52 Dose: Not Given Documented by: [email or web address] Non-Admin Reason: Patient Refused Admin: 09/09/19 16:06 Dose: 1 dose Documented by: [email or web address] Comments: unable to scan, barcode damaged Admin: 09/09/19 10:29 Dose: Not Given Documented by: AREN Non-Admin Reason: Patient Refused Admin: 09/08/19 22:03 Dose: 1 dose Documented by: Admin: 09/08/19 15:48 Dose: 1 dose Documented by: [email or web address] Admin: 09/08/19 10:00 Dose: 1 dose Documented by: [email or web address] Admin: 09/07/19 21:26 Dose: 1 dose Documented by: [email or web address] Omeprazole (Prilosec) 20 mg PO ACB KAT Last Admin: 09/14/19 06:44 Dose: 20 mg Documented by: [email or web address] Admin: 09/13/19 08:50 Dose: 20 mg Documented by: [email or web address] Admin: 09/12/19 08:06 Dose: 20 mg Documented by: Admin: 09/11/19 07:24 Dose: 20 mg Documented by: [email or web address] Admin: 09/10/19 10:10 Dose: 20 mg Documented by: Admin: 09/09/19 07:49 Dose: 20 mg Documented by: Admin: 09/08/19 08:35 Dose: 20 mg Documented by: [email or web address] Admin: 09/07/19 07:58 Dose: 20 mg Documented by: [id number] Admin: 09/06/19 09:38 Dose: 20 mg Documented by: [id number] Ondansetron HCl (Zofran Odt) 4 mg SL Q4-6HP PRN; Protocol PRN Reason: Nausea And Vomiting Last Admin: 09/11/19 07:49 Dose: 4 mg Documented by: [email or web address] Admin: 09/10/19 10:24 Dose: 4 mg Documented by: Admin: 09/05/19 23:10 Dose: 4 mg Documented by: Admin: 09/05/19 12:15 Dose: 4 mg Documented by: [email or web address] Ondansetron HCl (Zofran) 4 mg IV Q4-6HP PRN; Protocol PRN Reason: Nausea And Vomiting Last Admin: 09/07/19 17:03 Dose: 4 mg Documented by: [id number] Polyethylene Glycol (Miralax) 17 gm PO DAILYP PRN PRN Reason: Constipation Potassium Chloride (Klor-Con) 40 meq PO DAILYP PRN PRN Reason: K+ < 3.5 Salmeterol Xinafoate (Serevent) 1 puff INH BID KAT Last Admin: 09/14/19 09:48 Dose: Not Given Documented by: [email or web address] Non-Admin Reason: NPO Admin: 09/13/19 21:24 Dose: Not Given Documented by: JOSE R Non-Admin Reason: Unavailable Admin: 09/13/19 11:03 Dose: Not Given Documented by: [email or web address] Non-Admin Reason: Unavailable Admin: 09/12/19 21:00 Dose: Not Given Documented by: ARIEL Non-Admin Reason: Unavailable Admin: 09/12/19 09:51 Dose: Not Given Documented by: [email or web address] Non-Admin Reason: Unavailable Admin: 09/11/19 20:57 Dose: Not Given Documented by: AIREL Non-Admin Reason: Unavailable Admin: 09/11/19 07:39 Dose: Not Given Documented by: [email or web address] Non-Admin Reason: Unavailable Admin: 09/10/19 21:11 Dose: Not Given Documented by: JOSE R Non-Admin Reason: Unavailable Admin: 09/10/19 08:30 Dose: Not Given Documented by: AREN Non-Admin Reason: Unavailable Admin: 09/09/19 20:28 Dose: Not Given Documented by: GREG Non-Chon Reason: Unavailable Admin: 09/09/19 09:41 Dose: Not Given Documented by: AREN Non-Admin Reason: Unavailable Admin: 09/08/19 22:01 Dose: Not Given Documented by: [email or web address] Non-Admin Reason: Unavailable Admin: 09/08/19 09:20 Dose: Not Given Documented by: [email or web address] Non-Admin Reason: Unavailable Admin: 09/07/19 20:41 Dose: Not Given Documented by: [email or web address] Non-Admin Reason: Unavailable Admin: 09/07/19 11:37 Dose: Not Given Documented by: [email or web address] Non-Admin Reason: Unavailable Admin: 09/06/19 22:04 Dose: Not Given Documented by: GREG Rice-Chon Reason: Unavailable Senna/Docusate Sodium (Senna Plus Tablet) 1 tab PO HS [facility] Last Admin: 09/13/19 21:24 Dose: Not Given Documented by: JOSE R Non-Admin Reason: Patient Refused Admin: 09/12/19 21:00 Dose: Not Given Documented by: ARIEL Non-Admin Reason: Clinical Judgement Admin: 09/11/19 20:54 Dose: 1 tab Documented by: Admin: 09/10/19 21:14 Dose: Not Given Documented by: JOSE R Non-Admin Reason: Patient Refused Admin: 09/09/19 20:52 Dose: Not Given Documented by: GREG Non-Admin Reason: Patient Refused Admin: 09/08/19 21:40 Dose: 1 tab Documented by: Admin: 09/07/19 21:27 Dose: 1 tab Documented by: Admin: 09/06/19 21:32 Dose: 1 tab Documented by: Admin: 09/05/19 20:24 Dose: Not Given Documented by: GREG Non-Chon Reason: Patient Refused Sodium Chloride (Saline Flush) 10 ml IV Q8 [facility] Last Admin: 09/14/19 13:57 Dose: 10 ml Documented by: [email or web address] Admin: 09/14/19 05:12 Dose: 10 ml Documented by: JOSE R Admin: 09/13/19 21:24 Dose: 10 ml Documented by: JOSE R Admin: 09/13/19 14:43 Dose: 10 ml Documented by: [email or web address] Admin: 09/13/19 09:21 Dose: 10 ml Documented by: [email or web address] Admin: 09/12/19 21:02 Dose: 10 ml Documented by: Admin: 09/12/19 14:30 Dose: 10 ml Documented by: Admin: 09/12/19 09:43 Dose: 10 ml Documented by: Admin: 09/12/19 05:56 Dose: 10 ml Documented by: Admin: 09/11/19 20:58 Dose: 10 ml Documented by: [email or web address] Admin: 09/11/19 12:02 Dose: 10 ml Documented by: [email or web address] Admin: 09/11/19 05:46 Dose: 10 ml Documented by: JOSE R Admin: 09/10/19 21:39 Dose: 10 ml Documented by: JOSE R Admin: 09/10/19 14:32 Dose: 10 ml Documented by: Admin: 09/10/19 10:11 Dose: 10 ml Documented by: Admin: 09/10/19 07:19 Dose: 10 ml Documented by: Admin: 09/09/19 20:52 Dose: 10 ml Documented by: Admin: 09/09/19 14:32 Dose: 10 ml Documented by: Admin: 09/09/19 04:17 Dose: 10 ml Documented by: Admin: 09/08/19 22:00 Dose: 10 ml Documented by: Admin: 09/08/19 15:13 Dose: 10 ml Documented by: Admin: 09/08/19 07:09 Dose: 10 ml Documented by: Admin: 09/07/19 21:28 Dose: 10 ml Documented by: Admin: 09/07/19 13:14 Dose: 10 ml Documented by: Admin: 09/07/19 05:20 Dose: 10 ml Documented by: Admin: 09/06/19 21:33 Dose: 10 ml Documented by: Admin: 09/06/19 13:29 Dose: Not Given Documented by: [email or web address] Non-Admin Reason: Continuous IV Admin: 09/06/19 05:49 Dose: 10 ml Documented by: Admin: 09/05/19 21:15 Dose: 10 ml Documented by: Admin: 09/05/19 13:32 Dose: 10 ml Documented by: [email or web address] Spironolactone (Aldactone) 100 mg PO BID KAT Last Admin: 09/14/19 09:47 Dose: Not Given Documented by: [email or web address] Non-Admin Reason: Pt NPO Admin: 09/13/19 21:23 Dose: Not Given Documented by: JOSE R Non-Admin Reason: Patient Refused Admin: 09/13/19 10:53 Dose: 100 mg Documented by: [email or web address] Admin: 09/12/19 20:59 Dose: 100 mg Documented by: [email or web address] Admin: 09/12/19 09:41 Dose: 100 mg Documented by: Admin: 09/11/19 20:54 Dose: 100 mg Documented by: [email or web address] Admin: 09/11/19 07:37 Dose: 100 mg Documented by: [email or web address] Admin: 09/10/19 21:18 Dose: Not Given Documented by: [email or web address] Non-Admin Reason: pt spit out 2 tablets, returned 2 tablets Admin: 09/10/19 10:11 Dose: 100 mg Documented by: Admin: 09/09/19 20:52 Dose: Not Given Documented by: GREG Non-Admin Reason: Patient Refused Admin: 09/09/19 10:29 Dose: Not Given Documented by: AREN Non-Admin Reason: Patient Refused Admin: 09/08/19 21:41 Dose: 100 mg Documented by: Admin: 09/08/19 08:35 Dose: 100 mg Documented by: [email or web address] Admin: 09/07/19 21:27 Dose: 100 mg Documented by: Admin: 09/07/19 10:16 Dose: 100 mg Documented by: [email or web address] Thiamine HCl (Vitamin B1) 100 mg PO DAILY KAT Last Admin: 09/14/19 09:48 Dose: Not Given Documented by: [email or web address] Non-Admin Reason: NPO Admin: 09/13/19 11:03 Dose: Not Given Documented by: [email or web address] Non-Admin Reason: Patient Refused Admin: 09/12/19 09:42 Dose: 100 mg Documented by: Admin: 09/11/19 07:37 Dose: 100 mg Documented by: [email or web address] Admin: 09/10/19 13:11 Dose: 100 mg Documented by: AREN Comments: Late as pt refused this AM stating "Im too tired, maybe later" Admin: 09/09/19 11:07 Dose: Not Given Documented by: AREN Non-Admin Reason: Patient Refused Admin: 09/08/19 09:20 Dose: Not Given Documented by: [id number] Non-Admin Reason: Clinical Judgement Admin: 09/07/19 12:35 Dose: Not Given Documented by: [email or web address] Non-Admin Reason: Unavailable Admin: 09/06/19 09:38 Dose: 100 mg Documented by: [email or web address] Admin: 09/05/19 10:40 Dose: 100 mg Documented by: [email or web address] Vitamin D (Vitamin D3) 400 unit PO DAILY KAT Last Admin: 09/14/19 09:48 Dose: Not Given Documented by: [email or web address] Non-Admin Reason: NPO Admin: 09/13/19 11:03 Dose: Not Given Documented by: [email or web address] Non-Admin Reason: Patient Refused Admin: 09/12/19 09:50 Dose: 400 unit Documented by: Admin: 09/11/19 07:48 Dose: 400 unit Documented by: [email or web address] Admin: 09/10/19 13:12 Dose: 400 unit Documented by: AREN Comments: Late as pt refused this AM stating "Im too tired, maybe later" Admin: 09/09/19 11:08 Dose: Not Given Documented by: [email or web address] Non-Admin Reason: Patient Refused Admin: 09/08/19 09:20 Dose: Not Given Documented by: [email or web address] Non-Admin Reason: Clinical Judgement Assessment and Plan - Narrative A/P Narrative: A: 1. Streptococcus pneumoniae bacteremia: sens to Ceftriaxone - sec to seeding from spontaneous bacterial peritonitis - repeat blood Cx neg since 09/06 2. SBP: based on increased PMNs (> 250), clinical s/s, peritoneal fluid Cx growing Strept pneumoniae - sec to (3) - pt was not on antibiotic prophylaxis at admission. She meets criteria for being on chronic antibiotic prophylaxis for prevention of SBP - CT s/o large amount of ascitic fluid - repeat paracentesis 09/09 showed marked improvement in peritoneal fluid cell count with about ~ 900 WBC and 79% PMNs (= 711 PMNs). Cx NGTD 3. 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 Failure to thrive: sec to severe ascites, cirrhosis Overall poor prognosis, and high risk for mortality due to malnutrition, ongoing poor PO intake, metabolic derangements due to liver and kidney failure Recommendations: - Continue IV Ceftriaxone 2 gm q24 hrs, day 7/10 - will switch to low dose Ciprofloxacin 500 mg as antibiotic prophylaxis for SBP prevention after completion of IV therapy for bacteremia - continue PO Rifaximin 550 mg bid for hepatic encephalopathy - HOB elevated at all times, given high aspiration risk - if family decides comfort care, all antibiotics could be stopped will follow Poncho Serrano MD Infectious diseases
--- NOTE | 2019-09-14 20:58 | Internal Med Progress Note ---
Medical - PN: Subj Patient information: Note initiated : 09/14/19 at 8:56 pm Service Date, if different from initiated Date: [] Patient: Clare Sheehan a 69 y/o F admitted on 09/05/19 for altered level consciousness. Chief Complaint: [] Interval history: Ms. 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 Symptoms have been progressing over the last couple of days and patient unable to think clearly. She c/o 7/10 abdominal pain and was noted to have a fever. Over the last couple of days she has not been able to function and essentially laying on the bed. Initial work-up in the ER was consistent with severe sepsis along with findings suggestive of SBP and basilar pneumonia on imaging. Blood cultures pending, elevated lactate at 3.3. Creatinine 1.7 up from baseline 1.3. Patient underwent 6 L paracentesis results of which are awaited. Subsequently hospitalist service consulted after patient received antibiotics At the time evaluation patient is very lethargic and fatigued. Unable to provide a detailed history. Endorses to symptoms as above including fever abdominal pain and weakness. No family members present. Most of the history was obtained from review of medical records and from ER physician. 09/06-GNR on blood cultures/GPC on 1 culture and ascitic fluid Gram stain. Discussed with ID. Antibiotics changed to vancomycin/cefepime. Clinically improving. Lactic acid downtrending from 3.9-1.9. White count 12.2, creatinine down from 1.7-1.3. On Levophed to keep map at goal. Confirmed SBP with over 14,000 white cells in the sciatic fluid with gram-positive cocci in culture. Remains critically ill. Sister at bedside. Discussed prognosis and treatment plan. Repeat surveillance cultures today. 09/07-peritoneal fluid heavy growth alpha streptococci. On antibiotic coverage. ID consulted. Patient off pressors since yesterday. Remains critically ill. Feels lethargic fatigued. Tense, tender and distended abdomen with reaccumulation of ascites. No family at bedside. Remains a poor prognosis and high risk mortality in the setting of liver cirrhosis/sepsis bacteremia and spontaneous bacterial enteritis 09/08-Streptococcus pneumonia on final cultures. Once Rocephin per ID. CT abdomen chest pelvis as per ID recommendations to rule out secondary focus for Streptococcus pneumonia bacteremia including pneumonia and also HCC. Very lethargic this morning. White count at 11,000. Creatinine 1.2. Start lactulose retention enemas. Consider rifaximin. Will repeat paracentesis in 24 -48 hours 09/09-patient antibiotic coverage as per ID. Clinically deteriorating. Worsening ascites. Paracentesis today. Discussed with patient poor prognosis based on meld score/progressive deterioration despite aggressive intervention. Patient desired her wish to be a DNR. Daughter present during patient's decision and endorsed to her mother's wishes. Await repeat paracentesis results. ID on board. 09/10-worsening white count. 9 L paracentesis. WBC down to 900 from 14,000. On antibiotic coverage per ID. Patient's mentation has been fluctuating. Intermittently able to take oral lactulose/rifaximin however poor nutritional status. Overall deterioration noted in the last 48 hours. Family aware of poor prognosis. Patient now a DNR. High probability during this hospita lization unless patient shows substantial recovery over the next few days. 09/11-white count 18.4 with neutrophil predominance. Sodium 125, creatinine 1.2. No overnight fever chills, daughter at bedside. Discussed clinical status and high risk mortality based on deteriorating status with patient and daughter in the presence of nursing staff and ID doctor. Patient intermittently refusing treatment along with medications. Otherwise no other concerns per staff. Patient responds to command but intermittently confused. Remains a DNR. It appears that patient realizes her grim situation and has been intermittently refusing treatments. We will continue further family discussions to explore patient's and family's wishes including palliation and comfort care. 09/12-patient overall status unchanged. White count 19.3, sodium 134, creatinine 1.4. High risk by renal. Status post paracentesis x2 and protocol albumin infusion. Systolics at goal and off pressors. Continue adequate nutri tion support/rifaximin/lactulose. Remains in overall high risk mortality based on meld score and overall status. Family and patient both aware. Currently DNR. Anticipate transfer to medical floor in the next 24 hours if renal function improves and systolics at goal. Continue adequate nutritional support/PT OT as tolerated 1215-patient overall status unchanged-she remains confused and drowsy occasionally wakes up she is not taking any lactulose she is constipated she is on multiple narcotics and muscle relaxant. Discussed with the family and if we how to reassess her mental status all the pain medication needs to be off of the system and she needs to have a bowel movement and we ordered a lactulose retention enema and continue p.o. lactulose and rifaximin. Continue ceftriaxone 2 g daily. Then we will reassess her in the next 1 to 2 days. According to the family she was alert oriented and was able to move and do her own things 2 weeks ago and this is totally different. Discussed with the daughter and patient's sister 09/14-discussed with the patient's daughter and other family members who were in the room also discussed with the patient's other daughter Leila yesterday over the phone. Patient is not progressing well she has very poor prognosis with a meld score of more than 20 and child score with a mortality 45%. Explained to the family about the poor prognosis and family wants to continue the treatment for another day and tomorrow we arranged a family meeting to decide further there is no power of managing attorney but patient expressed she does not want any treatment to Dr. Blum and to our social service. This is reiterated by the family members as well. We will discussed with the patient's daughter and will try to contact the patient's elder son who is not in contact with the patient for the last 25 years. If the patient is not improving family planning to change her goal of care to comfort care measures. We will increase her lactulose retention enema every 6 hourly, will not use any narcotics for now. Pertinent ROS: Review of systems unable to obtain due to mental status - Constitutional Vitals: Vital Signs Temp Pulse Resp BP Pulse Ox 96.7 F L 76 22 101/64 100 09/14/19 16:00 09/14/19 17:01 09/14/19 08:01 09/14/19 17:01 09/14/19 17:01 Period Temp Pulse Resp BP Sys/Will Pulse Ox Last 24 Hr 96.7 F-98.3 F 70-118 15-26 69-128/44-108 94-100 Intake and Output 09/14/19 09/14/19 09/14/19 05:59 13:59 21:59 Intake Total 150 250 150 Output Total 250 190 150 Balance -100 60 0 Intake & Output: Intake & Output 09/14/19 09/14/19 09/14/19 05:59 13:59 21:59 Intake Total 150 250 150 Output Total 250 190 150 Balance -100 60 0 Intake: IV 250 150 Oral 150 Output: Urine Catheter Amount 250 190 150 Other: Meal Breakfast Percent of Meal Consumed 0% Urine Appearance Clear Clear Uretheral (Bundy) Clear Clear Clear Urine Color Dark Yellow Dark Yellow Uretheral (Bundy) Dark Yellow Dark Yellow Dark Yellow Straw Straw Stool Size Moderate Small Stool Color Brown Brown Stool Consistency Loose Liquid # of times incontinent of 1 1 Bowels - Head Head exam: Present: atraumatic, normocephalic - Eye Eye exam: Present: conjunctival injection, scleral icterus. Absent: normal appearance - ENT ENT exam: Present: mucous membranes dry. Absent: normal exam - Neck Neck exam: Absent: lymphadenopathy, meningismus, tenderness - Respiratory Respiratory exam: Present: decreased breath sounds. Absent: accessory muscle use, chest wall tenderness, respiratory distress - GI/Abdominal GI/Abdominal exam: Present: normal bowel sounds, distended - Neurological Exam Neurological exam: Present: motor sensory deficit. Absent: alert, oriented X3, reflexes normal Medical - PN: Obj Da - Labs CBC & Chem 7: 09/14/19 03:30 09/14/19 13:22 Labs: Abnormal Lab Results 09/14/19 09/14/19 09/14/19 13:22 03:30 03:30 WBC 19.6 H Hgb RDW 17.5 H Gran % Lymph % (Auto) Gran # Lymph # (Auto) Seg Neutrophils % 94 H Band Neutrophils % Lymphocytes % 5 L Metamyelocytes % WBC Morphology Abnorm A Toxic Granulation 1+ A RBC Morphology Abnorm A Polychromasia 1+ A Anisocytosis 1+ A Sodium 127 L 126 L Potassium 5.7 H Chloride 94 L 95 L Carbon Dioxide 17 L 16 L BUN 76 H 72 H Creatinine 1.6 H 1.7 H Glucose 215 H 154 H Uric Acid 15.1 H Phosphorus 4.8 H Magnesium 2.9 H Albumin 2.5 L Globulin 5.9 H Albumin/Globulin Ratio 0.4 L 09/13/19 09/13/19 09/12/19 04:05 04:05 04:15 WBC 19.7 H Hgb 11.8 L RDW 17.3 H Gran % Lymph % (Auto) Gran # Lymph # (Auto) Seg Neutrophils % 79 H Band Neutrophils % 11 H Lymphocytes % 4 L Metamyelocytes % 2 H WBC Morphology Toxic Granulation RBC Morphology Abnorm A Polychromasia 1+ A Anisocytosis 1+ A Sodium 123 L 124 L Potassium 5.3 H Chloride 91 L 93 L Carbon Dioxide 18 L 16 L BUN 66 H 56 H Creatinine 1.6 H 1.4 H Glucose 246 H 242 H Uric Acid 13.1 H 11.2 H Phosphorus 4.8 H Magnesium 2.8 H 2.6 H Albumin 2.7 L 2.7 L Globulin 5.1 H 4.8 H Albumin/Globulin Ratio 0.5 L 0.6 L 09/12/19 04:15 WBC 19.3 H Hgb RDW 17.3 H Gran % 93.5 H Lymph % (Auto) 1.2 L Gran # 18.0 H Lymph # (Auto) 0.2 L Seg Neutrophils % Band Neutrophils % Lymphocytes % Metamyelocytes % WBC Morphology Toxic Granulation RBC Morphology Polychromasia Anisocytosis Sodium Potassium Chloride Carbon Dioxide BUN Creatinine Glucose Uric Acid Phosphorus Magnesium Albumin Globulin Albumin/Globulin Ratio Meds: Medications Acetaminophen (Tylenol) 650 mg PO Q4-6HP PRN; Protocol PRN Reason: Per Pain Protocol/Fever > 101 Last Admin: 09/11/19 11:53 Dose: 650 mg Documented by: Albuterol Sulfate (Ventolin) 1 puff INH Q4HP PRN PRN Reason: Shortness Of Breath Albuterol/Ipratropium (Duoneb) 3 ml NEB Q4HP PRN PRN Reason: Shortness Of Breath Last Admin: 09/08/19 08:55 Dose: 3 ml Documented by: Ascorbic Acid (Vitamin C) 500 mg PO DAILY [facility] Last Admin: 09/14/19 09:48 Dose: Not Given Documented by: Bisacodyl (Dulcolax) 10 mg NM Q2-3DAYS PRN PRN Reason: Constipation Calcium Carbonate/Glycine (Tums) 500 mg CHEWED Q4HP PRN PRN Reason: Dyspepsia Diagnostic Test (Pha) (Accu-Chek) 1 each FS ACHS [facility] Last Admin: 09/14/19 17:04 Dose: 1 each Documented by: Docusate Sodium (Colace) 100 mg PO BID [facility] Last Admin: 09/14/19 09:47 Dose: Not Given Documented by: Fluticasone Propionate (Flovent Hfa 220mcg) 2 puff INH BID KAT Last Admin: 09/14/19 09:48 Dose: Not Given Documented by: Folic Acid (Folic Acid) 1 mg PO DAILY [facility] Last Admin: 09/14/19 09:48 Dose: Not Given Documented by: Glucose Oxid/Lactoperoxid/Muramidas (Biotene) 1 each TOPICAL PRN PRN PRN Reason: Dry Mouth Heparin Sodium (Porcine) (Heparin) 5,000 unit SQ Q12 [facility] Last Admin: 09/14/19 10:11 Dose: 5,000 unit Documented by: Hydrocortisone Sodium Succinate (Solu-Cortef) 50 mg IV Q8 [facility] Last Admin: 09/14/19 13:56 Dose: 50 mg Documented by: Magnesium Sulfate (Magnesium Sulfate) 2 gm in 50 mls @ 50 mls/hr IV UD PRN PRN Reason: MG = or < 1.7 Last Infusion: 09/06/19 11:25 Dose: Infused Documented by: Acetaminophen (Ofirmev) 500 mg in 50 mls @ 100 mls/hr IV Q6HP PRN; Protocol PRN Reason: PAIN/FEVER > 101 Last Infusion: 09/14/19 17:54 Dose: Infused Documented by: Ceftriaxone Sodium 2 gm/ (Dextrose) 50 mls @ 100 mls/hr IV DAILY [facility]; Protocol Last Admin: 09/14/19 10:13 Dose: 100 mls/hr Documented by: Norepinephrine Bitartrate 16 (mg/ Sodium Chloride) 250 mls @ 9.375 mls/hr IV Q24HP PRN; Protocol PRN Reason: TITRATE TO KEEP MAP > 65 Sodium Chloride (Sodium Chloride 0.9%) 1,000 mls @ 75 mls/hr IV .[id number] [facility] Last Admin: 09/14/19 11:30 Dose: 75 mls/hr Documented by: Insulin Glargine (Lantus) 10 unit SQ DAILY [facility] Last Admin: 09/14/19 10:11 Dose: 10 units Documented by: Insulin Human Lispro (Humalog) 0 unit SQ ACHS [facility]; Protocol Last Admin: 09/14/19 17:06 Dose: 6 units Documented by: Iron Carb/Multivit/Abstract Manager/Folic Acid (Multivitamin W/Minerals) 1 tab PO DAILY [facility] Last Admin: 09/14/19 09:48 Dose: Not Given Documented by: Lactulose (Cephulac) 30 gm PO QID [facility] Last Admin: 09/14/19 16:37 Dose: Not Given Documented by: Lactulose (Cephulac) 200 gm NM QID [facility] Last Admin: 09/14/19 16:24 Dose: Not Given Documented by: Levothyroxine Sodium (Synthroid) 125 mcg PO ACB [facility] Last Admin: 09/14/19 06:44 Dose: 125 mcg Documented by: Melatonin (Melatonin 3mg Tablet) 3 mg PO HSP PRN PRN Reason: Insomnia Last Admin: 09/07/19 21:32 Dose: 3 mg Documented by: Metoclopramide HCl (Reglan) 5 mg IV Q3HP PRN PRN Reason: nausea/vomiting Mupirocin (Bactroban Oint 2%) 1 dose TOPICAL TID [facility] Last Admin: 09/14/19 14:40 Dose: 1 dose Documented by: Omeprazole (Prilosec) 20 mg PO ACB [facility] Last Admin: 09/14/19 06:44 Dose: 20 mg Documented by: Ondansetron HCl (Zofran Odt) 4 mg SL Q4-6HP PRN; Protocol PRN Reason: Nausea And Vomiting Last Admin: 09/11/19 07:49 Dose: 4 mg Documented by: Ondansetron HCl (Zofran) 4 mg IV Q4-6HP PRN; Protocol PRN Reason: Nausea And Vomiting Last Admin: 09/07/19 17:03 Dose: 4 mg Documented by: Polyethylene Glycol (Miralax) 17 gm PO DAILYP PRN PRN Reason: Constipation Potassium Chloride (Klor-Con) 40 meq PO DAILYP PRN PRN Reason: K+ < 3.5 Salmeterol Xinafoate (Serevent) 1 puff INH BID [facility] Last Admin: 09/14/19 09:48 Dose: Not Given Documented by: Senna/Docusate Sodium (Senna Plus Tablet) 1 tab PO HS [facility] Last Admin: 09/13/19 21:24 Dose: Not Given Documented by: Sodium Chloride (Saline Flush) 10 ml IV Q8 [facility] Last Admin: 09/14/19 13:57 Dose: 10 ml Documented by: Spironolactone (Aldactone) 100 mg PO BID [facility] Last Admin: 09/14/19 09:47 Dose: Not Given Documented by: Thiamine HCl (Vitamin B1) 100 mg PO DAILY [facility] Last Admin: 09/14/19 09:48 Dose: Not Given Documented by: Vitamin D (Vitamin D3) 400 unit PO DAILY [facility] Last Admin: 09/14/19 09:48 Dose: Not Given Documented by: Medical - PN: A/P - Time Spent With Patient Total time spent is greater than 50% in coordination of care (as documented) at patient's floor/unit and/or counseling patient: - Narrative A/P Narrative: Hepatic encephalopathy 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 and portal hypertension secondary to hepatitis C Patient has poor prognosis meld score is 20 Discussed with the family about the poor prognosis Discussed with the multiple family members 2 daughters Explained to them about the poor prognosis Family understands the poor prognosis and if the patient is not improving in another day family planning to change her to comfort care fa Arranged a family conference tomorrow Discussed with the family and will discontinue pain medications for now Lactulose retention enema every 6 hourly Streptococcal pneumonia bacteremia Continue Rocephin 2 g daily according to ID physician CT abdomen pelvis negative for any source of infection Probable metastatic infection Spontaneous bacterial peritonitis Streptococcus pneumonia on chest fluid culture Continue ceftriaxone 2 g I infectious disease following Bilateral lower lobe pneumonia Antibiotic as mentioned above Septic shock with multi organ failure Acute renal failure Acute encephalopathy She is off of vasopressors Antibiotic as above mentioned Acute on chronic kidney injury Creatinine worsened 1.7 Ordered 4 units of albumin Adequate urine output We will monitor We will consider albumin if needed DVT prophylaxis SCDs and subcu heparin CODE STATUS--DNR Expected length of stay-2 to 3 days Extended care conference-more than 30 minutes in discussion with the patient's daughter and other family members in presence of patient patient was not oriented. Care details were discussed and poor prognosis were discussed patient has poor prognosis with a meld score more than 20 and child score with a mortality of around 40%.
[2019-09-14] MEDS: SENNOSIDES/DOCUSATE SODIUM 1 TAB TABLET PO SCH (23:40)
[2019-09-15] MEDS: ACETAMINOPHEN 500 MG/50 ML BOTTLE IV PRN ×3 (00:07→14:17)
[2019-09-15] MEDS: 0.9 % SODIUM CHLORIDE 1,000 ML IV SCH ×4 (00:10→18:00)
[2019-09-15] MEDS: HYDROCORTISONE SOD SUCC 100 MG VIAL IV SCH ×2 (05:22→14:22)
[2019-09-15] MEDS: 0.9 % SODIUM CHLORIDE 10 ML SYRINGE IV SCH ×3 (05:23→22:53)
[2019-09-15 09:04] LABS: ALT/SGPT 9 U/l (0-40); AST/SGOT 15 U/l (0-37); Albumin 3.6 gm/dL (3.2-5.2); Albumin/Globulin Ratio 0.8 (1.0-2.3); Alkaline Phosphatase 46 U/L (39-117); Bilirubin,Direct 0.3 mg/dL (0.0-0.3); Bilirubin,Total 0.6 mg/dL (0.0-1.0); Blood Urea Nitrogen 62 mg/dl (8-23); Calcium 9.1 mg/dl (8.6-10.4); Carbon Dioxide 16 mmol/L (22-30); Chloride 99 mmol/L (96-108); Globulin 4.3 gm/dL (2.2-3.7); Glomerular Filtration Rate 38; Glucose 230 mg/dL (70-105); Lactate Dehydrogenase 151 U/L (94-250); Phosphorous 4.5 mg/dL (2.7-4.5); Triglycerides 78 mg/dl (<150)
[2019-09-15] MEDS: DOCUSATE SODIUM 100 MG CAPSULE PO SCH ×2 (09:19→22:52)
[2019-09-15] MEDS: LACTULOSE 20 GM/30 ML ORAL.SOL PO SCH ×2 (09:19→14:21)
[2019-09-15] MEDS: OMEPRAZOLE 20 MG CAPSULE PO SCH (09:19)
[2019-09-15] MEDS: LACTULOSE 20 GM/30 ML ORAL.SOL PR SCH ×3 (09:19→14:21)
[2019-09-15] MEDS: SPIRONOLACTONE 25 MG TABLET PO SCH (09:19)
[2019-09-15] MEDS: MUPIROCIN OINT 2% 22GM TOPICAL SCH ×3 (09:19→22:00)
[2019-09-15] MEDS: INSULIN LISPRO 1 UNIT/0.01 ML UNIT SQ SCH ×4 (09:19→22:52)
[2019-09-15] MEDS: LEVOTHYROXINE 125 MCG TABLET PO SCH (09:19)
[2019-09-15] MEDS: SALMETEROL XINAFOATE 1 PUFF INHALER INH SCH ×2 (09:20→22:00)
[2019-09-15] MEDS: INSULIN GLARGINE, HUMAN 1 UNIT/0.01 ML SQ SCH (09:20)
[2019-09-15] MEDS: FOLIC ACID 1 MG TABLET PO SCH (09:20)
[2019-09-15] MEDS: FLUTICASONE HFA 220MCG INHALER INH SCH ×2 (09:20→22:00)
[2019-09-15] MEDS: HEPARIN 5,000 UNIT/ML VIAL SQ SCH (09:20)
[2019-09-15 09:22] LABS: Hemoglobin 10.5 g/dL (12.0-15.0); Mean Cell Volume 83.7 fL (80.0-100.0); Mean Corpuscular HGB Conc 32.7 g/dL (31.0-36.0); Mean Platelet Volume 7.1 fL (7.4-10.4); Platelet Count 230 K/mcL (140-440); RBC 3.82 M/mcL (4.00-5.20); Red Cell Distribution Width 17.1 % (11.5-14.5); WBC 9.6 K/mcL (4.5-11.0)
[2019-09-15] MEDS: RIFAXIMIN 550 MG TABLET PO SCH ×2 (09:23→22:53)
[2019-09-15] MEDS: VITAMIN D3 400 UNIT TABLET PO SCH (09:23)
[2019-09-15] MEDS: ASCORBIC ACID 500 MG TABLET PO SCH (09:23)
[2019-09-15] MEDS: THIAMINE 100 MG TABLET PO SCH (09:23)
[2019-09-15] MEDS: MULTIVIT,THER IRON,CA,FA & MIN 1 TABLET PO SCH (09:24)
[2019-09-15 09:48] LABS: Anisocytosis 1+ (NONE SEEN); Band Neutrophils % 8 % (0-10); Hypochromasia FEW (NONE SEEN); Lymphocytes % 2 % (15-49); Metamyelocytes % 2 % (0-0); Monocytes % (Manual) 3 % (1-12); Platelet Estimate NORMAL (NORMAL); Polychromasia FEW (NONE SEEN); RBC Morphology ABNORM (NORMAL); Segmented Neutrophils % 85 % (38-78); Toxic Granulation 1+ (NONE SEEN)
[2019-09-15] MEDS: cefTRIAXone 2 GM in DEXTROSE 5% IN WATER 50 ML IV SCH (09:54)
[2019-09-15] MEDS ORDERED: traMADol 50 MG TABLET PO SCH (10:45)
[2019-09-15] MEDS ORDERED: LEVOFLOXACIN 750 MG TABLET PO SCH ×2 (14:45→16:00)
--- NOTE | 2019-09-15 14:50 | Internal Med Progress Note ---
Medical - PN: Subj Patient information: Note initiated : 09/15/19 at 2:45 pm Service Date, if different from initiated Date: [] Patient: Clare Shehean a 69 y/o F admitted on 09/05/19 for altered level consciousness. Chief Complaint: [] Interval history: Ms. 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 Symptoms have been progressing over the last couple of days and patient unable to think clearly. She c/o 7/10 abdominal pain and was noted to have a fever. Over the last couple of days she has not been able to function and essentially laying on the bed. Initial work-up in the ER was consistent with severe sepsis along with findings suggestive of SBP and basilar pneumonia on imaging. Blood cultures pending, elevated lactate at 3.3. Creatinine 1.7 up from baseline 1.3. Patient underwent 6 L paracentesis results of which are awaited. Subsequently hospitalist service consulted after patient received antibiotics At the time evaluation patient is very lethargic and fatigued. Unable to provide a detailed history. Endorses to symptoms as above including fever abdominal pain and weakness. No family members present. Most of the history was obtained from review of medical records and from ER physician. 09/06-GNR on blood cultures/GPC on 1 culture and ascitic fluid Gram stain. Discussed with ID. Antibiotics changed to vancomycin/cefepime. Clinically improving. Lactic acid downtrending from 3.9-1.9. White count 12.2, creatinine down from 1.7-1.3. On Levophed to keep map at goal. Confirmed SBP with over 14,000 white cells in the sciatic fluid with gram-positive cocci in culture. Remains critically ill. Sister at bedside. Discussed prognosis and treatment plan. Repeat surveillance cultures today. 09/07-peritoneal fluid heavy growth alpha streptococci. On antibiotic coverage. ID consulted. Patient off pressors since yesterday. Remains critically ill. Feels lethargic fatigued. Tense, tender and distended abdomen with reaccumulation of ascites. No family at bedside. Remains a poor prognosis and high risk mortality in the setting of liver cirrhosis/sepsis bacteremia and spontaneous bacterial enteritis 09/08-Streptococcus pneumonia on final cultures. Once Rocephin per ID. CT abdomen chest pelvis as per ID recommendations to rule out secondary focus for Streptococcus pneumonia bacteremia including pneumonia and also HCC. Very lethargic this morning. White count at 11,000. Creatinine 1.2. Start lactulose retention enemas. Consider rifaximin. Will repeat paracentesis in 24 -48 hours 09/09-patient antibiotic coverage as per ID. Clinically deteriorating. Worsening ascites. Paracentesis today. Discussed with patient poor prognosis based on meld score/progressive deterioration despite aggressive intervention. Patient desired her wish to be a DNR. Daughter present during patient's decision and endorsed to her mother's wishes. Await repeat paracentesis results. ID on board. 09/10-worsening white count. 9 L paracentesis. WBC down to 900 from 14,000. On antibiotic coverage per ID. Patient's mentation has been fluctuating. Intermittently able to take oral lactulose/rifaximin however poor nutritional status. Overall deterioration noted in the last 48 hours. Family aware of poor prognosis. Patient now a DNR. High probability during this hospita lization unless patient shows substantial recovery over the next few days. 09/11-white count 18.4 with neutrophil predominance. Sodium 125, creatinine 1.2. No overnight fever chills, daughter at bedside. Discussed clinical status and high risk mortality based on deteriorating status with patient and daughter in the presence of nursing staff and ID doctor. Patient intermittently refusing treatment along with medications. Otherwise no other concerns per staff. Patient responds to command but intermittently confused. Remains a DNR. It appears that patient realizes her grim situation and has been intermittently refusing treatments. We will continue further family discussions to explore patient's and family's wishes including palliation and comfort care. 09/12-patient overall status unchanged. White count 19.3, sodium 134, creatinine 1.4. High risk by renal. Status post paracentesis x2 and protocol albumin infusion. Systolics at goal and off pressors. Continue adequate nutri tion support/rifaximin/lactulose. Remains in overall high risk mortality based on meld score and overall status. Family and patient both aware. Currently DNR. Anticipate transfer to medical floor in the next 24 hours if renal function improves and systolics at goal. Continue adequate nutritional support/PT OT as tolerated 1215-patient overall status unchanged-she remains confused and drowsy occasionally wakes up she is not taking any lactulose she is constipated she is on multiple narcotics and muscle relaxant. Discussed with the family and if we how to reassess her mental status all the pain medication needs to be off of the system and she needs to have a bowel movement and we ordered a lactulose retention enema and continue p.o. lactulose and rifaximin. Continue ceftriaxone 2 g daily. Then we will reassess her in the next 1 to 2 days. According to the family she was alert oriented and was able to move and do her own things 2 weeks ago and this is totally different. Discussed with the daughter and patient's sister 09/14-discussed with the patient's daughter and other family members who were in the room also discussed with the patient's other daughter Leila yesterday over the phone. Patient is not progressing well she has very poor prognosis with a meld score of more than 20 and child score with a mortality 45%. Explained to the family about the poor prognosis and family wants to continue the treatment for another day and tomorrow we arranged a family meeting to decide further there is no power of pet supplies salesperson but patient expressed she does not want any treatment to Dr. Blum and to our social service. This is reiterated by the family members as well. We will discussed with the patient's daughter and will try to contact the patient's elder son who is not in contact with the patient for the last 25 years. If the patient is not improving family planning to change her goal of care to comfort care measures. We will increase her lactulose retention enema every 6 hourly, will not use any narcotics for now. 09/15-patient's mental status improved she was alert oriented this morning she was able to answer questions and asked her needs. We had a conference with the family patient's elder son Gerry, daughter and other family members were present we discussed about the plan of care. Discussed about poor prognosis and she could have episodes of pneumonia and SBP because of the end-stage liver disease. Family understand and discussed with the patient and patient does not want any active interventions and we will remove antibiotics and IV fluids we will try to keep the lactulose p.o. Patient wants regular diet and if she continues to progress we are planning to discharge her tomorrow. Pertinent ROS: Review of system General-patient denied any distress Chest-occasional shortness of breath denied any cough CVS-no chest pain no palpitation Abdomen-pain and tenderness occasionally Neuro-no dizziness no headache - Constitutional Vitals: Vital Signs Temp Pulse Resp BP Pulse Ox 96.2 F L 74 18 124/73 96 09/15/19 00:01 09/15/19 07:02 09/15/19 08:06 09/15/19 10:00 09/15/19 08:06 Period Temp Pulse Resp BP Sys/Will Pulse Ox Last 24 Hr 96.2 F-97.7 F 70-83 18-24 94-131/61-86 92-100 Intake and Output 09/15/19 09/15/19 09/15/19 05:59 13:59 21:59 Intake Total 1050 1000 Output Total 440 330 Balance 610 670 Intake & Output: Intake & Output 09/15/19 09/15/19 09/15/19 05:59 13:59 21:59 Intake Total 1050 1000 Output Total 440 330 Balance 610 670 Intake: IV 1050 1000 Sodium Chloride 0.9% 1,000 ml @ 950 1000 75 mls/hr IV .[id number] [facility] Rx#: [id number] Output: Urine Catheter Amount 440 330 Other: Nourishment/Supplement name bites of lin Urine Appearance Cloudy Cloudy Sediment Sediment Uretheral (Bundy) Cloudy Cloudy Sediment Sediment Urine Color Straw Straw Uretheral (Bundy) Straw Dark Yellow Urine Odor Strong Stool Size Large Large Stool Color Brown Black Stool Consistency Liquid Liquid # Bowel Movements 1 # of times incontinent of 1 1 Bowels - Head Head exam: Present: atraumatic, normal inspection - Eye Eye exam: Present: normal appearance. Absent: conjunctival injection, periorbital swelling, periorbital tenderness - Neck Neck exam: Present: normal inspection. Absent: lymphadenopathy - Respiratory Respiratory exam: Present: decreased breath sounds. Absent: accessory muscle use, chest wall tenderness, respiratory distress - Cardiovascular Cardiovascular exam: Present: normal rate and rhythm. Absent: clicks, diastolic murmur, gallop - Neurological Exam Neurological exam: Present: alert, reflexes normal. Absent: motor sensory deficit Medical - PN: Obj Da - Labs CBC & Chem 7: 09/15/19 07:47 09/15/19 07:47 Labs: Abnormal Lab Results 09/15/19 09/15/19 09/14/19 07:47 07:47 13:22 WBC RBC 3.82 L Hgb 10.5 L Hct 32.0 L RDW 17.1 H MPV 7.1 L Seg Neutrophils % 85 H Band Neutrophils % Lymphocytes % 2 L Metamyelocytes % 2 H WBC Morphology Abnorm A Toxic Granulation 1+ A RBC Morphology Abnorm A Polychromasia Few A Hypochromasia Few A Anisocytosis 1+ A Sodium 131 L 127 L Potassium Chloride 94 L Carbon Dioxide 16 L 17 L BUN 62 H 76 H Creatinine 1.4 H 1.6 H Glucose 230 H 215 H Uric Acid 13.0 H Phosphorus Magnesium 2.8 H Albumin Globulin 4.3 H Albumin/Globulin Ratio 0.8 L 09/14/19 09/14/19 09/13/19 03:30 03:30 04:05 WBC 19.6 H RBC Hgb Hct RDW 17.5 H MPV Seg Neutrophils % 94 H Band Neutrophils % Lymphocytes % 5 L Metamyelocytes % WBC Morphology Abnorm A Toxic Granulation 1+ A RBC Morphology Abnorm A Polychromasia 1+ A Hypochromasia Anisocytosis 1+ A Sodium 126 L 123 L Potassium 5.7 H 5.3 H Chloride 95 L 91 L Carbon Dioxide 16 L 18 L BUN 72 H 66 H Creatinine 1.7 H 1.6 H Glucose 154 H 246 H Uric Acid 15.1 H 13.1 H Phosphorus 4.8 H 4.8 H Magnesium 2.9 H 2.8 H Albumin 2.5 L 2.7 L Globulin 5.9 H 5.1 H Albumin/Globulin Ratio 0.4 L 0.5 L 09/13/19 04:05 WBC 19.7 H RBC Hgb 11.8 L Hct RDW 17.3 H MPV Seg Neutrophils % 79 H Band Neutrophils % 11 H Lymphocytes % 4 L Metamyelocytes % 2 H WBC Morphology Toxic Granulation RBC Morphology Abnorm A Polychromasia 1+ A Hypochromasia Anisocytosis 1+ A Sodium Potassium Chloride Carbon Dioxide BUN Creatinine Glucose Uric Acid Phosphorus Magnesium Albumin Globulin Albumin/Globulin Ratio Meds: Medications Acetaminophen (Tylenol) 650 mg PO Q4-6HP PRN; Protocol PRN Reason: Per Pain Protocol/Fever > 101 Last Admin: 09/11/19 11:53 Dose: 650 mg Documented by: Albuterol Sulfate (Ventolin) 1 puff INH Q4HP PRN PRN Reason: Shortness Of Breath Albuterol/Ipratropium (Duoneb) 3 ml NEB Q4HP PRN PRN Reason: Shortness Of Breath Last Admin: 09/08/19 08:55 Dose: 3 ml Documented by: Ascorbic Acid (Vitamin C) 500 mg PO DAILY [facility] Last Admin: 09/15/19 09:23 Dose: Not Given Documented by: Bisacodyl (Dulcolax) 10 mg [place] Q2-3DAYS PRN PRN Reason: Constipation Calcium Carbonate/Glycine (Tums) 500 mg CHEWED Q4HP PRN PRN Reason: Dyspepsia Diagnostic Test (Pha) (Accu-Chek) 1 each FS ACHS [facility] Last Admin: 09/15/19 11:40 Dose: 1 each Documented by: Docusate Sodium (Colace) 100 mg PO BID [facility] Last Admin: 09/15/19 09:19 Dose: Not Given Documented by: Fluticasone Propionate (Flovent Hfa 220mcg) 2 puff INH BID [facility] Last Admin: 09/15/19 09:20 Dose: Not Given Documented by: Folic Acid (Folic Acid) 1 mg PO DAILY [facility] Last Admin: 09/15/19 09:20 Dose: Not Given Documented by: Glucose Oxid/Lactoperoxid/Muramidas (Biotene) 1 each TOPICAL PRN PRN PRN Reason: Dry Mouth Last Admin: 09/14/19 21:18 Dose: 1 each Documented by: Acetaminophen (Ofirmev) 500 mg in 50 mls @ 100 mls/hr IV Q6HP PRN; Protocol PRN Reason: PAIN/FEVER > 101 Last Admin: 09/15/19 14:17 Dose: 100 mls/hr Documented by: Sodium Chloride (Sodium Chloride 0.9%) 1,000 mls @ 75 mls/hr IV .[id number] [facility] Last Admin: 09/15/19 14:07 Dose: 75 mls/hr Documented by: Insulin Human Lispro (Humalog) [address] [facility]; Protocol Last Admin: 09/15/19 11:48 Dose: 8 units Documented by: Iron Carb/Multivit/Care Center Manager/Folic Acid (Multivitamin W/Minerals) 1 tab PO DAILY [facility] Last Admin: 09/15/19 09:24 Dose: Not Given Documented by: Lactulose (Cephulac) 30 gm PO QID [facility] Last Admin: 09/15/19 14:21 Dose: Not Given Documented by: Levofloxacin (Levaquin) 500 mg PO Q48H [facility]; Protocol Metoclopramide HCl (Reglan) 5 mg IV Q3HP PRN PRN Reason: nausea/vomiting Mupirocin (Bactroban Oint 2%) 1 dose TOPICAL TID [facility] Last Admin: 09/15/19 14:24 Dose: Not Given Documented by: Omeprazole (Prilosec) 20 mg PO ACB [facility] Last Admin: 09/15/19 09:19 Dose: Not Given Documented by: Ondansetron HCl (Zofran Odt) 4 mg SL Q4-6HP PRN; Protocol PRN Reason: Nausea And Vomiting Last Admin: 09/11/19 07:49 Dose: 4 mg Documented by: Ondansetron HCl (Zofran) 4 mg IV Q4-6HP PRN; Protocol PRN Reason: Nausea And Vomiting Last Admin: 09/07/19 17:03 Dose: 4 mg Documented by: Polyethylene Glycol (Miralax) 17 gm PO DAILYP PRN PRN Reason: Constipation Potassium Chloride (Klor-Con) 40 meq PO DAILYP PRN PRN Reason: K+ < 3.5 Salmeterol Xinafoate (Serevent) 1 puff INH BID [facility] Last Admin: 09/15/19 09:20 Dose: Not Given Documented by: Senna/Docusate Sodium (Senna Plus Tablet) 1 tab PO HS [facility] Last Admin: 09/14/19 23:40 Dose: Not Given Documented by: Sodium Chloride (Saline Flush) 10 ml IV Q8 [facility] Last Admin: 09/15/19 14:21 Dose: 10 ml Documented by: Thiamine HCl (Vitamin B1) 100 mg PO DAILY [facility] Last Admin: 09/15/19 09:23 Dose: Not Given Documented by: Tramadol HCl (Ultram) 25 mg PO Q8H [facility] Last Admin: 09/15/19 11:33 Dose: 25 mg Documented by: Vitamin D (Vitamin D3) 400 unit PO DAILY [facility] Last Admin: 09/15/19 09:23 Dose: Not Given Documented by: Medical - PN: A/P - Time Spent With Patient Total time spent is greater than 50% in coordination of care (as documented) at patient's floor/unit and/or counseling patient: - Narrative A/P Narrative: Hepatic encephalopathy 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 Patient is alert oriented this afternoon and she does not want any active interventions and she wants to be more comfortable and we will remove any active interventions for now. We will continue lactulose p.o. which can prevent further confusions We will try to minimize the use of narcotics as it can cause hepatic encephalopathy Streptococcal pneumonia bacteremia We will discontinue Rocephin as per the patient's wishes CT abdomen pelvis negative for any source of infection Probable metastatic infection Spontaneous bacterial peritonitis Discontinue Rocephin We will keep her on levofloxacin 500 daily for prophylaxis Discussed with infectious disease this morning Bilateral lower lobe pneumonia Antibiotic as mentioned above Septic shock with multi organ failure Acute renal failure Acute encephalopathy She is off of vasopressors Antibiotic as above mentioned Acute on chronic kidney injury Creatinine improved to 1.3 Patient does not want any active interventions DVT prophylaxis SCDs and subcu heparin CODE STATUS--DNR, comfort measures only Expected length of stay-1 more day Family conference this morning around 10:00 discussed with the patient also discussed with the multiple family members. Patient does not want any active interventions. Discussed with the family about the poor prognosis and potential complications like SBP and aspiration pneumonia near future. Family understands also discussed with patient's elder son baby. If she continues to progress and a 5 patient wants to be released can be discharged tomorrow. Change her to comfort measures only and antibiotic changed to levofloxacin 500 daily, prophylactic as well. Time spent for conference 30 minutes
[2019-09-15] MEDS ORDERED: ACETAMINOPHEN 500 MG/50 ML BOTTLE IV PRN (15:49)
[2019-09-15] MEDS ORDERED: ALBUTEROL SULFATE 1 PUFF INHALER INH PRN (15:49)
[2019-09-15] MEDS ORDERED: ONDANSETRON 4 MG ODT TABLET SL PRN (15:49)
[2019-09-15] MEDS ORDERED: POTASSIUM CHLORIDE 20 MEQ PACKET PO PRN (15:49)
[2019-09-15] MEDS ORDERED: ONDANSETRON 4 MG/2 ML VIAL IV PRN (15:49)
[2019-09-15] MEDS ORDERED: BISACODYL 10 MG SUPP.RECT PR PRN (15:49)
[2019-09-15] MEDS ORDERED: METOCLOPRAMIDE 10 MG/2 ML VIAL IV PRN (15:49)
[2019-09-15] MEDS ORDERED: CALCIUM CARBONATE 500 MG TAB.CHEW CHEWED PRN (15:49)
[2019-09-15] MEDS ORDERED: POLYETHYLENE GLYCOL 3350 17 GM PACKET PO PRN (15:49)
[2019-09-15] MEDS ORDERED: ACETAMINOPHEN 325 MG TABLET PO PRN (15:49)
[2019-09-15] MEDS ORDERED: IPRATROPIUM/ALBUTEROL 3 ML AMPUL.NEB NEB PRN (15:49)
[2019-09-15] MEDS ORDERED: LACTULOSE 20 GM/30 ML ORAL.SOL PO SCH (17:00)
--- NOTE | 2019-09-15 22:23 | Infectious Disease Prog Note ---
Subjective Patient information: Note initiated : 09/15/19 at 10:18 pm Service Date, if different from initiated Date: [] Patient: Clare Sheehan 69 y/o F admitted on 09/05/19 for altered level consciousness. Chief Complaint: [] Interval history: pt minimally responsive. Had a big BM yesterday after lactulose enema. Continues to have fluctuating mental status, eating food with assistance. Objective Objective Narrative: drowsy but arousable chest cta, except with absent BS at bases bs +, tender to touch in left side no edema - Vital Signs Vital signs: Vital Signs Temp Pulse Pulse Resp BP Pulse Ox 09/15/19 19:07 76 24 H 99 09/15/19 10:00 124/73 09/15/19 09:00 105/66 09/15/19 08:06 18 104/61 96 09/15/19 08:02 92 09/15/19 08:00 105/68 09/15/19 07:02 74 115/72 100 09/15/19 06:00 77 131/86 99 09/15/19 05:00 80 119/81 100 09/15/19 04:00 73 118/70 100 09/15/19 03:00 81 20 119/74 100 09/15/19 02:01 79 18 120/65 100 09/15/19 01:01 78 18 127/74 100 09/15/19 00:01 35.7 C L 71 22 97/65 96 09/14/19 23:00 78 24 H 114/70 100 Intake and Output 09/15/19 09/15/19 09/16/19 13:59 21:59 05:59 Intake Total 1000 50 Output Total 330 100 Balance 670 -50 Intake: IV 1000 50 Sodium Chloride 0.9% 1,000 ml @ 1000 75 mls/hr IV .[id number] [facility] Rx#: [id number] Output: Urine Catheter Amount 330 100 Other: Urine Appearance Cloudy Sediment Uretheral (Bundy) Cloudy Sediment Urine Color Straw Uretheral (Bundy) Dark Yellow Stool Size Large Stool Color Brown Black Stool Consistency Liquid # of times incontinent of 1 Bowels Intake & Output: Intake & Output 09/15/19 09/15/19 09/16/19 13:59 21:59 05:59 Intake Total 1000 50 Output Total 330 100 Balance 670 -50 Intake: IV 1000 50 Sodium Chloride 0.9% 1,000 ml @ 1000 75 mls/hr IV .[id number] [facility] Rx#: [id number] Output: Urine Catheter Amount 330 100 Other: Urine Appearance Cloudy Sediment Uretheral (Bundy) Cloudy Sediment Urine Color Straw Uretheral (Bundy) Dark Yellow Stool Size Large Stool Color Brown Black Stool Consistency Liquid # of times incontinent of 1 Bowels - Lab 09/15/19 07:47 09/15/19 07:47 Most recent lab results Calcium 9.1 mg/dl (8.6-10.4) 09/15/19 07:47 Phosphorus 4.5 mg/dL (2.7-4.5) 09/15/19 07:47 Magnesium 2.8 mg/dL (1.6-2.5) H 09/15/19 07:47 Microbiology 09/09/19 15:30 Peritoneal Fluid Gram Stain - Final 09/09/19 15:30 Peritoneal Fluid Body Fluid Culture - Final 09/06/19 09:58 Blood Blood Culture - Final 09/06/19 10:03 Blood Blood Culture - Final 09/05/19 06:12 Blood Blood Culture - Final Streptococcus pneumoniae 09/05/19 05:37 Blood Blood Culture - Final Streptococcus pneumoniae 09/09/19 15:18 Pleural Fluid Gram Stain - Final 09/09/19 15:18 Pleural Fluid Body Fluid Culture - Final 09/05/19 07:52 Peritoneal Fluid Gram Stain - Final 09/05/19 07:52 Peritoneal Fluid Body Fluid Culture - Final Streptococcus pneumoniae 09/06/19 18:35 Sputum - Expectorated Gram Stain - Final 09/06/19 18:35 Sputum - Expectorated Sputum Culture - Final 09/05/19 09:20 Nose - First MRSA (PCR) - Final Medications Active Medications: Acetaminophen (Tylenol) 650 mg PO Q4-6HP PRN; Protocol PRN Reason: Per Pain Protocol/Fever > 101 Albuterol Sulfate (Ventolin) 1 puff INH Q4HP PRN PRN Reason: Shortness Of Breath Albuterol/Ipratropium (Duoneb) 3 ml NEB Q4HP PRN PRN Reason: Shortness Of Breath Ascorbic Acid (Vitamin C) 500 mg PO DAILY [facility] Bisacodyl (Dulcolax) 10 mg GA Q2-3DAYS PRN PRN Reason: Constipation Calcium Carbonate/Glycine (Tums) 500 mg CHEWED Q4HP PRN PRN Reason: Dyspepsia Diagnostic Test (Pha) (Accu-Chek) 1 each FS ACHS [facility] Last Admin: 09/15/19 17:28 Dose: 1 each Documented by: THELMA Docusate Sodium (Colace) 100 mg PO BID [facility] Fluticasone Propionate (Flovent Hfa 220mcg) 2 puff INH BID [facility] Folic Acid (Folic Acid) 1 mg PO DAILY [facility] Glucose Oxid/Lactoperoxid/Muramidas (Biotene) 1 each TOPICAL PRN PRN PRN Reason: Dry Mouth Sodium Chloride (Sodium Chloride 0.9%) 1,000 mls @ 75 mls/hr IV .[id number] [facility] Last Admin: 09/15/19 15:57 Dose: Not Given Documented by: THELMA Non-Admin Reason: Bag Still Infusing Acetaminophen (Ofirmev) 500 mg in 50 mls @ 100 mls/hr IV Q6HP PRN; Protocol PRN Reason: PAIN/FEVER > 101 Last Admin: 09/15/19 21:37 Dose: 100 mls/hr Documented by: AMALIA Insulin Human Lispro (Humalog) 0 unit SQ [facility]; Protocol Last Admin: 09/15/19 17:31 Dose: 8 units Documented by: THELMA Iron Carb/Multivit/Placer/Folic Acid (Multivitamin W/Minerals) 1 tab PO DAILY [facility] Levofloxacin (Levaquin) 750 mg PO Q48H [facility]; Protocol Last Admin: 09/15/19 17:35 Dose: Not Given Documented by: THELMA Non-Admin Reason: Pt refused Metoclopramide HCl (Reglan) 5 mg IV Q3HP PRN PRN Reason: nausea/vomiting Mupirocin (Bactroban Oint 2%) 1 dose TOPICAL TID [facility] Omeprazole (Prilosec) 20 mg PO ACB [facility] Ondansetron HCl (Zofran Odt) 4 mg SL Q4-6HP PRN; Protocol PRN Reason: Nausea And Vomiting Ondansetron HCl (Zofran) 4 mg IV Q4-6HP PRN; Protocol PRN Reason: Nausea And Vomiting Polyethylene Glycol (Miralax) 17 gm PO DAILYP PRN PRN Reason: Constipation Potassium Chloride (Klor-Con) 40 meq PO DAILYP PRN PRN Reason: K+ < 3.5 Salmeterol Xinafoate (Serevent) 1 puff INH BID [facility] Senna/Docusate Sodium (Senna Plus Tablet) 1 tab PO HS [facility] Sodium Chloride (Saline Flush) 10 ml IV Q8 [facility] Thiamine HCl (Vitamin B1) 100 mg PO DAILY [facility] Tramadol HCl (Ultram) 25 mg PO Q8H [facility] Vitamin D (Vitamin D3) 400 unit PO DAILY [facility] Assessment and Plan - Narrative A/P Narrative: A: 1. Streptococcus pneumoniae bacteremia: sens to Ceftriaxone - sec to seeding from spontaneous bacterial peritonitis - repeat blood Cx neg since 09/06 2. SBP: based on increased PMNs (> 250), clinical s/s, peritoneal fluid Cx growing Strept pneumoniae - sec to (3) - pt was not on antibiotic prophylaxis at admission. She meets criteria for being on chronic antibiotic prophylaxis for prevention of SBP - CT s/o large amount of ascitic fluid - repeat paracentesis 09/09 showed marked improvement in peritoneal fluid cell count with about ~ 900 WBC and 79% PMNs (= 711 PMNs). Cx NGTD 3. 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 Failure to thrive: sec to severe ascites, cirrhosis Overall poor prognosis, and high risk for mortality due to malnutrition, ongoing poor PO intake, metabolic derangements due to liver and kidney failure. Pt's family decided to make pt comfort care today. Recommendations: - Stop all antibiotics. - comfort care per family wishes will sign off. Poncho Serrano MD Infectious diseases
[2019-09-15] MEDS: SENNOSIDES/DOCUSATE SODIUM 1 TAB TABLET PO SCH (22:52)
[2019-09-16] MEDS: traMADol 50 MG TABLET PO SCH ×4 (00:54→22:10)
[2019-09-16] MEDS: LACTOPEROXI/GLUC OXID/POT THIO 1 EACH GEL..EA. TOPICAL PRN ×3 (02:00→08:54)
[2019-09-16] MEDS: 0.9 % SODIUM CHLORIDE 10 ML SYRINGE IV SCH ×5 (05:11→22:21)
[2019-09-16] MEDS: INSULIN LISPRO 1 UNIT/0.01 ML UNIT SQ SCH ×4 (06:45→22:19)
[2019-09-16] MEDS: OMEPRAZOLE 20 MG CAPSULE PO SCH (06:45)
[2019-09-16] MEDS: THIAMINE 100 MG TABLET PO SCH (08:52)
[2019-09-16] MEDS: MULTIVIT,THER IRON,CA,FA & MIN 1 TABLET PO SCH (08:52)
[2019-09-16] MEDS: MUPIROCIN OINT 2% 22GM TOPICAL SCH ×3 (08:52→22:19)
[2019-09-16] MEDS: DOCUSATE SODIUM 100 MG CAPSULE PO SCH ×2 (08:52→22:19)
[2019-09-16] MEDS: FOLIC ACID 1 MG TABLET PO SCH (08:52)
[2019-09-16] MEDS: ASCORBIC ACID 500 MG TABLET PO SCH (08:52)
[2019-09-16] MEDS: VITAMIN D3 400 UNIT TABLET PO SCH (08:53)
[2019-09-16] MEDS: FLUTICASONE HFA 220MCG INHALER INH SCH ×2 (08:53→22:19)
[2019-09-16] MEDS: SALMETEROL XINAFOATE 1 PUFF INHALER INH SCH ×2 (08:53→22:19)
[2019-09-16] MEDS: RIFAXIMIN 550 MG TABLET PO SCH ×2 (08:58→22:20)
[2019-09-16] MEDS ORDERED: LACTOPEROXI/GLUC OXID/POT THIO 1 EACH GEL..EA. TOPICAL PRN (11:40)
[2019-09-16] MEDS ORDERED: ALBUTEROL SULFATE 2.5 MG/3 ML NEBULIZER NEB PRN (11:40)
--- NOTE | 2019-09-16 11:43 | Internal Med Progress Note ---
Medical - PN: Subj Patient information: Note initiated : 09/16/19 at 11:42 am Service Date, if different from initiated Date: [] Patient: Clare Sheehan a 69 y/o F admitted on 09/05/19 for altered level consciousness. Chief Complaint: [] Interval history: Ms. 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 Symptoms have been progressing over the last couple of days and patient unable to think clearly. She c/o 7/10 abdominal pain and was noted to have a fever. Over the last couple of days she has not been able to function and essentially laying on the bed. Initial work-up in the ER was consistent with severe sepsis along with findings suggestive of SBP and basilar pneumonia on imaging. Blood cultures pending, elevated lactate at 3.3. Creatinine 1.7 up from baseline 1.3. Patient underwent 6 L paracentesis results of which are awaited. Subsequently hospitalist service consulted after patient received antibiotics At the time evaluation patient is very lethargic and fatigued. Unable to provide a detailed history. Endorses to symptoms as above including fever abdominal pain and weakness. No family members present. Most of the history was obtained from review of medical records and from ER physician. 09/06-GNR on blood cultures/GPC on 1 culture and ascitic fluid Gram stain. Discussed with ID. Antibiotics changed to vancomycin/cefepime. Clinically improving. Lactic acid downtrending from 3.9-1.9. White count 12.2, creatinine down from 1.7-1.3. On Levophed to keep map at goal. Confirmed SBP with over 14,000 white cells in the sciatic fluid with gram-positive cocci in culture. Remains critically ill. Sister at bedside. Discussed prognosis and treatment plan. Repeat surveillance cultures today. 09/07-peritoneal fluid heavy growth alpha streptococci. On antibiotic coverage. ID consulted. Patient off pressors since yesterday. Remains critically ill. Feels lethargic fatigued. Tense, tender and distended abdomen with reaccumulation of ascites. No family at bedside. Remains a poor prognosis and high risk mortality in the setting of liver cirrhosis/sepsis bacteremia and spontaneous bacterial enteritis 09/08-Streptococcus pneumonia on final cultures. Once Rocephin per ID. CT abdomen chest pelvis as per ID recommendations to rule out secondary focus for Streptococcus pneumonia bacteremia including pneumonia and also HCC. Very lethargic this morning. White count at 11,000. Creatinine 1.2. Start lactulose retention enemas. Consider rifaximin. Will repeat paracentesis in 2 4-48 hours 09/09-patient antibiotic coverage as per ID. Clinically deteriorating. Worsening ascites. Paracentesis today. Discussed with patient poor prognosis based on meld score/progressive deterioration despite aggressive intervention. Patient desired her wish to be a DNR. Daughter present during patient's decision and endorsed to her mother's wishes. Await repeat paracentesis results. ID on board. 09/10-worsening white count. 9 L paracentesis. WBC down to 900 from 14,000. On antibiotic coverage per ID. Patient's mentation has been fluctuating. Intermittently able to take oral lactulose/rifaximin however poor nutritional status. Overall deterioration noted in the last 48 hours. Family aware of poor prognosis. Patient now a DNR. High probability during this hospit alization unless patient shows substantial recovery over the next few days. 09/11-white count 18.4 with neutrophil predominance. Sodium 125, creatinine 1.2. No overnight fever chills, daughter at bedside. Discussed clinical status and high risk mortality based on deteriorating status with patient and daughter in the presence of nursing staff and ID doctor. Patient intermittently refusing treatment along with medications. Otherwise no other concerns per staff. Patient responds to command but intermittently confused. Remains a DNR. It appears that patient realizes her grim situation and has been intermittently refusing treatments. We will continue further family discussions to explore patient's and family's wishes including palliation and comfort care. 09/12-patient overall status unchanged. White count 19.3, sodium 134, creatinine 1.4. High risk by renal. Status post paracentesis x2 and protocol albumin infusion. Systolics at goal and off pressors. Continue adequate nutr ition support/rifaximin/lactulose. Remains in overall high risk mortality based on meld score and overall status. Family and patient both aware. Currently DNR. Anticipate transfer to medical floor in the next 24 hours if renal function improves and systolics at goal. Continue adequate nutritional support/PT OT as tolerated 1215-patient overall status unchanged-she remains confused and drowsy occasionally wakes up she is not taking any lactulose she is constipated she is on multiple narcotics and muscle relaxant. Discussed with the family and if we how to reassess her mental status all the pain medication needs to be off of the system and she needs to have a bowel movement and we ordered a lactulose retention enema and continue p.o. lactulose and rifaximin. Continue ceftriaxone 2 g daily. Then we will reassess her in the next 1 to 2 days. According to the family she was alert oriented and was able to move and do her own things 2 weeks ago and this is totally different. Discussed with the daughter and patient's sister 09/14-discussed with the patient's daughter and other family members who were in the room also discussed with the patient's other daughter Leila yesterday over the phone. Patient is not progressing well she has very poor prognosis with a meld score of more than 20 and child score with a mortality 45%. Explained to the family about the poor prognosis and family wants to continue the treatment for another day and tomorrow we arranged a family meeting to decide further there is no power of claims attorney but patient expressed she does not want any treatment to Dr. Blum and to our social service. This is reiterated by the family members as well. We will discussed with the patient's daughter and will try to contact the patient's elder son who is not in contact with the patient for the last 25 years. If the patient is not improving family planning to change her goal of care to comfort care measures. We will increase her lactulose retention enema every 6 hourly, will not use any narcotics for now. 09/15-patient's mental status improved she was alert oriented this morning she was able to answer questions and asked her needs. We had a conference with the family patient's elder son Gerry, daughter and other family members were present we discussed about the plan of care. Discussed about poor prognosis and she could have episodes of pneumonia and SBP because of the end-stage liver disease. Family understand and discussed with the patient and patient does not want any active interventions and we will remove antibiotics and IV fluids we will try to keep the lactulose p.o. Patient wants regular diet and if she continues to progress we are planning to discharge her tomorrow. 09/16-discussed with the patient this morning she was alert oriented having respiratory discomfort. Patient does not want any active interventions or active treatment she wants to be comfortable this really reiterated again. Discussed with the family and plan is to get the hospice on board and discharge her home and patient wants to be comfortable at home. Patient denied going to any rehab facilities as well as the family. We will start her on morphine sublingual 2.5 for discomfort. I encouraged the patient to use lactulose. Which she has been refusing. Will discontinue IV fluids discontinue antibiotics. Pertinent ROS: Review of system General-patient denied any distress Chest-shortness of breath and cough CVS-no chest pain no palpitation Abdomen-pain and tenderness occasionally Neuro-no dizziness no headache - Constitutional Vitals: Vital Signs Temp Pulse Resp BP Pulse Ox 96.2 F L 76 16 124/73 99 09/15/19 00:01 09/15/19 19:07 09/16/19 07:31 09/15/19 10:00 09/15/19 19:07 Period Temp Pulse Resp BP Sys/Will Pulse Ox Last 24 Hr 76 16-24 99 Intake and Output 09/15/19 09/16/19 09/16/19 21:59 05:59 13:59 Intake Total 410 888 Output Total 100 350 Balance 310 538 Intake & Output: Intake & Output 09/15/19 09/16/19 09/16/19 21:59 05:59 13:59 Intake Total 410 888 Output Total 100 350 Balance 310 538 Intake: IV 50 888 Sodium Chloride 0.9% 1,000 ml @ 838 75 mls/hr IV .[id number] [facility] Rx#: [id number] Oral 360 Output: Urine Catheter Amount 100 350 Other: Urine Appearance Clear Uretheral (Bundy) Clear Urine Color Light Sheron Uretheral (Bundy) Straw Urine Odor Strong Uretheral ([place]undy) Normal Stool Size Smear Stool Color Yellow General appearance: moderate distress - Head Head exam: Present: atraumatic, normal inspection - Eye Eye exam: Present: scleral icterus - ENT ENT exam: Present: mucous membranes dry - Respiratory Respiratory exam: Present: decreased breath sounds, prolonged expiratory phase, rales, rhonchi, wheezes - Cardiovascular Cardiovascular exam: Present: normal rate and rhythm. Absent: bradycardia, diastolic murmur - GI/Abdominal GI/Abdominal exam: Present: normal bowel sounds, soft. Absent: bruit - Neurological Exam Neurological exam: Present: alert, oriented X3. Absent: motor sensory deficit Medical - PN: Obj Da - Labs CBC & Chem 7: 09/15/19 07:47 09/15/19 07:47 Labs: Abnormal Lab Results 09/15/19 09/15/19 09/14/19 07:47 07:47 13:22 WBC RBC 3.82 L Hgb 10.5 L Hct 32.0 L RDW 17.1 H MPV 7.1 L Seg Neutrophils % 85 H Lymphocytes % 2 L Metamyelocytes % 2 H WBC Morphology Abnorm A Toxic Granulation 1+ A RBC Morphology Abnorm A Polychromasia Few A Hypochromasia Few A Anisocytosis 1+ A Sodium 131 L 127 L Potassium Chloride 94 L Carbon Dioxide 16 L 17 L BUN 62 H 76 H Creatinine 1.4 H 1.6 H Glucose 230 H 215 H Uric Acid 13.0 H Phosphorus Magnesium 2.8 H Albumin Globulin 4.3 H Albumin/Globulin Ratio 0.8 L 09/14/19 09/14/19 03:30 03:30 WBC 19.6 H RBC Hgb Hct RDW 17.5 H MPV Seg Neutrophils % 94 H Lymphocytes % 5 L Metamyelocytes % WBC Morphology Abnorm A Toxic Granulation 1+ A RBC Morphology Abnorm A Polychromasia 1+ A Hypochromasia Anisocytosis 1+ A Sodium 126 L Potassium 5.7 H Chloride 95 L Carbon Dioxide 16 L BUN 72 H Creatinine 1.7 H Glucose 154 H Uric Acid 15.1 H Phosphorus 4.8 H Magnesium 2.9 H Albumin 2.5 L Globulin 5.9 H Albumin/Globulin Ratio 0.4 L Meds: Medications Acetaminophen (Tylenol) 650 mg PO Q4-6HP PRN; Protocol PRN Reason: Per Pain Protocol/Fever > 101 Albuterol Sulfate (Ventolin) 1 puff INH Q4HP PRN PRN Reason: Shortness Of Breath Albuterol Sulfate (Ventolin) 2.5 mg NEB Q2HP PRN PRN Reason: Shortness Of Breath Albuterol/Ipratropium (Duoneb) 3 ml NEB Q4HP PRN PRN Reason: Shortness Of Breath Ascorbic Acid (Vitamin C) 500 mg PO DAILY [facility] Last Admin: 09/16/19 08:52 Dose: 500 mg Documented by: Bisacodyl (Dulcolax) 10 mg ME Q2-3DAYS PRN PRN Reason: Constipation Calcium Carbonate/Glycine (Tums) 500 mg CHEWED Q4HP PRN PRN Reason: Dyspepsia Diagnostic Test (Pha) (Accu-Chek) 1 each FS ACHS [facility] Last Admin: 09/16/19 11:06 Dose: Not Given Documented by: Docusate Sodium (Colace) 100 mg PO BID [facility] Last Admin: 09/16/19 08:52 Dose: 100 mg Documented by: Fluticasone Propionate (Flovent Hfa 220mcg) 2 puff INH BID [facility] Last Admin: 09/16/19 08:53 Dose: Not Given Documented by: Folic Acid (Folic Acid) 1 mg PO DAILY [facility] Last Admin: 09/16/19 08:52 Dose: 1 mg Documented by: Glucose Oxid/Lactoperoxid/Muramidas (Biotene) 1 each TOPICAL PRN PRN PRN Reason: Dry Mouth Last Admin: 09/16/19 08:54 Dose: 1 each Documented by: Glucose Oxid/Lactoperoxid/Muramidas (Biotene) 1 each TOPICAL PRN PRN PRN Reason: Dry Mouth Sodium Chloride (Sodium Chloride 0.9%) 1,000 mls @ 75 mls/hr IV .[id number] [facility] Last Infusion: 09/16/19 05:10 Dose: Infused Documented by: Acetaminophen (Ofirmev) 500 mg in 50 mls @ 100 mls/hr IV Q6HP PRN; Protocol PRN Reason: PAIN/FEVER > 101 Last Infusion: 09/15/19 22:10 Dose: Infused Documented by: Insulin Human Lispro (Humalog) 0 unit SQ [facility]; Protocol Last Admin: 09/16/19 11:06 Dose: Not Given Documented by: Iron Carb/Multivit/[place]/Folic Acid (Multivitamin W/Minerals) 1 tab PO DAILY [facility] Last Admin: 09/16/19 08:52 Dose: 1 tab Documented by: Metoclopramide HCl (Reglan) 5 mg IV Q3HP PRN PRN Reason: nausea/vomiting Morphine Sulfate (Morphine) 2.5 mg SL Q2HP PRN; Protocol PRN Reason: Per Pain Protocol Mupirocin (Bactroban Oint 2%) 1 dose TOPICAL TID [facility] Last Admin: 09/16/19 08:52 Dose: 1 dose Documented by: Omeprazole (Prilosec) 20 mg PO ACB [facility] Last Admin: 09/16/19 06:45 Dose: Not Given Documented by: Ondansetron HCl (Zofran Odt) 4 mg SL Q4-6HP PRN; Protocol PRN Reason: Nausea And Vomiting Ondansetron HCl (Zofran) 4 mg IV Q4-6HP PRN; Protocol PRN Reason: Nausea And Vomiting Polyethylene Glycol (Miralax) 17 gm PO DAILYP PRN PRN Reason: Constipation Potassium Chloride (Klor-Con) 40 meq PO DAILYP PRN PRN Reason: K+ < 3.5 Salmeterol Xinafoate (Serevent) 1 puff INH BID [facility] Last Admin: 09/16/19 08:53 Dose: Not Given Documented by: Senna/Docusate Sodium (Senna Plus Tablet) 1 tab PO HS [facility] Last Admin: 09/15/19 22:52 Dose: Not Given Documented by: Sodium Chloride (Saline Flush) 10 ml IV Q8 [facility] Last Admin: 09/16/19 05:11 Dose: 10 ml Documented by: Sodium Chloride (Saline Flush) 10 ml IV Q8 [facility] Thiamine HCl (Vitamin B1) 100 mg PO DAILY [facility] Last Admin: 09/16/19 08:52 Dose: 100 mg Documented by: Tramadol HCl (Ultram) 25 mg PO Q8H [facility] Last Admin: 09/16/19 06:45 Dose: Not Given Documented by: Vitamin D (Vitamin D3) 400 unit PO DAILY [facility] Last Admin: 09/16/19 08:53 Dose: 400 unit Documented by: Medical - PN: A/P - Time Spent With Patient Total time spent is greater than 50% in coordination of care (as documented) at patient's floor/unit and/or counseling patient: - Narrative A/P Narrative: Goal of care changed to comfort care measures only hepatic encephalopathy 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 and portal hypertension secondary to hepatitis C Patient has poor prognosis meld score is 20 Discussed with the patient again she was alert oriented and has a decision- making capacity. Patient refused any active interventions she wants to be comfortable and do not want any treatment. Patient wants to go home Discussed with the patient's daughter and patient and plan is to get the hospice on board and then discharge her home. We will use morphine sublingual 2.5 for discomfort and shortness of breath I encouraged the patient to use the lactulose, we will continue lactulose p.o. which can prevent further confusions We will try to minimize the use of narcotics as it can cause hepatic encephalopathy Streptococcal pneumonia bacteremia We will discontinue Rocephin as per the patient's wishes CT abdomen pelvis negative for any source of infection Probable metastatic infection Discussed with infectious disease and will discontinue the levofloxacin Spontaneous bacterial peritonitis Discontinue Rocephin Discussed patient, with Dr. Serrano and will discontinue antibiotics Bilateral lower lobe pneumonia Antibiotic discontinued as patient wishes Septic shock with multi organ failure Acute renal failure Acute encephalopathy She is off of vasopressors Antibiotic as above mentioned Acute on chronic kidney injury Creatinine improved to 1.3 Patient does not want any active interventions DVT prophylaxis SCDs and subcu heparin CODE STATUS--DNR, comfort measures only Expected length of stay-1 more day and waiting for the hospice evaluation and admission
[2019-09-16] MEDS: morphine 20 MG/ML ORAL.CONC SL PRN ×2 (12:05→17:28)
[2019-09-16] MEDS: 0.9 % SODIUM CHLORIDE 1,000 ML IV SCH (20:38)
[2019-09-16] MEDS: SENNOSIDES/DOCUSATE SODIUM 1 TAB TABLET PO SCH (22:19)
[2019-09-17] MEDS: morphine 20 MG/ML ORAL.CONC SL PRN ×5 (04:15→16:37)
[2019-09-17] MEDS: 0.9 % SODIUM CHLORIDE 10 ML SYRINGE IV SCH ×4 (04:20→13:52)
[2019-09-17] MEDS: traMADol 50 MG TABLET PO SCH ×2 (06:26→13:52)
[2019-09-17] MEDS: INSULIN LISPRO 1 UNIT/0.01 ML UNIT SQ SCH ×3 (06:50→15:55)
[2019-09-17] MEDS: OMEPRAZOLE 20 MG CAPSULE PO SCH (06:51)
[2019-09-17] MEDS: 0.9 % SODIUM CHLORIDE 1,000 ML IV SCH (07:56)
[2019-09-17] MEDS: THIAMINE 100 MG TABLET PO SCH (10:12)
[2019-09-17] MEDS: DOCUSATE SODIUM 100 MG CAPSULE PO SCH (10:12)
[2019-09-17] MEDS: MULTIVIT,THER IRON,CA,FA & MIN 1 TABLET PO SCH (10:12)
[2019-09-17] MEDS: FOLIC ACID 1 MG TABLET PO SCH (10:12)
[2019-09-17] MEDS: MUPIROCIN OINT 2% 22GM TOPICAL SCH ×2 (10:12→14:22)
[2019-09-17] MEDS: SALMETEROL XINAFOATE 1 PUFF INHALER INH SCH (10:12)
[2019-09-17] MEDS: FLUTICASONE HFA 220MCG INHALER INH SCH (10:12)
[2019-09-17] MEDS: ASCORBIC ACID 500 MG TABLET PO SCH (10:13)
[2019-09-17] MEDS: VITAMIN D3 400 UNIT TABLET PO SCH (10:13)
[2019-09-17] MEDS: RIFAXIMIN 550 MG TABLET PO SCH (10:13)
--- NOTE | 2019-09-17 11:06 | Discharge Summary ---
Medical - DS: Prov Patient information: Note initiated : 09/17/19 at 11:04 am Service Date, if different from initiated Date: [] Patient: Clare Sheehan a 69 y/o F admitted on 09/05/19 for altered level consciousness. Chief Complaint: [] Refer to H&P by Leobardo Conway M.D. on 09/06/19 Ms. 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 Symptoms have been progressing over the last couple of days and patient unable to think clearly. She c/o 7/10 abdominal pain and was noted to have a fever. Over the last couple of days she has not been able to function and essentially laying on the bed. Initial work-up in the ER was consistent with severe sepsis along with findings suggestive of SBP and basilar pneumonia on imaging. Blood cultures pending, elevated lactate at 3.3. Creatinine 1.7 up from baseline 1.3. Patient underwent 6 L paracentesis results of which are awaited. Subsequently hospitalist service consulted after patient received antibiotics At the time evaluation patient is very lethargic and fatigued. Unable to provide a detailed history. Endorses to symptoms as above including fever abdominal pain and weakness. No family members present. Most of the history was obtained from review of medical records and from ER physician. Date of admission: 09/06/19 09:02 Discharge date: 09/17/19 Primary care physician: Kaushik Anderson Admitting clinician: Leobardo Conway Attending physician on admission: Leobardo Conway Consults: 09/06/19 07:50 Consult to Physician [CONS] Routine Comment: Consulting Provider: Leobardo Conway Reason For Exam: Physician to Consult 09/07/19 09:10 Consult to Physician [CONS] Routine Comment: Consulting Provider: Poncho Serrano Reason For Exam: Physician to Consult Attending physician on discharge: Manjula Spence Discharging clinician: Manjula Spence Medical - DS: Meds - Discharge Medications Active and Home Medications: Home Medications albuterol sulfate 90 mcg/actuation aerosol inhaler 1 puff INHALATION Q4H PRN g 10/28/18 [History Confirmed 09/06/19 Last Taken Unknown] ascorbic acid (vitamin C) 1 each PO QDAY 10/28/18 [History Confirmed 09/06/19 Last Taken Unknown] baclofen 10 mg tablet 10 mg PO TID 10/28/18 [History Confirmed 09/05/19 Last Taken Unknown] fluticasone propionate 220 mcg/actuation HFA aerosol inhaler 2 puff INHALATION BID g 10/28/18 [History Confirmed 09/05/19 Last Taken Unknown] furosemide 40 mg tablet 80 mg PO QDAY 10/28/18 [History Confirmed 09/05/19 Last Taken Unknown] glipizide 10 mg tablet, extended release 24 hr 10 mg PO QDAY 10/28/18 [History Confirmed 09/05/19 Last Taken Unknown] hydromorphone 4 mg tablet 4 - 8 mg PO Q6H PRN 10/28/18 [History Confirmed 09/05/19 Last Taken 02/26/19] ipratropium-albuterol 0.5 mg-3 mg(2.5 mg base)/3 mL nebulization soln 3 ml INHALATION .COMPLEX PRN 10/28/18 [History Confirmed 09/06/19 Last Taken Unknown] multivitamin 1 tab PO QAM 10/28/18 [History Confirmed 09/06/19 Last Taken Unknown] mupirocin 2 % topical ointment 1 applic TOPICAL TID 10/28/18 [History Confirmed 09/05/19 Last Taken Unknown] ondansetron 4 mg disintegrating tablet 4 mg PO Q4H PRN tab 10/28/18 [History Confirmed 09/05/19 Last Taken Unknown] salmeterol 50 mcg/dose blister powder for inhalation 1 inh INHALATION BID 10/28/18 [History Confirmed 09/05/19 Last Taken Unknown] spironolactone 100 mg tablet 100 mg PO BID tab 10/28/18 [History Confirmed 09/05/19 Last Taken Unknown] lactulose 10 gram/15 mL oral solution 30 g PO BID 11/26/18 [History Confirmed 09/05/19 Last Taken Unknown] levothyroxine 100 mcg tablet 125 mcg PO QDAY 11/26/18 [History Confirmed 09/05/19 Last Taken Unknown] cholecalciferol (vitamin D3) 400 each PO QDAY 12/17/18 [History Confirmed 09/06/19 Last Taken Unknown] Triamcinolone Cream 0.1% 15G [Kenalog Crm 0.1%] 1 dose TOPICAL BID #1 tube 01/28/19 [Rx Confirmed 09/05/19 Last Taken Unknown] gabapentin 300 mg capsule 300 mg PO TID cap 03/17/19 [History Confirmed 09/05/19 Last Taken Unknown] Omeprazole [Prilosec] 20 mg PO DAILY 09/05/19 [History Confirmed 09/05/19 Last Taken Unknown] fentaNYL [Fentanyl] 50 mcg TRANSDERMAL Q3D 09/05/19 [History Confirmed 09/05/19 Last Taken Unknown] hydrOXYzine PAMOATE [Vistaril] 100 mg PO BID PRN 09/05/19 [History Confirmed 09/05/19 Last Taken Unknown] Medical - DS: Hosp Hospital Course: As per Ms. 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 In the hospital, she was found to have streptococcus pneumonia bacteremia, spontaneous bacterial peritonitis, bilateral lower lobe pneumonia, acute on chronic kidney disease and other medical problems. She was treated with paracentesis, antibiotics and other supportive treatment. But Patient intermittently refusing treatment. As per Dr. Umana, on 09/16/2019 pt was alert oriented having respiratory discomfort. Dr. Umana discussed with the patient on 09/16/2019. "Patient does not want any active interventions or active treatment she wants to be comfortable this really reiterated again. Discussed with the family and plan is to get the hospice on board and discharge her home and patient wants to be comfortable at home. Patient denied going to any rehab facilities as well as the family. We will start her on morphine sublingual 2.5 for discomfort. I encouraged the patient to use lactulose." The typewriter assembly and parts inspector, RN and employment evaluator/case manager discussed with pt and daughter in pt's room this morning. Both patient and daughter agreed with comfort care only and the goal is to keep pt as comfortable as a possible. Discussed patient and daughter what medications they want to continue. They would like to continue the medications for comfort care only. But they want to continue lactulose. They also understood that narcotics can suppress respiration and mental status. Hospice care at home has been arranged by employment evaluator/case manager/pediatric social worker. Patient will be discharging to home for hospice care. Patient can follow with PCP as needed. Discharge diagnosis: hepatic encephalopathy, End-stage liver disease, Streptococcal pneumonia ba Reason for admission: mental status change Pertinent studies/significant findings: refer to hospital course - Time Spent with Patient Total time spent providing and/or coordinating discharge services: Greater than 30 minutes Medical - DS: Exam - Constitutional Vitals: Vital Signs Resp 09/17/19 08:00 16 Intake and Output 09/16/19 09/17/19 09/17/19 21:59 05:59 13:59 Intake Total 760 360 Output Total 450 400 Balance 310 -40 Intake: Oral 760 360 Output: Urine Catheter Amount 450 400 Other: Urine Appearance Clear Cloudy Sediment Uretheral (Bundy) Clear Urine Color Pale Dark Yellow Straw Uretheral (Bundy) Dark Yellow Urine Odor Normal Strong Uretheral (Bundy) Normal General appearance: cooperative, mild distress - Head Head exam: Present: atraumatic, normocephalic - Eye Eye exam: Present: EOMI, PERRL, scleral icterus - Neck Neck exam: Present: normal inspection - Respiratory Respiratory exam: Present: decreased breath sounds, rales, rhonchi - Cardiovascular Cardiovascular exam: Present: normal rate and rhythm - GI/Abdominal GI/Abdominal exam: Present: distended, guarding, tenderness - Extremities Exam Extremities exam: Present: Krishan's sign (Negative) - Neurological Exam Neurological exam: Present: alert, oriented X3 (No focal neurological deficits) - Psychiatric Psychiatric exam: Present: normal affect Medical - DS: A/P - Patient/Caregiver Discharge Instructions Diet: Regular Diet Prescriptions: Acetaminophen [Tylenol] 325 mg ND Q6HP PRN #20 supp.rect PRN Reason: Fever >102 - Problem Maintenance (1) Altered mental status Status: Acute Qualifiers: Altered mental status type: unspecified Qualified Code(s): R41.82 - Altered mental status, unspecified (2) Pneumonia Status: Acute Qualifiers: Pneumonia type: due to unspecified organism Laterality: bilateral Lung location: lower lobe of lung Qualified Code(s): J18.9 - Pneumonia, unspecified organism (3) Hypoxia Status: Acute (4) Ascites Status: Acute Qualifiers: Ascites type: other type Qualified Code(s): R18.8 - Other ascites (5) Abdominal pain Status: Acute Qualifiers: Abdominal location: generalized Qualified Code(s): R10.84 - Generalized abdominal pain (6) Acute alteration in mental status Status: Acute (7) Cirrhosis of liver Status: Chronic (8) DMII (diabetes mellitus, type 2) Status: Chronic - Follow up Plan Follow up with: Kaushik Anderson MD [Primary Care Provider] - Disposition: Hospice - Home Care Plan Goals: Hospice care Plan of Treatment: Hospice Assessment: Hospice Prognosis: Serious Rehab Potential: Critical I certify that the patient requires SNF services: No Overall status at discharge: other (Hospice care)
[2019-09-17] MEDS ORDERED: LACTULOSE 20 GM/30 ML ORAL.SOL PO SCH (11:13)
== END 2019-09-17 18:14 | disposition hospice, home (50) | DRG 871 ==
LOC: ED 05:08 → ICU 09:00 → MEDSUR 09-13 06:40 → ICU 09-13 09:27 → MEDSUR 09-15 16:46
PROVIDERS: ADMIT Internal Medicine; ATTEND Internal Medicine